=== PATIENT | female | born 2000 | race African-American/Black ===

== ENCOUNTER 2022-12-26 15:19 | Emergency (ER) | payer SELFPAY ==
[2022-12-26 15:21] VITALS: BP 142/96; PULSE 83; RESP 16; TEMP 36.3; O2SAT 100; BMI 33.2
--- NOTE | 2022-12-26 15:29 | US_ITS ---
INDICATION: pelvic pain EXAMINATION: Ultrasound US Transvaginal Non-OB TECHNIQUE: Transvaginal (for optimal evaluation of the adnexa) pelvic ultrasound was performed. Grayscale, spectral waveform, and color flow Doppler evaluation of the adnexa. COMPARISON: None. FINDINGS: UTERUS: Anteverted. The uterus measures 7.3 x 4.0 x 2.8 cm. There is no uterine mass. The endometrial stripe measures 2 mm in AP diameter which is within normal limits. There is an IUD in place. RIGHT OVARY: 3.7 x 1.2 x 1.4 cm. Non-enlarged, normal echogenicity. There is normal arterial inflow and venous outflow present in the right ovary. LEFT OVARY: 3.1 x 2.3 x 2.0 cm. Non-enlarged, normal echogenicity. There is normal arterial inflow and venous outflow present in the left ovary. FREE FLUID: Mild. Distended urinary bladder with possible debris. US/Transvaginal Non- IMPRESSION: IUD in place. Mild pelvic fluid. There is debris suspected in the urinary bladder. Infectious etiology cannot be excluded. Electronically Signed: Juan Salcedo DO at 17:11 EDT Reading Location ID and State: [facility] / [place] Tel [phone], Service support ,
--- NOTE | 2022-12-26 15:31 | ED.VIS.FEGU ---
HPI HPI - Female History of Present Illness Chief Complaint: Vag Bleeding Detail of Chief Complaint: Pelvic pain Informant: patient Pain Pain: Positive for Pelvic Pain Onset: Days Context: Gradual Onset Timing: Intermittent Quality: Positive for Cramping Current Severity: Mild Maximum Severity: Mild Bleeding Issue: Positive for Vaginal bleeding Onset: Days Context: Gradual Onset Timing: Intermittent Current Severity: Similar to period Maximum Severity: Similar to period Associated Symptoms Associated Symptoms: Negative for Dysuria, Frequency or Urgency P: 1 Ab: 1 Narrative Narrative: 22-year-old female from [place] moved to [place] currently has no local primary care physicians. Has a history of asthma. States she has had lower abdominal pelvic cramping for about a week. Started having vaginal bleeding has gotten heavier last 2 days similar to her menstrual period. Denies any dysuria or fever. Her last menstrual period was 11/30/2022 and only lasted 2 days. She does have an IUD in place. Denies any discharge. Patient's Ab1 with that being elective. Prior similar symptoms: Yes Recent Illness/Hospitalization: No PFSH PFSH Medical History (Updated 12/26/22 @ 17:[address] Ash Sim MD) Asthma Allergy/AdvReac Type Severity Reaction Status Date / Time No Known Allergies Allergy Verified 12/26/22 15:21 Family History (Updated 12/26/22 @ 15:37 by Marisa Ugarte) Father Diabetes Hypertension Mother Hypertension Surgical History no surgical history Social History Smoking Status: Never smoker ROS ROS ED ROS Narrative Pelvic pain. Vaginal bleeding. Review of Systems ROS Unobtainable: Denies due to encephalopathy Constitutional Constitutional ED: Denies chills or fever(s) Eyes Eyes: Denies blurry vision ENT ENT ED: Denies ear pain Cardiovascular Cardiovascular: Denies chest pain Respiratory/Chest Respiratory/Chest: Denies cough Gastrointestinal Gastrointestinal: Reports abdominal pain and other Details: Lower abdominal/pelvic pain. Genitourinary Genitourinary ED: Denies dysuria Musculoskeletal Musculoskeletal: Denies arthralgias Integumentary Denies abscess Neurologic Neurologic: Denies headache(s) Psychiatric Psychiatric: Denies anxiety Endocrine Endocrinology: Denies heat intolerance Hematologic/Lymphatic Hematologic/Lymphatic: Denies easy bleeding Allergic/Immunologic Allergic/Immunologic ED: Denies mouth swelling or tongue swelling EXAM Physical Exam Narrative Exam Narrative: Well-appearing 22-year-old female. Vital signs stable afebrile. H EENT exam unremarkable. Lungs clear. Heart regular rhythm rate about 80 no murmur. Abdomen soft nondistended normal bowel sounds no peritoneal signs. Minimal suprapubic tenderness. No right upper or right lower quadrant tenderness. No Abdullahi sign or McBurney's point tenderness. No distention. Back nontender. Moving all 4 extremities. Nontender no edema. Neurologically awake and alert with no focal motor deficits. Const Vital Signs: 12/26/22 15:21 Temperature 97.3 F L Temperature Source Temporal Pulse Rate 83 Respiratory Rate 16 Blood Pressure 142/96 H Blood Pressure Mean 111 Pulse Ox 100 Oxygen Delivery Method Room Air Positive well nourished and well developed; Negative for cachectic, contractures or unkempt General Appearance ED: well developed; Negative for unkempt, cachectic, contractures or pallor Nutritional Appearance: Negative for cachectic HEENT Reports moist mucous membranes Negative for trauma or tenderness Eyes PERRL and EOMs intact bilaterally General Eye ED: Negative for pale conjunctiva or scleral icterus Neck no lymphadenopathy, supple and no JVD General: Negative for other Thyroid: Negative for tender Lymph Lymphatic: Negative for other Chest Wall inspection of chest normal and palpation of chest normal Chest: Negative for other Resp normal respiratory effort and clear to auscultation bilaterally Effort and Inspection: Negative for pain with movement Auscultation: Negative for rales, rhonchi or wheezes Cardio regular rate, regular rhythm, S1 normal heart sound, no murmurs and no JVD Rate: Negative for bradycardia Rhythm: Negative for abnormal rhythm GI normal to inspection, nondistended, normoactive bowel sounds, soft to palpation, non-distended and no masses; Negative for non-tender GI Narrative: Mild suprapubic discomfort only. No peritoneal signs. Auscultation: normoactive bowel sounds Palpation: tender; Negative for guarding, rigid, hepatomegaly, splenomegaly, mass or other Back/Spine no CVA tenderness General Back: Negative for CVA tenderness Cervical Spine: Negative for cervical spine tenderness Thoracic Spine / Upper Back: Negative for thoracic spinal tenderness Lumbar Spine / Lower Back: Negative for lumbar spinal tenderness Sacrum: Negative for other Extremity normal to inspection and full ROM General Extremety ED: Negative for edema or tenderness General Extremity: Negative for edema Neuro oriented x3 and CN's II-XII intact bilaterally Sensorium / Orientation: alert, oriented to person, oriented to place and oriented to time; Negative for confused, lethargic or stuporous Motor Exam: strength 5/5 throughout Psych mental status grossly normal Appearance: Negative for unkempt Attitude: No agitated Speech: No other Mood & Affect: Negative for depressed, anxious or tearful Skin no rashes or lesions noted and no wounds General Skin Exam: Negative for jaundice or pallor Rashes: No rashes noted Trauma: Negative for other MDM MDM MDM Narrative Medical decision making narrative: 22-year-old female with vaginal bleeding and pelvic pain. CBC, UA and test to be obtained. This may just be a heavier menstrual period with cramping. 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 Rule out and/or ectopic. Rule UTI. Pelvic ultrasound will be obtained possible cyst versus other etiologies. Repeat exam patient is doing well at 5:45 PM. Abdomen is benign. We discussed her test results. She will be discharged home follow-up with local APPRENTICESHIP TRAINING REPRESENTATIVE. The OB on-call is Dr[facility] Bow[facility]. I did offer a pelvic exam to the patient and she preferred to wait till she saw a female mill representative. Patient will use Motrin Tylenol for pain. Return if increasing pain, fever or feeling worse. She understands we do not have a specific cause for her discomfort at this time. A urine culture will be sent but the initial urinalysis does not show any significant signs of infection. History & Record Review Discussion w/independent historian: Patient Lab Data Attestation: I reviewed the patient's lab results. Lab results narrative: CBC unremarkable. White count of 6. H&H 12.7 and 40. Platelets 319. Urinalysis negative. No nitrates. Serum test negative. Ultrasound showed no acute findings. Labs: Laboratory Results - last 24 hr 12/26/22 12/26/22 12/26/22 15:40 15:40 15:44 WBC 6.7 RBC 4.70 Hgb 12.7 Hct 40.9 MCV 87.0 MCH 27.0 MCHC 31.1 L RDW Std Deviation 44.0 H RDW Coeff of Alethea 13.6 Plt Count 319 MPV 9.0 Immature Gran % (Auto) 0.300 Neut % (Auto) 57.1 Lymph % (Auto) 28.1 [place] % (Auto) 6.7 Eos % (Auto) 7.5 H Baso % (Auto) 0.3 Absolute Neuts (auto) 3.8 Absolute Lymphs (auto) 1.88 Nucleated RBC % 0 Serum , Qual NEGATIVE Urine Color Yellow Urine Clarity Clear Urine pH 8.0 Ur Specific [place] 1.015 Urine Protein Negative Urine Glucose (UA) Normal Urine Ketones Negative Urine Occult Blood 150 H Urine Nitrite Negative Urine Bilirubin Negative Urine Urobilinogen Normal Ur Leukocyte Esterase Negative Urine RBC 0-5 SEEN Urine WBC 0 SEEN Ur Squamous Epith Cells 0-5 SEEN Urine Bacteria 1+ Urine Mucus 0 SEEN Radiography Diagnostic Testing: Clinical Impression(s) from Imaging Studies Transvaginal US 12/26/22 15:29 IMPRESSION: IUD in place. Mild pelvic fluid. There is debris suspected in the urinary bladder. Infectious etiology cannot be excluded. Electronically Signed: Juan Salcedo DO at 17:11 EDT Reading Location ID and State: [address] [place] [address] Tel [phone], Service support , Discharge Plan Triage Chief Complaint: Vag Bleeding Other Complaint: Abd Pain ED Provider: Ash Sim Dx/Rx/DC Orders Clinical Impression: Pelvic pain, Vaginal bleeding Instructions: ED Pelvic Pain, Unknown Cause Primary Care Provider: Care Physician,No Primary Referrals: Tru Bowman MD [Med Staff - Active Staff] - As soon as possible NOT,DEFINED [Non-Staff] - Activity Restrictions/Additional Instructions: Call the office of the APPRENTICESHIP TRAINING REPRESENTATIVE, Dr. Bowman, tomorrow to get an appointment to be reevaluated. Motrin and Tylenol for pain. Return if increasing pain, fever or much heavier bleeding. Your labs and ultrasound today did not show any specific cause for your discomfort. Disposition Disposition: Home, Self Care
[2022-12-26 15:51] LABS: Mucous, Urine 0 SEEN /hpf (<or=2+); White Blood Cells 0 SEEN /hpf (0-5)
[2022-12-26 15:51] LABS: Absolute Lymphocyte Count 1.88 X10^3/uL (0.83-4.51); Absolute Neutrophil Count 3.8 X10^3/uL (2.0-7.7); Basophil# 0.02 X10^3/uL; Basophil% 0.3 % (0-1); Eosinophils% 7.5 % (0-5); Hematocrit 40.9 % (37-47); Hemoglobin 12.7 g/dL (12.0-15.0); Lymphocyte # 1.88 X10^3/ul (0.83-4.51); Lymphocyte % 28.1 % (19-41); Mean Corp Hgb Conc 31.1 g/dL (32-36); Monocyte# 0.45 X10^3/uL; Monocyte% 6.7 % (0-10); NRBC Flagged by Analyzer 0 % (0-5); Neutrophil # 3.82 X10^3/uL (2.7-7.7); Neutrophil % 57.1 % (47-70); Platelet Count 319 K/mm3 (150-450); RBC Distribution Width CV 13.6 % (11.6-14.6); White Blood Count 6.7 K/mm3 (4.4-11.0)
[2022-12-26 15:52] LABS: Color, Urine Yellow (Yellow); Glucose, Dipstick Normal (Normal); Ketone-Dipstick Negative (Negative); Leukocyte Esterase-Dipstick Negative /ul (Negative); Nitrite-Dipstick Negative (Negative); Occult Blood-Urine 150 /ul (Negative); Protein-Dipstick Negative (Negative); Specific Gravity, Urine 1.015 (1.002-1.030); Urine Bilirubin Dipstick Negative (Negative); Urine Clarity Clear (Clear); Urine Urobilinogen Normal (Normal)
[2022-12-26 16:25] LABS: Bacteria 1+ /hpf (None Seen); Red Blood Cells-Urine 0-5 SEEN /hpf (0-5); Squamous Epithelial Cells - UA 0-5 SEEN /hpf (5-10)
[2022-12-26 16:37] LABS: Internal QC Validated? YES +Cl - CLEAR BKGD; Pregnancy, Serum, hCG Quali. NEGATIVE Negative
== END 2022-12-26 17:54 | disposition home or self-care (01) ==
PROVIDERS: Emergency Provider Emergency Medicine; Visit Provider Emergency Medicine
DX: N93.9 Abnormal uterine and vaginal bleeding, unspecified (principal); R10.2 Pelvic and perineal pain; Z79.3 Long term (current) use of hormonal contraceptives
CPT/HCPCS: 76830; 81001; 84703; 85025; 87077; 87086; 87088; 87186; 93976; 99283

== ENCOUNTER 2023-03-04 09:36 | Emergency (ER) | payer SELFPAY ==
[2023-03-04 09:38] VITALS: BP 137/98; PULSE 151; RESP 18; TEMP 37.4; O2SAT 98; BMI 30.9
--- NOTE | 2023-03-04 09:41 | EKG12_ITS ---
Test Reason : PALPITATIONS Blood Pressure : / mmHG Vent. Rate : 126 BPM Atrial Rate : 126 BPM P-R Int : 152 ms QRS Dur : 070 ms QT Int : 298 ms P-R-T Axes : 059 -10 053 degrees QTc Int : 431 ms Sinus tachycardia Septal infarct , age undetermined Inferior infarct , age undetermined Abnormal ECG No previous ECGs available Confirmed by NICOLE NOGUEIRA, PAUL ([id number]), marketing editor MINDY HUGGINS ([id number]) on 04/30/2023 1:42:44 PM Referred By: TELLY/NEEL Confirmed By:PAUL RIVERA MD
--- NOTE | 2023-03-04 09:42 | ED.VIS.CHEST ---
HPI History of Present Illness Chief Complaint: Palpitations [facility] Medical History (Updated 03/04/23 @ 12:[address] Ruben Hernandez, DO) Abdominal pain Asthma Contact with and (suspected) exposure to other viral communicable diseases Home Medications ondansetron 4 mg disintegrating tablet 4 mg PO Q8H PRN nausea and vomiting 5 days #15 tabs 03/04/23 [Rx Last Taken Unknown] sulfamethoxazole 800 mg-trimethoprim 160 mg tablet (Bactrim DS) 1 tab PO BID 7 days #14 tabs 03/04/23 [Rx Last Taken Unknown] Allergy/AdvReac Type Severity Reaction Status Date / Time No Known Allergies Allergy Verified 03/04/23 09:38 Family History Father Diabetes Hypertension Mother Hypertension Social History Smoking Status: Never smoker EXAM Physical Exam Const Vital Signs: 03/04/23 09:38 03/04/23 10:00 03/04/23 12:01 Temperature 99.3 F H Temperature Source Temporal Pulse Rate 151 H 100 Respiratory Rate 18 18 Respiratory Effort Normal Non-Labored Blood Pressure 137/98 H 177/72 H Blood Pressure Mean 111 107 Pulse Ox 98 98 Oxygen Delivery Method Room Air Room Air 03/04/23 12:49 Temperature Temperature Source Pulse Rate 75 Respiratory Rate 14 Respiratory Effort Blood Pressure 119/68 Blood Pressure Mean Pulse Ox 97 Oxygen Delivery Method MDM MDM MDM Narrative Medical decision making narrative: HISTORY OF PRESENT ILLNESS: 22-year-old female here with palpitations. She states she been feeling unwell for the last 2 days. Notes she went to urgent care received a COVID and flu test that she reports is negative. States because her heart was elevated told to come to the emergency department. She denies any diarrhea or excessive urination does note vomiting this morning. Denies any chest pain or shortness of breath. Denies any focal neurologic deficits such as weakness, slurred speech, visual loss. No head trauma recently. She is up-to-date on her COVID and flu vaccination. The patient denies recent surgery in the last 4 weeks or immobilization in the last 3 days, denies previous diagnosis of DVT or PE, hemoptysis, unilateral leg swelling or malignancy with treatment the last 6 months. No estrogen use noted. Patient denies sudden onset or thunderclap headache, denies maximal intensity within 1 minute, vomiting, neck pain or stiffness, changes in vision, fever, history malignancy, syncope, seizures. REVIEW OF SYSTEMS: Pertinent positives: Palpitations, headache, nausea Pertinent negatives: syncope focal weakness PHYSICAL EXAM: Nursing triage notes reviewed, Vital signs reviewed Constitutional: please see mdm HENT: MMM Eyes: Pupils equal round and reactive to light, Extraocular muscles intact Neck: No stridor, no JVD, full neck ROM Lungs: Clear to auscultation, No wheezing or rales. No increased work of breathing, no conversational dyspnea, no accessory muscle use, no nasal flaring. No respiratory distress noted Heart: Regular rate and rhythm, No murmurs, No rubs and No gallops, 2+ distal pulses (radial, femoral, posterior tibial) in all extremities Abdomen: Soft, there is no tenderness, rigidity, rebound or guarding, no obvious peritoneal signs, no palpable pulsatile abdominal masses, no auscultated abdominal bruit : No CVAT Extremities: No edema Neuro: Alert and oriented x3, neuro exam at baseline, cranial nerves II through XII are intact. No pain with extraocular muscle movement. There is negative test of skew. Normal speech. 5 of 5 strength in upper and lower extremities in flexion extension. Intact sensation to light touch in upper and lower extremity dermatomes. No truncal or extremity ataxia. No dysdiadochokinesia. Normal gait. 2+ reflexes. No meningeal signs. Negative Babinski. NIH of 0 Skin: No rash or lesions noted MEDICAL DECISION MAKING: Chief Complaint: Palpitations, headache External records reviewed: Last ED visit in December 2022 for pelvic pain Factors affecting care: none Social determinants of health: none History obtained from others: none Consults: none ALL IMAGES (IF OBTAINED) HAVE BEEN PERSONALLY REVIEWED AND INTERPRETED BY MYSELF. EKG with sinus tachycardia, left axis deviation normal intervals, no STEMI [facility] Narrative: Patient initially tachycardic borderline febrile nontoxic-appearing. Heart lung exam unremarkable. Abdomen soft and nontender neuro no focal neurologic deficits. I considered the following differential diagnosis: ICH, meningitis, pneumonia, UTI, COVID flu, other viral illness, Below suspicion for ICH given lack of focal neurologic deficit, low suspicion for meningitis or encephalitis given lack of meningeal signs, altered mental status or focal neurologic deficit. Patient stated COVID and flu test were negative which rules these diagnoses out. Obtained chest x-ray to rule out pneumonia and a UA to rule out UTI. Gave Zofran and Tylenol for symptomatic control and fluids for rehydration. Patient's tachycardia resolved after this intervention. Patient's EKG showed no evidence of arrhythmia, WPW or ARVD. EKG showed sinus tachycardia. I obtained labs rule out signs of anemia, electrolyte abnormality, dehydration, endorgan hypoperfusion, myocardial ischemia, thyroid dysfunction. Labs without evidence of thyroid dysfunction, myocardial ischemia. Labs with evidence of systemic inflammation as evidence by elevated WBC count. There is no significant acute kidney injury, there is no anion gap to suggest endorgan hypoperfusion, there is no evidence of myocardial ischemia. UA remarkable for evidence of UTI. Will give a dose ceftriaxone here and send urine for culture and give oral antibiotics. The patient and/or family, caregivers express understanding. The patient and/or family, caregivers agrees with the plan. Shared decision making: I will have a discussion with the patient and or visitors regarding risk/benefits of further testing or admission. They will be made aware of of the risk/benefits inherent in this decision they will be given the opportunity to voice understanding. Total critical care time today provided was at least 0 minutes. This excludes separately billable procedures. Critical care time (if documented) is secondary to the patient having high probability of clinically significant/life threatening deterioration in the patient's condition which required my urgent intervention. Lab Data Attestation: I reviewed the patient's lab results. Lab results narrative: CBC with leukocytosis suggestive of systemic inflammation, no anemia or thrombocytopenia BMP with mild hypokalemia, no anion gap to suggest endorgan hypoperfusion, no GELY Troponin is negative, no evidence of myocardial ischemia TSH within normal limits suggestive of no severe thyroid disease UA with evidence of UTI, will send for culture Urine test is negative Labs: Laboratory Results - last 24 hr 03/04/23 03/04/23 09:50 10:20 WBC 15.8 H RBC 4.47 Hgb 12.1 Hct 38.4 MCV 85.9 MCH 27.1 MCHC 31.5 L RDW Std Deviation 43.7 RDW Coeff of Alethea 13.8 Plt Count 315 MPV 9.4 Immature Gran % (Auto) 0.600 Neut % (Auto) 70.1 H Lymph % (Auto) 14.2 L [place] % (Auto) 14.5 H Eos % (Auto) 0.3 Baso % (Auto) 0.3 Absolute Neuts (auto) 11.1 H Absolute Lymphs (auto) 2.24 Nucleated RBC % 0 Differential Comment COMMENT Diff Path Review May foll Sodium 133 L Potassium 3.3 L Chloride 100 Carbon Dioxide 25.0 Anion Gap 8 BUN 6 L Creatinine 0.97 Estim Creat Clear Calc 93.46 Est GFR (MDRD) Af Amer 90 Est GFR (MDRD) Non-Af 75 BUN/Creatinine Ratio 6.2 L Glucose 128 H Calcium 8.9 Troponin I High Sens < 3 L TSH 0.64 Urine Color Yellow Urine Clarity Cloudy Urine pH 6.0 Ur Specific [place] 1.015 Urine Protein 100 H Urine Glucose (UA) Normal Urine Ketones 50 H Urine Occult Blood 150 H Urine Nitrite Positive H Urine Bilirubin 1 H Urine Urobilinogen 1 H Ur Leukocyte Esterase 500 H Urine RBC 0-5 SEEN Urine WBC >100 SEEN Ur Squamous Epith Cells 5-10 SEEN Urine Bacteria 2+ Urine Mucus 0 SEEN Urine Test Negative Radiography Chest X-Ray - ED: Read by ED Physician Diagnostic Testing: Clinical Impression(s) from Imaging Studies Chest X-Ray 03/04/23 11:04 IMPRESSION: Normal x-ray examination of the chest. Electronically Signed: Jd Danielle MD at 12:17 EDT Reading Location ID and State: [facility] / [place] , Service support , I have personally reviewed the patient's chest x-ray. Chest x-ray is unremarkable for pulmonary edema, pneumothorax, pneumonia or focal cardiopulmonary abnormality. Discharge Plan Triage Chief Complaint: Palpitations ED Provider: Ruben Hernandez Dx/Rx/DC Orders Clinical Impression: UTI (urinary tract infection), Fever, Tachycardia Instructions: ED Cystitis Female Adult Prescriptions: New sulfamethoxazole-trimethoprim [Bactrim DS] 800-160 mg tablet 1 tab PO BID 7 Days Qty: 14 0RF ondansetron 4 mg tablet,disintegrating 4 mg PO Q8H PRN (Reason: nausea and vomiting) 5 Days Qty: 15 0RF Primary Care Provider: Care Physician,No Primary Referrals: Care Physician,No Primary [Primary Care Provider] - Activity Restrictions/Additional Instructions: Thank you for trusting us with your care today! Please take Tylenol (2 pills, 650 mg), ibuprofen (2 pills, 400 mg) every 6 hours as needed for pain and fever control. Please take antibiotics until course complete. Please return to the emergency department if your symptoms change or worsen. Specifically develop nausea vomiting and tolerate things by mouth. If you develop worsening palpitations or if you lose consciousness. You develop shortness of breath. Please follow with your primary care physician for further outpatient evaluation and management. Disposition Disposition: Home, Self Care Discharge Date/Time: 03/04/23 13:13
[2023-03-04 10:24] LABS: Absolute Lymphocyte Count 2.24 X10^3/uL (0.83-4.51); Absolute Neutrophil Count 11.1 X10^3/uL (2.0-7.7); Basophil# 0.05 X10^3/uL; Basophil% 0.3 % (0-1); Eosinophil# 0.04 X10^3/uL; Eosinophils% 0.3 % (0-5); Hematocrit 38.4 % (37-47); Hemoglobin 12.1 g/dL (12.0-15.0); Lymphocyte # 2.24 X10^3/ul (0.83-4.51); Lymphocyte % 14.2 % (19-41); Mean Corp Hgb Conc 31.5 g/dL (32-36); Mean Corpuscular Hgb 27.1 pg (27.0-32.0); Mean Corpuscular Volume 85.9 fL (81-99); Mean Platelet Vol. 9.4 fl (6.2-12.0); Monocyte# 2.29 X10^3/uL; Monocyte% 14.5 % (0-10); NRBC Flagged by Analyzer 0 % (0-5); Neutrophil # 11.05 X10^3/uL (2.7-7.7); Neutrophil % 70.1 % (47-70); POSITIVE DIFFERENTIAL YES; Platelet Count 315 K/mm3 (150-450); RBC Distribution Width CV 13.8 % (11.6-14.6); RBC Distribution Width SD 43.7 fl (35.1-43.9); Red Blood Count 4.47 M/mm3 (4.2-5.4); White Blood Count 15.8 K/mm3 (4.4-11.0)
[2023-03-04 10:25] LABS: Differential Indicated SCAN CRITERIA MET
[2023-03-04] MEDS: 0.9% Normal Saline 1,000 ML 999 ML IV (10:27)
[2023-03-04] MEDS: Ondansetron 4 MG/2 ML Vial IV (10:27)
[2023-03-04] MEDS: Acetaminophen 500 MG Tablet 1000 MG PO (10:29)
[2023-03-04 10:32] LABS: Mucous, Urine 0 SEEN /hpf (<or=2+)
[2023-03-04 10:47] LABS: Color, Urine Yellow (Yellow); Glucose, Dipstick Normal (Normal); Ketone-Dipstick 50 mg/dl (Negative); Leukocyte Esterase-Dipstick 500 /ul (Negative); Nitrite-Dipstick Positive (Negative); Occult Blood-Urine 150 /ul (Negative); Protein-Dipstick 100 mg/dl (Negative); Specific Gravity, Urine 1.015 (1.002-1.030); Urine Bilirubin Dipstick 1 mg/dL (Negative); Urine Clarity Cloudy (Clear); Urine Urobilinogen 1 mg/dl (Normal)
[2023-03-04 10:47] LABS: Anion Gap 8 (5-15); BUN 6 mg/dL (7-18); BUN/Creat Ratio 6.2 RATIO (10-20); Calcium,Total 8.9 mg/dL (8.5-10.1); Chloride 100 mmol/L (98-107); Creatinine, Serum 0.97 mg/dL (0.55-1.02); EST Glomerular Filtration Rate 75 mL/min (>60); Est Glom Filt Rate - Afr Amer 90 mL/min (>60); Estimated Creatinine Clearance 93.46 ml/min; Glucose 128 mg/dL (74-106); Potassium 3.3 mmol/L (3.5-5.1); Sodium Level 133 mmol/L (136-145); Thyroid Stim Hormone (TSH) 0.64 uIU/mL (0.358-3.74); Troponin-I HS < 3 pg/mL (3.0-54.0)
[2023-03-04 10:56] LABS: Internal QC Validated? YES +Cl - CLEAR BKGD; Pregnancy, Urine Negative Negative
[2023-03-04 11:01] LABS: Bacteria 2+ /hpf (None Seen); Red Blood Cells-Urine 0-5 SEEN /hpf (0-5); Squamous Epithelial Cells - UA 5-10 SEEN /hpf (5-10); White Blood Cells >100 SEEN /hpf (0-5)
--- NOTE | 2023-03-04 11:04 | RAD_ITS ---
STUDY: X-RAY CHEST REASON FOR EXAM: Female, 22 years old. Palpitations TECHNIQUE: PA and lateral views of the chest. COMPARISON: None. FINDINGS: EKG electrodes are seen. The lungs are clear and expanded. There is no demonstrated pleural abnormality. Normal size heart. Normal mediastinum and carol. Normal visualized pulmonary arteries. Normal visualized aortic arch and descending thoracic aorta. Normal visualized thoracic spine. Normal visualized ribs, clavicles, and shoulders. There is no demonstrated abnormality of the visualized soft tissue structures of the upper abdomen. RAD/Chest PA and Lateral IMPRESSION: Normal x-ray examination of the chest. Electronically Signed: Jd Danielle MD at 12:17 EDT ,
[2023-03-04 12:01] VITALS: BP 177/72; PULSE 100; RESP 18; O2SAT 98
[2023-03-04] MEDS: Ceftriaxone 1 GM/50 ML BAG IV (12:06)
[2023-03-04 12:49] VITALS: BP 119/68; PULSE 75; RESP 14; O2SAT 97
--- NOTE | 2023-03-04 12:50 | CM.ED ---
Social Work SW met with the patient and introduced self and role as [facility] SW. Patient lying on hospital bed and agreeable to speak with SW. SW inquired about insurance coverage and connection to community resources. Patient reports she previous had Medicaid and needs to apply again, no other community resources currently. SW provided and reviewed Medicaid application as well as [facility] resource list to further discuss [facility]. Patient voiced understanding and reports no other needs. SW remains available if needs arise. Elsa Rodgers OPTICS MANUFACTURING TECHNICIAN, RACHID
[2023-03-05 12:32] LABS: Pathologist Review Reviewed
== END 2023-03-04 13:13 | disposition home or self-care (01) ==
PROVIDERS: Emergency Provider Emergency Medicine; Visit Provider Emergency Medicine
DX: N39.0 Urinary tract infection, site not specified (principal); R00.0 Tachycardia, unspecified; R50.9 Fever, unspecified
CPT/HCPCS: 71046; 80048; 81001; 81025; 84443; 84484; 85025; 87077; 87086; 87088; 87186; 93005; 96361; 96365; 96375; 99284; J7030; J7050; A4216; J2405

== ENCOUNTER 2023-06-10 17:29 | Emergency (ER) | payer SELFPAY ==
[2023-06-10 17:30] VITALS: BP 159/99; PULSE 110; RESP 18; TEMP 36.9; O2SAT 98; BMI 31.6
--- NOTE | 2023-06-10 17:56 | RAD_ITS ---
STUDY: X-RAY CHEST REASON FOR EXAM: Female, 23 years old. Chest pain TECHNIQUE: Single AP portable view of the chest. COMPARISON: March 04, 2023 FINDINGS: The lungs are clear and expanded. There is no demonstrated pleural abnormality. Normal size heart. Normal mediastinum and carol. Normal visualized pulmonary arteries. Normal visualized aortic arch and descending thoracic aorta. Normal visualized thoracic spine. Normal visualized ribs, clavicles, and shoulders. There is no demonstrated abnormality of the visualized soft tissue structures of the upper abdomen. RAD/Chest 1 View (Portable) IMPRESSION: Normal x-ray examination of the chest. Electronically Signed: Gaurang Farley MD at 18:20 [facility] ,
[2023-06-10 18:30] VITALS: BP 140/124; PULSE 93; RESP 16; O2SAT 98
[2023-06-10 18:31] LABS: Absolute Lymphocyte Count 2.21 X10^3/uL (0.83-4.51); Absolute Neutrophil Count 4.6 X10^3/uL (2.0-7.7); Basophil# 0.04 X10^3/uL; Basophil% 0.5 % (0-1); Eosinophil# 0.47 X10^3/uL; Eosinophils% 5.9 % (0-5); Hematocrit 41.1 % (37-47); Hemoglobin 12.9 g/dL (12.0-15.0); Lymphocyte # 2.21 X10^3/ul (0.83-4.51); Lymphocyte % 27.8 % (19-41); Mean Corp Hgb Conc 31.4 g/dL (32-36); Monocyte# 0.56 X10^3/uL; Monocyte% 7.1 % (0-10); NRBC Flagged by Analyzer 0 % (0-5); Neutrophil # 4.64 X10^3/uL (2.7-7.7); Neutrophil % 58.4 % (47-70); Platelet Count 370 K/mm3 (150-450); RBC Distribution Width CV 12.8 % (11.6-14.6); RBC Distribution Width SD 40.2 fl (35.1-43.9); Red Blood Count 4.78 M/mm3 (4.2-5.4); White Blood Count 7.9 K/mm3 (4.4-11.0)
[2023-06-10 18:49] LABS: Anion Gap 5 (5-15); BUN 11 mg/dL (7-18); BUN/Creat Ratio 12.5 RATIO (10-20); Calcium,Total 9.5 mg/dL (8.5-10.1); Chloride 103 mmol/L (98-107); Creatinine, Serum 0.88 mg/dL (0.55-1.02); EST Glomerular Filtration Rate 83 mL/min (>60); Est Glom Filt Rate - Afr Amer 101 mL/min (>60); Estimated Creatinine Clearance 102.13 ml/min; Glucose 101 mg/dL (74-106); Potassium 3.3 mmol/L (3.5-5.1); Sodium Level 137 mmol/L (136-145); Troponin-I HS (w/2H Reflex) 4 pg/mL (3.0-54.0)
--- NOTE | 2023-06-10 19:27 | EDS_ITS ---
HPI History of Present Illness Chief Complaint: Chest Pain Informant: patient Onset/Context/Timing Onset: Weeks Activity at onset: gradual Timing: Intermittent Quality: Positive for Sharp Location: Substernal Worsened By: Movement of Torso Relieved By: Nothing Associated Symptoms: Positive for Nausea, Vomiting and Palpitations; Negative for Diaphoresis, Dyspnea, Cough, Fever, Lightheadedness or Acid Reflux Narrative Narrative: Patient presents with chest pain that has been intermittent for the past week. Patient states it comes on gradually. Patient describes her pain as sharp. Patient states it is over the substernal area. Patient states it is worse with movement. Patient states nothing seems to help with it. Patient admits to some nausea and vomiting. Patient also admits to some palpitations where she feels like her heart is racing. Patient denies any fevers or chills. Patient denies any lightheadedness or dizziness. Patient denies any shortness of breath or cough. CVD Risk Factors: Negative for Hypertension, Diabetes, Hypercholesterolemia, Family History 1' </=55 or Smoking PE Risk Factors: Negative for Recent Travel/Surgery, Recent Immobilization, Prior DVT or PE, Cancer or OCP + Smoking + >/=35 PFSH PFSH Medical History Abdominal pain Asthma Contact with and (suspected) exposure to other viral communicable diseases Home Medications ondansetron 4 mg disintegrating tablet 4 mg PO Q8H PRN nausea and vomiting 5 days #15 tabs 03/04/23 [Rx Last Taken Unknown] Allergy/AdvReac Type Severity Reaction Status Date / Time No Known Allergies Allergy Verified 06/10/23 17:30 Family History Father Diabetes Hypertension Mother Hypertension Surgical History no surgical history no surgical history Social History Smoking Status: Never smoker alcohol intake: never ROS ROS ED Constitutional Constitutional ED: Denies chills or fever(s) Eyes Eyes: Denies blurry vision or change in vision ENT ENT ED: Denies rhinorrhea or sore throat Cardiovascular Cardiovascular: Reports chest pain, palpitations and racing heartbeat Respiratory/Chest Respiratory/Chest: Denies cough or dyspnea Gastrointestinal Gastrointestinal: Reports nausea and vomiting Genitourinary Genitourinary ED: Denies dysuria or hematuria Musculoskeletal Musculoskeletal: Reports back pain; Denies neck pain Integumentary Denies abscess or rash Neurologic Neurologic: Denies headache(s) or weakness Allergic/Immunologic Allergic/Immunologic ED: Denies mouth swelling or urticaria EXAM Physical Exam Const Vital Signs: 06/10/23 17:30 06/10/23 18:30 06/10/23 18:30 Temperature 98.4 F Temperature Source Temporal Pulse Rate 110 H 93 Respiratory Rate 18 16 Respiratory Effort Blood Pressure 159/99 H 140/124 H Blood Pressure Mean 119 129 Pulse Ox 98 98 98 Oxygen Delivery Method Room Air Room Air Room Air 06/10/23 18:30 06/10/23 19:28 06/10/23 20:17 Temperature Temperature Source Pulse Rate 92 90 Respiratory Rate 20 H 22 H Respiratory Effort Normal Blood Pressure 115/102 H Blood Pressure Mean 106 Pulse Ox Oxygen Delivery Method Room Air Positive well nourished, well developed and obese General Appearance ED: well developed and NAD Nutritional Appearance: obese HEENT Reports moist mucous membranes Neck supple and no JVD Resp normal respiratory effort and clear to auscultation bilaterally Cardio regular rate and regular rhythm GI soft to palpation, non-tender and non-distended Extremity normal to inspection General Extremety ED: Negative for edema or tenderness General Extremity: Negative for edema Neuro oriented x3, CN's II-XII intact bilaterally and no sensory deficits noted Sensorium / Orientation: awake and alert Motor Exam: strength 5/5 throughout Psych mental status grossly normal Heart Score History: Slightly/Non-Suspicious ECG: Normal Age: </= 45 years Risk Factors: No Risk Factors Troponin: </= Normal Limit Score: 0 MDM MDM MDM Narrative Medical decision making narrative: Differential diagnosis includes musculoskeletal pain, GERD, cardiac dysrhythmia, cardiac ischemia, electrolyte abnormality, pneumonia, and pneumothorax. Patient has a Wells score of 0 and has no PE risk factors. Therefore, I do not feel this is from a pulmonary embolism. EKG will be obtained to assess for cardiac dysrhythmia and cardiac ischemia. Chest x-ray will be obtained to assess for pneumonia and pneumothorax. CBC will be obtained to assess for leukocytosis and anemia. Basic metabolic profile will be obtained to assess for electrolyte abnormality and renal function. High-sensitivity troponin will be obtained to assess for cardiac ischemia. Lab Data Attestation: I reviewed the patient's lab results. Lab results narrative: CBC was reviewed and was within normal limits. Basic metabolic profile was reviewed and was within normal limits. High-sensitivity troponin was reviewed and was normal at 4. Labs: Laboratory Results - last 24 hr 06/10/23 18:20 WBC 7.9 RBC 4.78 Hgb 12.9 Hct 41.1 MCV 86.0 MCH 27.0 MCHC 31.4 L RDW Std Deviation 40.2 RDW Coeff of Alethea 12.8 Plt Count 370 MPV 9.0 Immature Gran % (Auto) 0.300 Neut % (Auto) 58.4 Lymph % (Auto) 27.8 [place] % (Auto) 7.1 Eos % (Auto) 5.9 H Baso % (Auto) 0.5 Absolute Neuts (auto) 4.6 Absolute Lymphs (auto) 2.21 Nucleated RBC % 0 Sodium 137 Potassium 3.3 L Chloride 103 Carbon Dioxide 29.0 Anion Gap 5 BUN 11 Creatinine 0.88 Estim Creat Clear Calc 102.13 Est GFR (MDRD) Af Amer 101 Est GFR (MDRD) Non-Af 83 BUN/Creatinine Ratio 12.5 Glucose 101 Calcium 9.5 Troponin I High Sens 4 Radiography Diagnostic Testing: Clinical Impression(s) from Imaging Studies Chest X-Ray 06/10/23 17:56 IMPRESSION: Normal x-ray examination of the chest. Electronically Signed: Gaurang Farley MD at 18:20 EST , Chest x-ray was obtained. On my independent interpretation, there is no acute cardiopulmonary process. There is no acute infiltrate noted. Bony thorax is normal. There is no cardiomegaly noted. Radiologist also interpreted the x- rays and agrees. EKG Initial EKG: Attestation: I personally reviewed and interpreted this EKG as follows: Interpretation: Sinus Rhythm (100) and No Acute Injury Pattern Comments: EKG was obtained. On my independent interpretation, shows normal sinus rhythm with a rate of 100. VA interval was normal. QRS interval was normal. QTc interval was normal. This was borderline left axis deviation at -16. There are no acute ST or T wave changes. There are no changes compared to previous EKG. Prior EKG tracings: available for review Prior: Unchanged (03/04/2023) Treatment and Re-Evaluation :: Patient was advised of her findings. Patient has a HEART score of 0. Patient was advised that this is low risk for acute cardiac event. Patient was instructed to follow-up with her primary care physician in 5 to 7 days for further evaluation. Patient understood and was agreeable with the plan. All questions were answered. Discharge Plan Triage Chief Complaint: Chest Pain ED Provider: Alireza Montalvo Dx/Rx/DC Orders Clinical Impression: Chest pain, History of asthma Instructions: ED Chest Pain, Uncertain Cause Prescriptions: No Action ondansetron 4 mg tablet,disintegrating 4 mg PO Q8H PRN (Reason: nausea and vomiting) 5 Days Qty: 15 0RF Primary Care Provider: Care Physician,No Primary Referrals: Jj Mathis MD [Med Staff - Social Media Specialist] - 5-7 Days Care Physician,No Primary [Primary Care Provider] - Disposition Disposition: Home, Self Care
[2023-06-10 19:28] VITALS: BP 115/102; PULSE 92; RESP 20
[2023-06-10 20:17] VITALS: PULSE 90; RESP 22
[2023-06-10 20:29] LABS: Reflex Troponin-HS? (from REC) Y
[2023-06-10 20:56] VITALS: BP 124/89; PULSE 90; RESP 22; O2SAT 97
[2023-06-10 20:57] LABS: Troponin-I HS 4 pg/mL (3.0-54.0)
== END 2023-06-10 20:57 | disposition home or self-care (01) ==
PROVIDERS: Emergency Provider Emergency Medicine; Visit Provider Emergency Medicine
DX: R07.9 Chest pain, unspecified (principal); Z87.09 Personal history of other diseases of the respiratory system
CPT/HCPCS: 71045; 80048; 84484; 85025; 93005; 99284; A4216

== ENCOUNTER 2023-07-03 09:54 | Emergency (ER) | payer SELFPAY ==
[2023-07-03 09:55] VITALS: BP 117/106; PULSE 144; RESP 16; TEMP 36.6; O2SAT 100; BMI 31.2
--- NOTE | 2023-07-03 10:19 | EX.ED.VIS.PS ---
HPI HPI - Psych History of Present Illness Chief Complaint: Suicidal Detail of Chief Complaint: Attempted overdose. Informant: patient Onset/Context/Timing Onset: Today and Hours Context: Sudden Onset Conflict: Family Timing: Continuous Current Severity: Mild Maximum Severity: Moderate Associated Symptoms Associated Symptoms - Psych: Positive for Depressed Specific plan (suicidal thought): Attempted overdose on ibuprofen Narrative Narrative: 23-year-old female originally from [facility] [facility] and moved to [facility] [place] [facility] about 13 years ago. She was on the phone today with her mom who is in her home country her parents are retired moved back there. Patient has a history of anxiety and depression but she is currently on no medications nor does she see a counselor. She became upset and tried to overdose on a bottle of ibuprofen. She is unsure how much she took. During the event her knocked the bottle out of her hands. She denies any vomiting since she took the medication which was about an hour prior to arrival. It was an to harm herself. She denies any prior mental health admissions. Prior similar symptoms: Yes Recent Illness/Hospitalization: No PFSH PFSH Medical History Asthma Home Medications NK 07/03/23 [History Last Taken Unknown] Allergy/AdvReac Type Severity Reaction Status Date / Time cat dander Allergy Mild Hives Verified 07/03/23 10:01 Social History Smoking Status: Never smoker ROS ROS ED ROS Narrative Denies recent illness. Review of Systems ROS Unobtainable: Denies due to encephalopathy Constitutional Constitutional ED: Denies chills or fever(s) Eyes Eyes: Denies blurry vision ENT ENT ED: Denies ear pain or rhinorrhea Cardiovascular Cardiovascular: Denies chest pain or palpitations Respiratory/Chest Respiratory/Chest: Denies cough or dyspnea Gastrointestinal Gastrointestinal: Reports nausea; Denies abdominal pain, constipation, diarrhea, melena or vomiting Genitourinary Genitourinary ED: Denies dysuria or hematuria Musculoskeletal Musculoskeletal: Denies arthralgias Integumentary Denies abscess Neurologic Neurologic: Denies headache(s) Psychiatric Psychiatric: Denies anxiety or depression Endocrine Endocrinology: Denies polydipsia or polyphagia Hematologic/Lymphatic Hematologic/Lymphatic: Denies easy bleeding or easy bruising Allergic/Immunologic Allergic/Immunologic ED: Denies mouth swelling, tongue swelling or urticaria EXAM Physical Exam Narrative Exam Narrative: Well-appearing 23-year-old female. Vital signs are stable. She is afebrile. She does not look septic or toxic. Currently she is awake alert. Answering questions and following commands. She makes good eye contact. She is cooperative. HEENT exam unremarkable. Atraumatic. Pupils round reactive light. Moist mucous membranes. Neck nontender no lymphadenopathy. No trauma. Lungs clear to auscultation bilaterally. Heart tachycardic rate about 130 no murmur. Chest wall and ribs nontender. Abdomen soft nontender. Back nontender. Moving all 4 extremities. Normal range of motion. Nontender. No edema. No track freeman. No trauma. Back nontender. Neurologically she is awake and alert. Answering questions following commands. No current signs of toxidrome. Const Vital Signs: 07/03/23 09:55 Temperature 97.8 F Temperature Source Temporal Pulse Rate 144 H Respiratory Rate 16 Blood Pressure 117/106 H Blood Pressure Mean 109 Pulse Ox 100 Oxygen Delivery Method Room Air Positive well nourished and well developed; Negative for obese, cachectic, contractures or unkempt General Appearance ED: well developed and NAD; Negative for unkempt, cachectic, contractures or pallor Nutritional Appearance: Negative for cachectic or obese HEENT Reports moist mucous membranes normocephalic and atraumatic; Negative for trauma or tenderness Eyes PERRL and EOMs intact bilaterally General Eye ED: Negative for pale conjunctiva, scleral icterus or other Neck no lymphadenopathy, supple and no JVD General: Negative for tenderness Resp normal respiratory effort and clear to auscultation bilaterally Effort and Inspection: Negative for retractions Auscultation: Negative for rales, rhonchi or wheezes Cardio S1 normal heart sound, S2 normal heart sound and no murmurs Palpation: Negative for other Rate: tachycardic; Negative for regular rate or bradycardia Rhythm: regular rhythm; Negative for abnormal rhythm GI non-tender, non-distended and no masses Inspection: Negative for abdominal distention Auscultation: normoactive bowel sounds Palpation: soft; Negative for tender or guarding Back/Spine no CVA tenderness General Back: Negative for CVA tenderness Cervical Spine: Negative for cervical spine tenderness Thoracic Spine / Upper Back: Negative for thoracic spinal tenderness Lumbar Spine / Lower Back: Negative for lumbar spinal tenderness Coccyx: Negative for other Extremity normal to inspection General Extremety ED: Negative for edema or tenderness General Extremity: Negative for edema Neuro oriented x3, CN's II-XII intact bilaterally and no sensory deficits noted Sensorium / Orientation: alert, oriented to person, oriented to place and oriented to time; Negative for orientation impaired, confused or lethargic Motor Exam: strength 5/5 throughout Psych mental status grossly normal, thought process normal, cooperative, affect normal, speech normal, activity/motor behavior normal and denies hallucinations; Negative for denies suicidal ideation Appearance: grossly normal; Negative for unkempt Attitude: calm, engaged, No paranoid, No withdrawn, No bizarre, No uncooperative, No evasive, No guarded, No belligerent, No agitated, No aggressive and No hostile Activity / Motor Behavior: appropriate eye contact Speech: normal speech Mood & Affect: depressed Thought Process: normal thought process Thought Content: normal thought content Attention / Concentration: attention grossly intact Memory / Cognition: memory grossly intact Insight: insight good Judgement: judgement good Skin General Skin Exam: Negative for jaundice or pallor Lesions: no lesions Rashes: no rashes Trauma: Negative for abrasion Wounds: Negative for amputation MDM MDM MDM Narrative Medical decision making narrative: 23-year-old female suicide attempt by overdose. Will 6 to be evaluated by our geriatric social work professor and go through ED mental health protocol labs. Repeat exam patient is doing well at 4:20 PM. Repeat alcohol level will be obtained. Still awaiting crisis evaluation. Patient is turned over to the afternoon physician for final disposition. History & Record Review Discussion w/independent historian: Patient Lab Data Attestation: I reviewed the patient's lab results. Lab results narrative: BC normal. White count of 4. H&H 13 and 40. Platelets 332. Electrolytes show potassium of 3.4. Gap of 5. Normal BUN and creatinine is 0.9. Glucose 112. Talk screen negative. COVID-negative. Salicylate level negative. Tylenol level negative. Alcohol level 200. Labs: Laboratory Results - last 24 hr 07/03/23 10:40 WBC 4.5 RBC 4.74 Hgb 13.0 Hct 40.8 MCV 86.1 MCH 27.4 MCHC 31.9 L RDW Std Deviation 41.7 RDW Coeff of Alethea 13.5 Plt Count 332 MPV 9.3 Immature Gran % (Auto) 0.400 Neut % (Auto) 48.6 Lymph % (Auto) 37.0 [place] % (Auto) 7.0 Eos % (Auto) 5.9 H Baso % (Auto) 1.1 H Absolute Neuts (auto) 2.2 Absolute Lymphs (auto) 1.68 Nucleated RBC % 0 Sodium 142 Potassium 3.4 L Chloride 111 H Carbon Dioxide 26.0 Anion Gap 5 BUN 7 Creatinine 0.90 Estim Creat Clear Calc 99.86 Est GFR (MDRD) Af Amer 98 Est GFR (MDRD) Non-Af 81 BUN/Creatinine Ratio 7.8 L Glucose 112 H Calcium 8.9 Serum , Qual NEGATIVE Salicylates < 1.7 L Urine Opiates Screen NEGATIVE Urine Methadone Screen NEGATIVE Acetaminophen < 2.0 L Ur Barbiturates Screen NEGATIVE Ur Phencyclidine Scrn NEGATIVE Ur Amphetamines Screen NEGATIVE MDMA (Ecstasy) Screen NEGATIVE U Benzodiazepines Scrn NEGATIVE Urine Cocaine Screen NEGATIVE U Cannabinoids Screen NEGATIVE Ur Drug Screen Comment Ethyl Alcohol 200.0 Discharge Plan Triage Chief Complaint: Suicidal ED Provider: Ash Sim Dx/Rx/DC Orders Clinical Impression: Suicide attempt by drug overdose, Suicidal ideation, Alcohol intoxication Prescriptions: No Action NK Primary Care Provider: Care Physician,No Primary Referrals: Care Physician,No Primary [Primary Care Provider] -
[2023-07-03 10:56] LABS: Absolute Lymphocyte Count 1.68 X10^3/uL (0.83-4.51); Absolute Neutrophil Count 2.2 X10^3/uL (2.0-7.7); Basophil# 0.05 X10^3/uL; Basophil% 1.1 % (0-1); Eosinophil# 0.27 X10^3/uL; Eosinophils% 5.9 % (0-5); Hematocrit 40.8 % (37-47); Lymphocyte # 1.68 X10^3/ul (0.83-4.51); Mean Corp Hgb Conc 31.9 g/dL (32-36); Mean Corpuscular Hgb 27.4 pg (27.0-32.0); Mean Corpuscular Volume 86.1 fL (81-99); Mean Platelet Vol. 9.3 fl (6.2-12.0); Monocyte# 0.32 X10^3/uL; NRBC Flagged by Analyzer 0 % (0-5); Neutrophil % 48.6 % (47-70); Platelet Count 332 K/mm3 (150-450); RBC Distribution Width CV 13.5 % (11.6-14.6); RBC Distribution Width SD 41.7 fl (35.1-43.9); Red Blood Count 4.74 M/mm3 (4.2-5.4); White Blood Count 4.5 K/mm3 (4.4-11.0)
[2023-07-03 11:05] LABS: Anion Gap 5 (5-15); BUN 7 mg/dL (7-18); BUN/Creat Ratio 7.8 RATIO (10-20); Calcium,Total 8.9 mg/dL (8.5-10.1); Chloride 111 mmol/L (98-107); EST Glomerular Filtration Rate 81 mL/min (>60); Est Glom Filt Rate - Afr Amer 98 mL/min (>60); Estimated Creatinine Clearance 99.86 ml/min; Glucose 112 mg/dL (74-106); Potassium 3.4 mmol/L (3.5-5.1); Sodium Level 142 mmol/L (136-145)
[2023-07-03 11:16] LABS: Internal QC Validated? YES +Cl - CLEAR BKGD; Pregnancy, Serum, hCG Quali. NEGATIVE Negative
[2023-07-03 11:37] LABS: Amphetamine Urine VISTA NEGATIVE (<1000 ng/mL); Barbiturate Urine VISTA NEGATIVE (< 200 ng/mL); Benzodiazepine Urine VISTA NEGATIVE (< 200 ng/mL); Cocaine Urine VISTA NEGATIVE (< 300 ng/mL); Ecstacy Urine VISTA NEGATIVE (< 500 ng/mL); Methadone Urine VISTA NEGATIVE (< 300 ng/mL); PCP Urine VISTA NEGATIVE (< 25 ng/mL); THC Urine VISTA NEGATIVE (< 50 ng/mL); Vista UDS pH Range 5
[2023-07-03 11:50] LABS: Acetaminophen (Tylenol) Level < 2.0 ug/mL (10.0-30.0); Salicylate < 1.7 mg/dL (2.8-20.0)
--- NOTE | 2023-07-03 13:06 | CM.ED ---
Social Work SW reviewed case. Pt has no insurance and will need psychiatric placement. SW is referring to crisis as pt will need [facility] funding in order to be placed. Pt alcohol level was also 200 and crisis will need level under 100 to assess. Pt is also likely to need a min. observation time due to ingestion. Charge notified. Pt chart faxed to crisis for review. SW will send updated info/labs as needed. Evelyn Chavis SOLAR INSTALLATION FOREMAN, ROD FILLER
[2023-07-03 16:00] VITALS: PULSE 107; RESP 18; O2SAT 99
[2023-07-03] MEDS: Ondansetron ODT 4 MG Tablet 8 MG PO (16:04)
--- NOTE | 2023-07-03 16:51 | ED.RN ---
CRISIS CALLED TO EVALUATE PATIENT.
[2023-07-03 20:49] VITALS: PULSE 90; RESP 18; O2SAT 99
--- NOTE | 2023-07-03 21:29 | EKG12_ITS ---
Test Reason : [facility] [place] Blood Pressure : / mmHG Vent. Rate : 095 BPM Atrial Rate : 095 BPM P-R Int : 182 ms QRS Dur : 072 ms QT Int : 374 ms P-R-T Axes : 069 009 057 degrees QTc Int : 469 ms Normal sinus rhythm Normal ECG No previous ECGs available Confirmed by NICOLE NOGUEIRA, PAUL ([id number]), video editor SANJUANITA LOVING ([id number]) on 07/08/2023 11:22:56 AM Referred By: Confirmed By:PAUL RIVERA MD
[2023-07-03 23:30] VITALS: PULSE 92; RESP 18; O2SAT 99
[2023-07-04 01:00] VITALS: RESP 16
[2023-07-04 02:00] VITALS: RESP 14
[2023-07-04 03:00] VITALS: RESP 16
[2023-07-04 03:18] VITALS: RESP 14
[2023-07-04 06:39] VITALS: BP 121/74; PULSE 81; RESP 16; O2SAT 100
--- NOTE | 2023-07-04 07:17 | ED.RN ---
ETA FOR PATIENT 10:30
--- NOTE | 2023-07-04 08:36 | ED.RN ---
ATTEMPTED TO CALL REPORT TO GENERATIONS, NO ANSWER
[2023-07-04 08:37] VITALS: BP 137/62; PULSE 76; RESP 15; O2SAT 98
== END 2023-07-04 08:40 ==
PROVIDERS: Emergency Provider Emergency Medicine; Visit Provider Emergency Medicine
DX: T39.312A Poisoning by propionic acid derivatives, intentional self-harm, initial encounter (principal); F10.129 Alcohol abuse with intoxication, unspecified; Y90.7 Blood alcohol level of 200-239 mg/100 ml
CPT/HCPCS: 80048; 80307; 80329; 82077; 84703; 85025; 87811; 93005; 99284; G0480

== ENCOUNTER 2023-09-10 22:25 | Emergency (ER) | payer OTHER, SELFPAY ==
[2023-09-10 22:29] VITALS: BP 133/77; PULSE 83; RESP 18; TEMP 35.9; O2SAT 100
--- NOTE | 2023-09-10 22:35 | RAD_ITS ---
INDICATION: injury EXAMINATION/TECHNIQUE: X-RAY - LEFT XR Wrist Min 3 Views COMPARISON: None. FINDINGS: SOFT TISSUES: Unremarkable. BONES/JOINTS: No fracture or dislocation. No significant degenerative changes. No erosive changes. RAD/Wrist min 3 Views IMPRESSION: No fracture or dislocation. Electronically Signed: Jesse Magdaleno DO at 23:16 EST ,
[2023-09-10 23:34] VITALS: BP 147/93
--- NOTE | 2023-09-10 23:52 | EX.ED.UPPERE ---
HPI History of Present Illness Chief Complaint: Upper Extremity Injury Informant: patient Narrative Narrative: Patient is a 23-year-old female with past medical history of asthma. 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 She states she tried to catch the patient and her left hand/wrist got bent in an awkward direction. She states she was able to finish her shift but has had persistent pain and swelling since the injury and with concern for underlying trauma was sent in for evaluation. Patient does states she is left-hand dominant [facility] Medical History Asthma Home Medications NK 07/03/23 [History Last Taken Unknown] Allergy/AdvReac Type Severity Reaction Status Date / Time cat dander Allergy Mild Hives Verified 09/10/23 22:29 Social History Smoking Status: Never smoker ROS ROS ED Constitutional Constitutional ED: Denies chills or fever(s) ENT ENT ED: Denies sore throat Cardiovascular Cardiovascular: Denies chest pain Respiratory/Chest Respiratory/Chest: Denies cough or dyspnea Gastrointestinal Gastrointestinal: Denies abdominal pain, diarrhea, nausea or vomiting Genitourinary Genitourinary ED: Denies dysuria Musculoskeletal Musculoskeletal: Reports other Details: Positive left wrist/hand pain Integumentary Denies rash Neurologic Neurologic: Denies headache(s), paresthesias or weakness Hematologic/Lymphatic Hematologic/Lymphatic: Denies easy bleeding or easy bruising EXAM Physical Exam Const Vital Signs: 09/10/23 22:29 09/10/23 23:34 Temperature 96.7 F L Temperature Source Temporal Pulse Rate 83 Respiratory Rate 18 Blood Pressure 133/77 H 147/93 H Blood Pressure Mean 95 111 Pulse Ox 100 Oxygen Delivery Method Room Air Positive well nourished and well developed General Appearance ED: well developed HEENT HEENT Narrative: Normocephalic atraumatic Eyes PERRL and EOMs intact bilaterally Neck supple Resp normal respiratory effort and clear to auscultation bilaterally Cardio regular rate and regular rhythm Extremity Extremity Narrative: Left upper extremity is neurovascularly intact; AIN/PIN are intact and normal. Active range of motion is decreased secondary to pain. There is mild pain on palpation diffusely across the dorsal aspect of the left wrist. There is increased pain with extension and flexion of the wrist as well. No obvious bony deformity or joint effusion. No ligamentous laxity. No pain in the anatomical snuffbox. Remainder of the exam is normal Neuro oriented x3, CN's II-XII intact bilaterally, moves all extremities and no sensory deficits noted Sensorium / Orientation: alert Psych mental status grossly normal Skin no rashes or lesions noted Skin Narrative: No abrasions or ecchymosis noted MDM MDM MDM Narrative Medical decision making narrative: Patient arrived to the ER with report of direct trauma to the left wrist. Differential diagnosis is for wrist sprain/strain versus contusion versus fracture. Secondary to this an x-ray was obtained. X-ray revealed no acute findings and by exam she does not have signs of ligamentous rupture or tendon injury indicating she has a wrist sprain. At this time as she is neurovascularly intact without signs of ligamentous or tendon tear there is no need for emergent orthopedic consultation and she is otherwise safe for discharge with symptomatic care History & Record Review Discussion w/independent historian: Patient Radiography Diagnostic Testing: Clinical Impression(s) from Imaging Studies Wrist X-Ray 09/10/23 22:35 IMPRESSION: No fracture or dislocation. Electronically Signed: Jesse Magdaleno DO at 23:16 EST Reading Location ID and State: [facility] / [place] Tel , Service support , X-ray of the left wrist as interpreted by the emergency medicine physician reveals no acute fracture or dislocation or joint effusion Discharge Plan Triage Chief Complaint: Upper Extremity Injury ED Provider: Benson Mehta Dx/Rx/DC Orders Clinical Impression: Left wrist sprain, History of asthma Instructions: ED Wrist Sprain Prescriptions: No Action NK Primary Care Provider: Care Physician,No Primary Referrals: Care Physician,No Primary [Primary Care Provider] - Activity Restrictions/Additional Instructions: Wear your wrist brace for stabilization to help reduce pain and speed healing. Take Tylenol and/or Motrin for pain control. Adhere to the work restrictions to allow for proper healing to occur and return to the ER should you have any further concerns Disposition Disposition: Home, Self Care Discharge Date/Time: 09/11/23 00:03
[2023-09-11 00:02] VITALS: BP 147/93; PULSE 83; RESP 16; TEMP 36.8; O2SAT 100
== END 2023-09-11 00:03 | disposition home or self-care (01) ==
PROVIDERS: Emergency Provider Emergency Medicine; Visit Provider Emergency Medicine
DX: S63.502A Unspecified sprain of left wrist, initial encounter (principal); J45.909 Unspecified asthma, uncomplicated; X58.XXXA Exposure to other specified factors, initial encounter; Y93.89 Activity, other specified; Y99.0 Civilian activity done for income or pay; Y92.89 Other specified places as the place of occurrence of the external cause
CPT/HCPCS: 73110; 99282

== ENCOUNTER 2024-01-21 08:23 | Emergency (ER) | payer SELFPAY ==
[2024-01-21 08:24] VITALS: BP 143/99; PULSE 110; RESP 18; TEMP 36.3; O2SAT 100; BMI 31.8
--- NOTE | 2024-01-21 08:36 | EDS_ITS ---
HPI History of Present Illness Chief Complaint: Wound Check [facility] Medical History Asthma Home Medications ?Medication ?Instructions ?Recorded ?Last Taken ?Type NK 07/03/23 Unknown History Allergy/AdvReac Type Severity Reaction Status Date / Time cat dander Allergy Mild Hives Verified 10/08/23 12:07 Family History (System 09/19/23 @ 09:38 by Shiloh Marcum) Father Diabetes Hypertension Mother Hypertension Social History (System 09/19/23 @ 09:38 by Shiloh Marcum) Smoking Status: Never smoker alcohol intake: never EXAM Physical Exam Const Vital Signs: 01/21/24 08:24 Temperature 97.3 F L Temperature Source Temporal Pulse Rate 110 H Respiratory Rate 18 Blood Pressure 143/99 H Blood Pressure Mean 113 Pulse Ox 100 Oxygen Delivery Method Room Air MDM MDM MDM Narrative Medical decision making narrative: HISTORY OF PRESENT ILLNESS: 23-year-old female presents with blister right foot. Denies any injury. REVIEW OF SYSTEMS: Pertinent positives: Wound to right foot Pertinent negatives: [] PHYSICAL EXAM: Nursing triage notes reviewed, Vital signs reviewed Constitutional: please see mdm Extremities: No edema, intact pulses, compartments are soft, Neuro: Intact sensation L1-S1 dermatomal distributions. Intact 5/5 strength in hip flexion (T12-L3). Knee extension (L2-L4). Ankle dorsiflexion (L4-L5). Ankle plantar flexion (S1). Great toe extension (L5). 2+ patellar and Achilles DTRs. Skin: No rash or lesions noted MEDICAL DECISION MAKING: Chief Complaint: Wound to right foot External records reviewed: Reviewed prior ED records. Reviewed prior outpatient records Factors affecting care: Asthma Social determinants of health: none History obtained from others: none Consults: none MDM Narrative: Patient was initially hemodynamically stable, she is afebrile she is nontoxic- appearing she is slightly tachycardic upon arrival. I considered the following differential diagnosis: Abscess, cellulitis, necrotizing fasciitis, contact dermatitis ALL IMAGES (IF OBTAINED) HAVE BEEN PERSONALLY REVIEWED AND INTERPRETED BY MYSELF. [] The patient and/or family, caregivers express understanding. The patient and/or family, caregivers agrees with the plan. Shared decision making: I will have a discussion with the patient and or visitors regarding risk/benefits of further testing or admission. They will be made aware of of the risk/benefits inherent in this decision they will be given the opportunity to voice understanding. Total critical care time today provided was at least 0 [] minutes. This excludes separately billable procedures. Critical care time (if documented) is secondary to the patient having high probability of clinically significant/life threatening deterioration in the patient's condition which required my urgent intervention. Impression: 1. [] Dispo: [] This note was generated with [employer] dictation software. It may contain incorrect words, spelling, and punctuation that were not noted in review of the chart prior to signing. Discharge Plan Triage Chief Complaint: Wound Check ED Provider: Ruben Hernandez Dx/Rx/DC Orders Prescriptions: No Action NK Primary Care Provider: Care Physician,No Primary Referrals: Care Physician,No Primary [Primary Care Provider] - Print Language: Fijian
--- NOTE | 2024-01-21 08:36 | EX.ED.DYSGE1 ---
HPI History of Present Illness Chief Complaint: Wound Check [facility] Medical History Asthma Home Medications ?Medication ?Instructions ?Recorded ?Last Taken ?Type sulfamethoxazole 800 1 tab PO BID #14 tabs 01/21/24 Unknown Rx mg-trimethoprim 160 mg tablet (Bactrim DS) Allergy/AdvReac Type Severity Reaction Status Date / Time cat dander Allergy Mild Hives Verified 01/21/24 08:45 Family History (System 09/19/23 @ 09:38 by Shiloh Marcum) Father Diabetes Hypertension Mother Hypertension Social History (System 09/19/23 @ 09:38 by Shiloh Marcum) Smoking Status: Never smoker alcohol intake: never EXAM Physical Exam Const Vital Signs: 01/21/24 08:24 Temperature 97.3 F L Temperature Source Temporal Pulse Rate 110 H Respiratory Rate 18 Blood Pressure 143/99 H Blood Pressure Mean 113 Pulse Ox 100 Oxygen Delivery Method Room Air MDM MDM MDM Narrative Medical decision making narrative: HISTORY OF PRESENT ILLNESS: 23-year-old female presents with blister right foot. Denies any injury. Patient notes recent travel to [facility] and returned last week. States on Friday she noticed some irritation and itching on her dorsal lower right foot. States she began scratching and since then has developed redness and a blister. She notes some pain as well. Denies fever or chills. Denies vomiting. Denies any trauma to the area. Notes she is wearing sandals during her travels but did not come in contact with any water source or any known contaminants. Denies history of diabetes or other immunocompromising states. REVIEW OF SYSTEMS: Pertinent positives: Wound to right foot Pertinent negatives: Vomiting, fever, chills, PHYSICAL EXAM: Nursing triage notes reviewed, Vital signs reviewed Constitutional: please see mdm Extremities: No edema, intact pulses, compartments are soft, Neuro: Intact sensation L1-S1 dermatomal distributions. Intact 5/5 strength in hip flexion (T12-L3). Knee extension (L2-L4). Ankle dorsiflexion (L4-L5). Ankle plantar flexion (S1). Great toe extension (L5). 2+ patellar and Achilles DTRs. Skin: There is approximately 3 x 3 cm area of erythema noted to the dorsal surface of the right foot, there is a large blister noted as well is full of fluid. MEDICAL DECISION MAKING: Chief Complaint: Wound to right foot External records reviewed: Reviewed prior ED records. Reviewed prior outpatient records Factors affecting care: Asthma Social determinants of health: none History obtained from others: none Consults: none [facility] Narrative: Patient was initially hemodynamically stable, she is afebrile she is nontoxic-appearing she is slightly tachycardic upon arrival. I considered the following differential diagnosis: Abscess, cellulitis, necrotizing fasciitis, contact dermatitis There is no crepitus, or pain on proportion to exam to suggest necrotizing fasciitis. There is a small ring of erythema around the blistering area that is likely consistent with cellulitis. There is no obvious purulent abscess. I used topical let then an 18-gauge needle to expectorate some fluid, sent wound culture. Gave prophylactic anti-MRSA antibiotics (Bactrim for 7 days). Give strict return precautions and follow-up instructions. The patient and/or family, caregivers express understanding. The patient and/or family, caregivers agrees with the plan. Shared decision making: I will have a discussion with the patient and or visitors regarding risk/benefits of further testing or admission. They will be made aware of of the risk/benefits inherent in this decision they will be given the opportunity to voice understanding. Total critical care time today provided was at least 0 [] minutes. This excludes separately billable procedures. Critical care time (if documented) is secondary to the patient having high probability of clinically significant/life threatening deterioration in the patient's condition which required my urgent intervention. Impression: 1. Cellulitis 2. Blister 3. Tachycardia Dispo: Discharge home This note was generated with [employer] dictation software. It may contain incorrect words, spelling, and punctuation that were not noted in review of the chart prior to signing. Discharge Plan Triage Chief Complaint: Wound Check ED Provider: Ruben Hernandez Dx/Rx/DC Orders Instructions: ED Wound Check (Infection) Prescriptions: New sulfamethoxazole-trimethoprim [Bactrim DS] 800-160 mg tablet 1 tab PO BID Qty: 14 0RF Primary Care Provider: Care Physician,No Primary Referrals: Lj Arce MD [Med Staff - Active Staff] - Activity Restrictions/Additional Instructions: Thank you for trusting us with your care today! Please take Tylenol (2 pills, 650 mg), ibuprofen (2 pills, 400 mg) every 6 hours as needed for pain and fever control. Please take antibiotics until course complete. Please return to the emergency department if your symptoms change or worsen. Specifically develop vomiting cannot tolerate antibiotics. The redness pain warmth and swelling progressed rapidly over a matter of hours. If you develop systemic symptoms such as fever, chills, weakness. Please follow with your primary care physician for further outpatient evaluation and management. Print Language: Danish Disposition Disposition: Home, Self Care
[2024-01-21] MEDS: Smz/Tmp Ds Tablet 1 TABLET PO (08:54)
[2024-01-21] MEDS: Ibuprofen 200 MG Tablet 400 MG PO (08:55)
[2024-01-21] MEDS: Lidocaine/Epi/Tetracaine 50 ML 1 APPLIC TOPICAL (09:00)
[2024-01-21 10:37] VITALS: BP 134/80; PULSE 66; RESP 16; TEMP 36.4; O2SAT 98
== END 2024-01-21 10:39 | disposition home or self-care (01) ==
PROVIDERS: Emergency Provider Emergency Medicine; Visit Provider Emergency Medicine
DX: S90.821A Blister (nonthermal), right foot, initial encounter (principal); R00.0 Tachycardia, unspecified; L03.115 Cellulitis of right lower limb
CPT/HCPCS: 87070; 87205; 99284

== ENCOUNTER 2024-03-09 16:27 | Emergency (ER) | payer SELFPAY ==
[2024-03-09 16:28] VITALS: BP 152/78; PULSE 103; RESP 18; TEMP 36.7; O2SAT 100; BMI 32.8
--- NOTE | 2024-03-09 18:14 | EX.ED.DYSGE1 ---
HPI History of Present Illness Chief Complaint: Nausea/Vomiting Narrative Narrative: 23-year-old female who denies significant past medical history presents with nausea with intermittent vomiting that she has had over the last few days. Additionally she states that sometimes she awakens with breast tenderness. She not currently nauseated. Her last menstrual period was 2 months ago. She has an IUD in place but usually would still get normal menses. She presents because of the intermittent nausea and vomiting, and diffuse abdominal pain that she has had over the last few days. Sometimes it is crampy in nature. She denies any dysuria or hematuria, no problems with bowel movements/no diarrhea. No fevers or chills. [facility] Medical History Abdominal pain Contact with and (suspected) exposure to other viral communicable diseases Asthma Asthma Home Medications ?Medication ?Instructions ?Recorded ?Last Taken ?Type sulfamethoxazole 800 1 tab PO BID #14 tabs 01/21/24 Unknown Rx mg-trimethoprim 160 mg tablet (Bactrim DS) omeprazole 20 mg tablet,delayed 20 mg PO DAILY #14 tabs 03/09/24 Unknown Rx release ondansetron 4 mg disintegrating 4 mg PO Q6H PRN nausea and 03/09/24 Unknown Rx tablet vomiting #12 tabs Allergy/AdvReac Type Severity Reaction Status Date / Time cat dander Allergy Mild Hives Verified 03/09/24 16:27 Family History Father Diabetes Hypertension Mother Hypertension Social History Smoking Status: Never smoker alcohol intake: never ROS ROS ED ROS Narrative Constitutional: No fever, no chills. HEENT: No sore throat. No neck pain. No loss of vision. No rhinorrhea. Cardiovascular: No chest pain. Awakens with positive breast tenderness at times. No palpitations. No pedal edema. Respiratory: No cough, no shortness of breath. Abdominal: Positive diffuse abdominal pain. Positive nausea with occasional vomiting. Usually after eating. No diarrhea or problems with bowel movements. Genitourinary: No dysuria. No hematuria. Musculoskeletal: No myalgias. No arthralgias. Neurologic: No headaches. No dizziness. No lightheadedness. Skin: No rash. No change in color. Psychiatric: No depression. No anxiety. EXAM Physical Exam Narrative Exam Narrative: Afebrile. Vital signs noted. HEENT: Normocephalic. Atraumatic. PERRL, EOMI. Neck soft and supple. No point tenderness or step off. Cardiovascular: Regular rate and rhythm. No murmurs, rubs, or gallops appreciated. Respiratory: No tachypnea. Lungs clear to auscultation bilaterally. Gastrointestinal: Abdomen soft, nontender, with normoactive bowel sounds. No rebound or guarding. No pain over McBurney's point, no pelvic pain. Negative Abdullahi sign. No tenderness in epigastrium. Neurological: Awake. Alert. Nonfocal, nonlateralizing. Skin: No rash. Normal color. No pallor. Musculoskeletal: No pedal edema. Full range of motion extremities. Const Vital Signs: 03/09/24 16:28 03/09/24 18:27 03/09/24 20:00 Temperature 98.1 F Temperature Source Temporal Pulse Rate 103 H 80 94 Respiratory Rate 18 15 18 Blood Pressure 152/78 H 138/80 H 161/82 H Blood Pressure Mean 102 99 108 Pulse Ox 100 98 98 Oxygen Delivery Method Room Air Room Air Room Air MDM MDM MDM Narrative Medical decision making narrative: Differential diagnosis includes but not limited to versus ectopic versus gastritis versus cholecystitis versus colitis. History and physical does not support the latter 2 diagnoses. She is currently not nauseated now. No feel that she requires emergent CT imaging based on her nontender abdomen. She is only having intermittent nausea and vomiting sometimes after eating. Laboratory work will be obtained in the form of CBC, CMP, and lipase to rule out a pancreatitis or choledocholithiasis/gallstone pancreatitis. Serum will also be obtained. I reviewed her laboratory work and she has normal white count 9.6, hemoglobin normal at 12.8, hematocrit 41.3, platelet count normal at 363. Chloride is slightly elevated at 108 which I think is nonspecific, normal potassium of 3.6, glucose 86 with a BUN low at 5 and creatinine 0.73. Lipase is normal at 54 so I doubt pancreatitis. Additionally, urinalysis is negative for infection. Serum test is negative. Upon repeat examination at approximately 2019, she is slightly nauseated. I do not feel she requires any imaging. She may have more of a gastritis. She was written prescriptions for Zofran and omeprazole and referred to gastroenterology. She was given a Zofran prior to discharge. I feel she be discharged safely home with follow-up. Return instructions to the emergency department were reviewed. Disposition is discharged home in stable condition. History & Record Review Discussion w/independent historian: Patient Lab Data Attestation: I reviewed the patient's lab results. Labs: Laboratory Results - last 24 hr 03/09/24 18:28 WBC 9.6 RBC 4.73 Hgb 12.8 Hct 41.3 MCV 87.3 MCH 27.1 MCHC 31.0 L RDW Std Deviation 48.7 H RDW Coeff of Alethea 15.1 H Plt Count 363 MPV 9.5 Immature Gran % (Auto) 0.400 Neut % (Auto) 64.0 Lymph % (Auto) 25.2 [place] % (Auto) 6.8 Eos % (Auto) 3.1 Baso % (Auto) 0.5 Absolute Neuts (auto) 6.1 Absolute Lymphs (auto) 2.42 Nucleated RBC % 0 Sodium 137 Potassium 3.6 Chloride 108 H Carbon Dioxide 21.0 Anion Gap 8 BUN 5 L Creatinine 0.73 Estim Creat Clear Calc 148.88 Est GFR (MDRD) Af Amer 125 Est GFR (MDRD) Non-Af 103 BUN/Creatinine Ratio 6.9 L Glucose 86 Calcium 9.7 Total Bilirubin 0.40 AST 27 ALT 36 Alkaline Phosphatase 91 Total Protein 8.3 H Albumin 3.7 Globulin 4.6 H Albumin/Globulin Ratio 0.8 L Lipase 54 Serum , Qual NEGATIVE Urine Color Straw Urine Clarity Clear Urine pH 7.0 Ur Specific [place] 1.005 Urine Protein Negative Urine Glucose (UA) Normal Urine Ketones Negative Urine Occult Blood Negative Urine Nitrite Negative Urine Bilirubin Negative Urine Urobilinogen Normal Ur Leukocyte Esterase Negative Urine RBC 0 SEEN Urine WBC 0 SEEN Ur Squamous Epith Cells 0 SEEN Urine Bacteria 0 SEEN Urine Mucus 0 SEEN Discharge Plan Triage Chief Complaint: Nausea/Vomiting ED Provider: Micky Gibbs Dx/Rx/DC Orders Clinical Impression: Nausea & vomiting, Abdominal pain Instructions: ED Vomiting (Adult) Prescriptions: New ondansetron 4 mg tablet,disintegrating 4 mg PO Q6H PRN (Reason: nausea and vomiting) Qty: 12 0RF omeprazole 20 mg tablet,delayed release (DR/EC) 20 mg PO DAILY Qty: 14 0RF No Action sulfamethoxazole-trimethoprim [Bactrim DS] 800-160 mg tablet 1 tab PO BID Qty: 14 0RF Primary Care Provider: Care Physician,No Primary Referrals: FriendRoman DO [Med Staff - Active Staff] - As soon as possible Care Physician,No Primary [Primary Care Provider] - Print Language: Belizean Disposition Disposition: Home, Self Care
[2024-03-09] MEDS: 0.9% Normal Saline (1000mL) 1,000 ML 999 ML IV (18:25)
[2024-03-09 18:27] VITALS: BP 138/80; PULSE 80; RESP 15; O2SAT 98
[2024-03-09 18:38] LABS: Bacteria 0 SEEN /hpf (None Seen); Mucous, Urine 0 SEEN /hpf (<or=2+); Red Blood Cells-Urine 0 SEEN /hpf (0-5); Squamous Epithelial Cells - UA 0 SEEN /hpf (5-10); White Blood Cells 0 SEEN /hpf (0-5)
[2024-03-09 18:40] LABS: Absolute Lymphocyte Count 2.42 X10^3/uL (0.83-4.51); Absolute Neutrophil Count 6.1 X10^3/uL (2.0-7.7); Basophil# 0.05 X10^3/uL; Basophil% 0.5 % (0-1); Eosinophils% 3.1 % (0-5); Hematocrit 41.3 % (37-47); Hemoglobin 12.8 g/dL (12.0-15.0); Lymphocyte # 2.42 X10^3/ul (0.83-4.51); Lymphocyte % 25.2 % (19-41); Mean Corpuscular Hgb 27.1 pg (27.0-32.0); Mean Corpuscular Volume 87.3 fL (81-99); Mean Platelet Vol. 9.5 fl (6.2-12.0); Monocyte# 0.65 X10^3/uL; Monocyte% 6.8 % (0-10); NRBC Flagged by Analyzer 0 % (0-5); Neutrophil # 6.14 X10^3/uL (2.7-7.7); Platelet Count 363 K/mm3 (150-450); RBC Distribution Width CV 15.1 % (11.6-14.6); RBC Distribution Width SD 48.7 fl (35.1-43.9); Red Blood Count 4.73 M/mm3 (4.2-5.4); White Blood Count 9.6 K/mm3 (4.4-11.0)
[2024-03-09 18:49] LABS: Color, Urine Straw (Yellow); Glucose, Dipstick Normal (Normal); Ketone-Dipstick Negative (Negative); Leukocyte Esterase-Dipstick Negative /ul (Negative); Nitrite-Dipstick Negative (Negative); Occult Blood-Urine Negative /ul (Negative); Protein-Dipstick Negative (Negative); Specific Gravity, Urine 1.005 (1.002-1.030); Urine Bilirubin Dipstick Negative (Negative); Urine Clarity Clear (Clear); Urine Urobilinogen Normal (Normal)
[2024-03-09 18:50] LABS: Internal QC Validated? YES +Cl - CLEAR BKGD; Pregnancy, Serum, hCG Quali. NEGATIVE Negative; Record Kit Lot#, Serum Preg. 772476
[2024-03-09 18:58] LABS: ALB/GLOB Ratio 0.8 RATIO (0.9-2.4); AST(SGOT) 27 U/L (15-37); Alanine Aminotransfer ALT/SGPT 36 U/L (13-56); Albumin, Serum 3.7 g/dL (3.2-5.0); Alkaline Phosphatase 91 U/L (45-117); Anion Gap 8 (5-15); BUN 5 mg/dL (7-18); BUN/Creat Ratio 6.9 RATIO (10-20); Calcium,Total 9.7 mg/dL (8.5-10.1); Chloride 108 mmol/L (98-107); Creatinine, Serum 0.73 mg/dL (0.55-1.02); EST Glomerular Filtration Rate 103 mL/min (>60); Est Glom Filt Rate - Afr Amer 125 mL/min (>60); Estimated Creatinine Clearance 148.88 ml/min; Globulin 4.6 g/dL (2.2-4.2); Glucose 86 mg/dL (74-106); Lipase 54 U/L (13-75); Potassium 3.6 mmol/L (3.5-5.1); Protein, Total 8.3 g/dL (6.4-8.2); Sodium Level 137 mmol/L (136-145)
[2024-03-09 20:00] VITALS: BP 161/82; PULSE 94; RESP 18; O2SAT 98
[2024-03-09 20:28] VITALS: BP 134/79; PULSE 81; RESP 16; TEMP 36.6; O2SAT 99
[2024-03-09] MEDS: Ondansetron ODT 4 MG Tablet PO (20:33)
== END 2024-03-09 20:34 | disposition home or self-care (01) ==
PROVIDERS: Emergency Provider Emergency Medicine; Visit Provider Emergency Medicine
DX: R11.2 Nausea with vomiting, unspecified (principal); R10.9 Unspecified abdominal pain
CPT/HCPCS: 80053; 81001; 83690; 84703; 85025; 96360; 96361; 99283; J7030

== ENCOUNTER 2024-08-07 08:41 | Inpatient (IN) | payer SELFPAY ==
[2024-08-07 08:41] VITALS: BP 131/94; PULSE 115; RESP 18; TEMP 37.1; O2SAT 99; BMI 25.8
--- NOTE | 2024-08-07 08:51 | EDS_ITS ---
HPI History of Present Illness Chief Complaint: Nausea/Vomiting Informant: patient Narrative Narrative: 24-year-old female presenting to the emergency room with a chief complaint of vomiting. Patient states that she has had vomiting for the past 2 days. She notes a intermittent lower abdominal pain particularly on the left sometimes on the right. She denies fever. No diarrhea. No recent illnesses. She notes any recent discomfort with eating. She denies history of pancreatitis or other biliary diseases. No prior abdominal surgeries. Patient denies any recent antibiotics. She does not have a local doctor. She does note a sore throat but states this is most likely because of her vomiting. Patient immigrated from [facility]. She denies any significant Tylenol use. [facility] Medical History (Updated 08/07/24 @ 15:[address] Deb Jeffers DO) Encounter for intrauterine device placement Abdominal pain Contact with and (suspected) exposure to other viral communicable diseases Asthma Home Medications ?Medication ?Instructions ?Recorded ?Last Taken ?Type omeprazole 20 mg tablet,delayed 20 mg PO DAILY #14 tabs 03/09/24 Unknown Rx release ondansetron 4 mg disintegrating 4 mg PO Q6H PRN nausea and 03/09/24 Unknown Rx tablet vomiting #12 tabs Allergy/AdvReac Type Severity Reaction Status Date / Time cat dander Allergy Mild Hives Verified 08/07/24 08:41 Family History Father Diabetes Hypertension Mother Hypertension Social History (Updated 08/07/24 @ 15:[address] Deb Jeffers DO) Smoking Status: Never smoker alcohol intake: never substance use type: does not use ROS ROS ED Constitutional Constitutional ED: Denies chills, fever(s) or weight loss Eyes Eyes: Denies change in vision or diplopia ENT ENT ED: Reports sore throat; Denies ear pain or rhinorrhea Cardiovascular Cardiovascular: Denies chest pain, orthopnea, palpitations or racing heartbeat Respiratory/Chest Respiratory/Chest: Denies cough, dyspnea or orthopnea Gastrointestinal Gastrointestinal: Reports abdominal pain, nausea and vomiting; Denies diarrhea Genitourinary Genitourinary ED: Denies dysuria, hematuria or urinary frequency Musculoskeletal Musculoskeletal: Denies arthralgias or myalgias Integumentary Denies abscess or rash Neurologic Neurologic: Denies headache(s) or weakness Psychiatric Psychiatric: Denies anxiety, depression, suicidal ideation or suicidal thoughts Endocrine Endocrinology: Denies polydipsia, polyphagia or polyuria Allergic/Immunologic Allergic/Immunologic ED: Denies mouth swelling, tongue swelling or urticaria EXAM Physical Exam Const Vital Signs: 08/07/24 08:41 08/07/24 13:09 Temperature 98.7 F Temperature Source Oral Pulse Rate 115 H 96 Respiratory Rate 18 Blood Pressure 131/94 H 148/84 H Blood Pressure Mean 106 105 Pulse Ox 99 Oxygen Delivery Method Room Air Positive well nourished and well developed General Appearance ED: well developed and NAD HEENT Reports normocephalic, head/scalp atraumatic and moist mucous membranes Eyes PERRL and EOMs intact bilaterally Neck no lymphadenopathy, supple and no JVD Resp normal respiratory effort and clear to auscultation bilaterally Cardio regular rate, regular rhythm and no murmurs Rate: tachycardic GI GI Narrative: Abdomen is diffusely tender without rebound. There does seem to be some involuntary guarding. She does note that on examination the right lower quadrant is more tender than other areas. Auscultation: normoactive bowel sounds Palpation: soft Back/Spine no CVA tenderness and normal ROM Extremity normal to inspection General Extremety ED: Negative for edema General Extremity: Negative for edema Neuro oriented x3 and CN's II-XII intact bilaterally Sensorium / Orientation: alert Motor Exam: strength 5/5 throughout Psych mental status grossly normal Mood & Affect: Negative for depressed or tearful Skin no rashes or lesions noted and no wounds MDM MDM MDM Narrative Medical decision making narrative: Differential diagnosis includes but not limited to dehydration viral gastroenteritis pancreatitis biliary colic electrolyte abnormalities Patient's white count [place] 0.5 hemoglobin of 16.2 platelet count of 422. BMP shows a CO2 level of 12 anion gap of 23 BUN is 6 creatinine 1.41. Glucose of 107. Total bilirubin is 2.7 direct bilirubin is 1.15 AST is 347 ALT of 288 test is negative lipase is 95. CT abdomen pelvis was obtained which is negative for significant acute findings per radiology reading The patient received 2 L of IV fluids as well as Zofran. Recheck of her BMP shows a CO2 now 17. Creatinine is improved at 0.91. However total bilirubin is 3.2 AST of 273 and ALT of 216. We did check a VBG. Patient still gets nauseated despite the Zofran with drinking and she has concerns about whether or not she can stay hydrated at home. I will be speaking with the hospitalist regarding admission for further hydration and evaluation of the elevated liver panel. History & Record Review Discussion w/independent historian: Patient Lab Data Attestation: I reviewed the patient's lab results. Labs: Laboratory Results - last 24 hr 08/07/24 08/07/24 08/07/24 09:00 09:30 12:25 WBC 11.5 H RBC 5.46 H Hgb 16.2 H Hct 49.5 H MCV 90.7 MCH 29.7 MCHC 32.7 RDW Std Deviation 47.9 H RDW Coeff of Alethea 14.5 Plt Count 422 MPV 9.0 Immature Gran % (Auto) 0.300 Neut % (Auto) 93.8 H Lymph % (Auto) 2.2 L [place] % (Auto) 3.5 Eos % (Auto) 0.0 Baso % (Auto) 0.2 Absolute Neuts (auto) 10.8 H Absolute Lymphs (auto) 0.25 L Nucleated RBC % 0.3 Sodium 138 141 Potassium 4.4 4.6 Chloride 103 112 H Carbon Dioxide 12.0 L 17.0 L Anion Gap 23 H 13 BUN 6 L 5 L Creatinine 1.41 H 0.91 Estim Creat Clear Calc 63.19 97.91 Est GFR (MDRD) Af Amer 58 L 96 Est GFR (MDRD) Non-Af 48 L 79 BUN/Creatinine Ratio 4.3 L 5.5 L Glucose 107 H 80 Calcium 10.5 H 8.7 Total Bilirubin 2.70 H 3.20 H Direct Bilirubin 1.15 H AST 347 H 273 H ALT 280 H 216 H Alkaline Phosphatase 106 78 Total Protein 10.5 H 8.0 Albumin 5.0 3.8 Globulin 5.5 H 4.2 Albumin/Globulin Ratio 0.9 Lipase 95 H Serum , Qual NEGATIVE ABG Data ABG results: ABG 08/07/24 10:30 Specimen Type DM Sample Site Not entered VBG pH 7.31 L VBG pO2 20 L VBG HCO3 17 L VBG Total CO2 18 L VBG O2 Sat (Calc) 28 L VBG Base Excess -9 L POC Mix VBG pCO2 Pt Tmp 33.8 L O2 Delivery Device Not entered Crit Call To/Read Back Yes Blood Gas Notified Whom DR BLACK Blood Gas Notified Time 10:32:32 Radiography Diagnostic Testing: Clinical Impression(s) from Imaging Studies Abdomen/Pelvis CT 08/07/24 08:51 IMPRESSION: No mass or obstruction. No hydronephrosis. Normal appendix. Electronically Signed: Gaurang Farley MD at 10:39 EST Reading Location ID and State: [id number] [place] [address] , Service support , Discharge Plan Dx/Rx/DC Orders Clinical Impression: Vomiting, Hepatitis, Metabolic acidosis, GELY (acute kidney injury), Acute dehydration Disposition Disposition: Acute Care Hospital [facility]
--- NOTE | 2024-08-07 08:51 | CT_ITS ---
STUDY: CT ABDOMEN AND PELVIS WITH CONTRAST REASON FOR EXAM: Female, 24 years old. RLQ ABDOMINAL PAIN VOMITING RADIATION DOSAGE (If Supplied By Facility): CTDIvol = ( 18.68 ) mGy, DLP = ( 843.18 ) mGycm TECHNIQUE: Transaxial images were obtained from the dome of the diaphragm to the symphysis pubis without oral contrast. IV 100mL Isovue-[id number] was administered. Sagittal and coronal images were reconstructed. Individualized dose optimization techniques were used for this CT. COMPARISON: None. FINDINGS: The visualized lung bases are unremarkable. The visualized portions of the heart are within normal limits. Normal liver. Normal gallbladder and extrahepatic biliary system. Normal spleen. Normal pancreas. Normal bilateral adrenal glands. Normal right kidney. Normal left kidney. Normal visualized stomach. Normal small intestine. Normal colon. The appendix is visualized and appears normal. Normal abdominal aorta. Normal inferior vena cava. Normal retroperitoneum. Normal urinary bladder. There is IUD in the uterus. There is a tampon in the vagina. There is no free fluid in the abdomen or pelvis. Normal abdominal wall. Normal osseous structures. CT/Abdomen/Pelvis W IV Cont ONLY IMPRESSION: No mass or obstruction. No hydronephrosis. Normal appendix. Electronically Signed: Gaurang Farley MD at 10:39 EST ,
[2024-08-07] MEDS: Ondansetron 4 MG/2 ML Vial IV ×3 (09:06→21:20)
[2024-08-07] MEDS: 0.9% Normal Saline (1000mL) 1,000 ML 1000 ML IV (09:06)
[2024-08-07 09:10] LABS: Absolute Lymphocyte Count 0.25 X10^3/uL (0.83-4.51); Absolute Neutrophil Count 10.8 X10^3/uL (2.0-7.7); Basophil# 0.02 X10^3/uL; Basophil% 0.2 % (0-1); Hematocrit 49.5 % (37-47); Hemoglobin 16.2 g/dL (12.0-15.0); Lymphocyte # 0.25 X10^3/ul (0.83-4.51); Lymphocyte % 2.2 % (19-41); Mean Corp Hgb Conc 32.7 g/dL (32-36); Mean Corpuscular Hgb 29.7 pg (27.0-32.0); Mean Corpuscular Volume 90.7 fL (81-99); Monocyte% 3.5 % (0-10); NRBC Flagged by Analyzer 0.3 % (0-5); Neutrophil # 10.82 X10^3/uL (2.7-7.7); Neutrophil % 93.8 % (47-70); POSITIVE DIFFERENTIAL YES; Platelet Count 422 K/mm3 (150-450); RBC Distribution Width CV 14.5 % (11.6-14.6); RBC Distribution Width SD 47.9 fl (35.1-43.9); Red Blood Count 5.46 M/mm3 (4.2-5.4); White Blood Count 11.5 K/mm3 (4.4-11.0)
[2024-08-07 09:55] LABS: Internal QC Validated? YES +Cl - CLEAR BKGD; Pregnancy, Serum, hCG Quali. NEGATIVE Negative
[2024-08-07 10:00] LABS: AST(SGOT) 347 U/L (15-37); Alanine Aminotransfer ALT/SGPT 280 U/L (13-56); Alkaline Phosphatase 106 U/L (45-117); Anion Gap 23 (5-15); BUN 6 mg/dL (7-18); BUN/Creat Ratio 4.3 RATIO (10-20); Bilirubin, Direct 1.15 mg/dL (0.00-0.30); Calcium,Total 10.5 mg/dL (8.5-10.1); Chloride 103 mmol/L (98-107); Creatinine, Serum 1.41 mg/dL (0.55-1.02); EST Glomerular Filtration Rate 48 mL/min (>60); Est Glom Filt Rate - Afr Amer 58 mL/min (>60); Estimated Creatinine Clearance 63.19 ml/min; Globulin 5.5 g/dL (2.2-4.2); Glucose 107 mg/dL (74-106); Lipase 95 U/L (13-75); Potassium 4.4 mmol/L (3.5-5.1); Protein, Total 10.5 g/dL (6.4-8.2); Sodium Level 138 mmol/L (136-145)
[2024-08-07] MEDS: 0.9% Normal Saline (1000mL) 1,000 ML 999 ML IV ×2 (10:26→10:51)
[2024-08-07 10:35] LABS: Blood Gas Specimen Type VEN; O2 Delivery Device Not entered; SITE Not entered; VBG BASE EXCESS -9 mmol/L (-1.0-3.5); VBG Bicarbonate 17 mmol/L (22-26); VBG PO2 20 mmHg (25-40); VBG SO2 28 % (50-70); VBG TCO2 18 mmol/L (23-33); VBG pCO2 33.8 mmHg (41-51); VBG pH 7.31 (7.32-7.42)
[2024-08-07 13:05] LABS: ALB/GLOB Ratio 0.9 RATIO (0.9-2.4); AST(SGOT) 273 U/L (15-37); Alanine Aminotransfer ALT/SGPT 216 U/L (13-56); Albumin, Serum 3.8 g/dL (3.2-5.0); Alkaline Phosphatase 78 U/L (45-117); Anion Gap 13 (5-15); BUN 5 mg/dL (7-18); BUN/Creat Ratio 5.5 RATIO (10-20); Calcium,Total 8.7 mg/dL (8.5-10.1); Chloride 112 mmol/L (98-107); Creatinine, Serum 0.91 mg/dL (0.55-1.02); EST Glomerular Filtration Rate 79 mL/min (>60); Est Glom Filt Rate - Afr Amer 96 mL/min (>60); Estimated Creatinine Clearance 97.91 ml/min; Globulin 4.2 g/dL (2.2-4.2); Glucose 80 mg/dL (74-106); Potassium 4.6 mmol/L (3.5-5.1); Sodium Level 141 mmol/L (136-145)
[2024-08-07 13:09] VITALS: BP 148/84; PULSE 96
--- NOTE | 2024-08-07 14:52 | US_ITS ---
STUDY: ABDOMINAL ULTRASOUND - RIGHT UPPER QUADRANT REASON FOR VISIT: Female, 24 years old transaminitis TECHNIQUE: Ultrasound evaluation of the right upper quadrant was performed with real-time and static carrion-scale imaging. TECHNICAL QUALITY: Adequate. COMPARISON: CT scan 08/07/2024. FINDINGS: Liver: The liver measures 17.2 cm. There is increased echogenicity consistent with fatty infiltration. The bile ducts are within normal limits. There is hepatic color flow. The direction of portal flow is hepatopetal. There is no demonstrated mass lesion. Gallbladder: Normal distended gallbladder. The gallbladder wall measures 2 mm. There is a negative sonographic Abdullahi''s sign. There is no pericholecystic fluid. There are no gallstones. Common Bile Duct (C.B.D.): The common bile duct measures 2 mm. Pancreas: Normal size of the head, body and tail of the pancreas. There is normal echogenicity of the pancreas. There is no demonstrated pancreatic mass or cyst. Right Kidney: Normal size of the right kidney. The right kidney measures 12.3 cm. Normal renal cortex. The right cortex measures 2.2 cm. There is no demonstrated renal mass or cyst. There is no right hydronephrosis. US/Liver IMPRESSION: No definite acute or significant abnormality seen. Electronically Signed: Dev Monzon MD at 16:26 EST ,
--- NOTE | 2024-08-07 14:55 | PCM.HP.STD ---
[facility] - [facility] General Date of Service: 08/07/24 Chief Complaint: Intractable nausea and vomiting HPI Narrative CURLY DEJESUS, is a 24 F who presented to the emergency department at [facility] on 08/07/2024 secondary to intractable nausea and vomiting. Patient states she started having nausea and vomiting on . She has had no associated diarrhea and is having bowel movements intermittently and passing flatus without any difficulty. She stated she also is on her period of day 7. She is bleeding longer than typical as she has an IUD and only typically bleeds very lightly for couple days. She is having to wear a tampon. She did have a negative test here. She states she is unable to keep anything down and feels very dehydrated. She does complain of lower abdominal pain. She has not eaten out this week as she remembers. She has not had any sick contacts that she is aware of. She has no other complaints such as fever chills, myalgias, shortness of breath or nasal congestion. She is originally from [facility] but she has been in [facility] since she was 10 years old. Vital signs on presentation showed temperature 98.7, heart rate 115, respiratory 18, blood pressure 131/94 and pulse ox is 99% on room air. CBC on presentation appears to be fairly hemoconcentrated with a white count of 11.5, hemoglobin of 16.2 with a baseline of 12.8, platelet count was 422,000. She has a marked left shift with a 93.8% neutrophilia. Her initial BMP showed a bicarb of 12 and elevated anion gap at 23, BUN of 6 with a serum creatinine of 1.41. Her AST was 347 with an ALT of 280 and a lipase of 95. As noted, her test was negative. A VBG was obtained with a pH of 7.31. This was done to the acidosis noted on her initial BMP. Repeat BMP was performed after she was given IV fluids and her chloride trended up to 112 with 3 L of normal saline given. Her bicarb came up from 12-17 and her serum creatinine corrected to 0.91. LFTs were still elevated at 273 for an AST into 16 for ALT. Her bilirubin is elevated at 3.2 with an indirect bilirubin of 1.51. She had normal transaminases and bilirubin previously in October. A CT of her abdomen pelvis was performed and was completely unremarkable other than the IUD being noted in the uterus and a tampon in the vagina. The emergency department she was given antiemetics and aggressive IV fluids but with her significant lab abnormalities that was felt that we at least admit her as observation as she is still not able to keep down any liquids. FORMERLY [facility], [facility] Medical History (Updated 08/07/24 @ 15:[address] Deb Jeffers, DO) Encounter for intrauterine device placement Abdominal pain Contact with and (suspected) exposure to other viral communicable diseases Asthma Home Medications ?Medication ?Instructions ?Recorded ?Last Taken ?Type omeprazole 20 mg tablet,delayed 20 mg PO DAILY #14 tabs 03/09/24 Unknown Rx release ondansetron 4 mg disintegrating 4 mg PO Q6H PRN nausea and 03/09/24 Unknown Rx tablet vomiting #12 tabs Allergy/AdvReac Type Severity Reaction Status Date / Time cat dander Allergy Mild Hives Verified 08/07/24 08:41 Family History Father Diabetes Hypertension Mother Hypertension Surgical History no surgical history no surgical history Social History (Updated 08/07/24 @ 15:[address] Deb Jeffers DO) Smoking Status: Never smoker alcohol intake: never substance use type: does not use ROS Constitutional Constitutional: Reports anorexia and weakness; Denies change in weight, chills, fatigue, fever(s), malaise, night sweats or other Eyes Eyes: Denies blurry vision, change in eye color, change in vision, discharge from eye(s), double vision, erythema, eye pain, loss of vision or other ENT HEENT: Denies abnormal hearing, dysphagia, ear pain, epistaxis, headache(s), hearing loss, nasal congestion, nasal discharge, post nasal drip, sinus pressure, sore throat or other Cardiovascular Cardiovascular: Denies chest pain, claudication, dyspnea on exertion, edema, lightheadedness, orthopnea, palpitations, paroxysmal nocturnal dyspnea, rapid heart rate, syncope or other Respiratory/Chest Respiratory/Chest: Denies cough, dyspnea, excessive phlegm production, hemoptysis, productive cough, shortness of breath at rest, shortness of breath with exertion, wheezing or other Gastrointestinal Gastrointestinal: Reports abdominal pain, nausea and vomiting; Denies coffee ground emesis, constipation, diarrhea, dyspepsia, hematemesis, hematochezia, loose stools, melena or other Genitourinary Genitourinary: Denies burning urination, difficulty urinating, dysuria, hematuria, nocturia, urinary frequency, urinary hesitancy, urinary incontinence, urinary urgency or other Musculoskeletal Musculoskeletal: Denies arthralgias, back pain, joint pain, joint stiffness, joint swelling, myalgias, neck pain or other Neurologic Neurologic: Denies abnormal gait, abnormal speech, confusion, disequilibrium, dizziness, focal weakness, headache(s), numbness, paresthesias, seizure-like activity, seizures, syncope, tingling, tremor(s) or other Psychiatric Psychiatric: Denies anxiety, depression, homicidal ideation, suicidal ideation or other Endocrine Endocrinology: Denies change in body appearance, cold intolerance, excessive sweating, heat intolerance, polydipsia, polyuria or other Hematologic/Lymphatic Hematologic/Lymphatic: Denies anemia, easy bleeding, easy bruising, lymphadenopathy or other Allergic/Immunologic Allergic/Immunologic: Denies rhinitis, hives, eczemia, asthma or other Vital Signs Vital Signs Vital Signs: 08/07/24 08:41 08/07/24 13:09 Temperature 98.7 F Temperature Source Oral Pulse Rate 115 H 96 Respiratory Rate 18 Blood Pressure 131/94 H 148/84 H Blood Pressure Mean 106 105 Pulse Ox 99 Oxygen Delivery Method Room Air Weight Weight: 79.379 kg Body Mass Index (BMI) 25.8 Physical Exam Const alert, oriented x3, no apparent distress, average body habitus and well nourished Constitutional Narrative: Very pleasant, female, lying in bed, appears comfortable and nontoxic but does appear as if she is not feeling well General Appearance: cooperative HEENT normocephalic, head/scalp atraumatic, hearing grossly normal bilaterally and moist oral mucous membranes HEENT Narrative: Mallampati 3, no thrush Eyes conjunctivae normal Eyes Narrative: No scleral icterus noted Neck supple Neck Narrative: Trachea midline, no thyroid enlargement Resp normal respiratory effort, no retractions, no use of accessory muscles and clear to auscultation bilaterally Auscultation: Negative for rales, rhonchi or wheezes Cardio regular rhythm, S1 normal heart sound, S2 normal heart sound, no murmurs, no rub, no gallops and no clicks Cardio Narrative: Mild tachycardia GI normal to inspection, nondistended, normoactive bowel sounds and soft to palpation GI Narrative: Mild tenderness in the lower abdomen bilaterally right greater than left no hepatosplenomegaly or splenomegaly noted Extremity no clubbing, cyanosis or edema Extremity Narrative: Pedal and radial pulses are 2+ Neuro oriented x3, moves all extremities and no focal motor deficits Speech: speech normal Psych affect normal Psych Narrative: Extremely pleasant, eye contact is good and patient interacts appropriately Results Lab / Micro Data 08/07/24 09:00 08/07/24 12:25 Labs: Laboratory Results - last 24 hr 08/07/24 09:00: WBC 11.5 H, RBC 5.46 H, Hgb 16.2 H, Hct 49.5 H, MCV 90.7, MCH 29.7, MCHC 32.7, RDW Std Deviation 47.9 H, RDW Coeff of Alethea 14.5, Plt Count 422, MPV 9.0, Immature Gran % (Auto) 0.300, Neut % (Auto) 93.8 H, Lymph % (Auto) 2.2 L, [place] % (Auto) 3.5, Eos % (Auto) 0.0, Baso % (Auto) 0.2, Absolute Neuts (auto) 10.8 H, Absolute Lymphs (auto) 0.25 L, Nucleated RBC % 0.3, Sodium 138, Potassium 4.4, Chloride 103, Carbon Dioxide 12.0 L, Anion Gap 23 H, BUN 6 L, Creatinine 1.41 H, Estim Creat Clear Calc 63.19, Est GFR (MDRD) Af Amer 58 L, Est GFR (MDRD) Non-Af 48 L, BUN/Creatinine Ratio 4.3 L, Glucose 107 H, Calcium 10.5 H, Total Bilirubin 2.70 H, Direct Bilirubin 1.15 H, AST 347 H, ALT 280 H, Alkaline Phosphatase 106, Total Protein 10.5 H, Albumin 5.0, Globulin 5.5 H, Lipase 95 H 08/07/24 09:30: Serum , Qual NEGATIVE 08/07/24 12:25: Sodium 141, Potassium 4.6, Chloride 112 H, Carbon Dioxide 17.0 L, Anion Gap 13, BUN 5 L, Creatinine 0.91, Estim Creat Clear Calc 97.91, Est GFR (MDRD) Af Amer 96, Est GFR (MDRD) Non-Af 79, BUN/Creatinine Ratio 5.5 L, Glucose 80, Calcium 8.7, Total Bilirubin 3.20 H, AST 273 H, ALT 216 H, Alkaline Phosphatase 78, Total Protein 8.0, Albumin 3.8, Globulin 4.2, Albumin/Globulin Ratio 0.9 ABG Data ABG results: ABG 08/07/24 10:30 Specimen Type DM Sample Site Not entered VBG pH 7.31 L VBG pO2 20 L VBG HCO3 17 L VBG Total CO2 18 L VBG O2 Sat (Calc) 28 L VBG Base Excess -9 L POC Mix VBG pCO2 Pt Tmp 33.8 L O2 Delivery Device Not entered Crit Call To/Read Back Yes Blood Gas Notified Whom DR BLACK Blood Gas Notified Time 10:32:32 Imaging Radiology Impression Abdomen/Pelvis CT 08/07/24 08:51 IMPRESSION: No mass or obstruction. No hydronephrosis. Normal appendix. Electronically Signed: Gaurang Farley MD at 10:39 EST , Assessment & Plan Assessment/Plan (1) Abdominal pain: (2) Vomiting: (3) Metabolic acidosis: (4) GELY (acute kidney injury): (5) Acute dehydration: (6) Leukocytosis: (7) Erythrocytosis: (8) Transaminitis: (9) Hyperbilirubinemia: PLAN: Plan Intractable nausea/vomiting -Etiology is unclear -stomach does appear mildly fluid-filled on the CAT scan -Will give 1 dose of Reglan -Unable to assess enteric panel as patient is not having any diarrhea -As needed antiemetics -Aggressive IV fluids for hydration -Clear liquid diet and advance as tolerated Hyperbilirubinemia/transaminitis -Etiology is unclear -Slightly better after IV fluids but still markedly elevated -No obstruction noted on CT -Check ultrasound of the liver next-patient denies any sick contacts or eating out -Check acute hepatitis panel -Check Tylenol level -Check coags -If does not improve may need further workup by gastroenterology will trend and reevaluate tomorrow for needs Leukocytosis -Seems to be related to be hemoconcentration from dehydration -Will check UA as patient is having some mild lower abdominal discomfort -If suggestive of infection will send culture and start antibiotics Erythrocytosis -Baseline hemoglobin appears to run between 12 and 13 -Suspect elevation is related to dehydration -Repeat lab in a.m. Anion gap metabolic acidosis -Likely related to bicarb loss with GI and intractable nausea and vomiting -Labs are improved dramatically with IV fluids -Will continue IV fluids with LR for 2 more liters GELY -Already improving with IV fluids -Repeat lab in a.m. -okay for NSAIDs given rapid improvement for pain relief as I would like to avoid Tylenol with transaminase elevation DVT prophylaxis -Subcu Lovenox CODE STATUS -Full code Charges/Coding Visit Charges Inpatient E&M: 71832 Init Hosp L2
[2024-08-07] MEDS: Metoclopramide 10 MG/2 ML Vial 5 MG IV (15:22)
[2024-08-07 15:27] VITALS: BP 152/85; PULSE 106; RESP 16; TEMP 36.8; O2SAT 100
[2024-08-07 15:48] LABS: International Normalized Ratio 1.2; Partial Thromboplast Time 24.2 Seconds (24.1-36.2); Prothrombin Time (Protime)PT. 15.2 SECONDS (11.7-14.9)
[2024-08-07 16:24] VITALS: BP 116/76; PULSE 128; RESP 16; TEMP 36.8; O2SAT 100; BMI 25.9
[2024-08-07 16:34] LABS: Acetaminophen (Tylenol) Level < 2.0 ug/mL (10.0-30.0)
[2024-08-07] MEDS: Lactated Ringers 1,000 ML 150 ML IV (17:40)
[2024-08-07] MEDS: 0.9% Saline Lock 10 ML Syringe IV (17:40)
[2024-08-07 18:00] LABS: Mucous, Urine 0 SEEN /hpf (<or=2+)
[2024-08-07 18:15] LABS: Color, Urine Amber (Yellow); Glucose, Dipstick Normal (Normal); Leukocyte Esterase-Dipstick 25 /ul (Negative); Nitrite-Dipstick Negative (Negative); Occult Blood-Urine 150 /ul (Negative); Protein-Dipstick 30 mg/dl (Negative); Specific Gravity, Urine 1.015 (1.002-1.030); Urine Clarity Sl. Cloudy (Clear); Urine Urobilinogen 4 mg/dl (Normal)
[2024-08-07 18:28] LABS: Ketone-Dipstick 150 mg/dl (Negative); Urine Bilirubin Dipstick 1 mg/dL (Negative)
[2024-08-07 18:38] LABS: Squamous Epithelial Cells - UA 10-25 SEEN /hpf (5-10)
[2024-08-07 18:40] LABS: Bacteria 1+ /hpf (None Seen); Fine Granular Cast- Urine 0-5 SEEN /lpf (0-5)
[2024-08-07 18:41] LABS: Red Blood Cells-Urine 5-10 SEEN /hpf (0-5); White Blood Cells 10-25 SEEN /hpf (0-5)
[2024-08-07 21:14] VITALS: BP 128/85; PULSE 111; RESP 15; TEMP 37.2; O2SAT 99
[2024-08-08] MEDS: Lactated Ringers 1,000 ML 150 ML IV (00:57)
[2024-08-08 04:34] LABS: Absolute Lymphocyte Count 1.27 X10^3/uL (0.83-4.51); Absolute Neutrophil Count 6.2 X10^3/uL (2.0-7.7); Basophil# 0.03 X10^3/uL; Basophil% 0.4 % (0-1); Eosinophil# 0.01 X10^3/uL; Eosinophils% 0.1 % (0-5); Hematocrit 34.9 % (37-47); Hemoglobin 11.4 g/dL (12.0-15.0); Lymphocyte # 1.27 X10^3/ul (0.83-4.51); Mean Corp Hgb Conc 32.7 g/dL (32-36); Mean Corpuscular Volume 91.8 fL (81-99); Mean Platelet Vol. 9.7 fl (6.2-12.0); Monocyte# 0.35 X10^3/uL; Monocyte% 4.4 % (0-10); NRBC Flagged by Analyzer 0.3 % (0-5); Neutrophil # 6.24 X10^3/uL (2.7-7.7); Neutrophil % 78.8 % (47-70); Platelet Count 235 K/mm3 (150-450); RBC Distribution Width CV 14.5 % (11.6-14.6); RBC Distribution Width SD 48.2 fl (35.1-43.9); White Blood Count 7.9 K/mm3 (4.4-11.0)
[2024-08-08 05:00] VITALS: BP 124/78; PULSE 93; RESP 15; TEMP 36.9; O2SAT 100
[2024-08-08 05:05] LABS: AST(SGOT) 209 U/L (15-37); Alanine Aminotransfer ALT/SGPT 180 U/L (13-56); Albumin, Serum 3.3 g/dL (3.2-5.0); Alkaline Phosphatase 60 U/L (45-117); Anion Gap 10 (5-15); BUN 7 mg/dL (7-18); BUN/Creat Ratio 10.5 RATIO (10-20); Calcium,Total 8.4 mg/dL (8.5-10.1); Chloride 106 mmol/L (98-107); Creatinine, Serum 0.67 mg/dL (0.55-1.02); EST Glomerular Filtration Rate 114 mL/min (>60); Est Glom Filt Rate - Afr Amer 138 mL/min (>60); Estimated Creatinine Clearance 143.98 ml/min; Globulin 3.4 g/dL (2.2-4.2); Glucose 82 mg/dL (74-106); Magnesium 1.7 mg/dL (1.6-2.6); Phosphorus 1.3 mg/dL (2.5-4.9); Potassium 3.5 mmol/L (3.5-5.1); Protein, Total 6.7 g/dL (6.4-8.2); Sodium Level 136 mmol/L (136-145)
[2024-08-08 06:00] VITALS: BMI 26.9
[2024-08-08] MEDS: Potassium Phosphate 30 MM in 0.9% Normal Saline (250mL Bag) 250 ML 42 MM IV (08:10)
--- NOTE | 2024-08-08 10:43 | PN.HOSP_ITS ---
Subjective Subjective Doing well, feels much better today. No issues overnight. Objective Data Objective Data Vital Signs: Vital Signs Temp Pulse Resp BP Pulse Ox O2 Del Method 98.5 F 93 15 124/78 H 100 Room Air 08/08/24 05:00 08/08/24 05:00 08/08/24 05:00 08/08/24 05:00 08/08/24 05:00 08/08/24 05:00 Oxygen Delivery Method Room Air Weight: 181 lb 7.047 oz Body Mass Index (BMI) 26.9 Intake & Output: Intake and Output for Last 24 Hours 08/07/24 08/08/24 08/09/24 03:59 03:59 03:59 Intake Total 4000 / 4000 500 / 500 Balance 4000 / 4000 500 / 500 Lab / Micro Data 08/08/24 04:12 08/08/24 04:12 Labs: Laboratory Results - last 24 hr 08/07/24 12:25: Sodium 141, Potassium 4.6, Chloride 112 H, Carbon Dioxide 17.0 L , Anion Gap 13, BUN 5 L, Creatinine 0.91, Estim Creat Clear Calc 97.91, Est GFR (MDRD) Af Amer 96, Est GFR (MDRD) Non-Af 79, BUN/Creatinine Ratio 5.5 L, Glucose 80, Calcium 8.7, Total Bilirubin 3.20 H, AST 273 H, ALT 216 H, Alkaline Phosphatase 78, Total Protein 8.0, Albumin 3.8, Globulin 4.2, Albumin/Globulin Ratio 0.9 08/07/24 14:55: Acetaminophen < 2.0 L 08/07/24 15:25: PT 15.2 H, INR 1.2, APTT 24.2 08/07/24 17:40: Urine Color [place], Urine Clarity Sl. Cloudy, Urine pH 6.0, Ur Specific [place] 1.015, Urine Protein 30 H, Urine Glucose (UA) Normal, Urine Ketones 150 A*, Urine Occult Blood 150 H, Urine Nitrite Negative, Urine Bilirubin 1 H, Urine Urobilinogen 4 H, Ur Leukocyte Esterase 25 H, Urine RBC 5- 10 SEEN, Urine WBC 10-25 SEEN, Ur Squamous Epith Cells 10-25 SEEN, Urine Bacteria 1+, Fine Granular Casts 0-5 SEEN, Urine Mucus 0 SEEN 08/08/24 04:12: WBC 7.9, RBC 3.80 L, Hgb 11.4 L, Hct 34.9 L, MCV 91.8, MCH 30.0, MCHC 32.7, RDW Std Deviation 48.2 H, RDW Coeff of Alethea 14.5, Plt Count 235, MPV 9.7, Immature Gran % (Auto) 0.300, Neut % (Auto) 78.8 H, Lymph % (Auto) 16.0 L, [place] % (Auto) 4.4, Eos % (Auto) 0.1, Baso % (Auto) 0.4, Absolute Neuts (auto) 6.2, Absolute Lymphs (auto) 1.27, Nucleated RBC % 0.3, Sodium 136, Potassium 3.5, Chloride 106, Carbon Dioxide 19.0 L, Anion Gap 10, BUN 7, Creatinine 0.67, Estim Creat Clear Calc 143.98, Est GFR (MDRD) Af Amer 138, Est GFR (MDRD) Non-Af 114, BUN/Creatinine Ratio 10.5, Glucose 82, Calcium 8.4 L, Phosphorus 1.3 L, Magnesium 1.7, Total Bilirubin 2.90 H, AST 209 H, ALT 180 H, Alkaline Phosphatase 60, Total Protein 6.7, Albumin 3.3, Globulin 3.4, Albumin/Globulin Ratio 1.0, TSH 1.280 Radiography Diagnostic Testing: Radiology Impression Liver Ultrasound 08/07/24 14:52 IMPRESSION: No definite acute or significant abnormality seen. Electronically Signed: Dev Monzon MD at 16:26 EST , Physical Exam Narrative General: Alert, Oriented x3, Cooperative, No apparent distress HEENT: Atraumatic, PERRLA, EOMI, Normocephalic Oral: Moist Mucosa Neck: Supple, No JVD Lungs: Clear to auscultation, Normal air movement, No rhonchi, No wheeze, No rales Cardiovascular: Regular rate, Regular Rhythm, Normal S1, Normal S2, No murmurs Abdomen: Soft, Non Tender, Non-Distended, No Hepato-splenomegaly Extremities: No edema, Capillary Refill Less than 3 Seconds Skin: No rashes, No breakdown Musculoskeletal: No Tenderness to Palpation of Joints or Extremities Neurological: No focal neurological deficits, Motor Exam 5/5 strength throughout, Sensory exam intact to light touch and pain Psych/Mental Status: Normal Affect, Appropriate Assessment & Plan Assessment/Plan (1) Abdominal pain: (2) Vomiting: (3) Metabolic acidosis: (4) GELY (acute kidney injury): (5) Acute dehydration: PLAN: Plan 1. Intractable nausea and vomiting with elevated LFTs with an anion gap metabolic acidosis ? Unclear as to the etiology at the moment ? She denies any diarrhea ? All of her numbers are improving though she still has nausea and said that she threw up some tea this morning ? Will replace her phosphorus ? Liver ultrasound was unremarkable and PT/INR as well as PTT also were normal ? Tylenol level is normal but hepatitis panel is pending ? She denies any travel, her last trip was to [facility] a year ago ? The acidosis and the anion gap have improved with IV fluids as has the GELY which has resolved DVT: Favio Charges/Coding Visit Charges Inpatient E&M: 22942 Subs Hosp L2
[2024-08-08 11:00] VITALS: BP 132/101; PULSE 88; RESP 16; TEMP 36.6; O2SAT 98
[2024-08-08] MEDS: Enoxaparin 40 MG/0.4 ML Syringe SC (11:10)
[2024-08-08 14:16] VITALS: BP 137/96; PULSE 95; RESP 16; TEMP 37.1; O2SAT 99
[2024-08-08] MEDS: Ondansetron 4 MG/2 ML Vial IV (14:25)
[2024-08-08] MEDS: 0.9% Normal Saline (1000mL) 1,000 ML 75 ML IV (16:19)
[2024-08-08 20:30] VITALS: BP 135/100; PULSE 90; RESP 18; TEMP 37.6; O2SAT 100
[2024-08-09 02:30] VITALS: BP 147/95; PULSE 87; RESP 18; TEMP 36.9; O2SAT 98
[2024-08-09] MEDS: 0.9% Normal Saline (1000mL) 1,000 ML 75 ML IV (05:45)
[2024-08-09 06:00] VITALS: BMI 27.3
[2024-08-09 06:47] LABS: Absolute Lymphocyte Count 1.32 X10^3/uL (0.83-4.51); Absolute Neutrophil Count 3.8 X10^3/uL (2.0-7.7); Basophil# 0.02 X10^3/uL; Basophil% 0.4 % (0-1); Eosinophil# 0.03 X10^3/uL; Eosinophils% 0.5 % (0-5); Hemoglobin 11.3 g/dL (12.0-15.0); Lymphocyte # 1.32 X10^3/ul (0.83-4.51); Lymphocyte % 24.1 % (19-41); Mean Corp Hgb Conc 32.3 g/dL (32-36); Mean Corpuscular Hgb 29.6 pg (27.0-32.0); Mean Corpuscular Volume 91.6 fL (81-99); Mean Platelet Vol. 9.7 fl (6.2-12.0); Monocyte# 0.31 X10^3/uL; Monocyte% 5.7 % (0-10); NRBC Flagged by Analyzer 0 % (0-5); Neutrophil # 3.78 X10^3/uL (2.7-7.7); Neutrophil % 68.9 % (47-70); Platelet Count 185 K/mm3 (150-450); RBC Distribution Width CV 13.6 % (11.6-14.6); RBC Distribution Width SD 45.4 fl (35.1-43.9); Red Blood Count 3.82 M/mm3 (4.2-5.4); White Blood Count 5.5 K/mm3 (4.4-11.0)
[2024-08-09 07:08] LABS: Anion Gap 12 (5-15); BUN 6 mg/dL (7-18); BUN/Creat Ratio 10.3 RATIO (10-20); Calcium,Total 8.3 mg/dL (8.5-10.1); Chloride 102 mmol/L (98-107); Creatinine, Serum 0.58 mg/dL (0.55-1.02); EST Glomerular Filtration Rate 133 mL/min (>60); Est Glom Filt Rate - Afr Amer 161 mL/min (>60); Estimated Creatinine Clearance 169.76 ml/min; Glucose 89 mg/dL (74-106); Magnesium 1.6 mg/dL (1.6-2.6); Phosphorus 1.9 mg/dL (2.5-4.9); Sodium Level 135 mmol/L (136-145)
[2024-08-09] MEDS: Potassium Chloride Oral Tablet 20 MEQ 60 MEQ PO (08:29)
[2024-08-09 08:30] VITALS: BP 130/80; PULSE 87; RESP 16; TEMP 36.4; O2SAT 100
[2024-08-09 08:32] LABS: AST(SGOT) 255 U/L (15-37); Alanine Aminotransfer ALT/SGPT 224 U/L (13-56); Albumin, Serum 3.1 g/dL (3.2-5.0); Alkaline Phosphatase 58 U/L (45-117); Bilirubin, Direct 1.29 mg/dL (0.00-0.30); Globulin 3.4 g/dL (2.2-4.2); Protein, Total 6.5 g/dL (6.4-8.2)
[2024-08-09 08:42] VITALS: O2SAT 96
--- NOTE | 2024-08-09 11:08 | PN_ITS ---
Subjective Subjective Patient seen and examined. She complained of several episodes of vomiting overnight. She has not vomited this morning. She denies any lightheadedness or dizziness. Review of systems otherwise negative. She has remained hemodynamically stable. Objective Data Objective Data Vital Signs: Vital Signs Temp Pulse Resp BP Pulse Ox O2 Del Method 97.5 F L 87 16 130/80 H 96 Room Air 08/09/24 08:30 08/09/24 08:30 08/09/24 08:30 08/09/24 08:30 08/09/24 08:42 08/09/24 08:52 Oxygen Delivery Method Room Air Weight: 184 lb 4.903 oz Body Mass Index (BMI) 27.3 Intake & Output: Intake and Output for Last 24 Hours 08/07/24 08/08/24 08/09/24 23:59 23:59 23:59 Intake Total 3000 / 3000 2760 / 3110 1350 / 1350 Output Total 200 / 200 Balance 3000 / 3000 2760 / 2910 1150 / 1150 Lab / Micro Data 08/09/24 06:15 08/09/24 06:15 Labs: Laboratory Results - last 24 hr 08/09/24 06:15: WBC 5.5, RBC 3.82 L, Hgb 11.3 L, Hct 35.0 L, MCV 91.6, MCH 29.6, MCHC 32.3, RDW Std Deviation 45.4 H, RDW Coeff of Alethea 13.6, Plt Count 185, MPV 9.7, Immature Gran % (Auto) 0.400, Neut % (Auto) 68.9, Lymph % (Auto) 24.1, [place] % (Auto) 5.7, Eos % (Auto) 0.5, Baso % (Auto) 0.4, Absolute Neuts (auto) 3.8, Absolute Lymphs (auto) 1.32, Nucleated RBC % 0, Sodium 135 L, Potassium 3.0 L, Chloride 102, Carbon Dioxide 21.0, Anion Gap 12, BUN 6 L, Creatinine 0.58, Estim Creat Clear Calc 169.76, Est GFR (MDRD) Af Amer 161, Est GFR (MDRD) Non-Af 133, BUN/Creatinine Ratio 10.3, Glucose 89, Calcium 8.3 L, Phosphorus 1.9 L, Magnesium 1.6, Total Bilirubin 2.50 H, Direct Bilirubin 1.29 H, AST 255 H, ALT 224 H, Alkaline Phosphatase 58, Total Protein 6.5, Albumin 3.1 L, Globulin 3.4 Physical Exam Const alert, oriented x3, no apparent distress and well nourished General Appearance: cooperative HEENT normocephalic, head/scalp atraumatic, moist oral mucous membranes and oropharynx normal Eyes PERRL and EOMs intact bilaterally Neck no lymphadenopathy, supple and no JVD Lymph Lymphatic: no lymphadenopathy noted and no lymphedema noted Resp normal respiratory effort, normal air movement and clear to auscultation bilaterally Cardio regular rate, regular rhythm, S1 normal heart sound, S2 normal heart sound and no murmurs GI normal to inspection, nondistended, normoactive bowel sounds, soft to palpation, non-tender and non-distended Extremity normal capillary refill, no clubbing, cyanosis or edema and no calf tenderness General Extremity: no tenderness to palpation of joints or extremities Skin General Skin Exam: no breakdown Neuro CN's II-XII intact bilaterally, no focal motor deficits and no sensory deficits noted Motor Exam: strength 5/5 throughout and general weakness Psych thought process normal and cooperative Appearance: appropriate Assessment & Plan Assessment/Plan (1) Hyperbilirubinemia: (2) Acute dehydration: (3) GELY (acute kidney injury): PLAN: Plan #Intractable nausea and vomiting * Still has some vomiting overnight. * Etiology is unclear. * liver enzymes were also elevated, but have started trending downards * Liver ultrasound was normal. CT abdomen and pelvis was also normal * hepatits panel is still pending. * IV zofran prn. continue gentle hydration with iVF. * encourage oral intake * urine tox was negative and serum acetaminophen level was <2 * * #Abnormal urinalysis: * Urinalysis did show 1+ bacteria and 25 leukocyte esterase. * She still having intractable nausea and vomiting. * Will get urine cultures and start on antibiotics for presumptive UTI. * #Nonanion gap metabolic acidosis: resolving #Hypokalemia: Potassium is 3. Replace and trend. #Elevated liver enzymes: * Total bilirubin is 2.5 today which is trended down from 2.9 yesterday. * Direct bilirubin is elevated at 1.29. AST and ALT have trended up once again and 255 and 224 today. * ALP is normal as 58. This indicates an intrinsic liver pathology. * hepatitis panel is pending DVT prophylaxis: lovenox Charges/Coding Visit Charges Inpatient E&M: 78011 Subs Hosp L2
--- NOTE | 2024-08-09 12:49 | CASEMGMT ---
Social Work SW met w/pt, as pt is listed as self pay. Pt did see Sia earlier from [employer] and completed a Medicaid application. SW provided to pt some additional resources, including information on [employer], [place] [facility], [facility] assist, [facility] Resources, [facility] Card, and prescription assistance programs. SW remains available for any additional resources for pt. CARLITOS Griggs
[2024-08-09 14:30] VITALS: BP 122/74; PULSE 78; RESP 18; TEMP 36.6; O2SAT 100
[2024-08-09 21:57] VITALS: BP 133/98; PULSE 100; RESP 16; TEMP 36.9; O2SAT 98
[2024-08-10] MEDS: 0.9% Saline Lock 10 ML Syringe IV (04:02)
[2024-08-10] MEDS: Ondansetron 4 MG/2 ML Vial IV (04:03)
[2024-08-10 04:06] VITALS: BP 129/95; PULSE 98; RESP 16; TEMP 37.1; O2SAT 96
[2024-08-10 06:00] VITALS: BMI 26.8
[2024-08-10 07:09] LABS: Absolute Lymphocyte Count 1.25 X10^3/uL (0.83-4.51); Absolute Neutrophil Count 4.7 X10^3/uL (2.0-7.7); Basophil# 0.03 X10^3/uL; Basophil% 0.5 % (0-1); Eosinophil# 0.07 X10^3/uL; Eosinophils% 1.1 % (0-5); Hemoglobin 14.2 g/dL (12.0-15.0); Lymphocyte # 1.25 X10^3/ul (0.83-4.51); Lymphocyte % 19.8 % (19-41); Mean Corpuscular Hgb 29.5 pg (27.0-32.0); Mean Corpuscular Volume 89.2 fL (81-99); Mean Platelet Vol. 10.4 fl (6.2-12.0); Monocyte# 0.22 X10^3/uL; Monocyte% 3.5 % (0-10); NRBC Flagged by Analyzer 0 % (0-5); Neutrophil # 4.73 X10^3/uL (2.7-7.7); Neutrophil % 74.8 % (47-70); Platelet Count 192 K/mm3 (150-450); RBC Distribution Width CV 13.1 % (11.6-14.6); RBC Distribution Width SD 42.6 fl (35.1-43.9); Red Blood Count 4.82 M/mm3 (4.2-5.4); White Blood Count 6.3 K/mm3 (4.4-11.0)
[2024-08-10 07:38] LABS: ALB/GLOB Ratio 0.8 RATIO (0.9-2.4); AST(SGOT) 414 U/L (15-37); Alanine Aminotransfer ALT/SGPT 413 U/L (13-56); Albumin, Serum 3.2 g/dL (3.2-5.0); Alkaline Phosphatase 69 U/L (45-117); Anion Gap 12 (5-15); BUN 5 mg/dL (7-18); BUN/Creat Ratio 10.8 RATIO (10-20); Calcium,Total 8.6 mg/dL (8.5-10.1); Chloride 98 mmol/L (98-107); Creatinine, Serum 0.46 mg/dL (0.55-1.02); EST Glomerular Filtration Rate 173 mL/min (>60); Est Glom Filt Rate - Afr Amer 209 mL/min (>60); Estimated Creatinine Clearance 212.41 ml/min; Globulin 3.9 g/dL (2.2-4.2); Glucose 110 mg/dL (74-106); Potassium 2.9 mmol/L (3.5-5.1); Protein, Total 7.1 g/dL (6.4-8.2); Sodium Level 134 mmol/L (136-145)
[2024-08-10 08:08] LABS: HEPATITIS B SURFACE AG Negative (Negative); Hep C Antibodies Non Reactive (Non Reactive); Hepatitis A IgM Antibody Negative (Negative); Hepatitis B Core AB IgM Negative (Negative)
[2024-08-10 08:11] VITALS: O2SAT 95
[2024-08-10 08:38] LABS: Cholesterol 145 mg/dL (200); High Density Lipoprotein 68 mg/dL; Magnesium 1.6 mg/dL (1.6-2.6); Triglycerides 95 mg/dL; Very Low Density Lipoprotein 19 mg/dL (5-40)
[2024-08-10 08:53] VITALS: BP 155/88; PULSE 105; RESP 18; TEMP 36.8; O2SAT 100
[2024-08-10] MEDS: Ceftriaxone 1 GM/50 ML BAG IV (09:05)
[2024-08-10] MEDS: Potassium Chloride 10mEq/100mL 10 MEQ/100 ML IV.SOLN. 100 MEQ IV BOLUS ×4 (09:50→13:23)
--- NOTE | 2024-08-10 10:13 | PN_ITS ---
Subjective Subjective Patient seen and examined. She is still complaining of nausea and vomiting. She denied any abdominal pain. Review of systems is otherwise negative. On further questioning today, she tells me that she takes ashwanghandha supplementation. She last took it around last Friday she thinks. She says she takes this 1 site. Objective Data Objective Data Vital Signs: Vital Signs Temp Pulse Resp BP Pulse Ox O2 Del Method 98.2 F 105 H 18 155/88 H 100 Room Air 08/10/24 08:53 08/10/24 08:53 08/10/24 08:53 08/10/24 08:53 08/10/24 08:53 08/10/24 08:56 Oxygen Delivery Method Room Air Weight: 181 lb 3.52 oz Body Mass Index (BMI) 26.8 Intake & Output: Intake and Output for Last 24 Hours 08/08/24 08/09/24 08/10/24 23:59 23:59 23:59 Intake Total 2760 / 3110 2800 / 2800 350 / 350 Output Total 650 / 650 Balance 2760 / 2910 2150 / 2150 350 / 350 Lab / Micro Data 08/10/24 06:47 08/10/24 06:47 Labs: Laboratory Results - last 24 hr 08/07/24 14:55: Hepatitis A IgM Ab Negative, Hep Bs Antigen Negative, Hep B Core IgM Ab Negative, Hepatitis C Ab (EIA) Non Reactive, Hep C Ab Comment Comment 08/10/24 06:47: WBC 6.3, RBC 4.82, Hgb 14.2, Hct 43.0, MCV 89.2, MCH 29.5, MCHC 33.0, RDW Std Deviation 42.6, RDW Coeff of Alethea 13.1, Plt Count 192, MPV 10.4, Immature Gran % (Auto) 0.300, Neut % (Auto) 74.8 H, Lymph % (Auto) 19.8, [place] % (Auto) 3.5, Eos % (Auto) 1.1, Baso % (Auto) 0.5, Absolute Neuts (auto) 4.7, Absolute Lymphs (auto) 1.25, Nucleated RBC % 0, Sodium 134 L, Potassium 2.9 L, Chloride 98, Carbon Dioxide 24.0, Anion Gap 12, BUN 5 L, Creatinine 0.46 L, Estim Creat Clear Calc 212.41, Est GFR (MDRD) Af Amer 209, Est GFR (MDRD) Non-Af 173, BUN/Creatinine Ratio 10.8, Glucose 110 H, Calcium 8.6, Magnesium 1.6, Total Bilirubin 2.30 H, AST 414 H, ALT 413 H, Alkaline Phosphatase 69, Total Protein 7.1, Albumin 3.2, Globulin 3.9, Albumin/Globulin Ratio 0.8 L, Triglycerides 95, Cholesterol 145, LDL Cholesterol 58, VLDL Cholesterol 19, HDL Cholesterol 68 Micro: Microbiology 08/09/24 15:45 Urine, Clean Catch Urine Culture - Preliminary Culture exhibits no growth. Physical Exam Const alert, oriented x3, no apparent distress and average body habitus General Appearance: cooperative HEENT normocephalic, head/scalp atraumatic, hearing grossly normal bilaterally, moist oral mucous membranes and oropharynx normal Eyes PERRL, EOMs intact bilaterally and conjunctivae normal Eyes Narrative: No scleral icterus noted Neck no lymphadenopathy, supple and no JVD Lymph Lymphatic: no lymphadenopathy noted and no lymphedema noted Resp normal respiratory effort, normal air movement, no retractions, no use of accessory muscles and clear to auscultation bilaterally Cardio regular rhythm, S1 normal heart sound, S2 normal heart sound, no murmurs, no rub, no gallops and no clicks Cardio Narrative: Mild tachycardia GI normal to inspection, nondistended, normoactive bowel sounds, soft to palpation, non-tender and non-distended Extremity normal capillary refill, no clubbing, cyanosis or edema and no calf tenderness Extremity Narrative: Pedal and radial pulses are 2+ General Extremity: no tenderness to palpation of joints or extremities Skin General Skin Exam: no breakdown Neuro oriented x3, CN's II-XII intact bilaterally, moves all extremities, no focal motor deficits and no sensory deficits noted Speech: speech normal Motor Exam: strength 5/5 throughout and general weakness Psych thought process normal, cooperative and affect normal Appearance: appropriate Assessment & Plan Assessment/Plan (1) Hyperbilirubinemia: (2) Acute dehydration: (3) GELY (acute kidney injury): PLAN: Plan #Intractable nausea and vomiting * Still complains of vomiting * Liver enzymes continue to trend upwards. Patient now tells me that she takes ashwaghandha supplements for anxiety. * Ashwaghandha from literature review can cause incessant nausea and vomiting as well as liver toxicity and may be the etiology her vomiting and elevated liver enzymes * continue IV zofran; add on compazine. * Liver ultrasound was normal. CT abdomen and pelvis was also normal * hepatitis panel is negative. * IV zofran prn. continue gentle hydration with iVF. * encourage oral intake * urine tox was negative and serum acetaminophen level was <2 * * #Abnormal urinalysis: * Urinalysis did show 1+ bacteria and 25 leukocyte esterase. * on IV ceftriaxone. Urine cultures show no growth, so will dc ceftriaxone. * #Nonanion gap metabolic acidosis: resolved. Bicarb today is 24. #Hypokalemia: Potassium today is still low at 2.9. Check magnesium also. #Elevated liver enzymes: * Total bilirubin is 2.3 today, and has trended down slightly. * AST and ALT have trended up further to 414 and 413. ALP is normal * patient tells me today she takes ashwaghandha, so this is likely the cause of her elevated liver enzymes as it has known side efect of causing liver injury. * Lipid profile is WNL * hepatitis panel is negative. * gastroenterology also consulted. * DVT prophylaxis: lovenox Charges/Coding Visit Charges Inpatient E&M: 21760 Subs Hosp L2
--- NOTE | 2024-08-10 10:30 | CASEMGMT ---
AIDAN MOROCHO Assessment: Face to Face with pt for initial transition planning/care coordination assessment. RN RASHAWN introduced self and role at [facility], pt voices understanding and consents to assessment. Pt is A&O x4 and answers all questions appropriately at this time. Pt lying in bed in no distress. Care providers, pharmacy, and demographics verified/updated. Strata: 2 Admitting Dx: Transaminitis Intractable Nausea PCP: No PCP, provided pt with list of local providers. Specialists: Denies Preferred Pharmacy: [facility] Insurance: SP, Applied for [facility]. Prescription Benefit: yes LNOK: , Grisel Living Arrangements: Pt lives alone, is gone a lot for work. ADLs: Pt I at baseline Transportation: Pt drives self and denies concerns with transportation. DME: Denies HHC/SNF: Denies Hx of Pt states no concerns with going home at time of dc. Pt states no further concerns/needs. CM to follow. Advised pt to ask CM if any further question/concerns/needs arise, voices understanding. Pt Goal: Home Plan: Home, follow for safe DC plan. Ann-Marie BERMUDEZ CM
[2024-08-10 14:45] VITALS: BP 121/92; PULSE 102; RESP 18; TEMP 36.9; O2SAT 100
--- NOTE | 2024-08-10 14:59 | CHAPLAIN ---
Type of Pastoral Visit _x__ Initial Visit ___ Follow-up Visit ___ On-call Visit ___ General Patient Visit ___ Spiritual Assessment ___ Family Conference ___ Bereavement ___ Rapid Response ___ Code Blue ___ Other (describe below) Pastoral Care Referral From _x__ Patient ___ Family ___ Nurse ___ Physician ___ Work Distributor ___ Sonography Technologist ___ Other (describe below) Sacrament/Intervention _x__ Active listening ___ Anointing ___ Pentecostalism ___ Bereavement ___ Communion ___ Felicia exploration ___ ___ Life review _x__ Prayer ___ Reconciliation ___ Sacrament of Sick ___ Supportive presence ___ Wedding ___ Other (describe below) Pastoral Comments patient is resting in bed but is awake and alert; pt states that she really doesn't need anything but that a prayer would be greatly appreciated; pt says that she has one friend that is helpful to her as needed; otherwise pt has no family in the area; prayer is given
--- NOTE | 2024-08-10 18:22 | CON.PCM.GI_ITS ---
HPI Consult Data Date of Consult: 08/10/24 HPI Narrative Reason for Consultation: Abnormal LFTs HPI Narrative: CURLY DEJESUS, is a 24 F who presented to the emergency department at [facility] on 08/07/2024 secondary to intractable nausea and vomiting. Patient states she started having nausea and vomiting on . She has had no associated diarrhea and is having bowel movements intermittently and passing flatus without any difficulty. She stated she also is on her period of day 7. She is bleeding longer than typical as she has an IUD and only typically bleeds very lightly for couple days. She is having to wear a tampon. She did have a negative test here. She states she is unable to keep anything down and feels very dehydrated. She does complain of lower abdominal pain. She has not eaten out this week as she remembers. She has not had any sick contacts that she is aware of. She has no other complaints such as fever chills, myalgias, shortness of breath or nasal congestion. She is originally from [facility] but she has been in [facility] since she was 10 years old. CBC on presentation appears to be fairly hemoconcentrated with a white count of 11.5, hemoglobin of 16.2 with a baseline of 12.8, platelet count was 422,000. She has a marked left shift with a 93.8% neutrophilia. BMP showed a bicarb of 12 and elevated anion gap at 23, BUN of 6 with a serum creatinine of 1.41. Her AST was 347 with an ALT of 280 and a lipase of 95. As noted, her test was negative. A VBG was obtained with a pH of 7.31. CT scan abdomen pelvis: FINDINGS: The visualized lung bases are unremarkable. The visualized portions of the heart are within normal limits. Normal liver. Normal gallbladder and extrahepatic biliary system. Normal spleen. Normal pancreas. Normal bilateral adrenal glands. Normal right kidney. Normal left kidney. Normal visualized stomach. Normal small intestine. Normal colon. The appendix is visualized and appears normal. Normal abdominal aorta. Normal inferior vena cava. Normal retroperitoneum. Normal urinary bladder. There is IUD in the uterus. There is a tampon in the vagina. There is no free fluid in the abdomen or pelvis. Normal abdominal wall. Normal osseous structures. Right upper quadrant ultrasound: Liver: The liver measures 17.2 cm. There is increased echogenicity consistent with fatty infiltration. The bile ducts are within normal limits. There is hepatic color flow. The direction of portal flow is hepatopetal. There is no demonstrated mass lesion. Gallbladder: Normal distended gallbladder. The gallbladder wall measures 2 mm. There is a negative sonographic Abdullahi''s sign. There is no pericholecystic fluid. There are no gallstones. Common Bile Duct (C.B.D.): The common bile duct measures 2 mm. Pancreas: Normal size of the head, body and tail of the pancreas. There is normal echogenicity of the pancreas. There is no demonstrated pancreatic mass or cyst. Right Kidney: Normal size of the right kidney. The right kidney measures 12.3 cm. Normal renal cortex. The right cortex measures 2.2 cm. There is no demonstrated renal mass or cyst. There is no right hydronephrosis. PFSH Medical History Encounter for intrauterine device placement Abdominal pain Contact with and (suspected) exposure to other viral communicable diseases Asthma Allergy/AdvReac Type Severity Reaction Status Date / Time cat dander Allergy Mild Hives Verified 08/07/24 08:41 Family History Father Diabetes Hypertension Mother Hypertension Surgical History no surgical history Social History Smoking Status: Never smoker alcohol intake: never substance use type: does not use ROS Constitutional Constitutional: Denies fatigue, fever(s), poor appetite, weight gain or weight loss Gastrointestinal Gastrointestinal: Denies belching, bloating, change in bowel habits, change in stool character, chewing difficulty, coffee ground emesis, constipation, cramping, diarrhea, dyspepsia, dysphagia, early satiety, excessive flatus, fecal incontinence, heartburn, hematemesis, hematochezia, hemorrhoids, loose stools, melena, nausea, odynophagia, rectal bleeding, tenesmus, vomiting or weight changes Physical Exam Const alert, oriented x3, no apparent distress and healthy appearing General Appearance: cooperative GI normal to inspection, nondistended, normoactive bowel sounds, soft to palpation, non-tender and non-distended Percussion: normal to percussion Rectal Exam: deferred Lab / Micro Data 08/10/24 06:47 08/10/24 06:47 Labs: Laboratory Results - last 24 hr 08/07/24 14:55: Hepatitis A IgM Ab Negative, Hep Bs Antigen Negative, Hep B Core IgM Ab Negative, Hepatitis C Ab (EIA) Non Reactive, Hep C Ab Comment Comment 08/10/24 06:47: WBC 6.3, RBC 4.82, Hgb 14.2, Hct 43.0, MCV 89.2, MCH 29.5, MCHC 33.0, RDW Std Deviation 42.6, RDW Coeff of Alethea 13.1, Plt Count 192, MPV 10.4, Immature Gran % (Auto) 0.300, Neut % (Auto) 74.8 H, Lymph % (Auto) 19.8, [place] % (Auto) 3.5, Eos % (Auto) 1.1, Baso % (Auto) 0.5, Absolute Neuts (auto) 4.7, Absolute Lymphs (auto) 1.25, Nucleated RBC % 0, Sodium 134 L, Potassium 2.9 L, Chloride 98, Carbon Dioxide 24.0, Anion Gap 12, BUN 5 L, Creatinine 0.46 L, Estim Creat Clear Calc 212.41, Est GFR (MDRD) Af Amer 209, Est GFR (MDRD) Non-Af 173, BUN/Creatinine Ratio 10.8, Glucose 110 H, Calcium 8.6, Magnesium 1.6, Total Bilirubin 2.30 H, AST 414 H, ALT 413 H, Alkaline Phosphatase 69, Total Protein 7.1, Albumin 3.2, Globulin 3.9, Albumin/Globulin Ratio 0.8 L, Triglycerides 95, Cholesterol 145, LDL Cholesterol 58, VLDL Cholesterol 19, HDL Cholesterol 68 Micro: Microbiology 08/09/24 15:45 Urine, Clean Catch Urine Culture - Preliminary Culture exhibits no growth. Assessment & Plan Assessment/Plan (1) Abdominal pain: (2) Vomiting: (3) Metabolic acidosis: (4) GELY (acute kidney injury): (5) Acute dehydration: (6) Leukocytosis: (7) Erythrocytosis: (8) Transaminitis: (9) Hyperbilirubinemia: PLAN: Plan 24-year-old comes in with Intractable nausea/vomiting -Etiology is unclear. I agree that the stomach was mildly distended and was mildly fluid-filled on CT scan abdomen pelvis but does not seem abnormal in a patient with intractable nausea vomiting. Likely viral gastroenteritis as she is still getting better from a clinical standpoint. Cholestatic hepatitis with jaundice -She had no recent vaccinations, travel, sick contacts. The differential diagnosis does include Nonviral hepatitis acute hepatitis, acute autoimmune hepatitis, EBV or CMV related hepatitis, autoimmune cholangiopathy. She should undergo MRCP to look for signs of stricturing disease. She should also undergo a liver biopsy. I would hold off on antibiotics at this time as it can induce a worsening cholestatic hepatitis due to drug-induced cholestatic hepatitis. -I will send autoimmune blood work. Charges/Coding Visit Charges Inpatient E&M: 34308 Init Hosp L3
[2024-08-10 20:32] VITALS: BP 106/70; PULSE 101; RESP 16; TEMP 37.2; O2SAT 99
[2024-08-10 21:00] LABS: Erythrocyte Sedimentation Rate 13 mm/hr (0-30)
[2024-08-10 21:29] LABS: CRP 6.99 mg/L (0.0-3.0); Ferritin 990 ng/mL (8-252); Iron 36 ug/dL (50-170); Iron Binding Capacity,Total 242 ug/dL (250-450); LDH 401 U/L (84-246); PERCENT IRON SATURATION 14.9 % (15.0-55.0)
[2024-08-10 21:55] LABS: HIV - WCH Non-Reactive (Nonreactive)
[2024-08-11] VITALS (14 sets, daily range): BP systolic 101–121; BP diastolic 61–85; PULSE 81–96; RESP 13–19; TEMP 36.7–37; O2SAT 96–100; BMI 26.6
--- NOTE | 2024-08-11 | LIVB_PTH ---
PATIENT: CURLY DEJESUS LOC: [facility]3 U#:[id number] AGE/SX: 24/F ROOM: MS319 RE08/09/[address]: Dr. Irasema Mcdonough MD : 2000 BED: 1 DIS: 08/12/2024 SPEC #: [id number] RECD: 08/11/24 08:09 STATUS: EDER LONA #: [id number] GUNNER: 08/11/24 00:[address]: Irasema Mcdonough DEPT: SURGICAL PATHOLOGY RECD BY: Tequila Lockhart ENTERED: 08/11/24 10:27 SP TYPE: LIVER BX OTHR DR: Dr. Deb Jeffers, DO Dr. Anam Delgado MD No Primary Care Phys Tissues: Liver, NOS Procedures: PAS with Diastase (control) Trichrome (control) Special Stain Group I PAS Stain (control) Surgery Specimen Level V Retic (control) Iron Stain (control) HEADER OPERATION: CT guided liver biopsy PRE-OP DIAGNOSIS: Hepatitis TISSUE SUBMITTED: 18 gauge x 4 cores MICROSCOPIC DIAGNOSIS Liver, CT guided core biopsy: Liver parenchymal tissue with extensive macro- and microvesicular steatosis. See microscopic description and comment. 08/12/2024 COMMENT Correlation with clinical, laboratory, radiologic findings and appropriate follow up are necessary. MICROSCOPIC DESCRIPTION Slides are reviewed. This specimen shows liver parenchymal tissue with preserved lobular architecture. Hepatocytes show extensive macro- and microvesicular steatosis and reactive changes. Minimal lobular inflammation is noted. Portal area shows mild chronic inflammation predominantly consisting of lymphocytes. Interface inflammation is not seen. Iron stain shows absent iron. Reticulin stain highlights the normal lobular arichtecutre. Trichrome stain does not show significant increase of portal or periportal fibrosis. PAS stain with and without diastase do not show abnormal accumulation of protein. All of the stains have been performed with appropriate matched controls. GROSS DESCRIPTION Received is one container labeled with the patient's name and not further designated. The specimen consists of multiple elongated fragments of stark soft tissue that in aggregate measure 1.5 x 0.4 x 0.1 cm. The specimen is totally submitted in one cassette. SJ.mr 08/11/2024 TC:5 CPT:24385,79343y1
[2024-08-11] MEDS: 0.9% Saline Lock 10 ML Syringe IV ×3 (02:33→20:46)
[2024-08-11 06:50] LABS: Absolute Lymphocyte Count 1.25 X10^3/uL (0.83-4.51); Absolute Neutrophil Count 3.5 X10^3/uL (2.0-7.7); Basophil# 0.04 X10^3/uL; Basophil% 0.8 % (0-1); Eosinophil# 0.09 X10^3/uL; Eosinophils% 1.7 % (0-5); Hematocrit 39.8 % (37-47); Hemoglobin 13.7 g/dL (12.0-15.0); Lymphocyte # 1.25 X10^3/ul (0.83-4.51); Lymphocyte % 23.9 % (19-41); Mean Corp Hgb Conc 34.4 g/dL (32-36); Mean Corpuscular Hgb 30.5 pg (27.0-32.0); Mean Corpuscular Volume 88.6 fL (81-99); Mean Platelet Vol. 10.2 fl (6.2-12.0); Monocyte# 0.36 X10^3/uL; Monocyte% 6.9 % (0-10); NRBC Flagged by Analyzer 0.4 % (0-5); Neutrophil # 3.47 X10^3/uL (2.7-7.7); Neutrophil % 66.3 % (47-70); Platelet Count 170 K/mm3 (150-450); RBC Distribution Width CV 13.1 % (11.6-14.6); Red Blood Count 4.49 M/mm3 (4.2-5.4); White Blood Count 5.2 K/mm3 (4.4-11.0)
[2024-08-11 07:12] LABS: International Normalized Ratio 1.1; Prothrombin Time (Protime)PT. 14.1 SECONDS (11.7-14.9)
[2024-08-11 07:27] LABS: ALB/GLOB Ratio 0.9 RATIO (0.9-2.4); AST(SGOT) 285 U/L (15-37); Alanine Aminotransfer ALT/SGPT 395 U/L (13-56); Albumin, Serum 3.2 g/dL (3.2-5.0); Alkaline Phosphatase 63 U/L (45-117); Anion Gap 10 (5-15); BUN 8 mg/dL (7-18); BUN/Creat Ratio 17.1 RATIO (10-20); Chloride 98 mmol/L (98-107); Creatinine, Serum 0.47 mg/dL (0.55-1.02); EST Glomerular Filtration Rate 170 mL/min (>60); Est Glom Filt Rate - Afr Amer 206 mL/min (>60); Estimated Creatinine Clearance 207.43 ml/min; Globulin 3.6 g/dL (2.2-4.2); Glucose 100 mg/dL (74-106); Protein, Total 6.8 g/dL (6.4-8.2); Sodium Level 134 mmol/L (136-145)
--- NOTE | 2024-08-11 07:57 | PN.GI_ITS ---
Subjective Subjective Patient underwent a liver biopsy. She denies any pain from liver biopsy today. Objective Data Objective Data Vital Signs: Vital Signs Temp Pulse Resp BP Pulse Ox O2 Del Method O2 Flow Rate 98.5 F 82 14 101/61 97 Room Air 2 08/11/24 14:24 08/11/24 14:24 08/11/24 14:24 08/11/24 14:24 08/11/24 14:24 08/11/24 14:08/11/24 09:00 Oxygen Flow Rate (L/min) 2 Oxygen Delivery Method Room Air Weight: 180 lb 5.41 oz Body Mass Index (BMI) 26.6 Intake & Output: Intake and Output for Last 24 Hours 08/09/24 08/10/24 08/11/24 23:59 23:59 23:59 Intake Total 2800 / 2800 1100 / 1100 400 / 400 Output Total 650 / 650 200 / 200 Balance 2150 / 2150 1100 / 1100 200 / 200 Lab / Micro Data 08/11/24 06:00 08/11/24 06:00 Labs: Laboratory Results - last 24 hr 08/10/24 19:54: ESR 13, Iron 36 L, TIBC 242 L, Iron Saturation 14.9 L, Ferritin 990 H, Lactate Dehydrogenase 401 H, C-React Prot Ext Range 6.99 H, ANNIE-1 Antibody TNP, SS-A/Ro IgG Antibody TNP, SS-B/La IgG Antibody TNP, Sm (Marcum) Antibody TNP, CRITICAL CARE PHYSICIAN Antibody TNP, Scl-70 Scleroderma Ab TNP, Antichromatin Antibodies TNP, Centromere B Antibody TNP, HIV 1&2 Antibody Non-Reactive 08/11/24 06:00: WBC 5.2, RBC 4.49, Hgb 13.7, Hct 39.8, MCV 88.6, MCH 30.5, MCHC 34.4, RDW Std Deviation 42.0, RDW Coeff of Aleteha 13.1, Plt Count 170, MPV 10.2, Immature Gran % (Auto) 0.400, Neut % (Auto) 66.3, Lymph % (Auto) 23.9, [place] % (Auto) 6.9, Eos % (Auto) 1.7, Baso % (Auto) 0.8, Absolute Neuts (auto) 3.5, Absolute Lymphs (auto) 1.25, Nucleated RBC % 0.4, PT 14.1, INR 1.1, APTT 24.0 L, Sodium 134 L, Potassium 3.0 L, Chloride 98, Carbon Dioxide 26.0, Anion Gap 10, BUN 8, Creatinine 0.47 L, Estim Creat Clear Calc 207.43, Est GFR (MDRD) Af Amer 206, Est GFR (MDRD) Non-Af 170, BUN/Creatinine Ratio 17.1, Glucose 100, Calcium 9.0, Magnesium 1.8, Total Bilirubin 1.30 H, AST 285 H, ALT 395 H, Alkaline Phosphatase 63, Total Protein 6.8, Albumin 3.2, Globulin 3.6, Albumin/Globulin Ratio 0.9 Micro: Microbiology 08/09/24 15:45 Urine, Clean Catch Urine Culture - Final Mixed Gram Positive Organisms Radiography Diagnostic Testing: Radiology Impression Biopsy CT 08/11/24 10:00 IMPRESSION: 1. CT directed core needle biopsy of the liver, using CT image guidance with image documentation as described. 2. Conscious Sedation protocol utilized with independent monitoring. Electronically Signed: Jd Danielle MD at 9:27 EST , Physical Exam Const alert, oriented x3, no apparent distress and healthy appearing General Appearance: cooperative GI normal to inspection, nondistended, normoactive bowel sounds, soft to palpation, non-tender and non-distended Percussion: normal to percussion Rectal Exam: deferred Assessment & Plan Assessment/Plan (1) Abdominal pain: (2) Vomiting: (3) Metabolic acidosis: (4) GELY (acute kidney injury): (5) Acute dehydration: (6) Leukocytosis: (7) Erythrocytosis: (8) Transaminitis: (9) Hyperbilirubinemia: PLAN: Plan 24-year-old comes in with Intractable nausea/vomiting -Etiology is unclear. I agree that the stomach was mildly distended and was mildly fluid-filled on CT scan abdomen pelvis but does not seem abnormal in a patient with intractable nausea vomiting. Likely viral gastroenteritis as she is still getting better from a clinical standpoint. Cholestatic hepatitis with jaundice -She had no recent vaccinations, travel, sick contacts. The differential diagnosis does include Nonviral hepatitis acute hepatitis, acute autoimmune hepatitis, EBV or CMV related hepatitis, autoimmune cholangiopathy. She should undergo MRCP to look for signs of stricturing disease. She should also undergo a liver biopsy. I would hold off on antibiotics at this time as it can induce a worsening cholestatic hepatitis due to drug-induced cholestatic hepatitis. -I will send autoimmune blood work. 08/11/2024-her LFTs are improving. Her abdominal pain is improving. She still has some nausea. She denies chest pain shortness of breath. Biochemical workup pending. Liver biopsy. If she is doing okay she can be DC'd to home with symptomatic treatment and follow-up in the clinic. Charges/Coding Visit Charges Inpatient E&M: 15893 Subs Hosp L3
[2024-08-11 08:33] LABS: Magnesium 1.8 mg/dL (1.6-2.6)
[2024-08-11] MEDS: Midazolam 2 MG/2 ML Syringe IV (08:39)
[2024-08-11] MEDS: fentaNYL 100 MCG/2 ML Ampul IV (08:47)
[2024-08-11] MEDS: Lidocaine 2% (20 ml mdv) 20 ML Vial INFILT (08:57)
[2024-08-11] MEDS: Potassium Chloride 10mEq/100mL 10 MEQ/100 ML IV.SOLN. 100 MEQ IV BOLUS ×4 (09:31→12:44)
--- NOTE | 2024-08-11 10:00 | CT_ITS ---
PROCEDURE: CT DIRECTED CORE LIVER BIOPSY INDICATION: Female, 24 years old. Cholestatic hepatitis and jaundice PHYSICIAN: Dr. Shashi Thakkar CONSENT: Written informed consent was obtained having explained the risks, benefits and alternatives in detail with the patient who accepted the risks and agreed to proceed. Laboratory review and clinical assessment was performed. CONSCIOUS SEDATION PROTOCOL: The Drugs used were: 2 mg Versed, IV., and 50 mcg Fentanyl, IV. The sedation time was: 22 minutes. Conscious sedation was started at 8:39 AM and terminated at 9:01 AM. The conscious sedation protocol was independently monitored. RADIATION DOSAGE (If Supplied By Facility): CTDIvol = ( 21 ) mGy, DLP = ( 527.95 ) mGycm Individualized dose optimization techniques were used for this CT. TECHNIQUE: Using CT image guidance with image documentation, a suitable location in the left lobe of the liver was identified. Using an anterior approach, puncture of the liver was uneventful with an 18-gauge core needle system. 4, 18-gauge core samples were obtained, and submitted in formalin to the pathologist for further assessment. Followup CT scan revealed no distinct sequelae. CT/Biopsy/Inj or Needle Placement IMPRESSION: 1. CT directed core needle biopsy of the liver, using CT image guidance with image documentation as described. 2. Conscious Sedation protocol utilized with independent monitoring. Electronically Signed: Jd Danielle MD at 9:27 EST ,
--- NOTE | 2024-08-11 11:06 | PN_ITS ---
Subjective Subjective Patient seen and examined. She had no active complaints. SHe feels much better today. She says she has vomited only once overnight. Review of systems is otherwise negative. Objective Data Objective Data Vital Signs: Vital Signs Temp Pulse Resp BP Pulse Ox O2 Del Method O2 Flow Rate 98.3 F 82 17 110/76 100 Room Air 2 08/11/24 07:30 08/11/24 09:00 08/11/24 09:00 08/11/24 09:00 08/11/24 08:19 08/11/24 09:15 08/11/24 09:00 Oxygen Flow Rate (L/min) 2 Oxygen Delivery Method Room Air Weight: 180 lb 5.41 oz Body Mass Index (BMI) 26.6 Intake & Output: Intake and Output for Last 24 Hours 08/09/24 08/10/24 08/11/24 23:59 23:59 23:59 Intake Total 2800 / 2800 1100 / 1100 100 / 100 Output Total 650 / 650 Balance 2150 / 2150 1100 / 1100 100 / 100 Lab / Micro Data 08/11/24 06:00 08/11/24 06:00 Labs: Laboratory Results - last 24 hr 08/10/24 19:54: ESR 13, Iron 36 L, TIBC 242 L, Iron Saturation 14.9 L, Ferritin 990 H, Lactate Dehydrogenase 401 H, C-React Prot Ext Range 6.99 H, ANNIE-1 Antibody TNP, SS-A/Ro IgG Antibody TNP, SS-B/La IgG Antibody TNP, Sm (Marcum) Antibody TNP, ANESTHESIOLOGIST/PHYSICIAN Antibody TNP, Scl-70 Scleroderma Ab TNP, Antichromatin Antibodies TNP, Centromere B Antibody TNP, HIV 1&2 Antibody Non-Reactive 08/11/24 06:00: WBC 5.2, RBC 4.49, Hgb 13.7, Hct 39.8, MCV 88.6, MCH 30.5, MCHC 34.4, RDW Std Deviation 42.0, RDW Coeff of Alethea 13.1, Plt Count 170, MPV 10.2, Immature Gran % (Auto) 0.400, Neut % (Auto) 66.3, Lymph % (Auto) 23.9, Atkinson % (Auto) 6.9, Eos % (Auto) 1.7, Baso % (Auto) 0.8, Absolute Neuts (auto) 3.5, Absolute Lymphs (auto) 1.25, Nucleated RBC % 0.4, PT 14.1, INR 1.1, APTT 24.0 L, Sodium 134 L, Potassium 3.0 L, Chloride 98, Carbon Dioxide 26.0, Anion Gap 10, BUN 8, Creatinine 0.47 L, Estim Creat Clear Calc 207.43, Est GFR (MDRD) Af Amer 206, Est GFR (MDRD) Non-Af 170, BUN/Creatinine Ratio 17.1, Glucose 100, Calcium 9.0, Magnesium 1.8, Total Bilirubin 1.30 H, AST 285 H, ALT 395 H, Alkaline Phosphatase 63, Total Protein 6.8, Albumin 3.2, Globulin 3.6, Albumin/Globulin Ratio 0.9 Micro: Microbiology 08/09/24 15:45 Urine, Clean Catch Urine Culture - Final Mixed Gram Positive Organisms Radiography Diagnostic Testing: Radiology Impression Biopsy CT 08/11/24 10:00 IMPRESSION: 1. CT directed core needle biopsy of the liver, using CT image guidance with image documentation as described. 2. Conscious Sedation protocol utilized with independent monitoring. Electronically Signed: Jd Danielle MD at 9:27 EST , Physical Exam Const alert, oriented x3, no apparent distress, average body habitus and well nourished Constitutional Narrative: Very pleasant, female, lying in bed, appears comfortable and nontoxic but does appear as if she is not feeling well General Appearance: cooperative HEENT normocephalic, head/scalp atraumatic, hearing grossly normal bilaterally, moist oral mucous membranes and oropharynx normal Eyes PERRL, EOMs intact bilaterally and conjunctivae normal Eyes Narrative: No scleral icterus noted Neck no lymphadenopathy, supple and no JVD Lymph Lymphatic: no lymphadenopathy noted and no lymphedema noted Resp normal respiratory effort, normal air movement, no retractions, no use of accessory muscles and clear to auscultation bilaterally Auscultation: Negative for rales, rhonchi or wheezes Cardio regular rate, regular rhythm, S1 normal heart sound, S2 normal heart sound, no murmurs, no rub, no gallops and no clicks GI normal to inspection, nondistended, normoactive bowel sounds, soft to palpation, non-tender and non-distended Extremity normal capillary refill, no clubbing, cyanosis or edema and no calf tenderness Extremity Narrative: Pedal and radial pulses are 2+ General Extremity: no tenderness to palpation of joints or extremities Skin General Skin Exam: no breakdown Neuro oriented x3, CN's II-XII intact bilaterally, moves all extremities, no focal motor deficits and no sensory deficits noted Speech: speech normal Motor Exam: strength 5/5 throughout and general weakness Psych thought process normal, cooperative and affect normal Appearance: appropriate Assessment & Plan Assessment/Plan (1) Hyperbilirubinemia: (2) Acute dehydration: (3) GELY (acute kidney injury): PLAN: Plan #Intractable nausea and vomiting * nausea and vomiting resolving. * Liver enzymes are trending downwards now. * Patient takes ashwaghandha supplements for anxiety. * Ashwaghandha from literature review can cause incessant nausea and vomiting as well as liver toxicity and may be the etiology her vomiting and elevated liver enzymes * continue IV zofran and compazine prn. * Liver ultrasound was normal. CT abdomen and pelvis was also normal * hepatitis panel is negative. * Continue gentle hydration with iVF. * encourage oral intake * urine tox was negative and serum acetaminophen level was <2 * * #Abnormal urinalysis: * Urinalysis did show 1+ bacteria and 25 leukocyte esterase. * on IV ceftriaxone. Urine cultures show no growth, so ceftriaxone dc'd. * #Nonanion gap metabolic acidosis: resolved. Bicarb today is 24. #Hypokalemia: Potassium today is still low at 3. Will replace with IV potassium. Check magnesium also. #Elevated liver enzymes: * total bilirubin is down to 1.3 today. AST and ALT also trending downwards * GI on board. She had liver biopsy today. * hepatitis panel negative. * PEr GI, to have MRCP also. * autoimmune workup sent per GI. * DVT prophylaxis: lovenox Charges/Coding Visit Charges Inpatient E&M: 94687 Subs Hosp L2
--- NOTE | 2024-08-11 16:20 | NURSING ---
All documentation by instructor of nursing Blanca Vale reviewed by nursing center tutor Shabnam ZELAYA, RN.
[2024-08-12 02:19] VITALS: BMI 26.6
[2024-08-12 04:57] VITALS: BP 107/63; PULSE 71; RESP 16; TEMP 36.7; O2SAT 96
[2024-08-12 06:02] LABS: Absolute Lymphocyte Count 1.18 X10^3/uL (0.83-4.51); Absolute Neutrophil Count 2.6 X10^3/uL (2.0-7.7); Basophil# 0.02 X10^3/uL; Basophil% 0.5 % (0-1); Eosinophil# 0.07 X10^3/uL; Eosinophils% 1.6 % (0-5); Hematocrit 35.8 % (37-47); Lymphocyte # 1.18 X10^3/ul (0.83-4.51); Mean Corp Hgb Conc 33.5 g/dL (32-36); Mean Corpuscular Volume 89.5 fL (81-99); Mean Platelet Vol. 10.6 fl (6.2-12.0); Monocyte# 0.48 X10^3/uL; NRBC Flagged by Analyzer 0 % (0-5); Neutrophil # 2.58 X10^3/uL (2.7-7.7); Platelet Count 165 K/mm3 (150-450); RBC Distribution Width CV 13.2 % (11.6-14.6); White Blood Count 4.4 K/mm3 (4.4-11.0)
[2024-08-12 06:51] LABS: ALB/GLOB Ratio 0.9 RATIO (0.9-2.4); AST(SGOT) 239 U/L (15-37); Alanine Aminotransfer ALT/SGPT 366 U/L (13-56); Albumin, Serum 3.1 g/dL (3.2-5.0); Alkaline Phosphatase 57 U/L (45-117); Anion Gap 8 (5-15); BUN 7 mg/dL (7-18); BUN/Creat Ratio 15.9 RATIO (10-20); Calcium,Total 8.9 mg/dL (8.5-10.1); Chloride 99 mmol/L (98-107); Creatinine, Serum 0.44 mg/dL (0.55-1.02); EST Glomerular Filtration Rate 183 mL/min (>60); Est Glom Filt Rate - Afr Amer 221 mL/min (>60); Estimated Creatinine Clearance 221.57 ml/min; Globulin 3.5 g/dL (2.2-4.2); Glucose 108 mg/dL (74-106); Protein, Total 6.6 g/dL (6.4-8.2); Sodium Level 132 mmol/L (136-145)
[2024-08-12 08:24] VITALS: BP 117/65; PULSE 81; RESP 18; TEMP 36.9; O2SAT 98
[2024-08-12] MEDS: Potassium Chloride Oral Tablet 20 MEQ 40 MEQ PO (08:28)
[2024-08-12] MEDS: 0.9% Saline Lock 10 ML Syringe IV (08:30)
[2024-08-12] MEDS: Potassium Chloride 10mEq/100mL 10 MEQ/100 ML IV.SOLN. 100 MEQ IV BOLUS ×4 (08:30→12:30)
[2024-08-12] MEDS: Enoxaparin 40 MG/0.4 ML Syringe SC (08:31)
--- NOTE | 2024-08-12 09:32 | EX.PCM.PN.GI ---
Subjective Subjective Patient is doing a lot better. Her abdominal pain is down to a 1 out of 10. She states that she wants to go home and she is tolerating a diet. Objective Data Objective Data Vital Signs: Vital Signs Temp Pulse Resp BP Pulse Ox O2 Del Method O2 Flow Rate 97.7 F L 87 18 109/72 97 Room Air 2 08/12/24 16:12 08/12/24 16:12 08/12/24 16:12 08/12/24 16:12 08/12/24 16:12 08/12/24 16:12 08/11/24 09:00 Oxygen Flow Rate (L/min) 2 Oxygen Delivery Method Room Air Weight: 180 lb 5.41 oz Body Mass Index (BMI) 26.6 Intake & Output: Intake and Output for Last 24 Hours 08/10/24 08/11/24 08/12/24 23:59 23:59 23:59 Intake Total 1100 / 1100 700 / 700 800 / 800 Output Total 200 / 200 200 / 200 Balance 1100 / 1100 500 / 500 600 / 600 Lab / Micro Data 08/12/24 05:45 08/12/24 14:35 Labs: Laboratory Results - last 24 hr 08/10/24 19:54: ANNIE-1 Antibody <0.2, SS-A/Ro IgG Antibody < 0.2, SS-B/La IgG Antibody < 0.2, Sm (Marcum) Antibody <0.2, CIGAR WRAPPER TENDER AUTOMATIC Antibody <0.2, Scl-70 Scleroderma Ab <0.2, Double Strand DNA Ab <1, Antichromatin Antibodies <0.2, Centromere B Antibody <0.2, Anti-Mitochondrial Ab <20.0, Influenza Type A Ag Cancelled, Influenza Type B Ag Cancelled 08/12/24 05:45: WBC 4.4, RBC 4.00 L, Hgb 12.0, Hct 35.8 L, MCV 89.5, MCH 30.0, MCHC 33.5, RDW Std Deviation 43.0, RDW Coeff of Alethea 13.2, Plt Count 165, MPV 10.6, Immature Gran % (Auto) 0.900, Neut % (Auto) 59.0, Lymph % (Auto) 27.0, Prowers % (Auto) 11.0 H, Eos % (Auto) 1.6, Baso % (Auto) 0.5, Absolute Neuts (auto) 2.6, Absolute Lymphs (auto) 1.18, Nucleated RBC % 0, Sodium 132 L, Potassium 3.0 L, Chloride 99, Carbon Dioxide 26.0, Anion Gap 8, BUN 7, Creatinine 0.44 L, Estim Creat Clear Calc 221.57, Est GFR (MDRD) Af Amer 221, Est GFR (MDRD) Non-Af 183, BUN/Creatinine Ratio 15.9, Glucose 108 H, Calcium 8.9, Total Bilirubin 1.10 H, AST 239 H, ALT 366 H, Alkaline Phosphatase 57, Total Protein 6.6, Albumin 3.1 L, Globulin 3.5, Albumin/Globulin Ratio 0.9 08/12/24 14:35: Sodium 136, Potassium 3.7, Chloride 104, Carbon Dioxide 28.0, Anion Gap 5, BUN 6 L, Creatinine 0.54 L, Estim Creat Clear Calc 180.54, Est GFR (MDRD) Af Amer 177, Est GFR (MDRD) Non-Af 146, BUN/Creatinine Ratio 11.2, Glucose 116 H, Calcium 8.8 Micro: Microbiology 08/09/24 15:45 Urine, Clean Catch Urine Culture - Final Mixed Gram Positive Organisms Physical Exam Const alert, oriented x3, no apparent distress, average body habitus and well nourished General Appearance: cooperative and comfortable Orientation / Consciousness: awake Exam Limitations: no limitations HEENT normocephalic, head/scalp atraumatic, hearing grossly normal bilaterally, moist oral mucous membranes and oropharynx normal Mouth: oral and palatal mucosa normal Eyes PERRL, EOMs intact bilaterally and conjunctivae normal Neck no lymphadenopathy, supple and no JVD Lymph Lymphatic: no lymphadenopathy noted and no lymphedema noted Resp normal respiratory effort, normal air movement, no retractions, no use of accessory muscles and clear to auscultation bilaterally Auscultation: Negative for rales, rhonchi or wheezes Cardio regular rate, regular rhythm, S1 normal heart sound, S2 normal heart sound, no murmurs, no rub, no gallops and no clicks GI normal to inspection, nondistended, normoactive bowel sounds, soft to palpation, non-tender and non-distended Extremity normal to inspection, full ROM, normal capillary refill, no clubbing, cyanosis or edema and no calf tenderness General Extremity: no tenderness to palpation of joints or extremities Skin no rashes or lesions noted General Skin Exam: no breakdown Neuro oriented x3, CN's II-XII intact bilaterally, moves all extremities, no focal motor deficits and no sensory deficits noted Sensorium / Orientation: awake and alert Speech: speech normal Motor Exam: strength 5/5 throughout and general weakness Psych thought process normal, cooperative and affect normal Appearance: appropriate Assessment & Plan Assessment/Plan (1) Abdominal pain: (2) Vomiting: (3) Metabolic acidosis: (4) GELY (acute kidney injury): (5) Acute dehydration: (6) Leukocytosis: (7) Erythrocytosis: (8) Transaminitis: (9) Hyperbilirubinemia: PLAN: Plan 24-year-old comes in with Intractable nausea/vomiting -Etiology is unclear. I agree that the stomach was mildly distended and was mildly fluid-filled on CT scan abdomen pelvis but does not seem abnormal in a patient with intractable nausea vomiting. Likely viral gastroenteritis as she is still getting better from a clinical standpoint. Cholestatic hepatitis with jaundice -She had no recent vaccinations, travel, sick contacts. The differential diagnosis does include Nonviral hepatitis acute hepatitis, acute autoimmune hepatitis, EBV or CMV related hepatitis, autoimmune cholangiopathy. She should undergo MRCP to look for signs of stricturing disease. She should also undergo a liver biopsy. I would hold off on antibiotics at this time as it can induce a worsening cholestatic hepatitis due to drug-induced cholestatic hepatitis. -I will send autoimmune blood work. 08/11/2024-her LFTs are improving. Her abdominal pain is improving. She still has some nausea. She denies chest pain shortness of breath. Biochemical workup pending. Liver biopsy. If she is doing okay she can be DC'd to home with symptomatic treatment and follow-up in the clinic. Charges/Coding Visit Charges Inpatient E&M: 55184 Subs Hosp L3
[2024-08-12 15:07] LABS: Anti-Centromere B Ab <0.2 AI (0.0-0.9); Anti-Chromatin <0.2 AI (0.0-0.9); Anti-Jo <0.2 AI (0.0-0.9); Anti-Mitochondrial AB <20.0 Units (0.0-20.0); Anti-Scleroderma-70 AB <0.2 AI (0.0-0.9); Anti-dsDNA Ab <1 IU/mL (0-9); RNP Ab <0.2 AI (0.0-0.9); SJOGREN'S Anti-SS-A test < 0.2 AI (0.0-0.9); SJOGREN'S Anti-SS-B test < 0.2 AI (0.0-0.9); Smith Ab <0.2 AI (0.0-0.9)
[2024-08-12 15:10] LABS: Anion Gap 5 (5-15); BUN 6 mg/dL (7-18); BUN/Creat Ratio 11.2 RATIO (10-20); Calcium,Total 8.8 mg/dL (8.5-10.1); Chloride 104 mmol/L (98-107); Creatinine, Serum 0.54 mg/dL (0.55-1.02); EST Glomerular Filtration Rate 146 mL/min (>60); Est Glom Filt Rate - Afr Amer 177 mL/min (>60); Estimated Creatinine Clearance 180.54 ml/min; Glucose 116 mg/dL (74-106); Potassium 3.7 mmol/L (3.5-5.1); Sodium Level 136 mmol/L (136-145)
--- NOTE | 2024-08-12 15:37 | DS.PCM_ITS ---
Providers Date of Admission: 08/09/24 Date of Discharge: 08/12/24 Primary Care Physician: Meggan Primary Care Phys Consultations 08/10/24 08:15 Consult: Gastroenterology Routine Consulting Provider: Rajani Gastroenter[facility] Reason for Consult: elevated liver enzymes EMERGENT Consult: No MD Notified: Yes Date Notified: 08/10/24 Time Notified: 08:15 Method of Notification: Text Reason For Visit: TRANSAMINITIS INTRACTABLE NAUSEA Diagnosis Discharge Diagnosis (1) Abdominal pain: Status: Acute Code(s): R10.9 - Unspecified abdominal pain (2) Vomiting: Status: Acute Code(s): R11.10 - Vomiting, unspecified (3) Metabolic acidosis: Status: Acute Code(s): E87.20 - Acidosis, unspecified (4) GELY (acute kidney injury): Status: Acute Code(s): N17.9 - Acute kidney failure, unspecified (5) Acute dehydration: Status: Acute Code(s): E86.0 - Dehydration (6) Leukocytosis: Status: Acute Code(s): D72.829 - Elevated white blood cell count, unspecified (7) Erythrocytosis: Status: Acute Code(s): D75.1 - Secondary polycythemia (8) Transaminitis: Status: Acute Code(s): R74.01 - Elevation of levels of liver transaminase levels (9) Hyperbilirubinemia: Status: Acute Code(s): E80.6 - Other disorders of bilirubin metabolism Plan #Intractable nausea and vomiting * nausea and vomiting resolving. * Liver enzymes are trending downwards now. * Patient takes ashwaghandha supplements for anxiety. * Ashwaghandha from literature review can cause incessant nausea and vomiting as well as liver toxicity and may be the etiology her vomiting and elevated liver enzymes * continue IV zofran and compazine prn. * Liver ultrasound was normal. CT abdomen and pelvis was also normal * hepatitis panel is negative. * Continue gentle hydration with iVF. * encourage oral intake * urine tox was negative and serum acetaminophen level was <2 * * #Abnormal urinalysis: * Urinalysis did show 1+ bacteria and 25 leukocyte esterase. * on IV ceftriaxone. Urine cultures show no growth, so ceftriaxone dc'd. * #Nonanion gap metabolic acidosis: resolved. Bicarb today is 24. #Hypokalemia: Potassium today is still low at 3. Will replace with IV potassium. Check magnesium also. #Elevated liver enzymes: * total bilirubin is down to 1.3 today. AST and ALT also trending downwards * GI on board. She had liver biopsy today. * hepatitis panel negative. * PEr GI, to have MRCP also. * autoimmune workup sent per GI. * DVT prophylaxis: lovenox Medications at Discharge Home Medications potassium chloride 20 mEq tablet,extended release 20 meq PO DAILY #14 tabs 08/12/24 Hospital Course Operations None Procedures - (liver biopsy) Summary of Care Provided Minutes Spent on Discharge: 47 Hospital Course: Patient is a 24-year-old female who was admitted through the ED on 08/07/2024 with complaint of intractable nausea and vomiting which started several days prior to admission. She denied any diarrhea. test done was negative. She denied any urinary symptoms. Says she had been unable to keep anything down and feels dehydrated. She did admit to lower abdominal pain. She denied any recent travels. Review of systems otherwise negative. Labs were significant for elevated ALT and AST. She was also mildly acidotic. The BMP done. CT of the abdomen and pelvis was essentially unremarkable and showed the presence of an IUD. She was admitted to be managed for intractable nausea and vomiting. Creatinine was also a bit elevated and this improved with hydration. Her liver enzymes subsequently trended upwards. Liver ultrasound done showed a fatty liver though CT of the abdomen and pelvis was normal. Hepatitis panel was negative. Gastroenterology was consulted and recommended a liver biopsy and this was done. Results of the liver biopsy pathology were pending at time of discharge. An autoimmune panel was also ordered to rule out any autoimmune etiology. Patient also admitted to taking ashwagandha as side effect of which was known to be liver toxicity as well as intractable nausea and vomiting. She was counseled to stop taking this herbal supplement. Her liver enzymes trended down and at discharge, total bilirubin was down to 1.1; AST/ALT were also down to 239/366. ALP was normal at 57. Her autoimmune panel was negative. Of note serum alcohol level was negative as well as serum acetaminophen level. Hospital course was also complicated by persistent hypokalemia which was aggressively replaced. Her intractable nausea and vomiting improved and she felt much better. She was able to tolerate a diet. She remained stable and was discharged home on 08/12/2024. She is follow-up with gastroenterology for the immunology labs that were pending. She is followed up with her PCP within 1 to 2 weeks. Of note potassium was 3.7 on day of discharge. Patient seen and examined prior to discharge. She felt much better and had no complication. Review of systems otherwise negative. Labs and vitals reviewed. Home medication reviewed and reconciled. Physical Exam Const alert, oriented x3, no apparent distress, average body habitus and well nourished General Appearance: cooperative and comfortable Orientation / Consciousness: awake Exam Limitations: no limitations HEENT normocephalic, head/scalp atraumatic, hearing grossly normal bilaterally, moist oral mucous membranes and oropharynx normal Mouth: oral and palatal mucosa normal Eyes PERRL, EOMs intact bilaterally and conjunctivae normal Neck no lymphadenopathy, supple and no JVD Lymph Lymphatic: no lymphadenopathy noted and no lymphedema noted Resp normal respiratory effort, normal air movement, no retractions, no use of accessory muscles and clear to auscultation bilaterally Auscultation: Negative for rales, rhonchi or wheezes Cardio regular rate, regular rhythm, S1 normal heart sound, S2 normal heart sound, no murmurs, no rub, no gallops and no clicks GI normal to inspection, nondistended, normoactive bowel sounds, soft to palpation, non-tender and non-distended Extremity normal to inspection, full ROM, normal capillary refill, no clubbing, cyanosis or edema and no calf tenderness General Extremity: no tenderness to palpation of joints or extremities Skin no rashes or lesions noted General Skin Exam: no breakdown Neuro oriented x3, CN's II-XII intact bilaterally, moves all extremities, no focal motor deficits and no sensory deficits noted Sensorium / Orientation: awake and alert Speech: speech normal Motor Exam: strength 5/5 throughout and general weakness Psych thought process normal, cooperative and affect normal Appearance: appropriate Weight / BMI Weight Weight: 180 lb 5.41 oz Body Mass Index (BMI) 26.6 ABG / Lab / Microbiology Data 08/12/24 05:45 08/12/24 14:35 Laboratory: Laboratory Results - last 24 hr 08/10/24 19:54: ANNIE-1 Antibody <0.2, SS-A/Ro IgG Antibody < 0.2, SS-B/La IgG Antibody < 0.2, Sm (Marcum) Antibody <0.2, COMPUTING MACHINE OPERATOR Antibody <0.2, Scl-70 Scleroderma Ab <0.2, Double Strand DNA Ab <1, Antichromatin Antibodies <0.2, Centromere B Antibody <0.2, Anti-Mitochondrial Ab <20.0, Influenza Type A Ag Cancelled, Influenza Type B Ag Cancelled 08/12/24 05:45: WBC 4.4, RBC 4.00 L, Hgb 12.0, Hct 35.8 L, MCV 89.5, MCH 30.0, MCHC 33.5, RDW Std Deviation 43.0, RDW Coeff of Alethea 13.2, Plt Count 165, MPV 10.6, Immature Gran % (Auto) 0.900, Neut % (Auto) 59.0, Lymph % (Auto) 27.0, M ebony % (Auto) 11.0 H, Eos % (Auto) 1.6, Baso % (Auto) 0.5, Absolute Neuts (auto) 2.6, Absolute Lymphs (auto) 1.18, Nucleated RBC % 0, Sodium 132 L, Potassium 3.0 L, Chloride 99, Carbon Dioxide 26.0, Anion Gap 8, BUN 7, Creatinine 0.44 L, Estim Creat Clear Calc 221.57, Est GFR (MDRD) Af Amer 221, Est GFR (MDRD) Non-Af 183, BUN/Creatinine Ratio 15.9, Glucose 108 H, Calcium 8.9, Total Bilirubin 1.10 H, AST 239 H, ALT 366 H, Alkaline Phosphatase 57, Total Protein 6.6, Albumin 3.1 L, Globulin 3.5, Albumin/Globulin Ratio 0.9 08/12/24 14:35: Sodium 136, Potassium 3.7, Chloride 104, Carbon Dioxide 28.0, Anion Gap 5, BUN 6 L, Creatinine 0.54 L, Estim Creat Clear Calc 180.54, Est GFR (MDRD) Af Amer 177, Est GFR (MDRD) Non-Af 146, BUN/Creatinine Ratio 11.2, G lucose 116 H, Calcium 8.8 Microbiology: Microbiology 08/09/24 15:45 Urine, Clean Catch Urine Culture - Final Mixed Gram Positive Organisms D/C Instructions Discharge Diet: No restrictions Discharge Activity: Return to Normal Activity Weight Bearing Status: Weight bearing as tolerated Call your doctor if you observe: Fever of 101 or Higher, Shortness of breath, Dizziness and Swelling in the ankles DC O2, CPAP, BIPAP Needs Home O2 Discharge instructions: No DC home with Oxygen: No Meaningful Use Info Meaningful Use Meaningful Use Diagnoses (Choose all that apply): None applicable Ischemic Stroke Statin Dosing Therapy Reference: STATIN DOSE THERAPY REFERENCE: * Patients > 75 years receive moderate or high dose statin therapy. * Patients 75 years or YOUNGER should receive HIGH intensity statin dose unless contraindicated. You will be required to document reason for non-treatment if statin daily dose does not meet guidelines. HIGH DOSE STATIN THERAPY DAILY Atorvastatin > than or = to 40 mg Rosuvastatin > than or = to 20 mg Amlodipine + Atorvastatin > than or = to 2.5/40 mg Ezetimibe + Simvastatin 10/80 mg Simvastatin 80mg Discharge Plan Admission Admit Date/Time: 08/09/24 12:59 Primary Reason for Your Visit: intractable nausea and vomiting, elevated liver enzymes Attending Provider: Irasema Mcdonough Primary Care Provider: Care Physician,No Primary Consulting Providers: Deb Jeffers; Anam Delgado Instructions Patient Instructions: MALINDA RN Biopsy Liver Dc, MALINDA RN Procedural Sedation Additional Instructions / Restrictions: please stop taking Ashwaghandha supplements. Discharge Orders/Prescriptions Prescriptions: New potassium chloride 20 mEq tablet extended release 20 meq PO DAILY Qty: 14 0RF Referrals / Follow Up: Care Physician,No Primary [Primary Care Provider] - Vamsi Ernst MD [Med Staff - Active Staff] - Within 1 Month (see to establish PCP care) Roman Griffin DO [Med Staff - Active Staff] - Within 2 Weeks Disposition Disposition (needs filled in before D/C Order can be placed): Home, Self Care
--- NOTE | 2024-08-12 15:52 | DCINST_ITS ---
Discharge Instructions Diet Discharge Diet: No restrictions DC O2, CPAP, BIPAP needs Home O2 Discharge instructions: No Dressing / Incision Discharge Activity: Return to Normal Activity Weight Bearing Status: Weight bearing as tolerated Dressing / Incision Call your doctor if you observe: Fever of 101 or Higher, Shortness of breath, Dizziness and Swelling in the ankles Follow Up Care Test Results: Test results from this visit will be discussed in further detail at your follow- up appointment, if applicable. Discharge Plan Admission Admit Date/Time: 08/09/24 12:59 Primary Reason for Your Visit: intractable nausea and vomiting, elevated liver enzymes Attending Provider: Irasema Mcdonough Primary Care Provider: Care Physician,No Primary Consulting Providers: Deb Jeffers; Anam Delgado Instructions Patient Instructions: MALINDA BERMUDEZ Biopsy Liver Umer, MALINDA BERMUDEZ Procedural Sedation Additional Instructions / Restrictions: please stop taking Ashwaghandha supplements. Discharge Orders/Prescriptions Prescriptions: New potassium chloride 20 mEq tablet extended release 20 meq PO DAILY Qty: 14 0RF Referrals / Follow Up: Vamsi Ernst MD [Med Staff - Active Staff] - Within 1 Month (see to establish PCP care) Roman Griffin DO [Med Staff - Active Staff] - Within 2 Weeks Care Physician,No Primary [Primary Care Provider] - Disposition Disposition (needs filled in before D/C Order can be placed): Home, Self Care
[2024-08-12 16:12] VITALS: BP 109/72; PULSE 87; RESP 18; TEMP 36.5; O2SAT 97
[2024-08-14 00:06] LABS: Albumin 3.5 g/dL (2.9-4.4); Alpha-1-Globulins 0.2 g/dL (0.0-0.4); Alpha-2-Globulins 0.7 g/dL (0.4-1.0); Anti-Smooth Muscle ABS 10 Units (0-19); CMV Acute Antibody IgM < 30.0 AU/mL (0.0-29.9); Ceruloplasmin 25.5 mg/dL (19.0-39.0); Copper, Serum or Plasma 92 ug/dL (80-158); Cytoplasmic Ab (C-ANCA) <1:20 titer (Neg:<1:20); EBV Acute VCA IgM < 36.0 U/mL (0.0-35.9); EBV Nuclear Antigen IgG > 600.0 U/mL (0.0-17.9); EBV-VCA IgG 88.1 U/mL (0.0-17.9); Gamma Globulin 1.4 g/dL (0.4-1.8); IgG, Quant 1370 mg/dL (586-1602); Immunoglobulin A 353 mg/dL (87-352); Immunoglobulin G, Subclass 1 671 mg/dL (248-810); Immunoglobulin G, Subclass 2 470 mg/dL (130-555); Immunoglobulin G, Subclass 3 85 mg/dL (15-102); Immunoglobulin G, Subclass 4 27 mg/dL (2-96); Immunoglobulin M 186 mg/dL (26-217); PROEL- TOTAL PROTEIN 6.8 g/dL (6.0-8.5); Perinuclear Ab (P-ANCA) <1:20 titer (Neg:<1:20)
== END 2024-08-12 17:07 | disposition home or self-care (01) | DRG 392 ==
LOC: ED 14:49 → MS3 16:09
PROVIDERS: Family Medicine; Internal Medicine Gastroenterology; Radiology Diagnostic Radiology; Admitting Provider Internal Medicine; Emergency Provider Emergency Medicine; Visit Provider Student in an Organized Health Care Education/Training Program
DX: R11.2 Nausea with vomiting, unspecified (principal); E87.20 Acidosis, unspecified; N17.9 Acute kidney failure, unspecified; K75.89 Other specified inflammatory liver diseases; E86.0 Dehydration; D72.829 Elevated white blood cell count, unspecified; E87.6 Hypokalemia; E80.6 Other disorders of bilirubin metabolism; D75.1 Secondary polycythemia; R10.9 Unspecified abdominal pain; R74.01 Elevation of levels of liver transaminase levels; A08.4 Viral intestinal infection, unspecified; R74.8 Abnormal levels of other serum enzymes; R82.998 Other abnormal findings in urine
CPT/HCPCS: 36415; 74177; 76705; 77012; 80048; 80053; 80061; 80074; 80076; 80143; 81001; 82390; 82525; 82728; 82784; 82787; 82803; 83021; 83516; 83540; 83550; 83615; 83690; 83735; 84100; 84165; 84443; 84703; 85025; 85610; 85652; 85660; 85730; 86037; 86140; 86225; 86235; 86334; 86645; 86664; 86665; 86695; 86696; 86703; 86710; 87086; 87088; 88307; 88312; 99156; 99284; Q9967; A4216; J2405

== ENCOUNTER 2024-10-30 16:01 | Emergency (ER) | payer SELFPAY ==
[2024-10-30 16:03] VITALS: BP 158/105; PULSE 143; RESP 15; TEMP 37.1; O2SAT 100
--- NOTE | 2024-10-30 16:15 | ED.VIS.GI ---
HPI HPI - GI History of Present Illness Chief Complaint: Nausea/Vomiting Informant: patient Abdominal Pain/Flank Pain Onset: Today and Yesterday Context: Gradual Onset Timing: Continuous Quality: Cramping Location: Diffuse Current Severity: Mild Maximum Severity: Mild Nausea/Vomiting/Emesis GI Symptom: Positive for Nausea and Vomiting Onset: Today and Yesterday Severity: Moderate Diarrhea/Melena/Hematochezia GI Symptom: Positive for Diarrhea and Hematochezia (Small amount of what she thinks was blood per rectum. No clots.) Stool Quality: Positive for Loose Severity: Mild Associated Symptoms Associated Symptoms: Negative for Dysuria, Frequency, Hematuria or Urgency Narrative Narrative: 24-year-old female no seen past medical history. Previously had elevated liver enzymes that was thought to be due to the medication she was on. She has never had any abdominal surgeries other than a liver biopsy. States that last night she started having nausea vomiting and loose stools. Continued today. Think she start about 10 times a day. Denies any hematemesis. Believes there may have been some small bright red blood with her loose stools. No fever. No dysuria. Prior similar symptoms: Yes Recent Illness/Hospitalization: No PFSH PFS Medical History Erythrocytosis Leukocytosis Transaminitis Hyperbilirubinemia Encounter for intrauterine device placement Abdominal pain Contact with and (suspected) exposure to other viral communicable diseases Asthma Home Medications ?Medication ?Instructions ?Recorded ?Last Taken ?Type potassium chloride 20 mEq 20 meq PO DAILY #14 tabs 08/12/24 Unknown Rx tablet,extended release ondansetron 4 mg disintegrating 4 mg PO Q6H PRN nausea and 10/30/24 Unknown Rx tablet vomiting #10 tabs Allergy/AdvReac Type Severity Reaction Status Date / Time cat dander Allergy Mild Hives Verified 10/30/24 16:03 Family History Father Diabetes Hypertension Mother Hypertension Social History Smoking Status: Never smoker alcohol intake: never substance use type: does not use ROS ROS ED ROS Narrative Nausea, vomiting, and diarrhea. Abdominal cramping. Constitutional Constitutional ED: Denies chills ENT ENT ED: Denies ear pain Cardiovascular Cardiovascular: Denies chest pain Respiratory/Chest Respiratory/Chest: Denies cough or dyspnea Gastrointestinal Gastrointestinal: Reports abdominal pain, diarrhea, nausea and vomiting; Denies constipation or melena Genitourinary Genitourinary ED: Denies dysuria or hematuria Musculoskeletal Musculoskeletal: Denies arthralgias Integumentary Denies abscess Neurologic Neurologic: Denies headache(s) Psychiatric Psychiatric: Denies anxiety Endocrine Endocrinology: Denies polydipsia, polyphagia or polyuria Hematologic/Lymphatic Hematologic/Lymphatic: Denies easy bleeding, easy bruising or lymphadenopathy Allergic/Immunologic Allergic/Immunologic ED: Denies mouth swelling, tongue swelling or urticaria EXAM Physical Exam Narrative Exam Narrative: 24-year-old female sitting upright in bed. Vital signs are stable afebrile. She is tachycardic. She does not look septic or toxic. Clinically does not look dehydrated. No distress. H EENT exam pupils round react light. Dry mucous members. Neck nontender no JVD. No lymphadenopathy. No meningismus. Lungs clear to auscultation bilaterally. Heart tachycardic rate about 120 no murmur. Chest wall and ribs nontender. Abdomen soft nondistended normal bowel sounds without peritoneal signs. No localizing right upper or right lower quadrant tenderness. No hernia or mass. No obstruction. Moving all 4 extremities. Nontender no edema. Back nontender. Neurologically she is awake and alert no focal motor deficits. Const Vital Signs: 10/30/24 16:03 Temperature 98.7 F Temperature Source Oral Pulse Rate 143 H Respiratory Rate 15 Blood Pressure 158/105 H Blood Pressure Mean 122 Pulse Ox 100 Oxygen Delivery Method Room Air Positive well nourished and well developed; Negative for cachectic, contractures or unkempt General Appearance ED: well developed and NAD; Negative for unkempt, cachectic, contractures or pallor Nutritional Appearance: Negative for cachectic HEENT Reports dry mucous membranes normocephalic and atraumatic; Negative for trauma or tenderness Mouth ED: Yes dry mucous membranes Mouth: dry mucous membranes Eyes PERRL and EOMs intact bilaterally General Eye ED: Negative for pale conjunctiva or scleral icterus Neck no lymphadenopathy, supple and no JVD General: Negative for tenderness Resp normal respiratory effort and clear to auscultation bilaterally Effort and Inspection: Negative for respiratory distress Auscultation: Negative for rales, rhonchi or wheezes Cardio regular rhythm, S1 normal heart sound, S2 normal heart sound and no murmurs; Negative for regular rate Rate: tachycardic GI non-distended and no masses; Negative for non-tender Auscultation: normoactive bowel sounds Palpation: soft and tender; Negative for guarding, rigid, hepatomegaly, splenomegaly, hernia, mass, pulsatile mass or rebound tenderness present Back/Spine no CVA tenderness General Back: Negative for CVA tenderness Cervical Spine: Negative for cervical spine tenderness Thoracic Spine / Upper Back: Negative for thoracic spinal tenderness Lumbar Spine / Lower Back: Negative for lumbar spinal tenderness Coccyx: Negative for other Extremity full ROM General Extremety ED: Negative for edema or tenderness General Extremity: Negative for edema Neuro CN's II-XII intact bilaterally and moves all extremities Sensorium / Orientation: alert, oriented to person, oriented to place and oriented to time; Negative for orientation impaired, confused or lethargic Motor Exam: strength 5/5 throughout Psych mental status grossly normal and thought process normal Appearance: Negative for unkempt Attitude: No agitated Mood & Affect: Negative for depressed, anxious or tearful Skin no wounds General Skin Exam: Negative for jaundice or pallor Lesions: no lesions Rashes: no rashes Trauma: Negative for abrasion Nails: Negative for discolored MDM MDM MDM Narrative Medical decision making narrative: 24-year-old female with nausea vomiting. Abdomen is pretty benign. I do not think she needs imaging. IV fluids. IV Zofran. P.o. fluid challenge. Screening labs. Reportedly had a small amount of blood per rectum. CBC will be obtained. Repeat exam at 5:10 PM. Still nauseated. Abdomen benign. Should be given additional IV Zofran. Repeat exam patient is doing well at 5:55 PM. Abdomen benign. We went over her test results. She is comfortable being discharged home. She will be written for prescription of Zofran for nausea. She is currently drinking ice water for p.o. fluid challenge. History & Record Review Discussion w/independent historian: Patient Additional record(s) reviewed:: Prior inpatient record, Prior outpatient record, Prior ED visit and Prior labs Lab Data Attestation: I reviewed the patient's lab results. Lab results narrative: CBC unremarkable. White count of 7.6. H&H 15 and 46. Platelets 340. CMP shows a sodium 143. Anion gap 28. Normal BUN of 10 creatinine 0.7. Glucose 102. Liver enzymes are elevated. Improved from prior. Lipase normal at 50. test negative. Labs: Laboratory Results - last 24 hr 10/30/24 16:05 WBC 7.6 RBC 5.28 Hgb 15.1 H Hct 46.3 MCV 87.7 MCH 28.6 MCHC 32.6 RDW Std Deviation 41.7 RDW Coeff of Alethea 13.0 Plt Count 340 MPV 9.1 Immature Gran % (Auto) 0.400 Neut % (Auto) 88.0 H Lymph % (Auto) 7.3 L [place] % (Auto) 3.7 Eos % (Auto) 0.1 Baso % (Auto) 0.5 Absolute Neuts (auto) 6.7 Absolute Lymphs (auto) 0.56 L Nucleated RBC % 0 Sodium 143 Potassium 3.5 Chloride 97 L Carbon Dioxide 17.7 L Anion Gap 28 H BUN 10 Creatinine 0.77 Est GFR (MDRD) Non-Af 109 BUN/Creatinine Ratio 12.6 Glucose 102 H Calcium 9.8 Total Bilirubin 1.39 H AST 132 H ALT 95 H Alkaline Phosphatase 77 Total Protein 9.7 H Albumin 5.2 H Globulin 4.4 H Albumin/Globulin Ratio 1.2 Lipase 50 Serum , Qual NEGATIVE Discharge Plan Triage Chief Complaint: Nausea/Vomiting ED Provider: Ash Sim Dx/Rx/DC Orders Clinical Impression: Nausea vomiting and diarrhea, Viral gastroenteritis Instructions: Viral Gastroenteritis Prescriptions: New ondansetron 4 mg tablet,disintegrating 4 mg PO Q6H PRN (Reason: nausea and vomiting) Qty: 10 0RF No Action potassium chloride 20 mEq tablet extended release 20 meq PO DAILY Qty: 14 0RF Primary Care Provider: Care Physician,No Primary Referrals: Clemente Gonzales MD [Non-Staff] - 1-2 Days if not improving Care Physician,No Primary [Primary Care Provider] - Activity Restrictions/Additional Instructions: Zofran as needed for nausea. You may swallow or let it dissolve on your tongue. Plenty of fluids and rest. Water, 7-Up and Gatorade. Increase your diet slowly as tolerated. Follow-up with local primary care physician or ensure you are improving or return if worse. Print Language: Danish Disposition Disposition: Home, Self Care
[2024-10-30] MEDS: 0.9% Normal Saline (1000mL) 1,000 ML 999 ML IV (16:20)
[2024-10-30] MEDS: Ondansetron 4 MG/2 ML Vial IV ×2 (16:20→17:14)
[2024-10-30 16:38] LABS: Absolute Lymphocyte Count 0.56 X10^3/uL (0.83-4.51); Absolute Neutrophil Count 6.7 X10^3/uL (2.0-7.7); Basophil# 0.04 X10^3/uL; Basophil% 0.5 % (0-1); Eosinophil# 0.01 X10^3/uL; Eosinophils% 0.1 % (0-5); Hematocrit 46.3 % (37-47); Hemoglobin 15.1 g/dL (12.0-15.0); Lymphocyte # 0.56 X10^3/ul (0.83-4.51); Lymphocyte % 7.3 % (19-41); Mean Corp Hgb Conc 32.6 g/dL (32-36); Mean Corpuscular Hgb 28.6 pg (27.0-32.0); Mean Corpuscular Volume 87.7 fL (81-99); Mean Platelet Vol. 9.1 fl (6.2-12.0); Monocyte# 0.28 X10^3/uL; Monocyte% 3.7 % (0-10); NRBC Flagged by Analyzer 0 % (0-5); Neutrophil # 6.71 X10^3/uL (2.7-7.7); POSITIVE DIFFERENTIAL YES; Platelet Count 340 K/mm3 (150-450); RBC Distribution Width SD 41.7 fl (35.1-43.9); Red Blood Count 5.28 M/mm3 (4.2-5.4); White Blood Count 7.6 K/mm3 (4.4-11.0)
[2024-10-30 16:49] LABS: Internal QC Validated? YES +Cl - CLEAR BKGD; Pregnancy, Serum, hCG Quali. NEGATIVE Negative
[2024-10-30 17:35] LABS: Lipase 50 U/L (13-75)
[2024-10-30 17:41] LABS: ALB/GLOB Ratio 1.2 RATIO (0.9-2.4); AST(SGOT) 132 U/L (<=31); Alanine Aminotransfer ALT/SGPT 95 U/L (<=34); Albumin, Serum 5.2 g/dL (3.5-5.0); Alkaline Phosphatase 77 U/L (35-104); Anion Gap 28 (5-15); BUN 10 mg/dL (4-19); BUN/Creat Ratio 12.6 RATIO (10-20); Calcium,Total 9.8 mg/dL (7.6-11.0); Carbon Dioxide 17.7 mmol/L (21.0-32.0); Chloride 97 mmol/L (98-108); Creatinine, Serum 0.77 mg/dL (0.70-1.20); EST Glomerular Filtration Rate 109 (>60); Globulin 4.4 g/dL (2.2-4.2); Glucose 102 mg/dL (70-99); Potassium 3.5 mmol/L (3.3-5.1); Protein, Total 9.7 g/dL (5.9-8.4); Sodium Level 143 mmol/L (133-145); Total Bilirubin 1.39 mg/dL (0.00-1.30)
[2024-10-30 18:02] VITALS: BP 118/66; O2SAT 99
[2024-10-30 18:07] VITALS: BP 118/66; PULSE 127; RESP 18; TEMP 37.1; O2SAT 99
== END 2024-10-30 18:11 | disposition home or self-care (01) ==
PROVIDERS: Emergency Provider Emergency Medicine; Visit Provider Emergency Medicine
DX: A08.4 Viral intestinal infection, unspecified (principal); R11.2 Nausea with vomiting, unspecified; R19.7 Diarrhea, unspecified
CPT/HCPCS: 96361; 96374; 99285

== ENCOUNTER 2025-02-16 17:19 | Emergency (ER) | payer OTHER, SELFPAY ==
[2025-02-16 17:20] VITALS: BP 164/79; PULSE 153; RESP 18; TEMP 36; O2SAT 99; BMI 25.9
--- NOTE | 2025-02-16 17:41 | RAD_ITS ---
PROCEDURE: FINGER(S) MIN 2 VIEWS 02/16/2025 REASON FOR EXAM: INJURY TECHNIQUE: FINGER(S) MIN 2 VIEWS COMPARISON: none RAD/Finger(s) Min 2 Views IMPRESSION: No acute fracture or dislocations. No significant degenerative changes. Mild soft tissue edema. No radiographic foreign body. Reading Location: [facility]
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
[2025-02-16 18:54] VITALS: BP 148/72; PULSE 99; RESP 16; TEMP 36.4; O2SAT 98
== END 2025-02-16 19:02 | disposition home or self-care (01) ==
PROVIDERS: Emergency Provider Emergency Medicine; Visit Provider Emergency Medicine
DX: S63.616A Unspecified sprain of right little finger, initial encounter (principal); X58.XXXA Exposure to other specified factors, initial encounter; Y93.89 Activity, other specified; Y99.0 Civilian activity done for income or pay; Y92.89 Other specified places as the place of occurrence of the external cause
CPT/HCPCS: 73140; 99283

== ENCOUNTER → 2025-02-22 | Outpatient (CLI) | payer OTHER, SELFPAY ==
--- NOTE | 2025-02-22 13:21 | RAD_ITS ---
PROCEDURE: HAND MIN 3 VIEWS 02/22/2025 REASON FOR EXAM: PAIN TECHNIQUE: HAND MIN 3 VIEWS COMPARISON: Right 5th finger study of 02/16/2025.. RAD/Hand Min 3 Views IMPRESSION: No radiopaque foreign body is noted. Satisfactory alignment is seen. No fracture or dislocation is evident. Reading Location: [place] [id number]
--- OUTSIDE RECORDS SUMMARY | 2025-02-22 19:16 | XMS RPT_ITS | CCD ---
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 Location: Diffuse Current Severity: Mild Maximum Severity: Mild Nausea/Vomiting/Emesis GI Symptom: Positive for Nausea and Vomiting Onset: Today and Yesterday Severity: Moderate Diarrhea/Melena/Hematochez ia GI Symptom: Positive for Diarrhea and Hematochezia (Small amount of what she thinks was blood per rectum. No clots.) Stool Quality: Positive for Loose Severity: Mild Associated Symptoms Associated Symptoms: Negative for Dysuria, Frequency, Hematuria or Urgency Narrative Narrative: 24-year-old female no seen past medical history. Previously had elevated liver enzymes that was thought to be due to the medication she was on. She has never had any abdominal surgeries other than a liver biopsy. States that last night she started having nausea vomiting and loose stools. Continued today. Think she start about 10 times a day. Denies any hematemesis. Believes there may have been some small bright red blood with her loose stools. No fever. No dysuria. Prior similar symptoms: Yes Recent Illness/Hospitalization: No [facility] Medical History Erythrocytosis Leukocytosis Transaminitis Hyperbilirubinemia Encounter for intrauterine device placement Abdominal pain Contact with and (suspected) exposure to other viral communicable diseases Asthma Home Medications ???Medication ???Instructions ???Recorded ???Last Taken ???Type potassium chloride 20 mEq 20 meq PO DAILY #14 tabs 08/12/24 Unknown Rx tablet,extended release ondansetron 4 mg disintegrating 4 mg PO Q6H PRN nausea and 5 Unknown Rx tablet vomiting #10 tabs Allergy/AdvReac Type Severity Reaction Status Date / Time cat dander Allergy Mild Hives Verified 10/30/24 16:03 Family History Father Diabetes Hypertension Mother Hypertension Social History Smoking Status: Never smoker alcohol intake: never substance use type: does not use ROS ROS ED ROS Narrative Nausea, vomiting, and diarrhea. Abdominal cramping. Constitutional Constitutional ED: Denies chills ENT ENT ED: Denies ear pain Cardiovascular Cardiovascular: Denies chest pain Respiratory/Chest Respiratory/Chest: Denies cough or dyspnea Gastrointestinal Gastrointestinal: Reports abdominal pain, diarrhea, nausea and vomiting; Denies constipation or melena Genitourinary Genitourinary ED: Denies dysuria or hematuria Musculoskeletal Musculoskeletal: Denies arthralgias Integumentary Denies abscess Neurologic Neurologic: Denies headache(s) Psychiatric Psychiatric: Denies anxiety Endocrine Endocrinology: Denies polydipsia, polyphagia or polyuria Hematologic/Lymphatic Hematologic/Lymphatic: Denies easy bleeding, easy bruising or lymphadenopathy Allergic/Immunologic Allergic/Immunologic ED: Denies mouth swelling, tongue swelling or urticaria EXAM Physical Exam Narrative Exam Narrative: 24-year-old female sitting upright in bed. Vital signs are stable afebrile. She is tachycardic. She does not look septic or toxic. Clinically does not look dehydrated. No distress. H EENT exam pupils round react light. Dry mucous members. Neck nontender no JVD. No lymphadenopathy. No meningismus. Lungs clear to auscultation bilaterally. Heart tachycardic rate about 120 no murmur. Chest wall and ribs nontender. Abdomen soft nondistended normal bowel sounds without peritoneal signs. No localizing right upper or right lower quadrant tenderness. No hernia or mass. No obstruction. Moving all 4 extremities. Nontender no edema. Back nontender. Neurologically she is awake and alert no focal motor deficits. Const Vital Signs: 10/30/24 16:03 Temperature 98.7 F Temperature Source Oral Pulse Rate 143 H Respiratory Rate 15 Blood Pressure 158/105 H Blood Pressure Mean 122 Pulse Ox 100 Oxygen Delivery Method Room Air Positive well nourished and well developed; Negative for cachectic, contractures or unkempt General Appearance ED: well developed and NAD; Negative for unkempt, cachectic, contractures or pallor Nutritional Appearance: Negative for cachectic HEENT Reports dry mucous membranes normocephalic and atraumatic; Ne (more content not included)... Normal [facility] Eosinophil percentageOrdered By: Ash Sim on 10-30-2024 Eosinophils/100 WBC (Bld) 0.1 % 0-5 [facility] Erythrocyte distribution wid th (RBC) [Ratio]Ordered By: Ash Sim on 10-30-2024 Erythrocyte distribution width (RBC) [Entitic vol] 41.7 fL 35.1-43.9 [facility] Erythrocyte distribution wid th ratioOrdered By: Ash Sim on 10-30-2024 Erythrocyte distribution width (RBC) [Ratio] 13.0 % 11.6-14.6 [facility] Erythrocyte distribution wid th standard deviationOrdered By: Ash Sim on 10-30-2024 Erythrocyte distribution width (RBC) [Ratio] 41.7 fl 35.1-43.9 [facility] GFR/1.73 sq M.predicted baldo g non-blacks MDRD (S/P/Bld) [Vol rate/Area]Ordered By: Ash Sim on 10-30-2024 Estimated GFR (MDRD) Non-Af Amer 109 >60 [facility] Comment on above: mL/min/1.73m2 CKD-EP I Creatinine Equation (2020) Glomerular filtration rate ( GFR) estimation/1.73 sq m using serum, plasma, or whole bOrdered By: Ash Sim on 10-30-2024 GFR/1.73 sq M.predicted among non-blacks MDRD (S/P/Bld) [Vol rate/Area] 109 mL/min/{1.73_m2} >60 [facility] Comment on above: mL/min/1.73m2 CKD-EP I Creatinine Equation (2020) Hematocrit Auto (Bld) [Volum e fraction]Ordered By: Ash Sim on 10-30-2024 Hematocrit (Bld) [Volume fraction] 46.3 % 37-47 [facility] Hemoglobin measurementOrdere d By: Ash Sim on 10-30-2024 Hemoglobin (Bld) [Mass/Vol] 15.1 g/dL High 12.0-15.0 [facility] Immature granulocytes/100 WB C Auto (Bld)Ordered By: Ash Sim on 10-30-2024 Immature granulocytes/100 WBC (Bld) 0.400 % 0.0-0.9 [facility] Comment on above: IG% - Immature Granu locytes (promyelocytes, myelocytes and metamyelocytes) > 1% indicates that a LEFT SHIFT is Present. Laboratory - Chemistry and C hemistry - challengeOrdered By: Ash Sim on 10-30-2024 AST [Catalytic activity/Vol] 132 U/L High <32 [facility] Lipaseon 10-30-2024 Lipase [Catalytic activity/Vol] 50 U/L Normal 13-75 [facility] Comment on above: Result Comment: Flavia marks note: LIPASE revised reference range effective 22. New Lipase methodology. Expected to produce lower values than the previous assay method. NEW Reference Range: 13 - 75 U/L Performed By: #### L 100.0100, L700.6800, L501.2450, L500.4050 ####[facility] [address] [place], [address] Lipase measurementOrdered By : Ash Sim on 10-30-2024 Lipase [Catalytic activity/Vol] 50 U/L 13-75 [facility] Comment on above: Please note:LIPASE r evised reference range effective 22. New Lipase methodology. Expected to produce lower values than the previous assay method. NEW Reference Range: 13 - 75 U/L Lymphocytes Auto (Unsp spec) [#/Vol]Ordered By: Ash Sim on 10-30-2024 Lymphocytes (Bld) [#/Vol] 0.56 10*3/uL Low 0.83-4.51 [facility] Lymphocytes/100 WBC Auto (Un sp spec)Ordered By: Ash Sim on 10-30-2024 Lymphocytes/100 WBC (Bld) 7.3 % Low 19-41 [facility] MCV (mean corpuscular volume ) determinationOrdered By: Ash Sim on 10-30-2024 MCV (RBC) [Entitic vol] 87.7 fL 81-99 [facility] Mean corpuscular hemoglobin (MCH) determinationOrdered By: Ash Sim on 10-30-2024 MCH (RBC) [Entitic mass] 28.6 pg 27.0-32.0 [facility] Mean corpuscular hemoglobin concentration (MCHC) determinationOrdered By: Ash Sim on 10-30-2024 MCHC (RBC) [Mass/Vol] 32.6 g/dL 32-[address] [facility] Mean platelet volume determi nationOrdered By: Ash Sim on 10-30-2024 Platelet mean volume (Bld) [Entitic vol] 9.1 fL 6.2-12.0 [facility] Monocyte percentageOrdered B y: Ash Sim on 10-30-2024 Monocytes/100 WBC (Bld) 3.7 % 0-10 [facility] Neutrophil percentageOrdered By: Ash Sim on 10-30-2024 Neutrophils/100 WBC (Bld) 88.0 % High 47-70 [facility] Nucleated red blood cell per centageOrdered By: Ash Sim on 10-30-2024 Nucleated RBC/100 WBC (Bld) [Ratio] 0 % 0-5 [facility] Platelet countOrdered By: Hardik Sim on 10-30-2024 Platelets (Bld) [#/Vol] 340 10*3/uL 150-450 [facility] Potassium (Unsp spec) [Mass/ Vol]Ordered By: Ash Sim on 10-30-2024 Potassium [Moles/Vol] 3.5 mmol/L 3.3-5.[address] [facility] Potassium measurement (mass/ volume)Ordered By: Ash Sim on 10-30-2024 Potassium (Unsp spec) [Mass/Vol] 3.5 mmol/L 3.3-5.1 [facility] ,Serum,hCG Quali.on 10-30-2024 HCG, SERUM QUAL Negative Normal [facility] Comment on above: Performed By: #### L 100.0100, L700.6800, L501.2450, L500.4050 ####[facility] [address] [place], [address] RBC Auto (Bld) [#/Vol]Ordere d By: Ash Sim on 10-30-2024 RBC (Bld) [#/Vol] 5.28 10*6/uL 4.2-5.4 [facility] Serum beta-hCG test, qualita tiveOrdered By: Ash Sim on 10-30-2024 Beta HCG ( test) Ql Negative [facility] Serum creatinine measurement (mass/volume)Ordered By: Ash Sim on 10-30-2024 Creatinine [Mass/Vol] 0.77 mg/dL 0.70-1.[address] [facility] Serum globulin measurementOr dered By: Ash Sim on 10-30-2024 Globulin (S) [Mass/Vol] 4.4 g/dL High 2.2-4.2 [facility] Serum glucose measurement (m ass/volume)Ordered By: Ash Sim on 10-30-2024 Glucose [Mass/Vol] 102 mg/dL High 70-99 [facility] Serum or plasma alanine neff otransferase (ALT) measurementOrdered By: Ash Sim on 10-30-2024 ALT [Catalytic activity/Vol] 95 U/L High <35 [facility] Serum or plasma albumin cory urement (mass/volume)Ordered By: Ash Sim on 10-30-2024 Albumin [Mass/Vol] 5.2 g/dL High 3.5-5.0 [facility] Serum or plasma albumin/glob ulin mass ratioOrdered By: Ash Sim on 10-30-2024 Albumin/Globulin [Mass ratio] 1.2 {ratio} 0.9-2.4 [facility] Serum or plasma alkaline faraz sphatase measurementOrdered By: Ash Sim on 10-30-2024 ALP [Catalytic activity/Vol] 77 U/L 35-104 [facility] Serum or plasma calcium cory urement (mass/volume)Ordered By: Ash Sim on 10-30-2024 Calcium [Mass/Vol] 9.8 mg/dL 7.6-11.0 [facility] Serum or plasma urea nitroge n measurement (mass/volume)Ordered By: Ash Sim on 10-30-2024 Urea nitrogen [Mass/Vol] 10 mg/dL 4-19 [facility] Sodium levelOrdered By: Ash Sim on 10-30-2024 Sodium [Moles/Vol] 143 mmol/L 133-145 [facility] Total proteinOrdered By: Gopi Sim on 10-30-2024 Protein [Mass/Vol] 9.7 g/dL High 5.9-8.4 [facility] White blood cell (WBC) count Ordered By: Ash Sim on 10-30-2024 WBC (Bld) [#/Vol] 7.6 10*3/uL 4.4-11.0 [facility] Hemoglobinopathy Profileon 0 08-30-2024 Hgb Solubility Normal [facility] Comment on above: Result Comment: TEST RESULTS LIMITS Hgb Fractionation [place] Hgb Fractionation by CE: Hgb F 0.0 % 0.0-2.0 Hgb A 97.6 % 96.4-98.8 Hgb A2 2.4 % 1.8-3.2 Hgb S 0.0 % 0.0 Interpretation: Normal hemoglobin present; no hemoglobin variant or beta thalassemia identified. Note: Alpha thalassemia may not be detected by the Hgb Fractionation [place] panel. If alpha thalassemia is suspected, [facility] offers Alpha-Thalassemia DNA Analysis (#[id number]). TESTING PERFORMED AT [facility]. ORIGINAL REPORT ON FILE IN LAB CONTAINS ADDITIONAL TEST SITE INFORMATION. Performed By: #### L 500.2500, L500.3400, L501.2450, L100.0100 #### [facility] [address] [place], [address] CBC W/Diff, Automatedon 07-22 Absolute Neut Normal 2.0-7.7 [facility] Comment on above: Result Comment: Canc elled via OM: Order cancelled - Patient discharged Performed By: #### L 500.2500, L500.3400, L501.2450, L100.0100 #### [facility] [address] [place], [address] HCT Normal 37-47 [facility] Comment on above: Result Comment: Canc elled via OM: Order cancelled - Patient discharged Performed By: #### L 500.2500, L500.3400, L501.2450, L100.0100 #### [facility] [address] [place], [address] HGB Normal 12.0-15.0 [facility] Comment on above: Result Comment: Canc elled via OM: Order cancelled - Patient discharged Performed By: #### L 500.2500, L500.3400, L501.2450, L100.0100 #### [facility] [address] [place], [address] MCH Normal 27.0-32.0 [facility] Comment on above: Result Comment: Canc elled via OM: Order cancelled - Patient discharged Performed By: #### L 500.2500, L500.3400, L501.2450, L100.0100 #### [facility] [address] [place], [address] MCHC Normal 32-36 [facility] Comment on above: Result Comment: Canc elled via OM: Order cancelled - Patient discharged Performed By: #### L 500.2500, L500.3400, L501.2450, L100.0100 #### [facility] [address] [place], [address] MCV Normal 81-99 [facility] Comment on above: Result Comment: Canc elled via OM: Order cancelled - Patient discharged Performed By: #### L 500.2500, L500.3400, L501.2450, L100.0100 #### [facility] [address] [place], [address] NEUT% Normal 47-70 [facility] Comment on above: Result Comment: Canc elled via OM: Order cancelled - Patient discharged Performed By: #### L 500.2500, L500.3400, L501.2450, L100.0100 #### [facility] [address] [place], [address] PLT Normal 150-450 [facility] Comment on above: Result Comment: Canc elled via OM: Order cancelled - Patient discharged Performed By: #### L 500.2500, L500.3400, L501.2450, L100.0100 #### [facility] [address] [place], [address] RBC Normal 4.2-5.4 [facility] Comment on above: Result Comment: Canc elled via OM: Order cancelled - Patient discharged Performed By: #### L 500.2500, L500.3400, L501.2450, L100.0100 #### [facility] [address] [place], [address] RDW CV Normal 11.6-14.6 [facility] Comment on above: Result Comment: Canc elled via OM: Order cancelled - Patient discharged Performed By: #### L 500.2500, L500.3400, L501.2450, L100.0100 #### [facility] [address] [place], [address] RDW SD Normal 35.1-43.9 [facility] Comment on above: Result Comment: Canc elled via OM: Order cancelled - Patient discharged Performed By: #### L 500.2500, L500.3400, L501.2450, L100.0100 #### [facility] [address] [place], [address] WBC Normal 4.4-11.0 [facility] Comment on above: Result Comment: Canc elled via OM: Order cancelled - Patient discharged Performed By: #### L 500.2500, L500.3400, L501.2450, L100.0100 #### [facility] [address] [place], [address] CBC W/Diff, Automatedon 01-2 Absolute Neut Normal 2.0-7.7 [facility] Comment on above: Result Comment: Canc elled via OM: Order cancelled - Patient discharged Performed By: #### L 100.0100 ####[facility] [address] [place], [address] HCT Normal 37-47 [facility] Comment on above: Result Comment: Canc elled via OM: Order cancelled - Patient discharged Performed By: #### L 100.0100 ####[facility] [address] [place], [address] HGB Normal 12.0-15.0 [facility] Comment on above: Result Comment: Canc elled via OM: Order cancelled - Patient discharged Performed By: #### L 100.0100 ####[facility] [address] [place], [address] MCH Normal 27.0-32.0 [facility] Comment on above: Result Comment: Canc elled via OM: Order cancelled - Patient discharged Performed By: #### L 100.0100 ####[facility] [address] [place], [address] MCHC Normal 32-36 [facility] Comment on above: Result Comment: Canc elled via OM: Order cancelled - Patient discharged Performed By: #### L 100.0100 ####[facility] [address] [place], [address] MCV Normal 81-99 [facility] Comment on above: Result Comment: Canc elled via OM: Order cancelled - Patient discharged Performed By: #### L 100.0100 ####[facility] [address] [place], [address] NEUT% Normal 47-70 [facility] Comment on above: Result Comment: Canc elled via OM: Order cancelled - Patient discharged Performed By: #### L 100.0100 ####[facility] [address] [place], [address] PLT Normal 150-450 [facility] Comment on above: Result Comment: Canc elled via OM: Order cancelled - Patient discharged Performed By: #### L 100.0100 ####[facility] [address] [place], [address] RBC Normal 4.2-5.4 [facility] Comment on above: Result Comment: Canc elled via OM: Order cancelled - Patient discharged Performed By: #### L 100.0100 ####[facility] [address] [place], [address] RDW CV Normal 11.6-14.6 [facility] Comment on above: Result Comment: Canc elled via OM: Order cancelled - Patient discharged Performed By: #### L 100.0100 ####[facility] [address] [place], [address] RDW SD Normal 35.1-43.9 [facility] Comment on above: Result Comment: Canc elled via OM: Order cancelled - Patient discharged Performed By: #### L 100.0100 ####[facility] [address] [place], [address] WBC Normal 4.4-11.0 [facility] Comment on above: Result Comment: Canc elled via OM: Order cancelled - Patient discharged Performed By: #### L 100.0100 ####[facility] [address] [place], [address] CBC W/Diff, Automatedon -2 Absolute Neut Normal 2.0-7.7 [facility] Comment on above: Result Comment: Canc elled via OM: Order cancelled - Patient discharged Performed By: #### L 500.2500, L500.3400, L501.2450, L100.0100 #### [facility] [address] [place], [address] HCT Normal 37-47 [facility] Comment on above: Result Comment: Canc elled via OM: Order cancelled - Patient discharged Performed By: #### L 500.2500, L500.3400, L501.2450, L100.0100 #### [facility] [address] [place], [address] HGB Normal 12.0-15.0 [facility] Comment on above: Result Comment: Canc elled via OM: Order cancelled - Patient discharged Performed By: #### L 500.2500, L500.3400, L501.2450, L100.0100 #### [facility] [address] [place], [address] MCH Normal 27.0-32.0 [facility] Comment on above: Result Comment: Canc elled via OM: Order cancelled - Patient discharged Performed By: #### L 500.2500, L500.3400, L501.2450, L100.0100 #### [facility] [address] [place], [address] MCHC Normal 32-36 [facility] Comment on above: Result Comment: Canc elled via OM: Order cancelled - Patient discharged Performed By: #### L 500.2500, L500.3400, L501.2450, L100.0100 #### [facility] [address] [place], [address] MCV Normal 81-99 [facility] Comment on above: Result Comment: Canc elled via OM: Order cancelled - Patient discharged Performed By: #### L 500.2500, L500.3400, L501.2450, L100.0100 #### [facility] [address] [place], [address] NEUT% Normal 47-70 [facility] Comment on above: Result Comment: Canc elled via OM: Order cancelled - Patient discharged Performed By: #### L 500.2500, L500.3400, L501.2450, L100.0100 #### [facility] [address] [place], [address] PLT Normal 150-450 [facility] Comment on above: Result Comment: Canc elled via OM: Order cancelled - Patient discharged Performed By: #### L 500.2500, L500.3400, L501.2450, L100.0100 #### [facility] [address] [place], [address] RBC Normal 4.2-5.4 [facility] Comment on above: Result Comment: Canc elled via OM: Order cancelled - Patient discharged Performed By: #### L 500.2500, L500.3400, L501.2450, L100.0100 #### [facility] [address] [place], [address] RDW CV Normal 11.6-14.6 [facility] Comment on above: Result Comment: Canc elled via OM: Order cancelled - Patient discharged Performed By: #### L 500.2500, L500.3400, L501.2450, L100.0100 #### [facility] [address] [place], [address] RDW SD Normal 35.1-43.9 [facility] Comment on above: Result Comment: Canc elled via OM: Order cancelled - Patient discharged Performed By: #### L 500.2500, L500.3400, L501.2450, L100.0100 #### [facility] [address] [place], [address] WBC Normal 4.4-11.0 [facility] Comment on above: Result Comment: Canc elled via OM: Order cancelled - Patient discharged Performed By: #### L 500.2500, L500.3400, L501.2450, L100.0100 #### [facility] [address] [place] [place], [address] ANCAon 08-14-2024 Atypical pANCA <1:20 Normal Neg:<1:20 [facility] Comment on above: Order Comment: Test( s) 002831-Pmwbuw, Serum or Plasmawas developed and its performance characteristicsdetermined by [employer] It has not been cleared or approvedby the Food and Drug Administration.N Result Comment: The atypical pANCA pattern has been observed in a significant percentage of patients with ulcerative colitis, primary sclerosing cholangitis and autoimmune hepatitis. Performed By: #### L 500.2500, L500.3400, L501.2450, L100.0100 #### [facility] [address] [place], [address] Cytoplasmic Ab <1:20 Normal Neg:<1:20 [facility] Comment on above: Order Comment: Test( s) 303770-Zfosjh, Serum or Plasmawas developed and its performance characteristicsdetermined by [employer] It has not been cleared or approvedby the Food and Drug Administration.N Performed By: #### L 500.2500, L500.3400, L501.2450, L100.0100 #### [facility] [address] [place], [place], [id number] (171) Perinuclear Ab. <1:20 Normal Neg:<1:20 [facility] Comment on above: Order Comment: Test( s) 811890-Gubzty, Serum or Plasmawas developed and its performance characteristicsdetermined by [employer] It has not been cleared or approvedby the Food and Drug Administration.N Result Comment: The presence of positive fluorescence exhibiting P-ANCA or C-ANCA patterns alone is not specific for the diagnosis of Shabnam's Granulomatosis (WG) or microscopic polyangiitis. Decisions about treatment should not be based solely on ANCA IFA results. The [employer] ANCA [employer] Consensus recommends follow up testing of positive sera with both NH- 3 and MPO-ANCA enzyme immunoassays. As many as 5% serum samples are positive only by EIA. Ref. AM J Clin Pathol 1999;111:507-513. Performed By: #### L 500.2500, L500.3400, L501.2450, L100.0100 #### [facility] [address] [place], [place], [id number] Anti-Smooth Muscle ABSon ANTISMOOTH MUSC 10 Units Normal 0-19 [facility] Comment on above: Order Comment: Test( s) 069603-Mksqjs, Serum or Plasmawas developed and its performance characteristicsdetermined by [employer] It has not been cleared or approvedby the Food and Drug Administration.N Result Comment: Nega tive 0 - 19 Weak positive 20 - 30 Moderate to strong positive >30 Actin Antibodies are found in 52-85% of patients with autoimmune hepatitis or chronic active hepatitis and in 22% of patients with primary biliary cirrhosis. Performed By: #### L 500.2500, L500.3400, L501.2450, L100.0100 #### [facility] [address] [place], [address] CBC W/Diff, Automatedon 01-2 Absolute Neut Normal 2.0-7.7 [facility] Comment on above: Result Comment: Canc elled via OM: Order cancelled - Patient discharged Performed By: #### L 500.4050, L100.0100 ####[facility] [address] [place], [address] HCT Normal 37-47 [facility] Comment on above: Result Comment: Canc elled via OM: Order cancelled - Patient discharged Performed By: #### L 500.4050, L100.0100 ####[facility] [address] [place], [address] HGB Normal 12.0-15.0 [facility] Comment on above: Result Comment: Canc elled via OM: Order cancelled - Patient discharged Performed By: #### L 500.4050, L100.0100 ####[facility] [address] [place], [address] MCH Normal 27.0-32.0 [facility] Comment on above: Result Comment: Canc elled via OM: Order cancelled - Patient discharged Performed By: #### L 500.4050, L100.0100 ####[facility] [address] [place], [address] MCHC Normal 32-36 [facility] Comment on above: Result Comment: Canc elled via OM: Order cancelled - Patient discharged Performed By: #### L 500.4050, L100.0100 ####[facility] [address] [place], [address] MCV Normal 81-99 [facility] Comment on above: Result Comment: Canc elled via OM: Order cancelled - Patient discharged Performed By: #### L 500.4050, L100.0100 ####[facility] [address] [place], [address] NEUT% Normal 47-70 [facility] Comment on above: Result Comment: Canc elled via OM: Order cancelled - Patient discharged Performed By: #### L 500.4050, L100.0100 ####[facility] [address] [place], [address] PLT Normal 150-450 [facility] Comment on above: Result Comment: Canc elled via OM: Order cancelled - Patient discharged Performed By: #### L 500.4050, L100.0100 ####[facility] [address] [place], [address] RBC Normal 4.2-5.4 [facility] Comment on above: Result Comment: Canc elled via OM: Order cancelled - Patient discharged Performed By: #### L 500.4050, L100.0100 ####[facility] [address] [place], [address] RDW CV Normal 11.6-14.6 [facility] Comment on above: Result Comment: Canc elled via OM: Order cancelled - Patient discharged Performed By: #### L 500.4050, L100.0100 ####[facility] [address] [place], [address] RDW SD Normal 35.1-43.9 [facility] Comment on above: Result Comment: Canc elled via OM: Order cancelled - Patient discharged Performed By: #### L 500.4050, L100.0100 ####[facility] [address] [place], [address] WBC Normal 4.4-11.0 [facility] Comment on above: Result Comment: Canc elled via OM: Order cancelled - Patient discharged Performed By: #### L 500.4050, L100.0100 ####[facility] [address] [place], [address] CMV Acute Antibody IgMon CMV Ab, IgM < 30.0 Normal 0.0-29.9 [facility] Comment on above: Order Comment: Test( s) 266951-Xstkxe, Serum or Plasmawas developed and its performance characteristicsdetermined by [employer]. It has not been cleared or approvedby the Food and Drug Administration.N Result Comment: Nega tive <30.0 Equivocal 30.0 - 34.9 Positive >34.9 A positive result is generally indicative of acute infection, reactivation or persistent IgM production. Performed By: #### L 500.2500, L500.3400, L501.2450, L100.0100 #### [facility] [address] [place], [address] Ceruloplasminon 08-14-2024 CERULOPLASMIN 25.5 mg/dL Normal 19.0-39.0 [facility] Comment on above: Order Comment: Test( s) 804217-Bhoryx, Serum or Plasmawas developed and its performance characteristicsdetermined by [employer]. It has not been cleared or approvedby the Food and Drug Administration.N Performed By: #### L 500.2500, L500.3400, L501.2450, L100.0100 #### [facility] [address] [place], [address] Comprehensive Metabolic Prof vaon 08-14-2024 ALB Normal 3.2-5.0 [facility] Comment on above: Result Comment: Canc elled via OM: Order cancelled - Patient discharged Performed By: #### L 500.4050, L100.0100 ####[facility] [address] [place], [address] ALK P Normal 45-117 [facility] Comment on above: Result Comment: Canc elled via OM: Order cancelled - Patient discharged Performed By: #### L 500.4050, L100.0100 ####[facility] [address] [place], [address] ALT Normal 13-56 [facility] Comment on above: Result Comment: Canc elled via OM: Order cancelled - Patient discharged Performed By: #### L 500.4050, L100.0100 ####[facility] [address] [place], [address] AST Normal 15-37 [facility] Comment on above: Result Comment: Canc elled via OM: Order cancelled - Patient discharged Performed By: #### L 500.4050, L100.0100 ####[facility] [address] [place], [address] BUN Normal 7-18 [facility] Comment on above: Result Comment: Canc elled via OM: Order cancelled - Patient discharged Performed By: #### L 500.4050, L100.0100 ####[facility] [address] [place], [address] BUN/CRE Normal 10-20 [facility] Comment on above: Result Comment: Canc elled via OM: Order cancelled - Patient discharged Performed By: #### L 500.4050, L100.0100 ####[facility] [address] [place], [address] CA,Total Normal 8.5-10.1 [facility] Comment on above: Result Comment: Canc elled via OM: Order cancelled - Patient discharged Performed By: #### L 500.4050, L100.0100 ####[facility] [address] [place], [address] CL Normal 98-107 [facility] Comment on above: Result Comment: Canc elled via OM: Order cancelled - Patient discharged Performed By: #### L 500.4050, L100.0100 ####[facility] [address] [place], [address] CO2 Normal 21.0-32.0 [facility] Comment on above: Result Comment: Canc elled via OM: Order cancelled - Patient discharged Performed By: #### L 500.4050, L100.0100 ####[facility] [address] [place], [address] CREAT,SERUM Normal 0.55-1.02 [facility] Comment on above: Result Comment: Canc elled via OM: Order cancelled - Patient discharged Performed By: #### L 500.4050, L100.0100 ####[facility] [address] [place], [address] EST GFR Normal >60 [facility] Comment on above: Result Comment: Canc elled via OM: Order cancelled - Patient discharged Performed By: #### L 500.4050, L100.0100 ####[facility] [address] [place], [address] EST GFR - AA Normal >60 [facility] Comment on above: Result Comment: Canc elled via OM: Order cancelled - Patient discharged Performed By: #### L 500.4050, L100.0100 ####[facility] [address] [place], [address] GAP Normal 5-15 [facility] Comment on above: Result Comment: Canc elled via OM: Order cancelled - Patient discharged Performed By: #### L 500.4050, L100.0100 ####[facility] [address] [place], [address] GLU Normal 74-106 [facility] Comment on above: Result Comment: Canc elled via OM: Order cancelled - Patient discharged Performed By: #### L 500.4050, L100.0100 ####[facility] [address] [place], [address] Potassium Normal 3.5-5.1 [facility] Comment on above: Result Comment: Canc elled via OM: Order cancelled - Patient discharged Performed By: #### L 500.4050, L100.0100 ####[facility] [address] [place], [address] T BILI Normal 0.20-1.00 [facility] Comment on above: Result Comment: Canc elled via OM: Order cancelled - Patient discharged Performed By: #### L 500.4050, L100.0100 ####[facility] [address] [place], [address] T PROT Normal 6.4-8.2 [facility] Comment on above: Result Comment: Canc elled via OM: Order cancelled - Patient discharged Performed By: #### L 500.4050, L100.0100 ####[facility] [address] [place], [address] Comprehensive Metabolic Profil Normal 136-145 [facility] Comment on above: Result Comment: Canc elled via OM: Order cancelled - Patient discharged Performed By: #### L 500.4050, L100.0100 ####[facility] [address] [place], [address] Copper, Serum or Plasmaon COPPER, SERUM 92 ug/dL Normal 80-158 [facility] Comment on above: Order Comment: Test( s) 066965-Xinvsa, Serum or Plasmawas developed and its performance characteristicsdetermined by [employer] It has not been cleared or approvedby the Food and Drug Administration.N Result Comment: Dete ction Limit = 5 Performed By: #### L 500.2500, L500.3400, L501.2450, L100.0100 #### [facility] [address] [place], [address] EBV Acute Prof IgG / IgMon 0 08-14-2024 EB Ab VCA, IgG 88.1 U/mL High 0.0-17.9 [facility] Comment on above: Order Comment: Test( s) 789558-Izjkaq, Serum or Plasmawas developed and its performance characteristicsdetermined by [employer] It has not been cleared or approvedby the Food and Drug Administration.N Result Comment: Nega tive <18.0 Equivocal 18.0 - 21.9 Positive >21.9 Performed By: #### L 500.2500, L500.3400, L501.2450, L100.0100 #### [facility] [address] [place], [address] EBV Ab VCA, IgM < 36.0 Normal 0.0-35.9 [facility] Comment on above: Order Comment: Test( s) 320793-Feodih, Serum or Plasmawas developed and its performance characteristicsdetermined by [employer]. It has not been cleared or approvedby the Food and Drug Administration.N Result Comment: Nega tive <36.0 Equivocal 36.0 - 43.9 Positive >43.9 Performed By: #### L 500.2500, L500.3400, L501.2450, L100.0100 #### [facility] [address] [place], [place], [address] EBV NuAg Ab,IgG > 600.0 High 0.0-17.9 [facility] Comment on above: Order Comment: Test( s) 206162-Cqwiqu, Serum or Plasmawas developed and its performance characteristicsdetermined by [employer] It has not been cleared or approvedby the Food and Drug Administration.N Result Comment: Nega tive <18.0 Equivocal 18.0 - 21.9 Positive >21.9 Performed By: #### L 500.2500, L500.3400, L501.2450, L100.0100 #### [facility] [address] [place], [place], [address] INTERPRETATION Comment Normal . [facility] Comment on above: Order Comment: Test( s) 993536-Cgyezx, Serum or Plasmawas developed and its performance characteristicsdetermined by [employer] It has not been cleared or approvedby the Food and Drug Administration.N Result Comment: EBV Interpretation Chart [place]: Antibody Present + Antibody Absent - Interpretation VCA-IgM VCA-IgG EBNA-IgG No previous infection/ - - - Susceptible Primary infection (new + + - or recent) Past Infection +or- + + See comment below* + - - *Results indicate infection with EBV at some time however cannot predict the timing of the infection since antibodies to EBNA usually develop after primary infection or, alternatively, approximately 5-10% of patients with EBV never develop antibodies to EBNA. Performed By: #### L 500.2500, L500.3400, L501.2450, L100.0100 #### [facility] [address] [facility] [place], [place], [address] HSV 1 AND 2 IgGon 08-14-2024 HSV 1 IgG Normal [facility] Comment on above: Order Comment: Test( s) 710456-Pbhvaa, Serum or Plasmawas developed and its performance characteristicsdetermined by [employer] It has not been cleared or approvedby the Food and Drug Administration.N Result Comment: RESU LT: REACTIVE Please note reference interval change HSV-1 IgG testing performed using the [employer] HSV-1 IgG assay. Performed By: #### L 500.2500, L500.3400, L501.2450, L100.0100 #### [facility] [address], [address] HSV 2 IgG Normal [facility] Comment on above: Order Comment: Test( s) 800286-Uykdgn, Serum or Plasmawas developed and its performance characteristicsdetermined by [employer]. It has not been cleared or approvedby the Food and Drug Administration.N Result Comment: RESU LT: REACTIVE Please note reference interval change Current guidelines and recommendations do not recommend routine screening for HSV-2 in asymptomatic individuals, including those that are . The detection of HSV-2 IgG antibodies in a single sample indicates previous exposure to HSV-2 but does not give information as to the site of HSV infection or the timing of exposure. The predictive value of positive and negative results depends on the population's prevalence and the pretest likelihood of HSV-2. HSV-2 IgG testing performed using the [employer] HSV-2 IgG assay. Performed By: #### L 500.2500, L500.3400, L501.2450, L100.0100 #### [facility] [address] [place], [address] RUBI + Protein Elect, Serumon 08-14-2024 Albumin [Mass/Vol] 3.5 g/dL Normal 2.9-4.4 [facility] Comment on above: Order Comment: Test( s) 911507-Akgllx, Serum or Plasmawas developed and its performance characteristicsdetermined by [employer]. It has not been cleared or approvedby the Food and Drug Administration.N Performed By: #### L 500.2500, L500.3400, L501.2450, L100.0100 #### [facility] [address] [place], [address] Albumin/Globulin [Mass ratio] 1.1 {ratio} Normal 0.7-1.7 [facility] Comment on above: Order Comment: Test( s) 196136-Xlnhkh, Serum or Plasmawas developed and its performance characteristicsdetermined by [employer] It has not been cleared or approvedby the Food and Drug Administration.N Performed By: #### L 500.2500, L500.3400, L501.2450, L100.0100 #### [facility] [address] [place], [address] AJAXO-7-CHHX 0.2 g/dL Normal 0.0-0.4 [facility] Comment on above: Order Comment: Test( s) 151124-Bdewhl, Serum or Plasmawas developed and its performance characteristicsdetermined by [employer] It has not been cleared or approvedby the Food and Drug Administration.N Performed By: #### L 500.2500, L500.3400, L501.2450, L100.0100 #### [facility] [address] [place], [address] GJIOP-5-LXGC 0.7 g/dL Normal 0.4-1.0 [facility] Comment on above: Order Comment: Test( s) 263358-Dgpjyd, Serum or Plasmawas developed and its performance characteristicsdetermined by [facility]. It has not been cleared or approvedby the Food and Drug Administration.N Performed By: #### L 500.2500, L500.3400, L501.2450, L100.0100 #### [facility] [address] [place], [address] BETA GLOBULIN 1.0 g/dL Normal 0.7-1.3 [facility] Comment on above: Order Comment: Test( s) 494234-Lqzluh, Serum or Plasmawas developed and its performance characteristicsdetermined by [facility]. It has not been cleared or approvedby the Food and Drug Administration.N Performed By: #### L 500.2500, L500.3400, L501.2450, L100.0100 #### [facility] [address] [place], [address] GAMMA GLOBULIN 1.4 g/dL Normal 0.4-1.8 [facility] Comment on above: Order Comment: Test( s) 241870-Zljcwb, Serum or Plasmawas developed and its performance characteristicsdetermined by [employer]. It has not been cleared or approvedby the Food and Drug Administration.N Performed By: #### L 500.2500, L500.3400, L501.2450, L100.0100 #### [facility] [address] [place], [address] Globulin (S) [Mass/Vol] 3.3 g/dL Normal 2.2-3.9 [facility] Comment on above: Order Comment: Test( s) 535542-Rttlji, Serum or Plasmawas developed and its performance characteristicsdetermined by [employer]. It has not been cleared or approvedby the Food and Drug Administration.N Performed By: #### L 500.2500, L500.3400, L501.2450, L100.0100 #### [facility] [address] [place], [address] RUBI RESULT,S Comment Normal . [facility] Comment on above: Order Comment: Test( s) 713980-Gqhvgr, Serum or Plasmawas developed and its performance characteristicsdetermined by [employer] It has not been cleared or approvedby the Food and Drug Administration.N Result Comment: No m onoclonality detected. Performed By: #### L 500.2500, L500.3400, L501.2450, L100.0100 #### [facility] [address] [place], [place], [address] IMMUNOGLOB A QN 353 mg/dL High 87-352 [facility] Comment on above: Order Comment: Test( s) 424889-Jukmsn, Serum or Plasmawas developed and its performance characteristicsdetermined by [employer]. It has not been cleared or approvedby the Food and Drug Administration.N Performed By: #### L 500.2500, L500.3400, L501.2450, L100.0100 #### [facility] [address] [place], [place], [address] IMMUNOGLOB M QN 186 mg/dL Normal 26-217 [facility] Comment on above: Order Comment: Test( s) 686090-Yakvci, Serum or Plasmawas developed and its performance characteristicsdetermined by [employer] It has not been cleared or approvedby the Food and Drug Administration.N Performed By: #### L 500.2500, L500.3400, L501.2450, L100.0100 #### [facility] [address] [place], [place], [address] M-Fabio Not Observed Normal Not Observed [facility] Comment on above: Order Comment: Test( s) 643486-Awwycs, Serum or Plasmawas developed and its performance characteristicsdetermined by [employer] It has not been cleared or approvedby the Food and Drug Administration.N Performed By: #### L 500.2500, L500.3400, L501.2450, L100.0100 #### [facility] [address] [place], [address] NOTE: Comment Normal . [facility] Comment on above: Order Comment: Test( s) 948387-Jgvusj, Serum or Plasmawas developed and its performance characteristicsdetermined by [employer] It has not been cleared or approvedby the Food and Drug Administration.N Result Comment: Prot ein electrophoresis scan will follow via computer, mail, or veneer cutter delivery. Performed By: #### L 500.2500, L500.3400, L501.2450, L100.0100 #### [facility] [address] [place], [address] Protein [Mass/Vol] 6.8 g/dL Normal 6.0-8.5 [facility] Comment on above: Order Comment: Test( s) 743738-Qchpvb, Serum or Plasmawas developed and its performance characteristicsdetermined by [employer]. It has not been cleared or approvedby the Food and Drug Administration.N Performed By: #### L 500.2500, L500.3400, L501.2450, L100.0100 #### [facility] [address] [place], [address] IgG Subclasseson 08-14-2024 IgG, SUBCLASS 1 671 mg/dL Normal 248-810 [facility] Comment on above: Order Comment: Test( s) 106824-Rvqxeb, Serum or Plasmawas developed and its performance characteristicsdetermined by [employer]. It has not been cleared or approvedby the Food and Drug Administration.N Performed By: #### L 500.2500, L500.3400, L501.2450, L100.0100 #### [facility] [address] [place], [address] IgG, SUBCLASS 2 470 mg/dL Normal 130-555 [facility] Comment on above: Order Comment: Test( s) 282213-Tbvabw, Serum or Plasmawas developed and its performance characteristicsdetermined by [employer] It has not been cleared or approvedby the Food and Drug Administration.N Performed By: #### L 500.2500, L500.3400, L501.2450, L100.0100 #### [facility] [address] [place], [address] IgG, SUBCLASS 3 85 mg/dL Normal 15-102 [facility] Comment on above: Order Comment: Test( s) 589492-Zlciwq, Serum or Plasmawas developed and its performance characteristicsdetermined by [employer] It has not been cleared or approvedby the Food and Drug Administration.N Performed By: #### L 500.2500, L500.3400, L501.2450, L100.0100 #### [facility] [address] [place], [address] IgG, SUBCLASS 4 27 mg/dL Normal 2-96 [facility] Comment on above: Order Comment: Test( s) 758803-Tlxdqb, Serum or Plasmawas developed and its performance characteristicsdetermined by [employer] It has not been cleared or approvedby the Food and Drug Administration.N Performed By: #### L 500.2500, L500.3400, L501.2450, L100.0100 #### [facility] [address] [place], [address] IGG,QUANT 1370 mg/dL Normal 586-1602 [facility] Comment on above: Order Comment: Test( s) [id number], Serum or Plasmawas developed and its performance characteristicsdetermined by [employer] It has not been cleared or approvedby the Food and Drug Administration.N Performed By: #### L 500.2500, L500.3400, L501.2450, L100.0100 #### [facility] [address] [place], [address] CBC W/Diff, Automatedon 01-2 Absolute Neut Normal 2.0-7.7 [facility] Comment on above: Result Comment: Canc elled via OM: Order cancelled - Patient discharged Performed By: #### L 500.4050, L100.0100 ####[facility] [address] [place], [address] HCT Normal 37-47 [facility] Comment on above: Result Comment: Canc elled via OM: Order cancelled - Patient discharged Performed By: #### L 500.4050, L100.0100 ####[facility] [address] [place], [address] HGB Normal 12.0-15.0 [facility] Comment on above: Result Comment: Canc elled via OM: Order cancelled - Patient discharged Performed By: #### L 500.4050, L100.0100 ####[facility] [address] [place], [address] MCH Normal 27.0-32.0 [facility] Comment on above: Result Comment: Canc elled via OM: Order cancelled - Patient discharged Performed By: #### L 500.4050, L100.0100 ####[facility] [address] [place], [address] MCHC Normal 32-36 [facility] Comment on above: Result Comment: Canc elled via OM: Order cancelled - Patient discharged Performed By: #### L 500.4050, L100.0100 ####[facility] [address] [place], [address] MCV Normal 81-99 [facility] Comment on above: Result Comment: Canc elled via OM: Order cancelled - Patient discharged Performed By: #### L 500.4050, L100.0100 ####[facility] [address] [place], [address] NEUT% Normal 47-70 [facility] Comment on above: Result Comment: Canc elled via OM: Order cancelled - Patient discharged Performed By: #### L 500.4050, L100.0100 ####[facility] [address] [place], [address] PLT Normal 150-450 [facility] Comment on above: Result Comment: Canc elled via OM: Order cancelled - Patient discharged Performed By: #### L 500.4050, L100.0100 ####[facility] [address] [place], [address] RBC Normal 4.2-5.4 [facility] Comment on above: Result Comment: Canc elled via OM: Order cancelled - Patient discharged Performed By: #### L 500.4050, L100.0100 ####[facility] [address] [place], [address] RDW CV Normal 11.6-14.6 [facility] Comment on above: Result Comment: Canc elled via OM: Order cancelled - Patient discharged Performed By: #### L 500.4050, L100.0100 ####[facility] [address] [place], [address] RDW SD Normal 35.1-43.9 [facility] Comment on above: Result Comment: Canc elled via OM: Order cancelled - Patient discharged Performed By: #### L 500.4050, L100.0100 ####[facility] [address] [place], [address] WBC Normal 4.4-11.0 [facility] Comment on above: Result Comment: Canc elled via OM: Order cancelled - Patient discharged Performed By: #### L 500.4050, L100.0100 ####[facility] [address] [place], [address] Comprehensive Metabolic Prof ilon 08-13-2024 ALB Normal 3.2-5.0 [facility] Comment on above: Result Comment: Canc elled via OM: Order cancelled - Patient discharged Performed By: #### L 500.4050, L100.0100 ####[facility] [address] [place], [address] ALK P Normal 45-117 [facility] Comment on above: Result Comment: Canc elled via OM: Order cancelled - Patient discharged Performed By: #### L 500.4050, L100.0100 ####[facility] [address] [place], [address] ALT Normal 13-56 [facility] Comment on above: Result Comment: Canc elled via OM: Order cancelled - Patient discharged Performed By: #### L 500.4050, L100.0100 ####[facility] [address] [place], [address] AST Normal 15-37 [facility] Comment on above: Result Comment: Canc elled via OM: Order cancelled - Patient discharged Performed By: #### L 500.4050, L100.0100 ####[facility] [address] [place], [address] BUN Normal 7-18 [facility] Comment on above: Result Comment: Canc elled via OM: Order cancelled - Patient discharged Performed By: #### L 500.4050, L100.0100 ####[facility] [address] [place], [address] BUN/CRE Normal 10-20 [facility] Comment on above: Result Comment: Canc elled via OM: Order cancelled - Patient discharged Performed By: #### L 500.4050, L100.0100 ####[facility] [address] [place], [address] CA,Total Normal 8.5-10.1 [facility] Comment on above: Result Comment: Canc elled via OM: Order cancelled - Patient discharged Performed By: #### L 500.4050, L100.0100 ####[facility] [address] [place], [address] CL Normal 98-107 [facility] Comment on above: Result Comment: Canc elled via OM: Order cancelled - Patient discharged Performed By: #### L 500.4050, L100.0100 ####[facility] [address] [place], [address] CO2 Normal 21.0-32.0 [facility] Comment on above: Result Comment: Canc elled via OM: Order cancelled - Patient discharged Performed By: #### L 500.4050, L100.0100 ####[facility] [address] [place], [address] CREAT,SERUM Normal 0.55-1.02 [facility] Comment on above: Result Comment: Canc elled via OM: Order cancelled - Patient discharged Performed By: #### L 500.4050, L100.0100 ####[facility] [address] [place], [address] EST GFR Normal >60 [facility] Comment on above: Result Comment: Canc elled via OM: Order cancelled - Patient discharged Performed By: #### L 500.4050, L100.0100 ####[facility] [address] [place], [address] EST GFR - AA Normal >60 [facility] Comment on above: Result Comment: Canc elled via OM: Order cancelled - Patient discharged Performed By: #### L 500.4050, L100.0100 ####[facility] [address] [place], [address] GAP Normal 5-15 [facility] Comment on above: Result Comment: Canc elled via OM: Order cancelled - Patient discharged Performed By: #### L 500.4050, L100.0100 ####[facility] [address] [place], [address] GLU Normal 74-106 [facility] Comment on above: Result Comment: Canc elled via OM: Order cancelled - Patient discharged Performed By: #### L 500.4050, L100.0100 ####[facility] [address] [place], [address] Potassium Normal 3.5-5.1 [facility] Comment on above: Result Comment: Canc elled via OM: Order cancelled - Patient discharged Performed By: #### L 500.4050, L100.0100 ####[facility] [address] [place], [address] T BILI Normal 0.20-1.00 [facility] Comment on above: Result Comment: Canc elled via OM: Order cancelled - Patient discharged Performed By: #### L 500.4050, L100.0100 ####[facility] [address] [place], [address] T PROT Normal 6.4-8.2 [facility] Comment on above: Result Comment: Canc elled via OM: Order cancelled - Patient discharged Performed By: #### L 500.4050, L100.0100 ####[facility] [address] [place], [address] Comprehensive Metabolic Profil Normal 136-145 [facility] Comment on above: Result Comment: Canc elled via OM: Order cancelled - Patient discharged Performed By: #### L 500.4050, L100.0100 ####[facility] [address] [place], [address] SAIGE Comprehensive Panelon SAIGE TABLE Comment Normal . [facility] Comment on above: Result Comment: Auto antibody Disease Association Condition Frequency --------- Antinuclear Antibody, SLE, mixed connective Direct (SAIGE-D) tissue diseases --------- dsDNA SLE 40 - 60% --------- Chromatin Drug induced SLE 90% SLE 48 - 97% --------- SSA (Ro) SLE 25 - 35% Sjogren's Syndrome 40 - 70% Lupus 100% --------- SSB (La) SLE 10% Sjogren's Syndrome 30% --------- Sm (anti-Marcum) SLE 15 - 30% --------- [employer] [facility] Mixed Connective Tissue Disease 95% (U1 nRNP, SLE 30 - 50% anti-ribonucleoprotein) Polymyositis and/or Dermatomyositis 20% --------- Scl-70 (antiDNA Scleroderma (diffuse) 20 - 35% topoisomerase) Crest 13% --------- [place]-1 Polymyositis and/or Dermatomyositis 20 - 40% --------- Centromere B Scleroderma - Crest variant 80% Performed By: #### L 500.2500, L500.3400, L501.2450, L100.0100 #### [facility] [address] [place], [place], [address] ANTI-DNA (DS)AB <1 Normal 0-9 [facility] Comment on above: Result Comment: Nega tive <5 Equivocal 5 - 9 Positive >9 Performed By: #### L 500.2500, L500.3400, L501.2450, L100.0100 #### [facility] [address] [place], [address] Absolute neutrophil countOrd ered By: Irasema Mcdonough on 08-12-2024 Neutrophils (Bld) [#/Vol] 2.6 10*3/uL 2.0-7.7 [facility] Albumin to globulin ratioOrd ered By: Irasema Mcdonough on 08-12-2024 Albumin/Globulin [Mass ratio] 0.9 {ratio} 0.9-2.4 [facility] Anti-Mitochondrial ABon 07-22 ANTIMITOCHON AB <20.0 Normal 0.0-20.0 [facility] Comment on above: Result Comment: Nega tive 0.0 - 20.0 Equivocal 20.1 - 24.9 Positive >24.9 Mitochondrial (M2) Antibodies are found in 90-96% of patients with primary biliary cirrhosis. Performed at: [address] [id number] [employer] K[employer] Operator: Bob Weeks PhD, Phone: [phone] Performed By: #### L 500.2500, L500.3400, L501.2450, L100.0100 #### [facility] [address] [place], [address] Basic Metabolic Profile (BMP )on 08-12-2024 BUN/CRE 11.2 RATIO Normal 10-20 [facility] Comment on above: Order Comment: to be done after IV potassium is done infusing Performed By: #### L 500.2500 ####[facility] [address] [place], [address] CA,Total 8.8 mg/dL Normal 8.5-10.1 [facility] Comment on above: Order Comment: to be done after IV potassium is done infusing Performed By: #### L 500.2500 ####[facility] [address] [place], [address] Chloride [Moles/Vol] 104 mmol/L Normal 98-[address] [facility] Comment on above: Order Comment: to be done after IV potassium is done infusing Performed By: #### L 500.2500 ####[facility] [address] [place], [address] CO2 [Moles/Vol] 28.0 mmol/L Normal 21.0-32.0 [facility] Comment on above: Order Comment: to be done after IV potassium is done infusing Performed By: #### L 500.2500 ####[facility] [address] [place], [address] Creatinine [Mass/Vol] 0.54 mg/dL Low 0.55-1.[address] [facility] Comment on above: Order Comment: to be done after IV potassium is done infusing Result Comment: The validity of the calculated GFR GFRAA in patients over 70 years has not been determined. Clinical correlation is essential. Performed By: #### L 500.2500 ####[facility] [address] [place], [address] ECRCL 180.54 ml/min Normal [facility] Comment on above: Order Comment: to be done after IV potassium is done infusing Performed By: #### L 500.2500 ####[facility] [address] [place], [address] EST GFR - AA 177 mL/min Normal >60 [facility] Comment on above: Order Comment: to be done after IV potassium is done infusing Result Comment: Afri can Turkmen GFR Calc Performed By: #### L 500.2500 ####[facility] [address] [place], [address] GAP 5 Normal 5-15 [facility] Comment on above: Order Comment: to be done after IV potassium is done infusing Performed By: #### L 500.2500 ####[facility] [address] [place], [address] GFR/1.73 sq M.predicted among non-blacks MDRD (S/P/Bld) [Vol rate/Area] 146 mL/min/{1.73_m2} Normal >60 [facility] Comment on above: Order Comment: to be done after IV potassium is done infusing Result Comment: Non- GFR Calc Performed By: #### L 500.2500 ####[facility] [address] [place], [address] Glucose [Mass/Vol] 116 mg/dL High 74-106 [facility] Comment on above: Order Comment: to be done after IV potassium is done infusing Result Comment: Fast ing Glucose result from 100 to 125 mg/dL suggests IMPAIRED HOMEOSTASIS per A.D.A. criteria. Performed By: #### L 500.2500 ####[facility] [address] [place], [address] Potassium [Moles/Vol] 3.7 mmol/L Normal 3.5-5.[address] [facility] Comment on above: Order Comment: to be done after IV potassium is done infusing Performed By: #### L 500.2500 ####[facility] [address] [place], [address] Sodium [Moles/Vol] 136 mmol/L Normal 136-145 [facility] Comment on above: Order Comment: to be done after IV potassium is done infusing Performed By: #### L 500.2500 ####[facility] [address] [place], [address] Urea nitrogen [Mass/Vol] 6 mg/dL Low - [facility] Comment on above: Order Comment: to be done after IV potassium is done infusing Performed By: #### L 500.2500 ####[facility] [address] [place], [address] Basophil percentageOrdered B y: Irasema Mcdonough on 08-12-2024 Basophils/100 WBC (Bld) 0.5 % 0-1 [facility] Bilirubin, totalOrdered By: Irasema Mcdonough on 08-12-2024 Bilirubin [Mass/Vol] 1.10 mg/dL High 0.20-1.[address] [facility] Comment on above: For patients on eltr ombopag therapy, use of Dimension [place] TBIL is not recommended. Blood urea nitrogen (BUN)/cr eatinine ratioOrdered By: Irasema Mcdonough on 08-12-2024 Urea nitrogen/Creatinine [Mass ratio] 11.2 mg/mg 10-20 [facility] CBC W/Diff, Automatedon 07-22 Absolute Lymph 1.18 X10 3/uL Normal 0.83-4.51 [facility] Comment on above: Performed By: #### L 9000.0810 #### [facility] [address] [place], [address] Absolute Neut 2.6 X10 3/uL Normal 2.0-7.7 [facility] Comment on above: Performed By: #### L 9000.0810 #### [facility] [address] [place], [address] Basophils/100 WBC (Bld) 0.5 % Normal 0-1 [facility] Comment on above: Performed By: #### L 9000.0810 #### [facility] [address] [place], [address] Eosinophils/100 WBC (Bld) 1.6 % Normal 0-5 [facility] Comment on above: Performed By: #### L 0.0810 #### [facility] [address] [place], [address] Erythrocyte distribution width (RBC) [Ratio] 13.2 % Normal 11.6-14.6 [facility] Comment on above: Performed By: #### L 0.0810 #### [facility] [address] [place], [address] Hematocrit (Bld) [Volume fraction] 35.8 % Low 37-47 [facility] Comment on above: Performed By: #### L 0.0810 #### [facility] [address] [place], [address] Hemoglobin (Bld) [Mass/Vol] 12.0 g/dL Normal 12.0-15.0 [facility] Comment on above: Performed By: #### L 9000.0810 #### [facility] [address] [place], [address] IG% 0.900 Normal 0.0-0.9 [facility] Comment on above: Result Comment: IG% - Immature Granulocytes (promyelocytes, myelocytes and metamyelocytes) > 1% indicates that a LEFT SHIFT is Present. Performed By: #### L 9000.0810 #### [facility] [address] [place], [address] Lymphocytes/100 WBC (Bld) 27.0 % Normal 19-41 [facility] Comment on above: Performed By: #### L 9000.0810 #### [facility] [address] [place], [address] MCH (RBC) [Entitic mass] 30.0 pg Normal 27.0-32.0 [facility] Comment on above: Performed By: #### L 9000.0810 #### [facility] [address] [place], [address] MCHC (RBC) [Mass/Vol] 33.5 g/dL Normal 32-[address] [facility] Comment on above: Performed By: #### L 9000.0810 #### [facility] [address] [place], [address] MCV (RBC) [Entitic vol] 89.5 fL Normal 81-99 [facility] Comment on above: Performed By: #### L 9000.0810 #### [facility] [address] [place], [address] Monocytes/100 WBC (Bld) 11.0 % High 0-10 [facility] Comment on above: Performed By: #### L 9000.0810 #### [facility] [address] [place], [address] Neutrophils/100 WBC (Bld) 59.0 % Normal 47-70 [facility] Comment on above: Performed By: #### L 9000.0810 #### [facility] [address] [place], [address] Nucleated RBC (Bld) [#/Vol] 0 10*3/uL Normal 0-5 [facility] Comment on above: Performed By: #### L 9000.0810 #### [facility] [address] [place], [address] Platelet mean volume (Bld) [Entitic vol] 10.6 fL Normal 6.2-12.0 [facility] Comment on above: Performed By: #### L 9000.0810 #### [facility] [address] [place], [address] Platelets (Bld) [#/Vol] 165 10*3/uL Normal 150-450 [facility] Comment on above: Performed By: #### L 9000.0810 #### [facility] [address] [place], [address] RBC (Bld) [#/Vol] 4.00 10*6/uL Low 4.2-5.4 [facility] Comment on above: Performed By: #### L 9000.0810 #### [facility] [address] [place], [address] RDW SD 43.0 fl Normal 35.1-43.9 [facility] Comment on above: Performed By: #### L 9000.0810 #### [facility] [address] [place], [address] WBC (Bld) [#/Vol] 4.4 10*3/uL Normal 4.4-11.0 [facility] Comment on above: Performed By: #### L 9000.0810 #### [facility] [address] [place], [address] Carbon dioxide measurementOr dered By: Irasema Mcdonough on 08-12-2024 CO2 [Moles/Vol] 28.0 mmol/L 21.0-32.0 [facility] Chloride measurementOrdered By: Irasmea Mcdonough on 08-12-2024 Chloride [Moles/Vol] 104 mmol/L 98-[address] [facility] Comprehensive Metabolic Prof ilon 08-12-2024 Albumin [Mass/Vol] 3.1 g/dL Low 3.2-5.0 [facility] Comment on above: Performed By: #### L 9000.0810 #### [facility] [address] [place], [address] Albumin/Globulin [Mass ratio] 0.9 {ratio} Normal 0.9-2.4 [facility] Comment on above: Performed By: #### L 9000.0810 #### [facility] [address] [place], [address] ALK P 57 U/L Normal 45-117 [facility] Comment on above: Performed By: #### L 9000.0810 #### [facility] [address] [place], [address] ALT [Catalytic activity/Vol] 366 U/L High 13-56 [facility] Comment on above: Performed By: #### L 9000.0810 #### [facility] [address] [place], [address] AST [Catalytic activity/Vol] 239 U/L High 15-37 [facility] Comment on above: Performed By: #### L 9000.0810 #### [facility] [address] [place], [address] Bilirubin [Mass/Vol] 1.10 mg/dL High 0.20-1.[address] [facility] Comment on above: Result Comment: For patients on eltrombopag therapy, use of Dimension [place] TBIL is not recommended. Performed By: #### L 9000.0810 #### [facility] [address] [place], [address] BUN/CRE 15.9 RATIO Normal 10-20 [facility] Comment on above: Performed By: #### L 9000.0810 #### [facility] [address] [place], [address] CA,Total 8.9 mg/dL Normal 8.5-10.1 [facility] Comment on above: Performed By: #### L 9000.0810 #### [facility] [address] [place], [address] Chloride [Moles/Vol] 99 mmol/L Normal 98-[address] [facility] Comment on above: Performed By: #### L 9000.0810 #### [facility] [address] [place], [address] CO2 [Moles/Vol] 26.0 mmol/L Normal 21.0-32.0 [facility] Comment on above: Performed By: #### L 9000.0810 #### [facility] [address] [place], [address] Creatinine [Mass/Vol] 0.44 mg/dL Low 0.55-1.[address] [facility] Comment on above: Result Comment: The validity of the calculated GFR GFRAA in patients over 70 years has not been determined. Clinical correlation is essential. Performed By: #### L 9000.0810 #### [facility] [address] [place], [address] ECRCL 221.57 ml/min Normal [facility] Comment on above: Performed By: #### L 9000.0810 #### [facility] [address] [place], [address] EST GFR - AA 221 mL/min Normal >60 [facility] Comment on above: Result Comment: Afri can Turkmen GFR Calc Performed By: #### L 9000.0810 #### [facility] [address] [place], [address] GAP 8 Normal 5-15 [facility] Comment on above: Performed By: #### L 9000.0810 #### [facility] [address] [place], [address] GFR/1.73 sq M.predicted among non-blacks MDRD (S/P/Bld) [Vol rate/Area] 183 mL/min/{1.73_m2} Normal >60 [facility] Comment on above: Result Comment: Non- GFR Calc Performed By: #### L 9000.0810 #### [facility] [address] [place], [address] Globulin (S) [Mass/Vol] 3.5 g/dL Normal 2.2-4.2 [facility] Comment on above: Performed By: #### L 9000.0810 #### [facility] [address] [place], [address] Glucose [Mass/Vol] 108 mg/dL High 74-106 [facility] Comment on above: Result Comment: Fast ing Glucose result from 100 to 125 mg/dL suggests IMPAIRED HOMEOSTASIS per A.D.A. criteria. Performed By: #### L 9000.0810 #### [facility] [address] [place], [address] Potassium [Moles/Vol] 3.0 mmol/L Low 3.5-5.[address] [facility] Comment on above: Performed By: #### L 9000.0810 #### [facility] [address] [place], [address] Sodium [Moles/Vol] 132 mmol/L Low 136-145 [facility] Comment on above: Performed By: #### L 9000.0810 #### [facility] [address] [place], [address] T PROT 6.6 g/dL Normal 6.4-8.2 [facility] Comment on above: Performed By: #### L 9000.0810 #### [facility] [address] [place], [address] Urea nitrogen [Mass/Vol] 7 mg/dL Normal 7-18 [facility] Comment on above: Performed By: #### L 9000.0810 #### [facility] [address] [place], [address] Discharge Instructionon 07-22 Discharge Instruction [facility] Medical Records Department [address] [place] [address] Instructions for Home/Discharge Instructions 08/12/24 1552 MR#: [id number] Acct: [id number] Name: CURLY DEJESUS Rep #: [id number] : 2000 24 From: Irasema Mcdonough MD PCP: Care Physician,No Primary Status:ADM IN Discharge Instructions Diet Discharge Diet: No restrictions DC O2, CPAP, BIPAP needs Home O2 Discharge instructions: No Dressing / Incision Discharge Activity: Return to Normal Activity Weight Bearing Status: Weight bearing as tolerated Dressing / Incision Call your doctor if you observe: Fever of 101 or Higher, Shortness of breath, Dizziness and Swelling in the ankles Follow Up Care Test Results: Test results from this visit will be discussed in further detail at your follow-up appointment, if applicable. Discharge Plan Admission Admit Date/Time: 08/09/24 12:59 Primary Reason for Your Visit: intractable nausea and vomiting, elevated liver enzymes Attending Provider: Irasema Mcdonough Primary Care Provider: Care Physician,No Primary Consulting Providers: Deb Jeffers; Anam Delgado Instructions Patient Instructions: RAD RN Biopsy Liver Dc, MALINDA RN Procedural Sedation Additional Instructions / Restrictions: please stop taking Ashwaghandha supplements. Discharge Orders/Prescriptions Prescriptions: New potassium chloride 20 mEq tablet extended release 20 meq PO DAILY Qty: 14 0RF Referrals / Follow Up: Vamsi Ernst MD [Med Staff - Active Staff] - Within 1 Month (see to establish PCP care) Roman Griffin DO [Med Staff - Active Staff] - Within 2 Weeks Care Physician,No Primary [Primary Care Provider] - Disposition Disposition (needs filled in before D/C Order can be placed): Home, Self Care 08/12/24 1552 Irasema Mcdonough MD CC: Dr. Deb Jeffers DO; Dr. Anam Delgado MD; No Primary Care Physician Signed Normal [facility] Eosinophil percentageOrdered By: Irasema Mcdonough on 08-12-2024 Eosinophils/100 WBC (Bld) 1.6 % 0-5 [facility] Erythrocyte distribution wid th (RBC) [Ratio]Ordered By: Irasema Mcdonough on 08-12-2024 Erythrocyte distribution width (RBC) [Entitic vol] 43.0 fL 35.1-43.9 [facility] Erythrocyte distribution wid th ratioOrdered By: Irasema Mcdonough on 08-12-2024 Erythrocyte distribution width (RBC) [Ratio] 13.2 % 11.6-14.6 [facility] Estimated glomerular filtrat ion rate (GFR) AmericanOrdered By: Irasema Mcdonough on 08-12-2024 Estimated GFR (MDRD) Amer 177 mL/min >60 [facility] Comment on above: GFR Calc Estimation of creatinine laura aranceOrdered By: Irasema Mcdonough on 08-12-2024 Estimated Creatinine Clearance Calc 180.54 ml/min [facility] Glomerular filtration rate ( GFR) estimationOrdered By: Irasema Mcdonough on 08-12-2024 Estimated GFR (MDRD) Non-Af Amer 146 mL/min >60 [facility] Comment on above: Non- GFR Calc Glucose measurementOrdered B y: Irasema Mcdonough on 08-12-2024 Glucose [Mass/Vol] 116 mg/dL High 74-106 [facility] Comment on above: Fasting Glucose resu lt from 100 to 125 mg/dL suggests IMPAIRED HOMEOSTASIS per A.D.A. criteria. Hematocrit Auto (Bld) [Volum e fraction]Ordered By: Irasema Mcdonough on 08-12-2024 Hematocrit (Bld) [Volume fraction] 35.8 % Low 37-47 [facility] Hemoglobin measurementOrdere d By: Irasema Mcdonough 08-12-2024 Hemoglobin (Bld) [Mass/Vol] 12.0 g/dL 12.0-15.0 [facility] Immature granulocytes/100 WB C Auto (Bld)Ordered By: Irasema Mcdonough on 08-12-2024 Immature granulocytes/100 WBC (Bld) 0.900 % 0.0-0.9 [facility] Comment on above: IG% - Immature Granu locytes (promyelocytes, myelocytes and metamyelocytes) > 1% indicates that a LEFT SHIFT is Present. Laboratory - Chemistry and C hemistry - challengeOrdered By: Irasema Mcdonough on 08-12-2024 AST [Catalytic activity/Vol] 239 U/L High 15-37 [facility] Lymphocytes Auto (Unsp spec) [#/Vol]Ordered By: Irasema Mcdonough on 08-12-2024 Lymphocytes (Bld) [#/Vol] 1.18 10*3/uL 0.83-4.51 [facility] Lymphocytes/100 WBC Auto (Un sp spec)Ordered By: Irasema Mcdonough on 08-12-2024 Lymphocytes/100 WBC (Bld) 27.0 % 19-41 [facility] MCV (mean corpuscular volume ) determinationOrdered By: Irasema Mcdonough on 08-12-2024 MCV (RBC) [Entitic vol] 89.5 fL 81-99 [facility] MR/PN.GIon 08-12-2024 MR/PN.GI [facility] Medical Records Department [address] [place] [place] [address] Progress Note - 08/12/24931 MR#: [id number] Acct: [id number] Name: CURLY DEJESUS Rep #: [id number] : 2000 24 From: Roman Friend DO PCP: Care Physician,No Primary Status:ADM IN Location: [facility] [place] [id number] Subjective Subjective Patient is doing a lot better. Her abdominal pain is down to a 1 out of 10. She states that she wants to go home and she is tolerating a diet. Objective Data Objective Data Vital Signs: Vital Signs Temp Pulse Resp BP Pulse Ox O2 Del Method O2 Flow Rate 97.7 F L 87 18 109/72 97 Room Air 2 08/12/24 16:12 08/12/24 16:12 08/12/24 16:12 08/12/24 16:12 08/12/24 16:12 08/12/24 16:12 08/11/24 09:00 Oxygen Flow Rate (L/min) 2 Oxygen Delivery Method Room Air Weight: 180 lb 5.41 oz Body Mass Index (BMI) 26.6 Intake Output: Intake and Output for Last 24 Hours 08/10/24 08/11/24 08/12/24 23:59 23:59 23:59 Intake Total 1100 / 1100 700 / 700 800 / 800 Output Total 200 / 200 200 / 200 Balance 1100 / 1100 500 / 500 600 / 600 Lab / Micro Data 08/12/24 05:45 08/12/24 14:35 Labs: Laboratory Results - last 24 hr 08/10/24 19:54: SAVANNAH-1 Antibody <0.2, SS-A/Ro IgG Antibody < 0.2, SS-B/La IgG Antibody < 0.2, Sm (Marcum) Antibody <0.2, [employer] Antibody <0.2, Scl-70 Scleroderma Ab <0.2, Double Strand DNA Ab <1, Antichromatin Antibodies <0.2, Centromere B Antibody <0.2, Anti-Mitochondrial Ab <20.0, Influenza Type A Ag Cancelled, Influenza Type B Ag Cancelled 08/12/24 05:45: WBC 4.4, RBC 4.00 L, Hgb 12.0, Hct 35.8 L, MCV 89.5, MCH 30.0, MCHC 33.5, RDW Std Deviation 43.0, RDW Coeff of Alethea 13.2, Plt Count 165, MPV 10.6, Immature Gran % (Auto) 0.900, Neut % (Auto) 59.0, Lymph % (Auto) 27.0, Sweet [place] % (Auto) 11.0 H, Eos % (Auto) 1.6, Baso % (Auto) 0.5, Absolute Neuts (auto) 2.6, Absolute Lymphs (auto) 1.18, Nucleated RBC % 0, Sodium 132 L, Potassium 3.0 L, Chloride 99, Carbon Dioxide 26.0, Anion Gap 8, BUN 7, Creatinine 0.44 L, Estim Creat Clear Calc 221.57, Est GFR (MDRD) Af Amer 221, Est GFR (MDRD) Non-Af 183, BUN/Creatinine Ratio 15.9, G lucose 108 H, Calcium 8.9, Total Bilirubin 1.10 H, AST 239 H, ALT 366 H, Alkaline Phosphatase 57, Total Protein 6.6, Albumin 3.1 L, Globulin 3.5, Albumin/Globulin Ratio 0.9 08/12/24 14:35: Sodium 136, Potassium 3.7, Chloride 104, Carbon Dioxide 28.0, Anion Gap 5, BUN 6 L, Creatinine 0.54 L, Estim Creat Clear Calc 180.54, Est GFR (MDRD) Af Amer 177, Est GFR (MDRD) Non-Af 146, BUN/Creatinine Ratio 11.2, Glucose 116 H, Calcium 8.8 Micro: Microbiology 08/09/24 15:45 Urine, Clean Catch Urine Culture - Final Mixed Gram Positive Organisms Physical Exam Const alert, oriented x3, no apparent distress, average body habitus and well nourished General Appearance: cooperative and comfortable Orientation / Consciousness: awake Exam Limitations: no limitations HEENT normocephalic, head/scalp atraumatic, hearing grossly normal bilaterally, moist oral mucous membranes and oropharynx normal Mouth: oral and palatal mucosa normal Eyes PERRL, EOMs intact bilaterally and conjunctivae normal Neck no lymphadenopathy, supple and no JVD Lymph Lymphatic: no lymphadenopathy noted and no lymphedema noted Resp normal respiratory effort, normal air movement, no retractions, no use of accessory muscles and clear to auscultation bilaterally Auscultation: Negative for rales, rhonchi or wheezes Cardio regular rate, regular rhythm, S1 normal heart sound, S2 normal heart sound, no murmurs, no rub, no gallops and no clicks GI normal to inspection, nondistended, normoactive bowel sounds, soft to palpation, non-tender and non- distended Extremity normal to inspection, full ROM, normal capillary refill, no clubbing, cyanosis or edema and no calf tenderness General Extremity: no tenderness to palpation of joints or extremities Skin no rashes or lesions noted General Skin Exam: no breakdown Neuro oriented x3, CN's II-XII intact bilaterally, moves all extremities, no focal motor deficits and no sensory deficits noted Sensorium / Orientation: awake and alert Speech: speech normal Motor Exam: strength 5/5 throughout and general weakness Psych thought process normal, cooperative and affect normal Appearance: appropriate Assessment Plan Assessment/Plan (1) Abdominal pain: (2) Vomiting: (3) Metabolic acidosis: (4) GELY (acute kidney injury): (5) Acute dehydration: (6) Leukocytosis: (7) Erythrocytosis: (8) Transaminitis: (9) Hyperbilirubinemia: PLAN: Plan 24-year-old comes in with Intractable nausea/vomiting -Etiology is unclear. I agree that the stomach was mildly distended and was mildly fluid-filled on CT scan abdomen pelvis but does not seem abnormal in a patient with intractable nausea vomiting. Likely viral (more content not included)... Normal [facility] Mean corpuscular hemoglobin (MCH) determinationOrdered By: Irasema Mcdonough on 08-12-2024 MCH (RBC) [Entitic mass] 30.0 pg 27.0-32.0 [facility] Mean corpuscular hemoglobin concentration (MCHC) determinationOrdered By: Irasema Mcdonough on 08-12-2024 MCHC (RBC) [Mass/Vol] 33.5 g/dL 32-[address] [facility] Mean platelet volume determi nationOrdered By: Irasema Mcdonough on 08-12-2024 Platelet mean volume (Bld) [Entitic vol] 10.6 fL 6.2-12.0 [facility] Monocyte percentageOrdered B y: Irasema Mcdonough on 08-12-2024 Monocytes/100 WBC (Bld) 11.0 % High 0-10 [facility] Neutrophil percentageOrdered By: Irasema Mcdonough on 08-12-2024 Neutrophils/100 WBC (Bld) 59.0 % 47-70 [facility] Nucleated red blood cell per centageOrdered By: Irasema Mcdonough on 08-12-2024 Nucleated RBC/100 WBC (Bld) [Ratio] 0 % 0-5 [facility] Platelet countOrdered By: Latoya Mcdonough on 08-12-2024 Platelets (Bld) [#/Vol] 165 10*3/uL 150-450 [facility] Potassium measurementOrdered By: Irasema Mcdonough on 08-12-2024 Potassium [Moles/Vol] 3.7 mmol/L 3.5-5.[address] [facility] RBC Auto (Bld) [#/Vol]Ordere d By: Irasema Mcdonough on 08-12-2024 RBC (Bld) [#/Vol] 4.00 10*6/uL Low 4.2-5.4 [facility] Serum anion gap measurementO rdered By: Irasema Mcdonough on 08-12-2024 Anion gap [Moles/Vol] 5 mmol/L 5-[address] [facility] Serum globulin measurementOr dered By: Irasema Mcdonough 08-12-2024 Globulin (S) [Mass/Vol] 3.5 g/dL 2.2-4.2 [facility] Serum or plasma alanine neff otransferase (ALT) measurementOrdered By: Irasema Mcdonough 08-12-2024 ALT [Catalytic activity/Vol] 366 U/L High 13-56 [facility] Serum or plasma albumin cory urement (mass/volume)Ordered By: Irasema Mcdonough on 08-12-2024 Albumin [Mass/Vol] 3.1 g/dL Low 3.2-5.0 [facility] Serum or plasma alkaline faraz sphatase measurementOrdered By: Irasema Mcdonough on 08-12-2024 ALP [Catalytic activity/Vol] 57 U/L 45-117 [facility] Serum or plasma calcium cory urement (mass/volume)Ordered By: Irasema Mcdonough on 08-12-2024 Calcium [Mass/Vol] 8.8 mg/dL 8.5-10.1 [facility] Serum or plasma creatinine m easurement (mass/volume)Ordered By: Irasema Mcdonough on 08-12-2024 Creatinine [Mass/Vol] 0.54 mg/dL Low 0.55-1.[address] [facility] Comment on above: The validity of the calculated GFR & GFRAA in patients over 70 years has not been determined. Clinical correlation is essential. Serum or plasma urea nitroge n measurement (mass/volume)Ordered By: Irasema Mcdonough on 08-12-2024 Urea nitrogen [Mass/Vol] 6 mg/dL Low 7-18 [facility] Sodium levelOrdered By: Irasema Mcdonough on 08-12-2024 Sodium [Moles/Vol] 136 mmol/L 136-145 [facility] Total proteinOrdered By: Lisa Mcdonough on 08-12-2024 Protein [Mass/Vol] 6.6 g/dL 6.4-8.2 [facility] White blood cell (WBC) count Ordered By: Irasema Mcdonough on 08-12-2024 WBC (Bld) [#/Vol] 4.4 10*3/uL 4.4-11.0 [facility] Activated partial thrombopla stin time (aPTT) in platelet poor plasma by coagulation aOrdered By: Jd Danielle on 08-11-2024 aPTT Coag (Bld) [Time] 24.0 s Low 24.1-36.2 [facility] Comment on above: Performed By: #### L 9000.0810 #### [facility] [address] [place], [place] [address] [place], [address] Biopsy/Inj or Needle Placeme nton 08-11-2024 Biopsy/Inj or Needle Placement [facility] Imaging Services [address] [place], [place] [address] Biopsy/Inj or Needle Placement MR#: [id number] Acct: [id number] Name: CURLY DEJESUS Rep #: [id number] : 2000 F 24 From: Jd vásquez MD PCP: Care Physician,No Primary Status: ADM IN Study: Biopsy/Inj or Needle Placement Date of Exam: 0 08/11/24 Exam# [id number] Ordering Dr: Roman Griffin DO [id number] PROCEDURE: CT DIRECTED CORE LIVER BIOPSY INDICATION: Female, 24 years old. Cholestatic hepatitis and jaundice PHYSICIAN: Dr. Shashi Thakkar CONSENT: Written informed consent was obtained having explained the risks, benefits and alternatives in detail with the patient who accepted the risks and agreed to proceed. Laboratory review and clinical assessment was performed. CONSCIOUS SEDATION PROTOCOL: The Drugs used were: 2 mg Versed, IV., and 50 mcg Fentanyl, IV. The sedation time was: 22 minutes. Conscious sedation was started at 8:39 AM and terminated at 9:01 AM. The conscious sedation protocol was independently monitored. RADIATION DOSAGE (If Supplied By Facility): CTDIvol = ( 21 ) mGy, DLP = ( 527.95 ) mGycm Individualized dose optimization techniques were used for this CT. TECHNIQUE: Using CT image guidance with image documentation, a suitable location in the left lobe of the liver was identified. Using an anterior approach, puncture of the liver was uneventful with an 18-gauge core needle system. 4, 18-gauge core samples were obtained, and submitted in formalin to the pathologist for further assessment. Followup CT scan revealed no distinct sequelae. CT/Biopsy/Inj or Needle Placement IMPRESSION: 1. CT directed core needle biopsy of the liver, using CT image guidance with image documentation as described. 2. Conscious Sedation protocol utilized with independent monitoring. Electronically Signed: Jd Danielle MD at 9:27 EST , CC: No Primary Care Physician; Roman Friend, Pleater Hand: Signed Normal [facility] CBC W/Diff, Automatedon 07-22 Absolute Lymph 1.25 X10 3/uL Normal 0.83-4.51 [facility] Comment on above: Performed By: #### L 100.0100, L500.4050 ####[facility] [address] [place], [address] Absolute Neut 3.5 X10 3/uL Normal 2.0-7.7 [facility] Comment on above: Performed By: #### L 100.0100, L500.4050 ####[facility] [address] [place], [address] Basophils/100 WBC (Bld) 0.8 % Normal 0-1 [facility] Comment on above: Performed By: #### L 100.0100, L500.4050 ####[facility] [address] [place], [address] Eosinophils/100 WBC (Bld) 1.7 % Normal 0-5 [facility] Comment on above: Performed By: #### L 100.0100, L500.4050 ####[facility] [address] [place], [address] Erythrocyte distribution width (RBC) [Ratio] 13.1 % Normal 11.6-14.6 [facility] Comment on above: Performed By: #### L 100.0100, L500.4050 ####[facility] [address] [place], [address] Hematocrit (Bld) [Volume fraction] 39.8 % Normal 37-47 [facility] Comment on above: Performed By: #### L 100.0100, L500.4050 ####[facility] [address] [place], [address] Hemoglobin (Bld) [Mass/Vol] 13.7 g/dL Normal 12.0-15.0 [facility] Comment on above: Performed By: #### L 100.0100, L500.4050 ####[facility] [address] [place], [address] IG% 0.400 Normal 0.0-0.9 [facility] Comment on above: Result Comment: IG% - Immature Granulocytes (promyelocytes, myelocytes and metamyelocytes) > 1% indicates that a LEFT SHIFT is Present. Performed By: #### L 100.0100, L500.4050 ####[facility] [address] [place], [address] Lymphocytes/100 WBC (Bld) 23.9 % Normal 19-41 [facility] Comment on above: Performed By: #### L 100.0100, L500.4050 ####[facility] [address] [place], [address] MCH (RBC) [Entitic mass] 30.5 pg Normal 27.0-32.0 [facility] Comment on above: Performed By: #### L 100.0100, L500.4050 ####[facility] [address] [place], [address] MCHC (RBC) [Mass/Vol] 34.4 g/dL Normal 32-[address] [facility] Comment on above: Performed By: #### L 100.0100, L500.4050 ####[facility] [address] [place], [address] MCV (RBC) [Entitic vol] 88.6 fL Normal 81-99 [facility] Comment on above: Performed By: #### L 100.0100, L500.4050 ####[facility] [address] [place], [address] Monocytes/100 WBC (Bld) 6.9 % Normal 0-10 [facility] Comment on above: Performed By: #### L 100.0100, L500.4050 ####[facility] [address] [place], [address] Neutrophils/100 WBC (Bld) 66.3 % Normal 47-70 [facility] Comment on above: Performed By: #### L 100.0100, L500.4050 ####[facility] [address] [place], [address] Nucleated RBC (Bld) [#/Vol] 0.4 10*3/uL Normal 0-5 [facility] Comment on above: Performed By: #### L 100.0100, L500.4050 ####[facility] [address] [place], [address] Platelet mean volume (Bld) [Entitic vol] 10.2 fL Normal 6.2-12.0 [facility] Comment on above: Performed By: #### L 100.0100, L500.4050 ####[facility] [address] [place], [address] Platelets (Bld) [#/Vol] 170 10*3/uL Normal 150-450 [facility] Comment on above: Performed By: #### L 100.0100, L500.4050 ####[facility] [address] [place], [address] RBC (Bld) [#/Vol] 4.49 10*6/uL Normal 4.2-5.4 [facility] Comment on above: Performed By: #### L 100.0100, L500.4050 ####[facility] [address] [place], [address] RDW SD 42.0 fl Normal 35.1-43.9 [facility] Comment on above: Performed By: #### L 100.0100, L500.4050 ####[facility] [address] [place], [address] WBC (Bld) [#/Vol] 5.2 10*3/uL Normal 4.4-11.0 [facility] Comment on above: Performed By: #### L 100.0100, L500.4050 ####[facility] [address] [place], [address] Comprehensive Metabolic Prof ilon 08-11-2024 Albumin [Mass/Vol] 3.2 g/dL Normal 3.2-5.0 [facility] Comment on above: Performed By: #### L 100.0100, L500.4050 ####[facility] [address] [place], [address] Albumin/Globulin [Mass ratio] 0.9 {ratio} Normal 0.9-2.4 [facility] Comment on above: Performed By: #### L 100.0100, L500.4050 ####[facility] [address] [place], [address] ALK P 63 U/L Normal 45-117 [facility] Comment on above: Performed By: #### L 100.0100, L500.4050 ####[facility] [address] [place], [address] ALT [Catalytic activity/Vol] 395 U/L High 13-56 [facility] Comment on above: Performed By: #### L 100.0100, L500.4050 ####[facility] [address] [place], [address] AST [Catalytic activity/Vol] 285 U/L High 15-37 [facility] Comment on above: Performed By: #### L 100.0100, L500.4050 ####[facility] [address] [place], [address] Bilirubin [Mass/Vol] 1.30 mg/dL High 0.20-1.[address] [facility] Comment on above: Result Comment: For patients on eltrombopag therapy, use of Dimension [place] TBIL is not recommended. Performed By: #### L 100.0100, L500.4050 ####[facility] [address] [place], [address] BUN/CRE 17.1 RATIO Normal 10-20 [facility] Comment on above: Performed By: #### L 100.0100, L500.4050 ####[facility] [address] [place], [address] CA,Total 9.0 mg/dL Normal 8.5-10.1 [facility] Comment on above: Performed By: #### L 100.0100, L500.4050 ####[facility] [address] [place], [address] Chloride [Moles/Vol] 98 mmol/L Normal 98-[address] [facility] Comment on above: Performed By: #### L 100.0100, L500.4050 ####[facility] [address] [place], [address] CO2 [Moles/Vol] 26.0 mmol/L Normal 21.0-32.0 [facility] Comment on above: Performed By: #### L 100.0100, L500.4050 ####[facility] [address] [place], [address] Creatinine [Mass/Vol] 0.47 mg/dL Low 0.55-1.[address] [facility] Comment on above: Result Comment: The validity of the calculated GFR GFRAA in patients over 70 years has not been determined. Clinical correlation is essential. Performed By: #### L 100.0100, L500.4050 ####[facility] [address] [place], [address] ECRCL 207.43 ml/min Normal [facility] Comment on above: Performed By: #### L 100.0100, L500.4050 ####[facility] [address] [place], [address] EST GFR - AA 206 mL/min Normal >60 [facility] Comment on above: Result Comment: Afri can [place] GFR Calc Performed By: #### L 100.0100, L500.4050 ####[facility] [address] [place], [address] GAP 10 Normal 5-15 [facility] Comment on above: Performed By: #### L 100.0100, L500.4050 ####[facility] [address] [place], [address] GFR/1.73 sq M.predicted among non-blacks MDRD (S/P/Bld) [Vol rate/Area] 170 mL/min/{1.73_m2} Normal >60 [facility] Comment on above: Result Comment: Non- GFR Calc Performed By: #### L 100.0100, L500.4050 ####[facility] [address] [place], [address] Globulin (S) [Mass/Vol] 3.6 g/dL Normal 2.2-4.2 [facility] Comment on above: Performed By: #### L 100.0100, L500.4050 ####[facility] [address] [place], [address] Glucose [Mass/Vol] 100 mg/dL Normal 74-106 [facility] Comment on above: Result Comment: Fast ing Glucose result from 100 to 125 mg/dL suggests IMPAIRED HOMEOSTASIS per A.D.A. criteria. Performed By: #### L 100.0100, L500.4050 ####[facility] [address] [place], [address] Potassium [Moles/Vol] 3.0 mmol/L Low 3.5-5.[address] [facility] Comment on above: Performed By: #### L 100.0100, L500.4050 ####[facility] [address] [place], [address] Sodium [Moles/Vol] 134 mmol/L Low 136-145 [facility] Comment on above: Performed By: #### L 100.0100, L500.4050 ####[facility] [address] [place], [address] T PROT 6.8 g/dL Normal 6.4-8.2 [facility] Comment on above: Performed By: #### L 100.0100, L500.4050 ####[facility] [address] [place], [address] Urea nitrogen [Mass/Vol] 8 mg/dL Normal 7-18 [facility] Comment on above: Performed By: #### L 100.0100, L500.4050 ####[facility] [address], [address] International normalized rat io (INR) calculationOrdered By: Jd Danielle on 08-11-2024 INR Coag (Bld) [Relative time] 1.1 {INR} [facility] MR/PNLiz 08-11-2024 MR/PN.FAROOQ [facility] Medical Records Department [address] [place] [address] Progress Note - GI 08/11/24 0757 MR#: [id number] Acct: [id number] Name: DAYANA DEJESUSJAMESZACKJONHHeriberto LEROY Rep #: [id number] : 2000 24 From: Roman Friend DO PCP: Care Physician,No Primary Status:ADM IN Location: MS3 [id number] Subjective Subjective Patient underwent a liver biopsy. She denies any pain from liver biopsy today. Objective Data Objective Data Vital Signs: Vital Signs Temp Pulse Resp BP Pulse Ox O2 Del Method O2 Flow Rate 98.5 F 82 14 101/61 97 Room Air 2 08/11/24 14:24 08/11/24 14:24 08/11/24 14:24 08/11/24 14:24 08/11/24 14:24 08/11/24 14:24 08/11/24 09:00 Oxygen Flow Rate (L/min) 2 Oxygen Delivery Method Room Air Weight: 180 lb 5.41 oz Body Mass Index (BMI) 26.6 Intake Output: Intake and Output for Last 24 Hours 08/09/24 08/10/24 08/11/24 23:59 23:59 23:59 Intake Total 2800 / 2800 1100 / 1100 400 / 400 Output Total 650 / 650 200 / 200 Balance 2150 / 2150 1100 / 1100 200 / 200 Lab / Micro Data 08/11/24 06:00 08/11/24 06:00 Labs: Laboratory Results - last 24 hr 08/10/24 19:54: ESR 13, Iron 36 L, TIBC 242 L, Iron Saturation 14.9 L, Ferritin 990 H, Lactate Dehydrogenase 401 H, C-React Prot Ext Range 6.99 H, SAVANNAH-1 Antibody TNP, SS-A/Ro IgG Antibody TNP, SS- B/La IgG Antibody TNP, Sm (Marcum) Antibody TNP, [employer] Antibody TNP, Scl-70 Scleroderma Ab TNP, Antichromatin Antibodies TNP, Centromere B Antibody TNP, HIV 1 2 Antibody Non-Reactive 08/11/24 06:00: WBC 5.2, RBC 4.49, Hgb 13.7, Hct 39.8, MCV 88.6, MCH 30.5, MCHC 34.4, RDW Std Deviation 42.0, RDW Coeff of Alethea 13.1, Plt Count 170, MPV 10.2, Immature Gran % (Auto) 0.400, Neut % (Auto) 66.3, Lymph % (Auto) 23.9, [place] % (Auto) 6.9, Eos % (Auto) 1.7, Baso % (Auto) 0.8, Absolute Neuts (auto) 3.5, Absolute Lymphs (auto) 1.25, Nucleated RBC % 0.4, PT 14.1, INR 1.1, APTT 24.0 L, S odium 134 L, Potassium 3.0 L, Chloride 98, Carbon Dioxide 26.0, Anion Gap 10, BUN 8, Creatinine 0.47 L, Estim Creat Clear Calc 207.43, Est GFR (MDRD) Af Amer 206, Est GFR (MDRD) Non-Af 170, BUN/Creatinine Ratio 17.1, Glucose 100, Calcium 9.0, Magnesium 1.8, Total Bilirubin 1.30 H, AST 285 H, ALT 395 H, Alkaline Phosphatase 63, Total Protein 6.8, Albumin 3.2, Globulin 3.6, Albumin/Globulin Ratio 0.9 Micro: Microbiology 08/09/24 15:45 Urine, Clean Catch Urine Culture - Final Mixed Gram Positive Organisms Radiography Diagnostic Testing: Radiology Impression Biopsy CT 08/11/24 10:00 IMPRESSION: 1. CT directed core needle biopsy of the liver, using CT image guidance with image documentation as described. 2. Conscious Sedation protocol utilized with independent monitoring. Electronically Signed: Jd Danielle MD at 9:27 EST , Physical Exam Const alert, oriented x3, no apparent distress and healthy appearing General Appearance: cooperative GI normal to inspection, nondistended, normoactive bowel sounds, soft to palpation, non-tender and non- distended Percussion: normal to percussion Rectal Exam: deferred Assessment Plan Assessment/Plan (1) Abdominal pain: (2) Vomiting: (3) Metabolic acidosis: (4) GELY (acute kidney injury): (5) Acute dehydration: (6) Leukocytosis: (7) Erythrocytosis: (8) Transaminitis: (9) Hyperbilirubinemia: PLAN: Plan 24-year-old comes in with Intractable nausea/vomiting -Etiology is unclear. I agree that the stomach was mildly distended and was mildly fluid-filled on CT scan abdomen pelvis but does not seem abnormal in a patient with intractable nausea vomiting. Likely viral gastroenteritis as she is still getting better from a clinical standpoint. Cholestatic hepatitis with jaundice -She had no recent vaccinations, travel, sick contacts. The differential diagnosis does include Nonviral hepatitis acute hepatitis, acute autoimmune hepatitis, EBV or CMV related hepatitis, autoimmune cholangiopathy. She should undergo MRCP to look for signs of stricturing disease. She should also undergo a liver biopsy. I would hold off on antibiotics at this time as it can induce a worsening cholestatic hepatitis due to drug-induced cholestatic hepatitis. -I will send autoimmune blood work. 08/11/2024-her LFTs are improving. Her abdominal pain is improving. She still has some nausea. She denies chest pain shortness of breath. Biochemical workup pending. Liver biopsy. If she is doing okay she can be DC'd to home with symptomatic treatment and follow-up in the clinic. Charges/Coding Visit Charges Inpatient E M: 99007 Subs Hosp L3 08/11/24 5532 Cosigner Signature (if applicable): CC: Signed Normal [facility] Magnesium measurementOrdered By: Irasema Mcdonough on 08-11-2024 Magnesium [Mass/Vol] 1.8 mg/dL Normal 1.6-2.[address] [facility] Comment on above: Performed By: #### L 9000.0810 #### [facility] [address] [place], [address] Prothrombin Time w/INRon INR Coag (PPP) [Relative time] 1.1 {INR} Normal [facility] Comment on above: Performed By: #### L 9000.0810 #### [facility] [address] [place], [address] Prothrombin timeOrdered By: Jd Danielle on 08-11-2024 PT Coag (PPP) [Time] 14.1 s Normal 11.7-14.[address] [facility] Comment on above: Performed By: #### L 9000.0810 #### [facility] [address] [place], [address] Trichrome (control)on 2024 Trichrome (control) ------ Patient Age/Sex Location Account Attending Physician CURLY DEJESUS / MS3 [id number] Dr. Irasema Mcdonough MD Specimen: [id number] Received: 08/11/24 Status: EDER Sánchez Num: [id number] Spec Type: LIVER BX Subm Dr: Dr. Irasema Mcdonough MD HEADER OPERATION: CT guided liver biopsy PRE-OP DIAGNOSIS: Hepatitis TISSUE SUBMITTED: 18 gauge x 4 cores MICROSCOPIC DIAGNOSIS Liver, CT guided core biopsy: Liver parenchymal tissue with extensive macro- and microvesicular steatosis. See microscopic description and comment. LARS.mr 08/12/2024 COMMENT Correlation with clinical, laboratory, radiologic findings and appropriate follow up are necessary. MICROSCOPIC DESCRIPTION Slides are reviewed. This specimen shows liver parenchymal tissue with preserved lobular architecture. Hepatocytes show extensive macro- and microvesicular steatosis and reactive changes. Minimal lobular inflammation is noted. Portal area shows mild chronic inflammation predominantly consisting of lymphocytes. Interface inflammation is not seen. Iron stain shows absent iron. Reticulin stain highlights the normal lobular arichtecutre. Trichrome stain does not show significant increase of portal or periportal fibrosis. PAS stain with and without diastase do not show abnormal accumulation of protein. All of the stains have been performed with appropriate matched controls. GROSS DESCRIPTION Received is one container labeled with the patient's name and not further designated. The specimen consists of multiple elongated fragments of stark soft tissue that in aggregate measure 1.5 x 0.4 x 0.1 cm. The specimen is totally submitted in one cassette. mr 08/11/2024 TC:5 [facility]:[id number] Patient Age/Sex Location Account Attending Physician CURLY DEJESUS 24/ MS3 [id number] Dr. Irasema Mcdonough MD Signed (signature on file) Dr. Freddie Monroe MD 08/12/24 1303 Normal [facility] Comment on above: Performed By: #### P TRI ####[facility] [address] [place], [address] Urine Cultureon 08-11-2024 [facility] SAMPLE COLLECTED 07/21 AT 1740 Mixed Gram Positive Organisms [place] Count 11,000-25,000 MIXC Mixed contaminants. Submit a new specimen if indicated. Normal [facility] Comment on above: Performed By: #### M 100.2200 ####[facility] [address] [place], [place], [address] Actin IgG QnOrdered By: Yani Baez on 08-10-2024 Anti-Smooth Muscle Antibody 10 Units 0-19 [facility] Comment on above: Negative 0 - 19 Weak positive 20 - 30 Moderate to strong positive >30 Actin Antibodies are found in 52-85% of patients with autoimmune hepatitis or chronic active hepatitis and in 22% of patients with primary biliary cirrhosis. Addendum DocumentOrdered By: Roman Griffin on 08-10-2024 Serum Immunofixation Comments Comment . [facility] Comment on above: Protein electrophore sis scan will follow via computer,mail, or veneer cutter delivery. Albumin Elph [Mass/Vol]Order ed By: Roman Griffin on 08-10-2024 Albumin [Mass/Vol] 3.5 g/dL 2.9-4.4 [facility] Alpha 1 globulin Elph [Mass/ Vol]Ordered By: Roman Griffin on 08-10-2024 Eycgk-7-Ribsgjwbo (RUBI) 0.2 g/dL 0.0-0.4 [facility] Jfvjb-7-Ozmjdlxvw (RUBI) 0.7 g/dL 0.4-1.0 [facility] Atypical perinuclear antineu trophil cytoplasmic antibodies measurementOrdered By: Roman Griffin on 08-10-2024 Atypical p-ANCA <1:20 titer Neg:<1:20 [facility] Comment on above: The atypical pANCA p attern has been observed in asignificant percentage of patients with ulcerative colitis,primary sclerosing cholangitis and autoimmune hepatitis. Beta globulin Elph [Mass/Vol ]Ordered By: Roman Griffin on 08-10-2024 Beta-Globulins (RUBI) 1.0 g/dL 0.7-1.[address] [facility] C-reactive protein measureme nt by high sensitivity methodOrdered By: Roman Griffin on 08-10-2024 C-Reactive Protein Extended Range 6.99 mg/L High 0.0-3.0 [facility] Comment on above: C-Reactive Protein ( CRP) provides useful information for thediagnosis, therapy and monitoring of inflammatory processesand associated diseases. For the evaluation of Relative Riskfor Cardiovascular Disease, a High Sensitivity CRP (HSCRP)should be ordered. CBC W/Diff, Automatedon 07-22 Absolute Lymph 1.25 X10 3/uL Normal 0.83-4.51 [facility] Comment on above: Performed By: #### L 500.2500, L500.3400, L501.2450, L100.0100 #### [facility] [address] [place], [address] Absolute Neut 4.7 X10 3/uL Normal 2.0-7.7 [facility] Comment on above: Performed By: #### L 500.2500, L500.3400, L501.2450, L100.0100 #### [facility] [address] [place], [address] Basophils/100 WBC (Bld) 0.5 % Normal 0-1 [facility] Comment on above: Performed By: #### L 500.2500, L500.3400, L501.2450, L100.0100 #### [facility] [address] [place], [address] Eosinophils/100 WBC (Bld) 1.1 % Normal 0-5 [facility] Comment on above: Performed By: #### L 500.2500, L500.3400, L501.2450, L100.0100 #### [facility] [address] [place], [address] Erythrocyte distribution width (RBC) [Ratio] 13.1 % Normal 11.6-14.6 [facility] Comment on above: Performed By: #### L 500.2500, L500.3400, L501.2450, L100.0100 #### [facility] [address] [place], [address] Hematocrit (Bld) [Volume fraction] 43.0 % Normal 37-47 [facility] Comment on above: Performed By: #### L 500.2500, L500.3400, L501.2450, L100.0100 #### [facility] [address] [place], [address] Hemoglobin (Bld) [Mass/Vol] 14.2 g/dL Normal 12.0-15.0 [facility] Comment on above: Performed By: #### L 500.2500, L500.3400, L501.2450, L100.0100 #### [facility] [address] [place], [address] IG% 0.300 Normal 0.0-0.9 [facility] Comment on above: Result Comment: IG% - Immature Granulocytes (promyelocytes, myelocytes and metamyelocytes) > 1% indicates that a LEFT SHIFT is Present. Performed By: #### L 500.2500, L500.3400, L501.2450, L100.0100 #### [facility] [address] [place], [address] Lymphocytes/100 WBC (Bld) 19.8 % Normal 19-41 [facility] Comment on above: Performed By: #### L 500.2500, L500.3400, L501.2450, L100.0100 #### [facility] [address] [place], [address] MCH (RBC) [Entitic mass] 29.5 pg Normal 27.0-32.0 [facility] Comment on above: Performed By: #### L 500.2500, L500.3400, L501.2450, L100.0100 #### [facility] [address] [place], [address] MCHC (RBC) [Mass/Vol] 33.0 g/dL Normal 32-[address] [facility] Comment on above: Performed By: #### L 500.2500, L500.3400, L501.2450, L100.0100 #### [facility] [address] [place], [address] MCV (RBC) [Entitic vol] 89.2 fL Normal 81-99 [facility] Comment on above: Performed By: #### L 500.2500, L500.3400, L501.2450, L100.0100 #### [facility] [address] [place], [address] Monocytes/100 WBC (Bld) 3.5 % Normal 0-10 [facility] Comment on above: Performed By: #### L 500.2500, L500.3400, L501.2450, L100.0100 #### [facility] [address] [place], [address] Neutrophils/100 WBC (Bld) 74.8 % High 47-70 [facility] Comment on above: Performed By: #### L 500.2500, L500.3400, L501.2450, L100.0100 #### [facility] [address] [place], [address] Nucleated RBC (Bld) [#/Vol] 0 10*3/uL Normal 0-5 [facility] Comment on above: Performed By: #### L 500.2500, L500.3400, L501.2450, L100.0100 #### [facility] [address] [place], [address] Platelet mean volume (Bld) [Entitic vol] 10.4 fL Normal 6.2-12.0 [facility] Comment on above: Performed By: #### L 500.2500, L500.3400, L501.2450, L100.0100 #### [facility] [address] [place], [address] Platelets (Bld) [#/Vol] 192 10*3/uL Normal 150-450 [facility] Comment on above: Performed By: #### L 500.2500, L500.3400, L501.2450, L100.0100 #### [facility] [address] [place], [address] RBC (Bld) [#/Vol] 4.82 10*6/uL Normal 4.2-5.4 [facility] Comment on above: Performed By: #### L 500.2500, L500.3400, L501.2450, L100.0100 #### [facility] [address] [place], [address] RDW SD 42.6 fl Normal 35.1-43.9 [facility] Comment on above: Performed By: #### L 500.2500, L500.3400, L501.2450, L100.0100 #### [facility] [address] [place], [address] WBC (Bld) [#/Vol] 6.3 10*3/uL Normal 4.4-11.0 [facility] Comment on above: Performed By: #### L 500.2500, L500.3400, L501.2450, L100.0100 #### [facility] [address] [place], [address] CMV IgM QnOrdered By: Reuben Griffin on 08-10-2024 Cytomegalovirus IgM Antibody < 30.0 AU/mL 0.0-29.9 [facility] Comment on above: Negative <30.0 Equiv ocal 30.0 - 34.9 Positive >34.9A positive result is generally indicative of acuteinfection, reactivation or persistent IgM production. CRPon 08-10-2024 C-REACTIVE PROT 6.99 mg/L High 0.0-3.0 [facility] Comment on above: Result Comment: C-Re active Protein (CRP) provides useful information for the diagnosis, therapy and monitoring of inflammatory processes and associated diseases. For the evaluation of Relative Risk for Cardiovascular Disease, a High Sensitivity CRP (HSCRP) should be ordered. Performed By: #### L 500.2500, L500.3400, L501.2450, L100.0100 #### [facility] [address] [place], [address] Centromere B antibody assayO rdered By: Roman Griffin on 08-10-2024 Centromere B Antibody <0.2 AI 0.0-0.[address] [facility] Comment on above: Previous reported re sult: TNP AIEdited by: WINSOME on 08/12/24:1507 AMENDED REPORT 08/12/24 1507 ANTI-CENT B previously reported as: Test not performed CeruloplasminOrdered By: Mike Griffin on 08-10-2024 Ceruloplasmin 25.5 mg/dL 19.0-39.0 [facility] Chromatin antibody assayOrde red By: Roman Griffin on 08-10-2024 Antichromatin Antibodies <0.2 AI 0.0-0.9 [facility] Comment on above: Previous reported re sult: TNP AIEdited by: WINSOME on 08/12/24:1507 AMENDED REPORT 08/12/24 1507 ANTICHROMATIN previously reported as: Test not performed Comprehensive Metabolic Prof ilon 08-10-2024 Albumin [Mass/Vol] 3.2 g/dL Normal 3.2-5.0 [facility] Comment on above: Performed By: #### L 9000.0810 #### [facility] [address] [place], [address] Albumin/Globulin [Mass ratio] 0.8 {ratio} Low 0.9-2.4 [facility] Comment on above: Performed By: #### L 9000.0810 #### [facility] [address] [place], [address] ALK P 69 U/L Normal 45-117 [facility] Comment on above: Performed By: #### L 9000.0810 #### [facility] [address] [place], [address] ALT [Catalytic activity/Vol] 413 U/L High 13-56 [facility] Comment on above: Performed By: #### L 9000.0810 #### [facility] [address] [place], [address] AST [Catalytic activity/Vol] 414 U/L High 15-37 [facility] Comment on above: Performed By: #### L 9000.0810 #### [facility] [address] [place], [address] Bilirubin [Mass/Vol] 2.30 mg/dL High 0.20-1.[address] [facility] Comment on above: Result Comment: For patients on eltrombopag therapy, use of Dimension [place] TBIL is not recommended. Performed By: #### L 9000.0810 #### [facility] [address] [place], [address] BUN/CRE 10.8 RATIO Normal 10-20 [facility] Comment on above: Performed By: #### L 9000.0810 #### [facility] [address] [place], [address] CA,Total 8.6 mg/dL Normal 8.5-10.1 [facility] Comment on above: Performed By: #### L 900.0810 #### [facility] [address] [place], [address] Chloride [Moles/Vol] 98 mmol/L Normal 98-[address] [facility] Comment on above: Performed By: #### L 900.0810 #### [facility] [address] [place], [address] CO2 [Moles/Vol] 24.0 mmol/L Normal 21.0-32.0 [facility] Comment on above: Performed By: #### L 9000.0810 #### [facility] [address] [place], [address] Creatinine [Mass/Vol] 0.46 mg/dL Low 0.55-1.[address] [facility] Comment on above: Result Comment: The validity of the calculated GFR GFRAA in patients over 70 years has not been determined. Clinical correlation is essential. Performed By: #### L 9000.0810 #### [facility] [address] [place], [address] ECRCL 212.41 ml/min Normal [facility] Comment on above: Performed By: #### L 9000.0810 #### [facility] [address] [place], [address] EST GFR - AA 209 mL/min Normal >60 [facility] Comment on above: Result Comment: Afri can Turkmen GFR Calc Performed By: #### L 900.0810 #### [facility] [address] [place], [address] GAP 12 Normal 5-15 [facility] Comment on above: Performed By: #### L 9000.0810 #### [facility] [address] [place], [address] GFR/1.73 sq M.predicted among non-blacks MDRD (S/P/Bld) [Vol rate/Area] 173 mL/min/{1.73_m2} Normal >60 [facility] Comment on above: Result Comment: Non- GFR Calc Performed By: #### L 9000.0810 #### [facility] [address] [place], [address] Globulin (S) [Mass/Vol] 3.9 g/dL Normal 2.2-4.2 [facility] Comment on above: Performed By: #### L 9000.0810 #### [facility] [address] [place], [address] Glucose [Mass/Vol] 110 mg/dL High 74-106 [facility] Comment on above: Result Comment: Fast ing Glucose result from 100 to 125 mg/dL suggests IMPAIRED HOMEOSTASIS per A.D.A. criteria. Performed By: #### L 9000.0810 #### [facility] [address] [place], [address] Potassium [Moles/Vol] 2.9 mmol/L Low 3.5-5.[address] [facility] Comment on above: Performed By: #### L 9000.0810 #### [facility] [address] [place], [address] Sodium [Moles/Vol] 134 mmol/L Low 136-145 [facility] Comment on above: Performed By: #### L 9000.0810 #### [facility] [address] [place], [address] T PROT 7.1 g/dL Normal 6.4-8.2 [facility] Comment on above: Performed By: #### L 9000.0810 #### [facility] [address] [place], [place], [id number] Urea nitrogen [Mass/Vol] 5 mg/dL Low 7-18 [facility] Comment on above: Performed By: #### L 9000.0810 #### [facility] [address] [place], [place], [address] Copper, serumOrdered By: Mike Griffin on 08-10-2024 Serum Copper 92 ug/dL 80-158 [facility] Comment on above: Detection Limit = 5 DNA double strand Ab Qn (S)O rdered By: Roman Griffin on 08-10-2024 Anti-Double Strand DNA Antibody <1 IU/mL 0-9 [facility] Comment on above: Negative <5 Equivoca l 5 - 9 Positive >9 EBV capsid IgM Qn (S)Ordered By: Roman Griffin on 08-10-2024 [place] Virus Capsid Ag IgM Ab < 36.0 U/mL 0.0-35.9 [facility] Comment on above: Negative <36.0 Equiv ocal 36.0 - 43.9 Positive >43.9 EBV nuclear IgG Qn (S)Ordere d By: Roman Griffin on 08-10-2024 [place] Nuclear Ass[employer] Ag IgG > 600.0 U/mL High 0.0-17.9 [facility] Comment on above: Negative <18.0 Equiv ocal 18.0 - 21.9 Positive >21.9 [place]-A[place]re virus (EBV) vir al capsid antigen (VCA) IgG antibody assayOrdered By: Roman Griffin on 08-10-2024 [place] Virus Capsid Ag IgG Ab 88.1 U/mL High 0.0-17.9 [facility] Comment on above: Negative <18.0 Equiv ocal 18.0 - 21.9 Positive >21.9 Erythrocyte Sed Rateon 08-10 SED RATE 13 mm/hr Normal 0-30 [facility] Comment on above: Performed By: #### L 500.2500, L500.3400, L501.2450, L100.0100 #### [facility] [address] [place], [address] Erythrocyte sedimentation ra teOrdered By: Roman Griffin on 08-10-2024 ESR (Bld) [Velocity] 13 mm/h 0-[address] [facility] Ferritinon 08-10-2024 Ferritin [Mass/Vol] 990 ng/mL High 8-252 [facility] Comment on above: Performed By: #### L 500.2500, L500.3400, L501.2450, L100.0100 #### [facility] [address] [place], [address] Ferritin measurementOrdered By: Roman Griffin on 08-10-2024 Ferritin [Mass/Vol] 990 ng/mL High 8-252 [facility] Gamma globulin Elph [Mass/Vo l]Ordered By: Roman Griffin on 08-10-2024 Gamma Globulins (RUBI) 1.4 g/dL 0.4-1.[address] [facility] HIV - WCHon 08-10-2024 HIV Non-Reactive Normal Nonreactive [facility] Comment on above: Performed By: #### L 500.2500, L500.3400, L501.2450, L100.0100 #### [facility] [address] [place] [place], [address] HIV 1+2 Ab+HIV1 p24 Ag IA Ql Ordered By: Roman Griffin on 08-10-2024 HIV (1&2) Antibody Non-Reactive Nonreactive [facility] HSV 2 Ab IA Qn (S)Ordered By : Roman Griffin on 08-10-2024 Herpes Simplex Virus II IgG Ab See comment [facility] Comment on above: RESULT: REACTIVEPl ease note reference interval changeCurrent guidelines and recommendations do not recommendroutine screening for HSV-2 in asymptomatic individuals,including those that are . The detection of HSV-2IgG antibodies in a single sample indicates previousexposure to HSV-2 but does not give information as to thesite of HSV infection or the timing of exposure. Thepredictive value of positive and negative results dependson the population's prevalence and the pretest likelihoodof HSV-2. HSV-2 IgG testing performed using the RocheONE Changesys HSV-2 IgG assay. Hepatitis Panel Acuteon 07-22 COMMENT Comment Normal . [facility] Comment on above: Result Comment: Not infected with HCV unless early or acute infection is suspected (which may be delayed in an immunocompromised individual), or other evidence exists to indicate HCV infection. Performed at: [address] [id number] [employer] K[employer] Operator: Bob Weeks PhD, Phone: [phone] Performed By: #### L 500.2500, L500.3400, L501.2450, L100.0100 #### [facility] [address] [place], [address] HEP B CORE,IgM Negative Normal Negative [facility] Comment on above: Performed By: #### L 500.2500, L500.3400, L501.2450, L100.0100 #### [facility] [address] [place], [place], [id number] HEP B SURF AG Negative Normal Negative [facility] Comment on above: Performed By: #### L 500.2500, L500.3400, L501.2450, L100.0100 #### [facility] [address] [place], [address] HEP C VIRUS AB Non-Reactive Normal Non Reactive [facility] Comment on above: Performed By: #### L 500.2500, L500.3400, L501.2450, L100.0100 #### [facility] [address] [place], [place], [id number] HEPATITIS A-IgM Negative Normal Negative [facility] Comment on above: Result Comment: A ne gative anti-HAV IgM result suggests no recent or current HAV infection. Performed By: #### L 500.2500, L500.3400, L501.2450, L100.0100 #### [facility] [address] [place], [address] Herpes simplex virus (HSV) t ype 1 IgG antibody assayOrdered By: Roman Griffin on 08-10-2024 Herpes Simplex Virus I IgG Antibody See comment [facility] Comment on above: RESULT: REACTIVEPl ease note reference interval changeHSV-1 IgG testing performed using the Charlene Elecsys HSV-1IgG assay. High density lipoprotein (HD L) measurementOrdered By: Irasema Mcdonough on 08-10-2024 Cholesterol in HDL [Mass/Vol] 68 mg/dL >40 [facility] Comment on above: The drugs N-Acetylcy steine and Metamizole may falsely depress this assay. Reference Range HDL <40 mg/dL Low HDL Cholesterol HDL >or= 60 mg/dL High HDL Cholesterol IgA [Mass/Vol]Ordered By: Ra shoshana Griffin on 08-10-2024 Immunoglobulin A 353 mg/dL High 87-352 [facility] IgG [Mass/Vol]Ordered By: Ra shoshana Griffin on 08-10-2024 Immunoglobulin G Not Reportable [facility] Immunoglobulin G Total 1370 mg/dL [id number] [facility] IgG subclass 1 (S) [Mass/Vol ]Ordered By: Roman Griffin on 08-10-2024 Immunoglobulin G1 671 mg/dL 248-810 [facility] IgG subclass 2 (S) [Mass/Vol ]Ordered By: Roman Griffin on 08-10-2024 Immunoglobulin G2 470 mg/dL 130-555 [facility] IgG subclass 3 (S) [Mass/Vol ]Ordered By: Roman Griffin on 08-10-2024 Immunoglobulin G3 85 mg/dL 15-102 [facility] Immunoglobulin G4 measuremen tOrdered By: Roman Griffin on 08-10-2024 Immunoglobulin G4 27 mg/dL 2-96 [facility] Immunoglobulin M measurement Ordered By: Roman Griffin on 08-10-2024 Immunoglobulin M 186 mg/dL 26-217 [facility] Interpretation IEP [Interp]O rdered By: Roman Griffin on 08-10-2024 Immunofixation Screen Comment . [facility] Comment on above: No monoclonality det ected. Interpretation of Bora-Ba rr virus antibody panelOrdered By: Roman Griffin on 08-10-2024 Bora-Alegre Virus Ab Interpret Comment . [facility] Comment on above: EBV Interpretation C Scott: Antibody Present + Antibody Absent -Interpretation VCA-IgM VCA-IgG EBNA-IgGNo previous infection/ - - -SusceptiblePrimary infection (new + + -or recent)Past Infection +or- + +See comment below* + - -*Results indicate infection with EBV at some time however cannot predict the timing of the infection since antibodies to EBNA usually develop after primary infection or, alternatively, approximately 5-10% of patients with EBV never develop antibodies to EBNA. Iron (Unsp spec) [Mass/Mass] Ordered By: Roman Griffin on 08-10-2024 Iron [Mass/Vol] 36 ug/dL Low 50-170 [facility] Iron saturation [Mass fracti on]Ordered By: Roman Griffin on 08-10-2024 Iron Saturation 14.9 % Low 15.0-55.0 [facility] Iron+Iron Binding Capacityon 08-10-2024 Iron [Mass/Vol] 36 ug/dL Low 50-170 [facility] Comment on above: Performed By: #### L 500.2500, L500.3400, L501.2450, L100.0100 #### [facility] [address] [place], [address] IRON SATURATION 14.9 Low 15.0-55.0 [facility] Comment on above: Performed By: #### L 500.2500, L500.3400, L501.2450, L100.0100 #### [facility] [address] [place], [address] TIBC 242 ug/dL Low 250-450 [facility] Comment on above: Performed By: #### L 500.2500, L500.3400, L501.2450, L100.0100 #### [facility] [address] [place], [address] Savannah-1 antibody assayOrdered B y: Romanporsha Griffin on 08-10-2024 SAVANNAH-1 Antibody <0.2 AI 0.0-0.9 [facility] Comment on above: Previous reported re sult: TNP AIEdited by: WINSOME on 08/12/24:1507 AMENDED REPORT 08/12/24 1507 ANTI-SAVANNAH previously reported as: Test not performed LDHon 08-10-2024 LDH 401 U/L High 84-246 [facility] Comment on above: Performed By: #### L 500.2500, L500.3400, L501.2450, L100.0100 #### [facility] [address] [place], [address] Lactate dehydrogenase (LDH) measurementOrdered By: Roman Griffin on 08-10-2024 LDH [Catalytic activity/Vol] 401 U/L High 84-246 [facility] Lipid Profileon 08-10-2024 Cholesterol [Mass/Vol] 145 mg/dL Normal 200 [facility] Comment on above: Result Comment: <200 mg/dL Desirable 200-240 mg/dL Borderline >240 mg/dL High Risk Performed By: #### L 500.2500, L500.3400, L501.2450, L100.0100 #### [facility] [address] [place], [address] Cholesterol in HDL [Mass/Vol] 68 mg/dL Normal [facility] Comment on above: Result Comment: The drugs N-Acetylcysteine and Metamizole may falsely depress this assay. Reference Range HDL <40 mg/dL Low HDL Cholesterol HDL >or= 60 mg/dL High HDL Cholesterol Performed By: #### L 500.2500, L500.3400, L501.2450, L100.0100 #### [facility] [address] [place], [address] Cholesterol in LDL [Mass/Vol] 58 mg/dL Normal 0-130 [facility] Comment on above: Performed By: #### L 500.2500, L500.3400, L501.2450, L100.0100 #### [facility] [address] [place], [address] Cholesterol in VLDL [Mass/Vol] 19 mg/dL Normal 5-40 [facility] Comment on above: Performed By: #### L 500.2500, L500.3400, L501.2450, L100.0100 #### [facility] [address] [place], [address] Triglyceride [Mass/Vol] 95 mg/dL Normal [facility] Comment on above: Result Comment: The drugs N-Acetylcysteine and Metamizole may falsely depress this assay. Serum Triglycerides Reference Interval Normal <150 mg/dL Borderline high 150 - 199 mg/dL High 200 - 499 mg/dL Very High > or = 500 mg/dL Performed By: #### L 500.2500, L500.3400, L501.2450, L100.0100 #### [facility] [address] [place], [address] Low density lipoprotein (LDL ) cholesterol measurementOrdered By: Irasema Mcdonough on 08-10-2024 Cholesterol in LDL [Mass/Vol] 58 mg/dL 0-130 [facility] MR/CON.PCM.GIon 08-10-2024 MR/CON.PCM.GI [facility] Medical Records Department [address] [place] [address] Consultation - GI 08/10/24 1822 MR#: [id number] Acct: [id number] Name: CURLY DEJESUS Rep #: [id number] : 2000 24 From: Roman Friend PCP: Care Physician,No Primary Status:ADM IN Location: [facility] [place] [id number] HPI Consult Data Date of Consult: 08/10/24 HPI Narrative Reason for Consultation: Abnormal LFTs HPI Narrative: CURLY DEJESUS, is a 24 F who presented to the emergency department at [facility] on 08/07/2024 secondary to intractable nausea and vomiting. Patient states she started having nausea and vomiting on . She has had no associated diarrhea and is having bowel movements intermittently and passing flatus without any difficulty. She stated she also is on her period of day 7. She is bleeding longer than typical as she has an IUD and only typically bleeds very lightly for couple days. She is having to wear a tampon. She did have a negative test here. She states she is unable to keep anything down and feels very dehydrated. She does complain of lower abdominal pain. She has not eaten out this week as she remembers. She has not had any sick contacts that she is aware of. She has no other complaints such as fever chills, myalgias, shortness of breath or nasal congestion. She is originally from [place] but she has been in [facility] since she was 10 years old. CBC on presentation appears to be fairly hemoconcentrated with a white count of 11.5, hemoglobin of 16.2 with a baseline of 12.8, platelet count was 422,000. She has a marked left shift with a 93.8% neutrophilia. BMP showed a bicarb of 12 and elevated anion gap at 23, BUN of 6 with a serum creatinine of 1.41. Her AST was 347 with an ALT of 280 and a lipase of 95. As noted, her test was negative. A VBG was obtained with a pH of 7.31. CT scan abdomen pelvis: FINDINGS: The visualized lung bases are unremarkable. The visualized portions of the heart are within normal limits. Normal liver. Normal gallbladder and extrahepatic biliary system. Normal spleen. Normal pancreas. Normal bilateral adrenal glands. Normal right kidney. Normal left kidney. Normal visualized stomach. Normal small intestine. Normal colon. The appendix is visualized and appears normal. Normal abdominal aorta. Normal inferior vena cava. Normal retroperitoneum. Normal urinary bladder. There is IUD in the uterus. There is a tampon in the vagina. There is no free fluid in the abdomen or pelvis. Normal abdominal wall. Normal osseous structures. Right upper quadrant ultrasound: Liver: The liver measures 17.2 cm. There is increased echogenicity consistent with fatty infiltration. The bile ducts are within normal limits. There is hepatic color flow. The direction of portal flow is hepatopetal. There is no demonstrated mass lesion. Gallbladder: Normal distended gallbladder. The gallbladder wall measures 2 mm. There is a negative sonographic Abdullahi''s sign. There is no pericholecystic fluid. There are no gallstones. Common Bile Duct (C.B.D.): The common bile duct measures 2 mm. Pancreas: Normal size of the head, body and tail of the pancreas. There is normal echogenicity of the pancreas. There is no demonstrated pancreatic mass or cyst. Right Kidney: Normal size of the right kidney. The right kidney measures 12.3 cm. Normal renal cortex. The right cortex measures 2.2 cm. There is no demonstrated renal mass or cyst. There is no right hydronephrosis. [facility] Encounter for intrauterine device placement Abdominal pain Contact with and (suspected) exposure to other viral communicable diseases Asthma Allergy/AdvReac Type Severity Reaction Status Date / Time cat dander Allergy Mild Hives Verified 08/07/24 08:41 Family History Father Diabetes Hypertension Mother Hypertension Surgical History no surgical history Social History Smoking Status: Never smoker alcohol intake: never substance use type: does not use ROS Constitutional Constitutional: Denies fatigue, fever(s), poor appetite, weight gain or weight loss Gastrointestinal Gastrointestinal: Denies belching, bloating, change in bowel habits, change in stool character, chewing difficulty, coffee ground emesis, constipation, cramping, diarrhea, dyspepsia, dysphagia, early satiety, excessive flatus, fecal incontinence, heartburn, hematemesis, hematochezia, hemorrhoids, loose stools, melena, nausea, odynophagia, rectal bleeding, tenesmus, vomiting or weight murtaza (more content not included)... Normal [facility] Magnesiumon 08-10-2024 Magnesium [Mass/Vol] 1.6 mg/dL Normal 1.6-2.[address] [facility] Comment on above: Performed By: #### L 500.2500, L500.3400, L501.2450, L100.0100 #### [facility] [address] [place], [address] Mitochondria Ab Ql (S)Ordere d By: Roman Griffin on 08-10-2024 Anti-Mitochondrial Antibody <20.0 Units 0.0-20.0 [facility] Comment on above: Negative 0.0 - 20.0 Equivocal 20.1 - 24.9 Positive >24.9Mitochondrial (M2) Antibodies are found in 90-96% ofpatients with primary biliary cirrhosis.Performed at: [employer] [id number] Director: Bob Weeks PhD, Phone: [phone] Neutrophil cytoplasmic Ab.cl assic Qn (S)Ordered By: Roman Griffin on 08-10-2024 Cytoplasmic ANCA (c-ANCA) Antibody <1:20 titer Neg:<1:20 [facility] Neutrophil cytoplasmic Ab.pe rinuclear IF (S) [Titer]Ordered By: Roman Griffin on 08-10-2024 Perinuclear ANCA (p-ANCA) Antibody <1:20 titer Neg:<1:20 [facility] Comment on above: The presence of posi tive fluorescence exhibiting P-ANCA orC-ANCA patterns alone is not specific for the diagnosis ofWegener's Granulomatosis (WG) or microscopic polyangiitis.Decisions about treatment should not be based solely onANCA IFA results. The International ANCA Group Consensusrecommends follow up testing of positive sera with both NH-3 and MPO-ANCA enzyme immunoassays. As many as 5% serumsamples are positive only by EIA. Ref. AM J Clin [id number];111:507-513. Protein Fractions Immunofixa tion Trevor [Interp]Ordered By: Roman Griffin on 08-10-2024 M-Fabio (RUBI) Not Observed g/dL Not Observed [facility] SUPERVISOR LABORATORY abOrdered By: Roman Chawla iend on 08-10-2024 SUPERVISOR LABORATORY Antibody <0.2 AI 0.0-0.9 [facility] Comment on above: Previous reported re sult: TNP AIEdited by: WINSOME on 08/12/24:1507 AMENDED REPORT 08/12/24 1507 SUPERVISOR LABORATORY Ab previously reported as: Test not performed SCL-70 extractable nuclear A b Qn (S)Ordered By: Roman Griffin on 08-10-2024 Scl-70 (Scleroderma) Antibody <0.2 AI 0.0-0.9 [facility] Comment on above: Previous reported re sult: TNP AIEdited by: WINSOME on 08/12/24:1507 AMENDED REPORT 08/12/24 1507 ANTISCLER previously reported as: Test not performed SS-A IgG antibody assayOrder ed By: Roman Griffin on 08-10-2024 SS-A/Ro IgG Antibody < 0.2 AI 0.0-0.[address] [facility] Comment on above: Previous reported re sult: TNP AIEdited by: WINSOME on 08/12/24:1507 AMENDED REPORT 08/12/24 1507 Anti-SS-A previously reported as: Test not performed SS-B IgG antibody assayOrder ed By: Roman Griffin on 08-10-2024 SS-B/La IgG Antibody < 0.2 AI 0.0-0.[address] [facility] Comment on above: Previous reported re sult: TNP AIEdited by: WINSOME on 08/12/24:1507 AMENDED REPORT 08/12/24 1507 Anti-SS-B previously reported as: Test not performed Serum albumin/globulin ratio Ordered By: Roman Griffin on 08-10-2024 Albumin/Globulin (RUBI) 1.1 0.7-1.7 [facility] Serum or plasma cholesterol measurement (mass/volume)Ordered By: Irasema Mcdonough on 08-10-2024 Cholesterol [Mass/Vol] 145 mg/dL <200 [facility] Comment on above: <200 mg/dL Desirable 200-240 mg/dL Borderline >240 mg/dL High Risk Serum or plasma protein cory urement (mass/volume)Ordered By: Roman Griffin on 08-10-2024 Protein [Mass/Vol] 6.8 g/dL 6.0-8.5 [facility] Marcum antibody assayOrdered By: Roman Griffin on 08-10-2024 SM Antibody <0.2 AI 0.0-0.9 [facility] Comment on above: Previous reported re sult: TNP AIEdited by: WINSOME on 08/12/24:1507 AMENDED REPORT 08/12/24 1507 MARCUM Ab previously reported as: Test not performed TIBCOrdered By: Roman Anderson nd on 08-10-2024 Total Iron Binding Capacity 242 ug/dL Low 250-450 [facility] Triglycerides measurementOrd ered By: Irasema Mcdonough on 08-10-2024 Triglyceride [Mass/Vol] 95 mg/dL <199 [facility] Comment on above: The drugs N-Acetylcy steine and Metamizole may falsely depress this assay.Serum Triglycerides Reference Interval Normal <150 mg/dL Borderline high 150 - 199 mg/dL High 200 - 499 mg/dL Very High > or = 500 mg/dL Very low density lipoprotein (VLDL) cholesterol measurementOrdered By: Irasema Mcdonough on 08-10-2024 VLDL Cholesterol 19 mg/dL 5-40 [facility] Basic Metabolic Profile (BMP )on 08-09-2024 BUN/CRE 10.3 RATIO Normal 10-20 [facility] Comment on above: Performed By: #### L 500.2500, L500.3400, L501.2450, L100.0100 #### [facility] [address] [place], [address] CA,Total 8.3 mg/dL Low 8.5-10.1 [facility] Comment on above: Performed By: #### L 500.2500, L500.3400, L501.2450, L100.0100 #### [facility] [address] [place], [address] Chloride [Moles/Vol] 102 mmol/L Normal 98-[address] [facility] Comment on above: Performed By: #### L 500.2500, L500.3400, L501.2450, L100.0100 #### [facility] [address] [place], [address] CO2 [Moles/Vol] 21.0 mmol/L Normal 21.0-32.0 [facility] Comment on above: Performed By: #### L 500.2500, L500.3400, L501.2450, L100.0100 #### [facility] [address] [place], [address] Creatinine [Mass/Vol] 0.58 mg/dL Normal 0.55-1.[address] [facility] Comment on above: Result Comment: The validity of the calculated GFR GFRAA in patients over 70 years has not been determined. Clinical correlation is essential. Performed By: #### L 500.2500, L500.3400, L501.2450, L100.0100 #### [facility] [address] [place], [address] ECRCL 169.76 ml/min Normal [facility] Comment on above: Performed By: #### L 500.2500, L500.3400, L501.2450, L100.0100 #### [facility] [address] [place], [address] EST GFR - AA 161 mL/min Normal >60 [facility] Comment on above: Result Comment: Afri can Turkmen GFR Calc Performed By: #### L 500.2500, L500.3400, L501.2450, L100.0100 #### [facility] [address] [place], [address] GAP 12 Normal 5-15 [facility] Comment on above: Performed By: #### L 500.2500, L500.3400, L501.2450, L100.0100 #### [facility] [address] [place], [address] GFR/1.73 sq M.predicted among non-blacks MDRD (S/P/Bld) [Vol rate/Area] 133 mL/min/{1.73_m2} Normal >60 [facility] Comment on above: Result Comment: Non- GFR Calc Performed By: #### L 500.2500, L500.3400, L501.2450, L100.0100 #### [facility] [address] [place], [address] Glucose [Mass/Vol] 89 mg/dL Normal 74-106 [facility] Comment on above: Performed By: #### L 500.2500, L500.3400, L501.2450, L100.0100 #### [facility] [address] [place], [address] Potassium [Moles/Vol] 3.0 mmol/L Low 3.5-5.[address] [facility] Comment on above: Performed By: #### L 500.2500, L500.3400, L501.2450, L100.0100 #### [facility] [address] [place], [address] Sodium [Moles/Vol] 135 mmol/L Low 136-145 [facility] Comment on above: Performed By: #### L 500.2500, L500.3400, L501.2450, L100.0100 #### [facility] [address] [place], [address] Urea nitrogen [Mass/Vol] 6 mg/dL Low 7-18 [facility] Comment on above: Performed By: #### L 500.2500, L500.3400, L501.2450, L100.0100 #### [facility] [address] [place], [address] Bilirubin directOrdered By: Irasema Mcdonough on 08-09-2024 Bilirubin.direct [Mass/Vol] 1.29 mg/dL High 0.00-0.30 [facility] CBC W/Diff, Automatedon 07-22 Absolute Lymph 1.32 X10 3/uL Normal 0.83-4.51 [facility] Comment on above: Performed By: #### L 500.2500, L500.3400, L501.2450, L100.0100 #### [facility] [address] [place], [address] Absolute Neut 3.8 X10 3/uL Normal 2.0-7.7 [facility] Comment on above: Performed By: #### L 500.2500, L500.3400, L501.2450, L100.0100 #### [facility] [address] [place], [address] Basophils/100 WBC (Bld) 0.4 % Normal 0-1 [facility] Comment on above: Performed By: #### L 500.2500, L500.3400, L501.2450, L100.0100 #### [facility] [address] [place], [address] Eosinophils/100 WBC (Bld) 0.5 % Normal 0-5 [facility] Comment on above: Performed By: #### L 500.2500, L500.3400, L501.2450, L100.0100 #### [facility] [address] [place], [address] Erythrocyte distribution width (RBC) [Ratio] 13.6 % Normal 11.6-14.6 [facility] Comment on above: Performed By: #### L 500.2500, L500.3400, L501.2450, L100.0100 #### [facility] [address] [place], [address] Hematocrit (Bld) [Volume fraction] 35.0 % Low 37-47 [facility] Comment on above: Performed By: #### L 500.2500, L500.3400, L501.2450, L100.0100 #### [facility] [address] [place], [address] Hemoglobin (Bld) [Mass/Vol] 11.3 g/dL Low 12.0-15.0 [facility] Comment on above: Performed By: #### L 500.2500, L500.3400, L501.2450, L100.0100 #### [facility] [address] [place], [address] IG% 0.400 Normal 0.0-0.9 [facility] Comment on above: Result Comment: IG% - Immature Granulocytes (promyelocytes, myelocytes and metamyelocytes) > 1% indicates that a LEFT SHIFT is Present. Performed By: #### L 500.2500, L500.3400, L501.2450, L100.0100 #### [facility] [address] [place], [address] Lymphocytes/100 WBC (Bld) 24.1 % Normal 19-41 [facility] Comment on above: Performed By: #### L 500.2500, L500.3400, L501.2450, L100.0100 #### [facility] [address] [place], [address] MCH (RBC) [Entitic mass] 29.6 pg Normal 27.0-32.0 [facility] Comment on above: Performed By: #### L 500.2500, L500.3400, L501.2450, L100.0100 #### [facility] [address] [place], [address] MCHC (RBC) [Mass/Vol] 32.3 g/dL Normal 32-[address] [facility] Comment on above: Performed By: #### L 500.2500, L500.3400, L501.2450, L100.0100 #### [facility] [address] [place], [address] MCV (RBC) [Entitic vol] 91.6 fL Normal 81-99 [facility] Comment on above: Performed By: #### L 500.2500, L500.3400, L501.2450, L100.0100 #### [facility] [address] [place], [address] Monocytes/100 WBC (Bld) 5.7 % Normal 0-10 [facility] Comment on above: Performed By: #### L 500.2500, L500.3400, L501.2450, L100.0100 #### [facility] [facility] [address] [place], [address] Neutrophils/100 WBC (Bld) 68.9 % Normal 47-70 [facility] Comment on above: Performed By: #### L 500.2500, L500.3400, L501.2450, L100.0100 #### [facility] [address] [place], [address] Nucleated RBC (Bld) [#/Vol] 0 10*3/uL Normal 0-5 [facility] Comment on above: Performed By: #### L 500.2500, L500.3400, L501.2450, L100.0100 #### [facility] [address] [place], [address] Platelet mean volume (Bld) [Entitic vol] 9.7 fL Normal 6.2-12.0 [facility] Comment on above: Performed By: #### L 500.2500, L500.3400, L501.2450, L100.0100 #### [facility] [address] [place], [address] Platelets (Bld) [#/Vol] 185 10*3/uL Normal 150-450 [facility] Comment on above: Performed By: #### L 500.2500, L500.3400, L501.2450, L100.0100 #### [facility] [address] [place], [address] RBC (Bld) [#/Vol] 3.82 10*6/uL Low 4.2-5.4 [facility] Comment on above: Performed By: #### L 500.2500, L500.3400, L501.2450, L100.0100 #### [facility] [address] [place], [address] RDW SD 45.4 fl High 35.1-43.9 [facility] Comment on above: Performed By: #### L 500.2500, L500.3400, L501.2450, L100.0100 #### [facility] [address] [place], [address] WBC (Bld) [#/Vol] 5.5 10*3/uL Normal 4.4-11.0 [facility] Comment on above: Performed By: #### L 500.2500, L500.3400, L501.2450, L100.0100 #### [facility] [address] [place], [address] Hemoglobin A measurementOrde red By: Irasema Mcdonough on 08-09-2024 Hemoglobin A Not Reportable [facility] Hemoglobin A2 Chromatography column (Bld) [Mass fraction]Ordered By: Irasema Mcdonough on 08-09-2024 Hemoglobin A2 Not Reportable [facility] Hemoglobin C (Bld) [Mass fra ction]Ordered By: Irasema Mcdonough on 08-09-2024 Hemoglobin C Not Reportable [facility] Hemoglobin F measurementOrde red By: Irasema Mcdonough on 08-09-2024 Hemoglobin F () Not Reportable [facility] Hemoglobin S (Bld) [Mass fra ction]Ordered By: Irasema Mcdonough on 08-09-2024 Hemoglobin S Ql (Bld) Not Reportable [facility] Hemoglobin S Solubility test Ql (Bld)Ordered By: Irasema Mcdonough on 08-09-2024 Hemoglobin Solubility See comment [facility] Comment on above: TEST RESULTS LIMITSH gb Fractionation [place] Hgb Fractionation by CE: Hgb F 0.0 % 0.0-2.0 Hgb A 97.6 % 96.4-98.8 Hgb A2 2.4 % 1.8-3.2 Hgb S 0.0 % 0.0Interpretation: Normal hemoglobin present; no hemoglobin variant or beta thalassemia identified.Note: Alpha thalassemia may not be detected by the Hgb Fractionation [place] panel. If alpha thalassemia is suspected, [facility] offers Alpha-Thalassemia DNA Analysis (#[id number]). TESTING PERFORMED AT [facility]. ORIGINAL REPORT ON FILE IN LAB CONTAINS ADDITIONAL TEST SITE INFORMATION. Hgb variant detection HPLCOr dered By: Irasema Mcdonough on 08-09-2024 Variant Hemoglobin Not Reportable [facility] Liver Profileon 08-09-2024 Albumin [Mass/Vol] 3.1 g/dL Low 3.2-5.0 [facility] Comment on above: Performed By: #### L 500.2500, L500.3400, L501.2450, L100.0100 #### [facility] [address] [place], [address] ALK P 58 U/L Normal 45-117 [facility] Comment on above: Performed By: #### L 500.2500, L500.3400, L501.2450, L100.0100 #### [facility] [address] [place], [address] ALT [Catalytic activity/Vol] 224 U/L High 13-56 [facility] Comment on above: Performed By: #### L 500.2500, L500.3400, L501.2450, L100.0100 #### [facility] [address] [place], [address] AST [Catalytic activity/Vol] 255 U/L High 15-37 [facility] Comment on above: Performed By: #### L 500.2500, L500.3400, L501.2450, L100.0100 #### [facility] [address] [place], [address] Bilirubin [Mass/Vol] 2.50 mg/dL High 0.20-1.[address] [facility] Comment on above: Result Comment: For patients on eltrombopag therapy, use of Dimension [place] TBIL is not recommended. Performed By: #### L 500.2500, L500.3400, L501.2450, L100.0100 #### [facility] [address] [place], [address] Bilirubin.direct [Mass/Vol] 1.29 mg/dL High 0.00-0.30 [facility] Comment on above: Performed By: #### L 500.2500, L500.3400, L501.2450, L100.0100 #### [facility] [address] [place], [address] Globulin (S) [Mass/Vol] 3.4 g/dL Normal 2.2-4.2 [facility] Comment on above: Performed By: #### L 500.2500, L500.3400, L501.2450, L100.0100 #### [facility] [address] [place], [address] T PROT 6.5 g/dL Normal 6.4-8.2 [facility] Comment on above: Performed By: #### L 500.2500, L500.3400, L501.2450, L100.0100 #### [facility] [address] [place], [address] Magnesiumon 08-09-2024 Magnesium [Mass/Vol] 1.6 mg/dL Normal 1.6-2.[address] [facility] Comment on above: Performed By: #### L 500.2500, L500.3400, L501.2450, L100.0100 #### [facility] [address] [place], [address] Phosphoruson 08-09-2024 Phosphate [Mass/Vol] 1.9 mg/dL Low 2.5-4.[address] [facility] Comment on above: Performed By: #### L 500.2500, L500.3400, L501.2450, L100.0100 #### [facility] [address] [place], [address] Phosphorus measurementOrdere d By: Anam Delgado on 08-09-2024 Phosphorus Level 1.9 mg/dL Low 2.5-4.9 [facility] Urine cultureOrdered By: Lisa Mcdonough on 08-09-2024 Bacteria identified Cx Nom (U) Positive Abnormal [facility] CBC W/Diff, Automatedon 07-21 Absolute Lymph 1.27 X10 3/uL Normal 0.83-4.51 [facility] Comment on above: Performed By: #### L 500.2500, L500.3400, L501.2450, L100.0100 #### [facility] [address] [place], [address] Absolute Neut 6.2 X10 3/uL Normal 2.0-7.7 [facility] Comment on above: Performed By: #### L 500.2500, L500.3400, L501.2450, L100.0100 #### [facility] [address] [place], [address] Basophils/100 WBC (Bld) 0.4 % Normal 0-1 [facility] Comment on above: Performed By: #### L 500.2500, L500.3400, L501.2450, L100.0100 #### [facility] [address] [place], [address] Eosinophils/100 WBC (Bld) 0.1 % Normal 0-5 [facility] Comment on above: Performed By: #### L 500.2500, L500.3400, L501.2450, L100.0100 #### [facility] [address] [place], [address] Erythrocyte distribution width (RBC) [Ratio] 14.5 % Normal 11.6-14.6 [facility] Comment on above: Performed By: #### L 500.2500, L500.3400, L501.2450, L100.0100 #### [facility] [address] [place], [address] Hematocrit (Bld) [Volume fraction] 34.9 % Low 37-47 [facility] Comment on above: Performed By: #### L 500.2500, L500.3400, L501.2450, L100.0100 #### [facility] [address] [place], [address] Hemoglobin (Bld) [Mass/Vol] 11.4 g/dL Low 12.0-15.0 [facility] Comment on above: Performed By: #### L 500.2500, L500.3400, L501.2450, L100.0100 #### [facility] [address] [place], [address] IG% 0.300 Normal 0.0-0.9 [facility] Comment on above: Result Comment: IG% - Immature Granulocytes (promyelocytes, myelocytes and metamyelocytes) > 1% indicates that a LEFT SHIFT is Present. Performed By: #### L 500.2500, L500.3400, L501.2450, L100.0100 #### [facility] [address] [place], [address] Lymphocytes/100 WBC (Bld) 16.0 % Low 19-41 [facility] Comment on above: Performed By: #### L 500.2500, L500.3400, L501.2450, L100.0100 #### [facility] [address] [place], [address] MCH (RBC) [Entitic mass] 30.0 pg Normal 27.0-32.0 [facility] Comment on above: Performed By: #### L 500.2500, L500.3400, L501.2450, L100.0100 #### [facility] [address] [place], [address] MCHC (RBC) [Mass/Vol] 32.7 g/dL Normal 32-[address] [facility] Comment on above: Performed By: #### L 500.2500, L500.3400, L501.2450, L100.0100 #### [facility] [address] [place], [address] MCV (RBC) [Entitic vol] 91.8 fL Normal 81-99 [facility] Comment on above: Performed By: #### L 500.2500, L500.3400, L501.2450, L100.0100 #### [facility] [address] [place], [address] Monocytes/100 WBC (Bld) 4.4 % Normal 0-10 [facility] Comment on above: Performed By: #### L 500.2500, L500.3400, L501.2450, L100.0100 #### [facility] [address] [place], [address] Neutrophils/100 WBC (Bld) 78.8 % High 47-70 [facility] Comment on above: Performed By: #### L 500.2500, L500.3400, L501.2450, L100.0100 #### [facility] [address] [place], [address] Nucleated RBC (Bld) [#/Vol] 0.3 10*3/uL Normal 0-5 [facility] Comment on above: Performed By: #### L 500.2500, L500.3400, L501.2450, L100.0100 #### [facility] [address] [place], [address] Platelet mean volume (Bld) [Entitic vol] 9.7 fL Normal 6.2-12.0 [facility] Comment on above: Performed By: #### L 500.2500, L500.3400, L501.2450, L100.0100 #### [facility] [address] [place], [address] Platelets (Bld) [#/Vol] 235 10*3/uL Normal 150-450 [facility] Comment on above: Performed By: #### L 500.2500, L500.3400, L501.2450, L100.0100 #### [facility] [address] [place], [address] RBC (Bld) [#/Vol] 3.80 10*6/uL Low 4.2-5.4 [facility] Comment on above: Performed By: #### L 500.2500, L500.3400, L501.2450, L100.0100 #### [facility] [address] [place], [address] RDW SD 48.2 fl High 35.1-43.9 [facility] Comment on above: Performed By: #### L 500.2500, L500.3400, L501.2450, L100.0100 #### [facility] [address] [place], [address] WBC (Bld) [#/Vol] 7.9 10*3/uL Normal 4.4-11.0 [facility] Comment on above: Performed By: #### L 500.2500, L500.3400, L501.2450, L100.0100 #### [facility] [address] [place], [address] Comprehensive Metabolic Prof ilon 08-08-2024 Albumin [Mass/Vol] 3.3 g/dL Normal 3.2-5.0 [facility] Comment on above: Performed By: #### L 500.2500, L500.3400, L501.2450, L100.0100 #### [facility] [address] [place], [address] Albumin/Globulin [Mass ratio] 1.0 {ratio} Normal 0.9-2.4 [facility] Comment on above: Performed By: #### L 500.2500, L500.3400, L501.2450, L100.0100 #### [facility] [address] [place], [address] ALK P 60 U/L Normal 45-117 [facility] Comment on above: Performed By: #### L 500.2500, L500.3400, L501.2450, L100.0100 #### [facility] [address] [place], [address] ALT [Catalytic activity/Vol] 180 U/L High 13-56 [facility] Comment on above: Performed By: #### L 500.2500, L500.3400, L501.2450, L100.0100 #### [facility] [address] [place], [address] AST [Catalytic activity/Vol] 209 U/L High 15-37 [facility] Comment on above: Performed By: #### L 500.2500, L500.3400, L501.2450, L100.0100 #### [facility] [address] [place], [address] Bilirubin [Mass/Vol] 2.90 mg/dL High 0.20-1.[address] [facility] Comment on above: Result Comment: For patients on eltrombopag therapy, use of Dimension [place] TBIL is not recommended. Performed By: #### L 500.2500, L500.3400, L501.2450, L100.0100 #### [facility] [address] [place], [address] BUN/CRE 10.5 RATIO Normal 10-20 [facility] Comment on above: Performed By: #### L 500.2500, L500.3400, L501.2450, L100.0100 #### [facility] [address] [place], [address] CA,Total 8.4 mg/dL Low 8.5-10.1 [facility] Comment on above: Performed By: #### L 500.2500, L500.3400, L501.2450, L100.0100 #### [facility] [address] [place], [address] Chloride [Moles/Vol] 106 mmol/L Normal 98-[address] [facility] Comment on above: Performed By: #### L 500.2500, L500.3400, L501.2450, L100.0100 #### [facility] [address] [place], [address] CO2 [Moles/Vol] 19.0 mmol/L Low 21.0-32.0 [facility] Comment on above: Performed By: #### L 500.2500, L500.3400, L501.2450, L100.0100 #### [facility] [address] [place], [address] Creatinine [Mass/Vol] 0.67 mg/dL Normal 0.55-1.[address] [facility] Comment on above: Result Comment: The validity of the calculated GFR GFRAA in patients over 70 years has not been determined. Clinical correlation is essential. Performed By: #### L 500.2500, L500.3400, L501.2450, L100.0100 #### [facility] [address] [place], [address] ECRCL 143.98 ml/min Normal [facility] Comment on above: Performed By: #### L 500.2500, L500.3400, L501.2450, L100.0100 #### [facility] [address] [place], [address] EST GFR - AA 138 mL/min Normal >60 [facility] Comment on above: Result Comment: Afri can [place] GFR Calc Performed By: #### L 500.2500, L500.3400, L501.2450, L100.0100 #### [facility] [address] [place], [address] GAP 10 Normal 5-15 [facility] Comment on above: Performed By: #### L 500.2500, L500.3400, L501.2450, L100.0100 #### [facility] [address] [place], [address] GFR/1.73 sq M.predicted among non-blacks MDRD (S/P/Bld) [Vol rate/Area] 114 mL/min/{1.73_m2} Normal >60 [facility] Comment on above: Result Comment: Non- GFR Calc Performed By: #### L 500.2500, L500.3400, L501.2450, L100.0100 #### [facility] [address] [place], [address] Globulin (S) [Mass/Vol] 3.4 g/dL Normal 2.2-4.2 [facility] Comment on above: Performed By: #### L 500.2500, L500.3400, L501.2450, L100.0100 #### [facility] [address] [place], [address] Glucose [Mass/Vol] 82 mg/dL Normal 74-106 [facility] Comment on above: Performed By: #### L 500.2500, L500.3400, L501.2450, L100.0100 #### [facility] [address] [place], [address] Potassium [Moles/Vol] 3.5 mmol/L Normal 3.5-5.[address] [facility] Comment on above: Performed By: #### L 500.2500, L500.3400, L501.2450, L100.0100 #### [facility] [address] [place], [address] Sodium [Moles/Vol] 136 mmol/L Normal 136-145 [facility] Comment on above: Performed By: #### L 500.2500, L500.3400, L501.2450, L100.0100 #### [facility] [address] [place], [address] T PROT 6.7 g/dL Normal 6.4-8.2 [facility] Comment on above: Performed By: #### L 500.2500, L500.3400, L501.2450, L100.0100 #### [facility] [address] [place], [address] Urea nitrogen [Mass/Vol] 7 mg/dL Normal 7-18 [facility] Comment on above: Performed By: #### L 500.2500, L500.3400, L501.2450, L100.0100 #### [facility] [address] [place], [address] Magnesiumon 08-08-2024 Magnesium [Mass/Vol] 1.7 mg/dL Normal 1.6-2.[address] [facility] Comment on above: Performed By: #### L 500.2500, L500.3400, L501.2450, L100.0100 #### [facility] [address] [place], [address] Phosphoruson 08-08-2024 Phosphate [Mass/Vol] 1.3 mg/dL Low 2.5-4.[address] [facility] Comment on above: Performed By: #### L 500.2500, L500.3400, L501.2450, L100.0100 #### [facility] [address] [place], [address] TSH QnOrdered By: Deb Drake on 08-08-2024 Thyroid Stimulating Hormone (TSH) 1.280 uIU/mL 0.358-3.740 [facility] Thyroid Stim Hormone (TSH)on 08-08-2024 TSH 1.280 uIU/mL Normal 0.358-3.740 [facility] Comment on above: Performed By: #### L 500.2500, L500.3400, L501.2450, L100.0100 #### [facility] [address] [place], [address] Abdomen/Pelvis W IV Cont ONL Yon 08-07-2024 Abdomen/Pelvis W IV Cont ONLY [facility] [address] [place] [address] Abdomen/Pelvis W IV Cont ONLY MR#: [id number] Acct: [id number] Name: CURLY DEJESUS Rep #: [id number] : 2000 F 24 From: Gaurang Farley MD PCP: Care Physician,No Primary Status: REG ER Study: Abdomen/Pelvis W IV Cont ONLY Date of Exam: Exam# [id number] Ordering Dr: Maldonado Black DO [id number] STUDY: CT ABDOMEN AND PELVIS WITH CONTRAST REASON FOR EXAM: Female, 24 years old. RLQ ABDOMINAL PAIN VOMITING RADIATION DOSAGE (If Supplied By Facility): CTDIvol = ( 18.68 ) mGy, DLP = ( 843.18 ) mGycm TECHNIQUE: Transaxial images were obtained from the dome of the diaphragm to the symphysis pubis without oral contrast. IV 100mL Isovue-[id number] was administered. Sagittal and coronal images were reconstructed. Individualized dose optimization techniques were used for this CT. COMPARISON: None. FINDINGS: The visualized lung bases are unremarkable. The visualized portions of the heart are within normal limits. Normal liver. Normal gallbladder and extrahepatic biliary system. Normal spleen. Normal pancreas. Normal bilateral adrenal glands. Normal right kidney. Normal left kidney. Normal visualized stomach. Normal small intestine. Normal colon. The appendix is visualized and appears normal. Normal abdominal aorta. Normal inferior vena cava. Normal retroperitoneum. Normal urinary bladder. There is IUD in the uterus. There is a tampon in the vagina. There is no free fluid in the abdomen or pelvis. Normal abdominal wall. Normal osseous structures. CT/Abdomen/Pelvis W IV Cont ONLY IMPRESSION: No mass or obstruction. No hydronephrosis. Normal appendix. Electronically Signed: Gaurang Farley MD at 10:39 EST , CC: Dr. Maldonado Black, DO; No Primary Care Physician Pleater Hand: Signed Normal [facility] Acetaminophen (Tylenol) Leve cathy 08-07-2024 Acetaminophen [Mass/Vol] ug/mL Low 10.0-30.0 [facility] Comment on above: Performed By: #### L 500.2500, L500.3400, L501.2450, L100.0100 #### [facility] [address] [place], [address] Acetaminophen [Mass/Vol]Orde red By: Deb Jeffers on 08-07-2024 Acetaminophen Level < 2.0 ug/mL Low 10.0-30.[address] [facility] Base excess Calc (BldV) [Mol es/Vol]Ordered By: Maldonado Black on 08-07-2024 Venous Blood Base Excess -9 mmol/L Low -1.0-3.5 [facility] Basic Metabolic Profile (BMP )on 08-07-2024 BUN/CRE 4.3 RATIO Low 10-20 [facility] Comment on above: Performed By: #### L 500.2500, L500.3400, L501.2450, L100.0100 #### [facility] [address] [place], [address] CA,Total 10.5 mg/dL High 8.5-10.1 [facility] Comment on above: Performed By: #### L 500.2500, L500.3400, L501.2450, L100.0100 #### [facility] [address] [place], [address] Chloride [Moles/Vol] 103 mmol/L Normal 98-[address] [facility] Comment on above: Performed By: #### L 500.2500, L500.3400, L501.2450, L100.0100 #### [facility] [address] [place], [address] CO2 [Moles/Vol] 12.0 mmol/L Low 21.0-32.0 [facility] Comment on above: Performed By: #### L 500.2500, L500.3400, L501.2450, L100.0100 #### [facility] [address] [place], [address] Creatinine [Mass/Vol] 1.41 mg/dL High 0.55-1.[address] [facility] Comment on above: Result Comment: The validity of the calculated GFR GFRAA in patients over 70 years has not been determined. Clinical correlation is essential. Performed By: #### L 500.2500, L500.3400, L501.2450, L100.0100 #### [facility] [address] [place], [address] ECRCL 63.19 ml/min Normal [facility] Comment on above: Performed By: #### L 500.2500, L500.3400, L501.2450, L100.0100 #### [facility] [address] [place], [address] EST GFR - AA 58 mL/min Low >60 [facility] Comment on above: Result Comment: Afri can [place] GFR Calc Performed By: #### L 500.2500, L500.3400, L501.2450, L100.0100 #### [facility] [address] [place], [address] GAP 23 High 5-15 [facility] Comment on above: Performed By: #### L 500.2500, L500.3400, L501.2450, L100.0100 #### [facility] [address] [place], [address] GFR/1.73 sq M.predicted among non-blacks MDRD (S/P/Bld) [Vol rate/Area] 48 mL/min/{1.73_m2} Low >60 [facility] Comment on above: Result Comment: Non- GFR Calc Performed By: #### L 500.2500, L500.3400, L501.2450, L100.0100 #### [facility] [address] [place], [address] Glucose [Mass/Vol] 107 mg/dL High 74-106 [facility] Comment on above: Result Comment: Fast ing Glucose result from 100 to 125 mg/dL suggests IMPAIRED HOMEOSTASIS per A.D.A. criteria. Performed By: #### L 500.2500, L500.3400, L501.2450, L100.0100 #### [facility] [address] [place], [address] Potassium [Moles/Vol] 4.4 mmol/L Normal 3.5-5.[address] [facility] Comment on above: Performed By: #### L 500.2500, L500.3400, L501.2450, L100.0100 #### [facility] [address] [place], [address] Sodium [Moles/Vol] 138 mmol/L Normal 136-145 [facility] Comment on above: Performed By: #### L 500.2500, L500.3400, L501.2450, L100.0100 #### [facility] [address] [place], [address] Urea nitrogen [Mass/Vol] 6 mg/dL Low 02-04 [facility] Comment on above: Performed By: #### L 500.2500, L500.3400, L501.2450, L100.0100 #### [facility] [address] [place], [address] Beta HCG ( test) Ql Ordered By: Maldonado Black on 08-07-2024 Serum Test, Qualitative Negative [facility] Bilirubin Test strip Ql (U)O rdered By: Deb Jeffers on 08-07-2024 Bilirubin Ql (U) 1 mg/dL High Negative [facility] Comment on above: COLOR OF URINE MAY A FFECT DIPSTICK RESULTS. CBC W/Diff, Automatedon 07-21 Absolute Lymph 0.25 X10 3/uL Low 0.83-4.51 [facility] Comment on above: Performed By: #### L 500.2500, L500.3400, L501.2450, L100.0100 #### [facility] [address] [place], [address] Absolute Neut 10.8 X10 3/uL High 2.0-7.7 [facility] Comment on above: Performed By: #### L 500.2500, L500.3400, L501.2450, L100.0100 #### [facility] [address] [place] [place], [address] Basophils/100 WBC (Bld) 0.2 % Normal 0-1 [facility] Comment on above: Performed By: #### L 500.2500, L500.3400, L501.2450, L100.0100 #### [facility] [address] [place], [address] Eosinophils/100 WBC (Bld) 0.0 % Normal 0-5 [facility] Comment on above: Performed By: #### L 500.2500, L500.3400, L501.2450, L100.0100 #### [facility] [address] [place], [address] Erythrocyte distribution width (RBC) [Ratio] 14.5 % Normal 11.6-14.6 [facility] Comment on above: Performed By: #### L 500.2500, L500.3400, L501.2450, L100.0100 #### [facility] [address] [place], [address] Hematocrit (Bld) [Volume fraction] 49.5 % High 37-47 [facility] Comment on above: Performed By: #### L 500.2500, L500.3400, L501.2450, L100.0100 #### [facility] [address] [place], [address] Hemoglobin (Bld) [Mass/Vol] 16.2 g/dL High 12.0-15.0 [facility] Comment on above: Performed By: #### L 500.2500, L500.3400, L501.2450, L100.0100 #### [facility] [address] [place], [address] IG% 0.300 Normal 0.0-0.9 [facility] Comment on above: Result Comment: IG% - Immature Granulocytes (promyelocytes, myelocytes and metamyelocytes) > 1% indicates that a LEFT SHIFT is Present. Performed By: #### L 500.2500, L500.3400, L501.2450, L100.0100 #### [facility] [address] [place], [address] Lymphocytes/100 WBC (Bld) 2.2 % Low 19-41 [facility] Comment on above: Performed By: #### L 500.2500, L500.3400, L501.2450, L100.0100 #### [facility] [address] [place], [address] MCH (RBC) [Entitic mass] 29.7 pg Normal 27.0-32.0 [facility] Comment on above: Performed By: #### L 500.2500, L500.3400, L501.2450, L100.0100 #### [facility] [address] [place], [address] MCHC (RBC) [Mass/Vol] 32.7 g/dL Normal 32-[address] [facility] Comment on above: Performed By: #### L 500.2500, L500.3400, L501.2450, L100.0100 #### [facility] [address] [place], [address] MCV (RBC) [Entitic vol] 90.7 fL Normal 81-99 [facility] Comment on above: Performed By: #### L 500.2500, L500.3400, L501.2450, L100.0100 #### [facility] [address] [place], [address] Monocytes/100 WBC (Bld) 3.5 % Normal 0-10 [facility] Comment on above: Performed By: #### L 500.2500, L500.3400, L501.2450, L100.0100 #### [facility] [address] [place], [address] Neutrophils/100 WBC (Bld) 93.8 % High 47-70 [facility] Comment on above: Performed By: #### L 500.2500, L500.3400, L501.2450, L100.0100 #### [facility] [address] [place], [address] Nucleated RBC (Bld) [#/Vol] 0.3 10*3/uL Normal 0-5 [facility] Comment on above: Performed By: #### L 500.2500, L500.3400, L501.2450, L100.0100 #### [facility] [address] [place], [address] Platelet mean volume (Bld) [Entitic vol] 9.0 fL Normal 6.2-12.0 [facility] Comment on above: Performed By: #### L 500.2500, L500.3400, L501.2450, L100.0100 #### [facility] [address] [place], [address] Platelets (Bld) [#/Vol] 422 10*3/uL Normal 150-450 [facility] Comment on above: Performed By: #### L 500.2500, L500.3400, L501.2450, L100.0100 #### [facility] [address] [place], [address] RBC (Bld) [#/Vol] 5.46 10*6/uL High 4.2-5.4 [facility] Comment on above: Performed By: #### L 500.2500, L500.3400, L501.2450, L100.0100 #### [facility] [address] [place], [address] RDW SD 47.9 fl High 35.1-43.9 [facility] Comment on above: Performed By: #### L 500.2500, L500.3400, L501.2450, L100.0100 #### [facility] [address] [place], [address] WBC (Bld) [#/Vol] 11.5 10*3/uL High 4.4-11.0 [facility] Comment on above: Performed By: #### L 500.2500, L500.3400, L501.2450, L100.0100 #### [facility] [address] [place], [address] CO2 (BldV) [Moles/Vol]Ordere d By: Maldonado Black on 08-07-2024 CO2 [Moles/Vol] 18 mmol/L Low 23-33 [facility] CO2 (BldV) [Partial pressure ]Ordered By: Maldonado Black on 08-07-2024 Bed Mix Venous Bld PCO2 at Pat Temp 33.8 mmHg Low 41-51 [facility] Comprehensive Metabolic Prof ilon 08-07-2024 Albumin [Mass/Vol] 3.8 g/dL Normal 3.2-5.0 [facility] Comment on above: Performed By: #### L 500.2500, L500.3400, L501.2450, L100.0100 #### [facility] [address] [place], [address] Albumin/Globulin [Mass ratio] 0.9 {ratio} Normal 0.9-2.4 [facility] Comment on above: Performed By: #### L 500.2500, L500.3400, L501.2450, L100.0100 #### [facility] [address] [place], [address] ALK P 78 U/L Normal 45-117 [facility] Comment on above: Performed By: #### L 500.2500, L500.3400, L501.2450, L100.0100 #### [facility] [address] [place], [address] ALT [Catalytic activity/Vol] 216 U/L High 13-56 [facility] Comment on above: Performed By: #### L 500.2500, L500.3400, L501.2450, L100.0100 #### [facility] [address] [place], [address] AST [Catalytic activity/Vol] 273 U/L High 15-37 [facility] Comment on above: Performed By: #### L 500.2500, L500.3400, L501.2450, L100.0100 #### [facility] [address] [place], [address] Bilirubin [Mass/Vol] 3.20 mg/dL High 0.20-1.[address] [facility] Comment on above: Result Comment: For patients on eltrombopag therapy, use of Dimension [place] TBIL is not recommended. Performed By: #### L 500.2500, L500.3400, L501.2450, L100.0100 #### [facility] [address] [place], [address] BUN/CRE 5.5 RATIO Low 10-20 [facility] Comment on above: Performed By: #### L 500.2500, L500.3400, L501.2450, L100.0100 #### [facility] [address] [place], [address] CA,Total 8.7 mg/dL Normal 8.5-10.1 [facility] Comment on above: Performed By: #### L 500.2500, L500.3400, L501.2450, L100.0100 #### [facility] [address] [place], [address] Chloride [Moles/Vol] 112 mmol/L High 98-[address] [facility] Comment on above: Performed By: #### L 500.2500, L500.3400, L501.2450, L100.0100 #### [facility] [address] [place], [address] CO2 [Moles/Vol] 17.0 mmol/L Low 21.0-32.0 [facility] Comment on above: Performed By: #### L 500.2500, L500.3400, L501.2450, L100.0100 #### [facility] [address] [place], [address] Creatinine [Mass/Vol] 0.91 mg/dL Normal 0.55-1.[address] [facility] Comment on above: Result Comment: The validity of the calculated GFR GFRAA in patients over 70 years has not been determined. Clinical correlation is essential. Performed By: #### L 500.2500, L500.3400, L501.2450, L100.0100 #### [facility] [address] [place], [address] ECRCL 97.91 ml/min Normal [facility] Comment on above: Performed By: #### L 500.2500, L500.3400, L501.2450, L100.0100 #### [facility] [address] [place], [address] EST GFR - AA 96 mL/min Normal >60 [facility] Comment on above: Result Comment: Afri can Turk[place] GFR Calc Performed By: #### L 500.2500, L500.3400, L501.2450, L100.0100 #### [facility] [address] [place], [address] GAP 13 Normal 5-15 [facility] Comment on above: Performed By: #### L 500.2500, L500.3400, L501.2450, L100.0100 #### [facility] [address] [place], [address] GFR/1.73 sq M.predicted among non-blacks MDRD (S/P/Bld) [Vol rate/Area] 79 mL/min/{1.73_m2} Normal >60 [facility] Comment on above: Result Comment: Non- GFR Calc Performed By: #### L 500.2500, L500.3400, L501.2450, L100.0100 #### [facility] [address] [place], [address] Globulin (S) [Mass/Vol] 4.2 g/dL Normal 2.2-4.2 [facility] Comment on above: Performed By: #### L 500.2500, L500.3400, L501.2450, L100.0100 #### [facility] [address] [place], [address] Glucose [Mass/Vol] 80 mg/dL Normal 74-106 [facility] Comment on above: Performed By: #### L 500.2500, L500.3400, L501.2450, L100.0100 #### [facility] [address] [place], [address] Potassium [Moles/Vol] 4.6 mmol/L Normal 3.5-5.[address] [facility] Comment on above: Performed By: #### L 500.2500, L500.3400, L501.2450, L100.0100 #### [facility] [address] [place], [address] Sodium [Moles/Vol] 141 mmol/L Normal 136-145 [facility] Comment on above: Performed By: #### L 500.2500, L500.3400, L501.2450, L100.0100 #### [facility] [address] [place], [address] T PROT 8.0 g/dL Normal 6.4-8.2 [facility] Comment on above: Performed By: #### L 500.2500, L500.3400, L501.2450, L100.0100 #### [facility] [address] [place], [address] Urea nitrogen [Mass/Vol] 5 mg/dL Low 7-18 [facility] Comment on above: Performed By: #### L 500.2500, L500.3400, L501.2450, L100.0100 #### [facility] [address] [place], [address] Emergency Department Summary on 08-07-2024 Emergency Department Summary [facility] Medical Records Department [address] [place] [address] Emergency Department Summary 08/07/24 MR#: [id number] Acct: [id number] Name: CURLY DEJESUS Rep #: [id number] : 2000 24 From: Maldonado Black DO PCP: Care Physician,No Primary Status:ADM ANGELES Location: [address] History of Present Illness Chief Complaint: Nausea/Vomiting Informant: patient Narrative Narrative: 24-year-old female presenting to the emergency room with a chief complaint of vomiting. Patient states that she has had vomiting for the past 2 days. She notes a intermittent lower abdominal pain particularly on the left sometimes on the right. She denies fever. No diarrhea. No recent illnesses. She notes any recent discomfort with eating. She denies history of pancreatitis or other biliary diseases. No prior abdominal surgeries. Patient denies any recent antibiotics. She does not have a local doctor. She does note a sore throat but states this is most likely because of her vomiting. Patient immigrated from [facility]. She denies any significant Tylenol use. [facility] Medical History (Updated 08/07/24 @ 15:[address] Deb Jeffers DO) Encounter for intrauterine device placement Abdominal pain Contact with and (suspected) exposure to other viral communicable diseases Asthma Home Medications ???Medication ???Instructions ???Recorded ???Last Taken ???Type omeprazole 20 mg tablet,delayed 20 mg PO DAILY #14 tabs 03/09/24 Unknown Rx release ondansetron 4 mg disintegrating 4 mg PO Q6H PRN nausea and 03/09/24 Unknown Rx tablet vomiting #12 tabs Allergy/AdvReac Type Severity Reaction Status Date / Time cat dander Allergy Mild Hives Verified 08/07/24 08:41 Family History Father Diabetes Hypertension Mother Hypertension Social History (Updated 08/07/24 @ 15:[address] Deb Jeffers DO) Smoking Status: Never smoker alcohol intake: never substance use type: does not use ROS ROS ED Constitutional Constitutional ED: Denies chills, fever(s) or weight loss Eyes Eyes: Denies change in vision or diplopia ENT ENT ED: Reports sore throat; Denies ear pain or rhinorrhea Cardiovascular Cardiovascular: Denies chest pain, orthopnea, palpitations or racing heartbeat Respiratory/Chest Respiratory/Chest: Denies cough, dyspnea or orthopnea Gastrointestinal Gastrointestinal: Reports abdominal pain, nausea and vomiting; Denies diarrhea Genitourinary Genitourinary ED: Denies dysuria, hematuria or urinary frequency Musculoskeletal Musculoskeletal: Denies arthralgias or myalgias Integumentary Denies abscess or rash Neurologic Neurologic: Denies headache(s) or weakness Psychiatric Psychiatric: Denies anxiety, depression, suicidal ideation or suicidal thoughts Endocrine Endocrinology: Denies polydipsia, polyphagia or polyuria Allergic/Immunologic Allergic/Immunologic ED: Denies mouth swelling, tongue swelling or urticaria EXAM Physical Exam Const Vital Signs: 08/07/24 08:41 08/07/24 13:09 Temperature 98.7 F Temperature Source Oral Pulse Rate 115 H 96 Respiratory Rate 18 Blood Pressure 131/94 H 148/84 H Blood Pressure Mean 106 105 Pulse Ox 99 Oxygen Delivery Method Room Air Positive well nourished and well developed General Appearance ED: well developed and NAD HEENT Reports normocephalic, head/scalp atraumatic and moist mucous membranes Eyes PERRL and EOMs intact bilaterally Neck no lymphadenopathy, supple and no JVD Resp normal respiratory effort and clear to auscultation bilaterally Cardio regular rate, regular rhythm and no murmurs Rate: tachycardic GI GI Narrative: Abdomen is diffusely tender without rebound. There does seem to be some involuntary guarding. She does note that on examination the right lower quadrant is more tender than other areas. Auscultation: normoactive bowel sounds Palpation: soft Back/Spine no CVA tenderness and normal ROM Extremity normal to inspection General Extremety ED: Negative for edema General Extremity: Negative for edema Neuro oriented x3 and CN's II-XII intact bilaterally Sensorium / Orientation: alert Motor Exam: strength 5/5 throughout Psych mental status grossly normal Mood Affect: Negative for depressed or tearful Skin no rashes or lesions noted and no wounds MDM MDM MDM Narrative Medical decision making narrative: Differential diagnosis includes but not limited to dehydration viral gastroenteritis pancreatitis biliary colic electrolyte abnormalities Patient's white count Girish 0.5 hemoglobin of 16.2 platelet count of 422. BMP shows a CO2 level of 12 anion gap of 23 BUN is 6 creatinine 1.41. Glucose of 107. Total bilirubin is 2.7 direct bilirubin is 1.15 AST is 34 (more content not included)... Normal [facility] Epithelial cells.squamous LM Ql (Urine sed)Ordered By: Deb Jeffers on 08-07-2024 Epithelial cells.squamous LM.HPF (Urine sed) [#/Area] 10 /[HPF] 5-10 [facility] Fine Granular Casts LM.LPF ( Urine sed) [#/Area]Ordered By: Deb Jeffers on 08-07-2024 Urine Fine Granular Casts 0-5 SEEN /lpf 0-5 [facility] Glucose Ql (U)Ordered By: Lizzie Jeffers on 08-07-2024 Urine Glucose (UA) Normal mg/dl Normal [facility] H AND P Exam - [facility] 08-07-2024 H&P Exam - Hospitalist [facility] Medical Records Department [address] [place] [address] H P Exam - Hospitalist 08/07/24 1455 MR#: [id number] Acct: [id number] Name: CURLY DEJESUS Rep #: [id number] : 2000 24 From: Deb Jeffers DO PCP: Care Physician,No Primary Status:REG ER Location: ED HPI - General General Date of Service: 08/07/24 Chief Complaint: Intractable nausea and vomiting HPI Narrative CURLY DEJESUS, is a 24 F who presented to the emergency department at [facility] on 08/07/2024 secondary to intractable nausea and vomiting. Patient states she started having nausea and vomiting on . She has had no associated diarrhea and is having bowel movements intermittently and passing flatus without any difficulty. She stated she also is on her period of day 7. She is bleeding longer than typical as she has an IUD and only typically bleeds very lightly for couple days. She is having to wear a tampon. She did have a negative test here. She states she is unable to keep anything down and feels very dehydrated. She does complain of lower abdominal pain. She has not eaten out this week as she remembers. She has not had any sick contacts that she is aware of. She has no other complaints such as fever chills, myalgias, shortness of breath or nasal congestion. She is originally from [facility] [place] but she has been in [facility] [place] since she was 10 years old. Vital signs on presentation showed temperature 98.7, heart rate 115, respiratory 18, blood pressure 131/94 and pulse ox is 99% on room air. CBC on presentation appears to be fairly hemoconcentrated with a white count of 11.5, hemoglobin of 16.2 with a baseline of 12.8, platelet count was 422,000. She has a marked left shift with a 93.8% neutrophilia. Her initial BMP showed a bicarb of 12 and elevated anion gap at 23, BUN of 6 with a serum creatinine of 1.41. Her AST was 347 with an ALT of 280 and a lipase of 95. As noted, her test was negative. A VBG was obtained with a pH of 7.31. This was done to the acidosis noted on her initial BMP. Repeat BMP was performed after she was given IV fluids and her chloride trended up to 112 with 3 L of normal saline given. Her bicarb came up from 12-17 and her serum creatinine corrected to 0.91. LFTs were still elevated at 273 for an AST into 16 for ALT. Her bilirubin is elevated at 3.2 with an indirect bilirubin of 1.51. She had normal transaminases and bilirubin previously in October. A CT of her abdomen pelvis was performed and was completely unremarkable other than the IUD being noted in the uterus and a tampon in the vagina. The emergency department she was given antiemetics and aggressive IV fluids but with her significant lab abnormalities that was felt that we at least admit her as observation as she is still not able to keep down any liquids. [facility] Medical History (Updated 08/07/24 @ 15:[address] Deb Jeffers, DO) Encounter for intrauterine device placement Abdominal pain Contact with and (suspected) exposure to other viral communicable diseases Asthma Home Medications ???Medication ???Instructions ???Recorded ???Last Taken ???Type omeprazole 20 mg tablet,delayed 20 mg PO DAILY #14 tabs 03/09/24 Unknown Rx release ondansetron 4 mg disintegrating 4 mg PO Q6H PRN nausea and 03/09/24 Unknown Rx tablet vomiting #12 tabs Allergy/AdvReac Type Severity Reaction Status Date / Time cat dander Allergy Mild Hives Verified 08/07/24 08:41 Family History Father Diabetes Hypertension Mother Hypertension Surgical History no surgical history no surgical history Social History (Updated 08/07/24 @ 15:[address] Deb Jeffers DO) Smoking Status: Never smoker alcohol intake: never substance use type: does not use ROS Constitutional Constitutional: Reports anorexia and weakness; Denies change in weight, chills, fatigue, fever(s), malaise, night sweats or other Eyes Eyes: Denies blurry vision, change in eye color, change in vision, discharge from eye(s), double vision, erythema, eye pain, loss of vision or other ENT HEENT: Denies abnormal hearing, dysphagia, ear pain, epistaxis, headache(s), hearing loss, nasal congestion, nasal discharge, post nasal drip, sinus pressure, sore throat or other Cardiovascular Cardiovascular: Denies chest pain, claudication, dyspnea on exertion, edema, lightheadedness, orthopnea, palpitations, paroxysmal nocturnal dyspnea, rapid heart rate, syncope or other Respiratory/Chest Respiratory/Chest: Denies cough, dyspnea, excessive phlegm production, hemoptysis, productive cough, shortness of breath at rest, shortness of breath with exertion, wheezing or other Gastrointestinal Gastrointestinal: Reports abdominal pain, nausea and vomiting; Denies coffee g (more content not included)... Normal [facility] HBV surface Ag IA QlOrdered By: Deb Jeffers on 08-07-2024 Hepatitis B Surface Antigen Negative Negative [facility] Hepatitis A virus IgM antibo dy assayOrdered By: Deb Jeffers on 08-07-2024 Hepatitis A IgM Antibody Negative Negative [facility] Comment on above: A negative anti-HAV IgM result suggests no recent orcurrent HAV infection. Hepatitis B virus core IgM a ntibody assayOrdered By: Deb Jeffers on 08-07-2024 Hepatitis B Core IgM Antibody Negative Negative [facility] Hepatitis C virus antibody a ssayOrdered By: Deb Jeffers on 08-07-2024 Hepatitis C Antibody (EIA) Non-Reactive Non Reactive [facility] Ketones Test strip Ql (U)Ord ered By: Deb Jeffers on 08-07-2024 Ketones Ql (U) 150 mg/dl Abnormal Negative [facility] Comment on above: CRITICAL VALUE *H Lipase measurementOrdered By : Maldonado Black on 08-07-2024 Lipase [Catalytic activity/Vol] 95 U/L High 13-75 [facility] Comment on above: Please note:LIPASE r evised reference range effective 22. New Lipase methodology. Expected to produce lower values than the previous assay method. NEW Reference Range: 13 - 75 U/L Result Comment: Flavia marks note: LIPASE revised reference range effective 22. New Lipase methodology. Expected to produce lower values than the previous assay method. NEW Reference Range: 13 - 75 U/L Performed By: #### L 500.2500, L500.3400, L501.2450, L100.0100 #### [facility] [address] [place], [place], [address] Liveron 08-07-2024 Liver [facility] [address] [place] [address] Liver MR#: [id number] Acct: [id number] Name: CURLY DEJESUS Rep #: [id number] : 2000 F 24 From: Dev hale MD PCP: Care Physician,No Primary Status: ADM ANGELES Study: Liver Date of Exam: 08/07/24 Exam# [id number] Ordering Dr: Deb Jeffers DO [id number] STUDY: ABDOMINAL ULTRASOUND - RIGHT UPPER QUADRANT REASON FOR VISIT: Female, 24 years old transaminitis TECHNIQUE: Ultrasound evaluation of the right upper quadrant was performed with real-time and static carrion-scale imaging. TECHNICAL QUALITY: Adequate. COMPARISON: CT scan 08/07/2024. FINDINGS: Liver: The liver measures 17.2 cm. There is increased echogenicity consistent with fatty infiltration. The bile ducts are within normal limits. There is hepatic color flow. The direction of portal flow is hepatopetal. There is no demonstrated mass lesion. Gallbladder: Normal distended gallbladder. The gallbladder wall measures 2 mm. There is a negative sonographic Abdullahi''s sign. There is no pericholecystic fluid. There are no gallstones. Common Bile Duct (C.B.D.): The common bile duct measures 2 mm. Pancreas: Normal size of the head, body and tail of the pancreas. There is normal echogenicity of the pancreas. There is no demonstrated pancreatic mass or cyst. Right Kidney: Normal size of the right kidney. The right kidney measures 12.3 cm. Normal renal cortex. The right cortex measures 2.2 cm. There is no demonstrated renal mass or cyst. There is no right hydronephrosis. US/Liver IMPRESSION: No definite acute or significant abnormality seen. Electronically Signed: Dev Monzon MD at 16:26 EST , CC: Dr. Deb Jeffers, DO; No Primary Care Physician Pleater Hand: Signed Normal [facility] Liver Profileon 08-07-2024 Albumin [Mass/Vol] 5.0 g/dL Normal 3.2-5.0 [facility] Comment on above: Performed By: #### L 500.2500, L500.3400, L501.2450, L100.0100 #### [facility] [address] [place], [address] ALK P 106 U/L Normal 45-117 [facility] Comment on above: Performed By: #### L 500.2500, L500.3400, L501.2450, L100.0100 #### [facility] [address] [place], [address] ALT [Catalytic activity/Vol] 280 U/L High 13-56 [facility] Comment on above: Performed By: #### L 500.2500, L500.3400, L501.2450, L100.0100 #### [facility] Laboratory [address] [place], [address] AST [Catalytic activity/Vol] 347 U/L High 15-37 [facility] Comment on above: Performed By: #### L 500.2500, L500.3400, L501.2450, L100.0100 #### [facility] [address] [place], [address] Bilirubin [Mass/Vol] 2.70 mg/dL High 0.20-1.[address] [facility] Comment on above: Result Comment: For patients on eltrombopag therapy, use of Dimension [place] TBIL is not recommended. Performed By: #### L 500.2500, L500.3400, L501.2450, L100.0100 #### [facility] [address] [place], [address] Bilirubin.direct [Mass/Vol] 1.15 mg/dL High 0.00-0.30 [facility] Comment on above: Performed By: #### L 500.2500, L500.3400, L501.2450, L100.0100 #### [facility] [address] [place], [address] Globulin (S) [Mass/Vol] 5.5 g/dL High 2.2-4.2 [facility] Comment on above: Performed By: #### L 500.2500, L500.3400, L501.2450, L100.0100 #### [facility] [address] [place], [address] T PROT 10.5 g/dL High 6.4-8.2 [facility] Comment on above: Performed By: #### L 500.2500, L500.3400, L501.2450, L100.0100 #### [facility] [address] [place], [address] Microscopic analysis of urin e for red blood cells (RBC)Ordered By: Deb Jeffers on 08-07-2024 Urine RBC 5-10 SEEN /hpf 0-5 [facility] Mucus LM Ql (Urine sed)Order ed By: Deb Jeffers on 08-07-2024 Mucus Ql (Urine sed) 0 SEEN /hpf [facility] Nitrite Test strip Ql (U)Ord ered By: Deb Jeffers on 08-07-2024 Nitrite Ql (U) Negative Negative [facility] No Panel InformationOrdered By: Deb Jeffers on 08-07-2024 Hepatitis C Antibody Comment Comment . [facility] Comment on above: Not infected with HC V unless early or acute infection issuspected (which may be delayed in an immunocompromisedindividual), or other evidence exists to indicate HCVinfection.Performed at: [facility] [address] [id number] Director: Bob Weeks PhD, Phone: [phone] No Panel InformationOrdered By: Maldonado Black on 08-07-2024 Bld Gas Crit Called To/Read Back By Yes [facility] Blood Gas Notified Time 10:32:32 [facility] Blood Gas Notified Whom DR BLACK [facility] Blood Gas Sample Site Not entered [facility] Blood Gas Specimen Type DM [facility] Oxygen Delivery Device Not entered [facility] Oxygen (BldV) [Partial press ure]Ordered By: Maldonado Black on 08-07-2024 Venous Blood Partial Pressure O2 20 mmHg Low 25-40 [facility] Partial Thromboplast Timeon 08-07-2024 aPTT Coag (Bld) [Time] 24.2 s Normal 24.1-36.2 [facility] Comment on above: Performed By: #### L 7980.0810 #### [facility] [address] [place], [address] ,Serum,hCG Quali.on 08-07-2024 HCG, SERUM QUAL Negative Normal [facility] Comment on above: Performed By: #### L 700.6800 #### [facility] [address] [place], [address] Protein Test strip Ql (U)Ord ered By: Deb Jeffers on 08-07-2024 Protein Ql (U) 30 mg/dl High Negative [facility] Prothrombin Time w/INRon INR Coag (PPP) [Relative time] 1.2 {INR} Normal [facility] Comment on above: Performed By: #### L 9000.0810 #### [facility] [address] [place], [address] PT Coag (PPP) [Time] 15.2 s High 11.7-14.[address] [facility] Comment on above: Performed By: #### L 9000.0810 #### [facility] [address] [place], [address] Urinalysis, Completeon 08-07 RBC 5-10 SEEN Normal 0-5 [facility] Comment on above: Order Comment: COLOR OF URINE MAY AFFECT DIPSTICK RESULTS.CRITICAL VALUE CALLED TO MINDY NORTON08/07/24 1829 Renae Lollo.RESULTS READ BACK BY SAME.CLEAN CATCH Performed By: #### L 9000.0810 #### [facility] [address] [place], [address] WBC 10-25 SEEN Normal 0-5 [facility] Comment on above: Order Comment: COLOR OF URINE MAY AFFECT DIPSTICK RESULTS.CRITICAL VALUE CALLED TO MINDY NORTON08/07/24 1829 Renae Lollo.RESULTS READ BACK BY SAME.CLEAN CATCH Performed By: #### L 9000.0810 #### [facility] [address] [place], [address] BACTERIA 1+ /hpf Normal None Seen [facility] Comment on above: Order Comment: COLOR OF URINE MAY AFFECT DIPSTICK RESULTS.CRITICAL VALUE CALLED TO MINDY [facility]08/07/24 1829 Renae Lollo.RESULTS READ BACK BY SAME.CLEAN CATCH Performed By: #### L 9000.0810 #### [facility] [address] [place], [address] CAST,FINE GRAN 0-5 SEEN Normal 0-5 [facility] Comment on above: Order Comment: COLOR OF URINE MAY AFFECT DIPSTICK RESULTS.CRITICAL VALUE CALLED TO MINDY [facility]08/07/24 1829 Renae Lollo.RESULTS READ BACK BY SAME.CLEAN CATCH Performed By: #### L 9000.0810 #### [facility] [address] [place], [address] EPI,SQUAMOUS 10-25 SEEN Normal 5-10 [facility] Comment on above: Order Comment: COLOR OF URINE MAY AFFECT DIPSTICK RESULTS.CRITICAL VALUE CALLED TO MINDY [facility]08/07/24 1829 Renae Lollo.RESULTS READ BACK BY SAME.CLEAN CATCH Performed By: #### L 9000.0810 #### [facility] [address] [place], [address] Mucus Ql (Urine sed) [address] [facility] Comment on above: Order Comment: COLOR OF URINE MAY AFFECT DIPSTICK RESULTS.CRITICAL VALUE CALLED TO MINDY [facility]08/07/24 1829 Renae Lollo.RESULTS READ BACK BY SAME.CLEAN CATCH Performed By: #### L 9000.0810 #### [facility] [address] [place], [address] Urine blood detectionOrdered By: Deb Jeffers on 08-07-2024 Urine Occult Blood 150 /ul High Negative [facility] Urine clarityOrdered By: Kiara Jeffers on 08-07-2024 Clarity (U) Sl. Cloudy Clear [facility] Urine color determinationOrd ered By: Deb Jeffers on 08-07-2024 Color (U) Ainsley Yellow [facility] Urine leukocyte esterase det ection by dipstickOrdered By: Deb Jeffers on 08-07-2024 Leukocyte esterase Test strip Ql (U) 25 /ul High Negative [facility] Urine pHOrdered By: Deb Jeffers on 08-07-2024 pH (U) 6.0 [pH] 5.0 - 8.0 [facility] Urine sediment bacteria coun t by microscopy (number/high power field)Ordered By: Deb Jeffers on 08-07-2024 Bacteria LM.HPF (Urine sed) [#/Area] 1 /[HPF] None Seen [facility] Urine specific gravity measu rementOrdered By: Deb Jeffers on 08-07-2024 Specific gravity (U) [Rel density] 1.015 1.002-1.030 [facility] Urobilinogen Ql (U)Ordered B y: Deb Jeffers on 08-07-2024 Urobilinogen (U) [Mass/Vol] 4 mg/dL High Normal [facility] Venous Blood Gason 5 Blood Gas Type DM Normal [facility] Comment on above: Performed By: #### L 9000.0810 #### [facility] [address] [facility] [place], [address] CO2 [Moles/Vol] 18 mmol/L Low 23-33 [facility] Comment on above: Performed By: #### L 9000.0810 #### [facility] [address] [place], [address] HCO3 (Bld) [Moles/Vol] 17 mmol/L Low 22-26 [facility] Comment on above: Performed By: #### L 9000.0810 #### [facility] [address] [place], [address] O2 Delivery Dev Not entered Normal [facility] Comment on above: Performed By: #### L 9000.0810 #### [facility] [address] [place], [address] Read Back By Yes [facility] Comment on above: Performed By: #### L 9000.0810 #### [facility] [address] [place], [address] BLACK [facility] Comment on above: Performed By: #### L 9000.0810 #### [facility] [address] [place], [address] SITE Not entered [facility] Comment on above: Performed By: #### L 9000.0810 #### [facility] [address] [place], [address] Time Given 10:32:32 [facility] Comment on above: Performed By: #### L 9000.0810 #### [facility] [address] [place], [address] VBG BE -9 mmol/L Low -1.0-3.5 [facility] Comment on above: Performed By: #### L 9000.0810 #### [facility] [address] [place], [address] VBG pCO2 33.8 mmHg Low 41-51 [facility] Comment on above: Performed By: #### L 9000.0810 #### [facility] [address] [place], [address] VBG pH 7.31 Low 7.32-7.42 [facility] Comment on above: Performed By: #### L 9000.0810 #### [facility] [address] [place], [address] VBG PO2 20 mmHg Low 25-40 [facility] Comment on above: Performed By: #### L 9000.0810 #### [facility] [address] [place], [address] VBG SO2 28 Low 50-70 [facility] Comment on above: Performed By: #### L 9000.0810 #### [facility] [address] [place], [place], [address] Venous blood bicarbonate margarita surementOrdered By: Maldonado Black on 08-07-2024 HCO3 (Bld) [Moles/Vol] 17 mmol/L Low 22-26 [facility] Venous blood oxygen saturati on measurementOrdered By: Maldonado Black on 08-07-2024 Oxygen saturation in Blood 28 % Low 50-70 [facility] White blood cell countOrdere d By: Deb Jeffers on 08-07-2024 Urine WBC 10-25 SEEN /hpf 0-5 [facility] pH (BldV)Ordered By: Maldonado Black on 08-07-2024 Venous Blood pH 7.31 Low 7.32-7.42 [facility] Office Visit Reporton [address] 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, [address] Absolute Neut 6.1 X10 3/uL Normal 2.0-7.7 [facility] Comment on above: Performed By: #### L 500.2500, L500.3400, L501.2450, L100.0100 #### [facility] [address] [place], [address] Basophils/100 WBC (Bld) 0.5 % Normal 0-1 [facility] Comment on above: Performed By: #### L 500.2500, L500.3400, L501.2450, L100.0100 #### [facility] [address] [place], [address] Eosinophils/100 WBC (Bld) 3.1 % Normal 0-5 [facility] Comment on above: Performed By: #### L 500.2500, L500.3400, L501.2450, L100.0100 #### [facility] [address] [place], [address] Erythrocyte distribution width (RBC) [Ratio] 15.1 % High 11.6-14.6 [facility] Comment on above: Performed By: #### L 500.2500, L500.3400, L501.2450, L100.0100 #### [facility] [address] [place], [address] Hematocrit (Bld) [Volume fraction] 41.3 % Normal 37-47 [facility] Comment on above: Performed By: #### L 500.2500, L500.3400, L501.2450, L100.0100 #### [facility] [address] [place], [address] Hemoglobin (Bld) [Mass/Vol] 12.8 g/dL Normal 12.0-15.0 [facility] Comment on above: Performed By: #### L 500.2500, L500.3400, L501.2450, L100.0100 #### [facility] [address] [place], [address] IG% 0.400 Normal 0.0-0.9 [facility] Comment on above: Result Comment: IG% - Immature Granulocytes (promyelocytes, myelocytes and metamyelocytes) > 1% indicates that a LEFT SHIFT is Present. Performed By: #### L 500.2500, L500.3400, L501.2450, L100.0100 #### [facility] [address] [place], [address] Lymphocytes/100 WBC (Bld) 25.2 % Normal 19-41 [facility] Comment on above: Performed By: #### L 500.2500, L500.3400, L501.2450, L100.0100 #### [facility] [address] [place], [address] MCH (RBC) [Entitic mass] 27.1 pg Normal 27.0-32.0 [facility] Comment on above: Performed By: #### L 500.2500, L500.3400, L501.2450, L100.0100 #### [facility] [address] [place], [address] MCHC (RBC) [Mass/Vol] 31.0 g/dL Low 32-[address] [facility] Comment on above: Performed By: #### L 500.2500, L500.3400, L501.2450, L100.0100 #### [facility] [address] [place], [address] MCV (RBC) [Entitic vol] 87.3 fL Normal 81-99 [facility] Comment on above: Performed By: #### L 500.2500, L500.3400, L501.2450, L100.0100 #### [facility] [address] [place], [address] Monocytes/100 WBC (Bld) 6.8 % Normal 0-10 [facility] Comment on above: Performed By: #### L 500.2500, L500.3400, L501.2450, L100.0100 #### [facility] [address] [place], [address] Neutrophils/100 WBC (Bld) 64.0 % Normal 47-70 [facility] Comment on above: Performed By: #### L 500.2500, L500.3400, L501.2450, L100.0100 #### [facility] [address] [place], [address] Nucleated RBC (Bld) [#/Vol] 0 10*3/uL Normal 0-5 [facility] Comment on above: Performed By: #### L 500.2500, L500.3400, L501.2450, L100.0100 #### [facility] [address] [place], [address] Platelet mean volume (Bld) [Entitic vol] 9.5 fL Normal 6.2-12.0 [facility] Comment on above: Performed By: #### L 500.2500, L500.3400, L501.2450, L100.0100 #### [facility] [address] [place], [address] Platelets (Bld) [#/Vol] 363 10*3/uL Normal 150-450 [facility] Comment on above: Performed By: #### L 500.2500, L500.3400, L501.2450, L100.0100 #### [facility] [address] [place], [address] RBC (Bld) [#/Vol] 4.73 10*6/uL Normal 4.2-5.4 [facility] Comment on above: Performed By: #### L 500.2500, L500.3400, L501.2450, L100.0100 #### [facility] [address] [place], [address] RDW SD 48.7 fl High 35.1-43.9 [facility] Comment on above: Performed By: #### L 500.2500, L500.3400, L501.2450, L100.0100 #### [facility] [address] [place], [address] WBC (Bld) [#/Vol] 9.6 10*3/uL Normal 4.4-11.0 [facility] Comment on above: Performed By: #### L 500.2500, L500.3400, L501.2450, L100.0100 #### [facility] [address] [place], [address] Comprehensive Metabolic Prof [facility] 03-09-2024 Albumin [Mass/Vol] 3.7 g/dL Normal 3.2-5.0 [facility] Comment on above: Performed By: #### L 500.2500, L500.3400, L501.2450, L100.0100 #### [facility] [address] [place], [address] Albumin/Globulin [Mass ratio] 0.8 {ratio} Low 0.9-2.4 [facility] Comment on above: Performed By: #### L 500.2500, L500.3400, L501.2450, L100.0100 #### [facility] [address] [place], [address] ALK P 91 U/L Normal 45-117 [facility] Comment on above: Performed By: #### L 500.2500, L500.3400, L501.2450, L100.0100 #### [facility] [address] [place], [address] ALT [Catalytic activity/Vol] 36 U/L Normal 13-56 [facility] Comment on above: Performed By: #### L 500.2500, L500.3400, L501.2450, L100.0100 #### [facility] [address] [place], [address] AST [Catalytic activity/Vol] 27 U/L Normal 15-37 [facility] Comment on above: Result Comment: Slig ht Hemolysis, Result may be falsely increased. Performed By: #### L 500.2500, L500.3400, L501.2450, L100.0100 #### [facility] [address] [place], [address] Bilirubin [Mass/Vol] 0.40 mg/dL Normal 0.20-1.[address] [facility] Comment on above: Result Comment: For patients on eltrombopag therapy, use of Dimension [place] TBIL is not recommended. Performed By: #### L 500.2500, L500.3400, L501.2450, L100.0100 #### [facility] [address] [place], [address] BUN/CRE 6.9 RATIO Low 10-20 [facility] Comment on above: Performed By: #### L 500.2500, L500.3400, L501.2450, L100.0100 #### [facility] [address] [place], [address] CA,Total 9.7 mg/dL Normal 8.5-10.1 [facility] Comment on above: Performed By: #### L 500.2500, L500.3400, L501.2450, L100.0100 #### [facility] [address] [place], [address] Chloride [Moles/Vol] 108 mmol/L High 98-[address] [facility] Comment on above: Performed By: #### L 500.2500, L500.3400, L501.2450, L100.0100 #### [facility] [address] [place], [address] CO2 [Moles/Vol] 21.0 mmol/L Normal 21.0-32.0 [facility] Comment on above: Performed By: #### L 500.2500, L500.3400, L501.2450, L100.0100 #### [facility] [address] [place], [address] Creatinine [Mass/Vol] 0.73 mg/dL Normal 0.55-1.[address] [facility] Comment on above: Result Comment: The validity of the calculated GFR GFRAA in patients over 70 years has not been determined. Clinical correlation is essential. Performed By: #### L 500.2500, L500.3400, L501.2450, L100.0100 #### [facility] [address] [place], [address] ECRCL 148.88 ml/min Normal [facility] Comment on above: Performed By: #### L 500.2500, L500.3400, L501.2450, L100.0100 #### [facility] [address] [place], [address] EST GFR - AA 125 mL/min Normal >60 [facility] Comment on above: Result Comment: Afri can Turk[place] GFR Calc Performed By: #### L 500.2500, L500.3400, L501.2450, L100.0100 #### [facility] [address] [place], [address] GAP 8 Normal 5-15 [facility] Comment on above: Performed By: #### L 500.2500, L500.3400, L501.2450, L100.0100 #### [facility] [address] [place], [address] GFR/1.73 sq M.predicted among non-blacks MDRD (S/P/Bld) [Vol rate/Area] 103 mL/min/{1.73_m2} Normal >60 [facility] Comment on above: Result Comment: Non- GFR Calc Performed By: #### L 500.2500, L500.3400, L501.2450, L100.0100 #### [facility] [address] [place], [address] Globulin (S) [Mass/Vol] 4.6 g/dL High 2.2-4.2 [facility] Comment on above: Performed By: #### L 500.2500, L500.3400, L501.2450, L100.0100 #### [facility] [address] [place], [address] Glucose [Mass/Vol] 86 mg/dL Normal 74-106 [facility] Comment on above: Performed By: #### L 500.2500, L500.3400, L501.2450, L100.0100 #### [facility] [address] [place], [address] Potassium [Moles/Vol] 3.6 mmol/L Normal 3.5-5.[address] [facility] Comment on above: Result Comment: Slig ht Hemolysis, Result may be falsely increased. Performed By: #### L 500.2500, L500.3400, L501.2450, L100.0100 #### [facility] [address] [place], [address] Sodium [Moles/Vol] 137 mmol/L Normal 136-145 [facility] Comment on above: Performed By: #### L 500.2500, L500.3400, L501.2450, L100.0100 #### [facility] [address] [place] [place], [address] T PROT 8.3 g/dL High 6.4-8.2 [facility] Comment on above: Performed By: #### L 500.2500, L500.3400, L501.2450, L100.0100 #### [facility] [address] [place] [place], [address] Urea nitrogen [Mass/Vol] 5 mg/dL Low 7-18 [facility] Comment on above: Performed By: #### L 500.2500, L500.3400, L501.2450, L100.0100 #### [facility] [address] [place] [place], [address] Emergency Department Summary on 03-09-2024 Emergency Department Summary [facility] Medical Records Department [address] [place] [address] Emergency Department Summary 03/09/24 MR#: [id number] Acct: [id number] Name: CURLY DEJESUS Rep #: [id number] : 2000 23 From: Micky Gibbs MD PCP: Care Physician,No Primary Status:REG ER Location: ED HPI History of Present Illness Chief Complaint: Nausea/Vomiting Narrative Narrative: 23-year-old female who denies significant past medical history presents with nausea with intermittent vomiting that she has had over the last few days. Additionally she states that sometimes she awakens with breast tenderness. She not currently nauseated. Her last menstrual period was 2 months ago. She has an IUD in place but usually would still get normal menses. She presents because of the intermittent nausea and vomiting, and diffuse abdominal pain that she has had over the last few days. Sometimes it is crampy in nature. She denies any dysuria or hematuria, no problems with bowel movements/no diarrhea. No fevers or chills. [facility] Medical History Abdominal pain Contact with and (suspected) exposure to other viral communicable diseases Asthma Asthma Home Medications ???Medication ???Instructions ???Recorded ???Last Taken ???Type sulfamethoxazole 800 1 tab PO BID #14 tabs 01/21/24 Unknown Rx mg-trimethoprim 160 mg tablet (Bactrim DS) omeprazole 20 mg tablet,delayed 20 mg PO DAILY #14 tabs 03/09/24 Unknown Rx release ondansetron 4 mg disintegrating 4 mg PO Q6H PRN nausea and 03/09/24 Unknown Rx tablet vomiting #12 tabs Allergy/AdvReac Type Severity Reaction Status Date / Time cat dander Allergy Mild Hives Verified 03/09/24 16:27 Family History Father Diabetes Hypertension Mother Hypertension Social History Smoking Status: Never smoker alcohol intake: never ROS ROS ED ROS Narrative Constitutional: No fever, no chills. HEENT: No sore throat. No neck pain. No loss of vision. No rhinorrhea. Cardiovascular: No chest pain. Awakens with positive breast tenderness at times. No palpitations. No pedal edema. Respiratory: No cough, no shortness of breath. Abdominal: Positive diffuse abdominal pain. Positive nausea with occasional vomiting. Usually after eating. No diarrhea or problems with bowel movements. Genitourinary: No dysuria. No hematuria. Musculoskeletal: No myalgias. No arthralgias. Neurologic: No headaches. No dizziness. No lightheadedness. Skin: No rash. No change in color. Psychiatric: No depression. No anxiety. EXAM Physical Exam Narrative Exam Narrative: Afebrile. Vital signs noted. HEENT: Normocephalic. Atraumatic. PERRL, EOMI. Neck soft and supple. No point tenderness or step off. Cardiovascular: Regular rate and rhythm. No murmurs, rubs, or gallops appreciated. Respiratory: No tachypnea. Lungs clear to auscultation bilaterally. Gastrointestinal: Abdomen soft, nontender, with normoactive bowel sounds. No rebound or guarding. No pain over McBurney's point, no pelvic pain. Negative Abdullahi sign. No tenderness in epigastrium. Neurological: Awake. Alert. Nonfocal, nonlateralizing. Skin: No rash. Normal color. No pallor. Musculoskeletal: No pedal edema. Full range of motion extremities. Const Vital Signs: 03/09/24 16:28 03/09/24 18:27 03/09/24 20:00 Temperature 98.1 F Temperature Source Temporal Pulse Rate 103 H 80 94 Respiratory Rate 18 15 18 Blood Pressure 152/78 H 138/80 H 161/82 H Blood Pressure Mean 102 99 108 Pulse Ox 100 98 98 Oxygen Delivery Method Room Air Room Air Room Air MDM MDM MDM Narrative Medical decision making narrative: Differential diagnosis includes but not limited to versus ectopic versus gastritis versus cholecystitis versus colitis. History and physical does not support the latter 2 diagnoses. She is currently not nauseated now. No feel that she requires emergent CT imaging based on her nontender abdomen. She is only having intermittent nausea and vomiting sometimes after eating. Laboratory work will be obtained in the form of CBC, CMP, and lipase to rule out a pancreatitis or choledocholithiasis/gallst one pancreatitis. Serum will also be obtained. I reviewed her laboratory work and she has normal white count 9.6, hemoglobin normal at 12.8, hematocrit 41.3, platelet count normal at 363. Chloride is slightly elevated at 108 which I think is nonspecific, normal potassium of 3.6, glucose 86 with a BUN low at 5 and creatinine 0.73. Lipase is normal at 54 so I doubt pancreatitis. Additionally, urinalysis is negative for infection. Serum test is negative. Upon repeat examination at [facility] (more content not included)... Normal [facility] Lipaseon 03-09-2024 Lipase [Catalytic activity/Vol] 54 U/L Normal 13-75 [facility] Comment on above: Result Comment: Flavia marks note: LIPASE revised reference range effective 22. New Lipase methodology. Expected to produce lower values than the previous assay method. NEW Reference Range: 13 - 75 U/L Performed By: #### L 500.2500, L500.3400, L501.2450, L100.0100 #### [facility] [address] [place], [address] ,Serum,hCG Quali.on 03-09-2024 HCG, SERUM QUAL Negative Normal [facility] Comment on above: Performed By: #### L 500.2500, L500.3400, L501.2450, L100.0100 #### [facility] [address] [place], [address] Urinalysis, Completeon 03-09 BACTERIA 0 SEEN Normal None Seen [facility] Comment on above: Order Comment: CLEAN CATCH Performed By: #### L 400.0001 #### [facility] [address] [place], [address] EPI,SQUAMOUS 0 SEEN Normal 5-10 [facility] Comment on above: Order Comment: CLEAN CATCH Performed By: #### L 400.0001 #### [facility] [address] [place], [address] Mucus Ql (Urine sed) [address] [facility] Comment on above: Order Comment: CLEAN CATCH Performed By: #### L 400.0001 #### [facility] [address] [place], [address] RBC 0 SEEN Normal 0-5 [facility] Comment on above: Order Comment: CLEAN CATCH Performed By: #### L 400.0001 #### [facility] [address] [place], [address] WBC 0 SEEN Normal 0-5 [facility] Comment on above: Order Comment: CLEAN CATCH Performed By: #### L 400.0001 #### [facility] [address] [place], [address] Absolute lymphocyte countOrd ered By: Ash Sim on 07-03-2023 Lymphocytes Auto (Unsp spec) [#/Vol] 1.68 10*3/uL 0.83-4.51 [facility] Acetaminophen level (mass/vo lume)Ordered By: Ash Sim on 07-03-2023 Acetaminophen (Unsp spec) [Mass/Vol] < 2.0 ug/mL 10.0-30.0 [facility] Basophil percentageOrdered B y: Ash Sim on 07-03-2023 Basophils/100 WBC (Bld) 1.1 % 0-1 [facility] Chloride [Moles/Vol] 111 mmol/L 98-[address] [facility] Eosinophils/100 WBC (Bld) 5.9 % 0-5 [facility] Glucose [Mass/Vol] 112 mg/dL 74-106 [facility] Comment on above: Fasting Glucose resu lt from 100 to 125 mg/dL suggests IMPAIRED HOMEOSTASIS per A.D.A. criteria. Neutrophils (Bld) [#/Vol] 2.2 10*3/uL 2.0-7.7 [facility] Neutrophils/100 WBC (Bld) 48.6 % 47-70 [facility] Potassium [Moles/Vol] 3.4 mmol/L 3.5-5.[address] [facility] Sodium [Moles/Vol] 142 mmol/L 136-145 [facility] WBC (Bld) [#/Vol] 4.5 10*3/uL 4.4-11.0 [facility] Beta hCG serum qualOrdered B y: Ash Sim on 07-03-2023 Beta HCG ( test) Ql Negative [facility] Blood erythrocytes count (nu mber/volume)Ordered By: Ash Sim on 07-03-2023 RBC (Bld) [#/Vol] 4.74 10*6/uL 4.2-5.4 [facility] Blood hemoglobin measurement (mass/volume)Ordered By: Ash Sim on 07-03-2023 Hemoglobin (Bld) [Mass/Vol] 13.0 g/dL 12.0-15.0 [facility] Blood lymphocytes/100 leukoc ytesOrdered By: Ash Sim on 07-03-2023 Lymphocytes/100 WBC (Bld) 37.0 % 19-41 [facility] Blood monocytes/100 leukocyt esOrdered By: Ash Sim on 07-03-2023 Monocytes/100 WBC (Bld) 7.0 % 0-10 [facility] Blood platelet mean volumeOr dered By: Ash Smi on 07-03-2023 Platelet mean volume (Bld) [Entitic vol] 9.3 fL 6.2-12.0 [facility] COVID-19 virus antigen assay Ordered By: Ash Sim on 07-03-2023 SARS-CoV-2 (COVID-19) Ag IA.rapid Ql (Resp) [facility] Determination of erythrocyte mean corpuscular volume (MCV)Ordered By: Ash Sim on 07-03-2023 MCV (RBC) [Entitic vol] 86.1 fL 81-99 [facility] Hematocrit Auto (Bld) [Volum e fraction]Ordered By: Ash Sim on 07-03-2023 Hematocrit (Bld) [Volume fraction] 40.8 % 37-47 [facility] - Chemistry and C hemistry - challengeOrdered By: Ash Sim on 07-03-2023 CO2 [Moles/Vol] 26.0 mmol/L 21.0-32.0 [facility] Urea nitrogen/Creatinine [Mass ratio] 7.8 mg/mg 10-20 [facility] - Drug toxicology Ordered By: Ash Sim on 07-03-2023 Amphetamines Ql (U) Negative <1000 ng/mL [facility] Benzodiazepines Ql (U) Negative < 200 ng/mL [facility] Cannabinoids Screen Ql (U) Negative < 50 ng/mL [facility] Cocaine Ql (U) Negative < 300 ng/mL [facility] Opiates Ql (U) Negative < 300 ng/mL [facility] - Hematology and Cell countsOrdered By: Ash Sim on 07-03-2023 Erythrocyte distribution width (RBC) [Entitic vol] 41.7 fL 35.1-43.9 [facility] Erythrocyte distribution width (RBC) [Ratio] 13.5 % 11.6-14.6 [facility] Immature granulocytes/100 WBC (Bld) 0.400 % 0.0-0.9 [facility] Comment on above: IG% - Immature Granu locytes (promyelocytes, myelocytes and metamyelocytes) > 1% indicates that a LEFT SHIFT is Present. MCH (RBC) [Entitic mass] 27.4 pg 27.0-32.0 [facility] Nucleated RBC/100 WBC (Bld) [Ratio] 0 % 0-5 [facility] MCHC Auto (RBC) [Mass/Vol]Or dered By: Ash Sim on 07-03-2023 MCHC (RBC) [Mass/Vol] 31.9 g/dL 32-[address] [facility] No Panel InformationOrdered By: Ash Sim on 07-03-2023 Ethyl Alcohol Level 104.0 mg/dL [facility] Comment on above: The serum:whole bloo d ethanol ratio is approximately 1.14and varies slightly with hematocrit. Medical Alcohol reference interval and critical value innon-tolerant individuals; 50 - 100 Impairment 100 Intoxication 100 - 250 Severe Poisoning 250 - 400 Deep/possible fatal coma Estimated Creatinine Clearance Calc 99.86 ml/min [facility] Estimated GFR (MDRD) Amer 98 mL/min >60 [facility] Comment on above: GFR Calc Estimated GFR (MDRD) Non-Af Amer 81 mL/min >60 [facility] Comment on above: Non- GFR Calc MDMA (Ecstasy) Screen Negative < 500 ng/mL [facility] Urine Barbiturates Screen Negative < 200 ng/mL [facility] Urine Drug Screen Comment [facility] Comment on above: CONFIRMATORY TESTING FOR ALL POSITIVE URINE DRUG SCREENRESULTS WILL ONLY BE SENT OUT UPON PHYSICIAN ORDER. VISTA Urine Drug Screen methods provide only preliminaryanalytical test results. A more specific alternate chemicalmethod must be used in order to obtain a confirmedanalytical result. Gas chromatography/mass spectrometery(GC/MS) is the preferred confirmatory method. Clinicalconsideration and professional judgement should be appliedto any drug of abuse test result, particularly whenpreliminary positive results are used. URINE TCA TESTING MUST BE ORDERED SEPARATELY. USE TESTMNEMONIC: [facility] Urine Methadone Screen Negative < 300 ng/mL [facility] Platelets bldOrdered By: Gopi Sim on 07-03-2023 Platelets (Bld) [#/Vol] 332 10*3/uL 150-450 [facility] Serum or plasma calcium cory urement (mass/volume)Ordered By: Ash Sim on 07-03-2023 Calcium [Mass/Vol] 8.9 mg/dL 8.5-10.1 [facility] Serum or plasma creatinine m easurement (mass/volume)Ordered By: Ash Sim on 07-03-2023 Creatinine [Mass/Vol] 0.90 mg/dL 0.55-1.[address] [facility] Comment on above: The validity of the calculated GFR & GFRAA in patients over 70 years has not been determined. Clinical correlation is essential. Serum or plasma salicylates measurement (mass/volume)Ordered By: Ash Sim on 07-03-2023 Salicylates [Mass/Vol] mg/dL 2.8-20.0 [facility] Serum or plasma urea nitroge n measurement (mass/volume)Ordered By: Ash Sim on 07-03-2023 Urea nitrogen [Mass/Vol] 7 mg/dL 7-18 [facility] Thin prep Papanicolaou smear with manual screeningOrdered By: Ash Sim on 07-03-2023 Thin prep Papanicolaou smear with manual screening 5 5-15 [facility] Urine phencyclidine (PCP) de tectionOrdered By: Ash Sim on 07-03-2023 Phencyclidine Ql (U) Negative < 25 ng/mL [facility] Vital Signs Date Time Vital Sign Value Performing Clinician Faci lity 02-22-2025 12:57-0400 Body temperature 99 [degF] No Primary Care Physician [facility] 02-22-2025 12:57-0400 Diastolic blood pressure 68 mm[Hg] No Primary Care Physician [facility] 02-22-2025 12:57-0400 Heart rate 135 /min No Primary Care Physician [facility] 02-22-2025 12:57-0400 Respiratory rate 18 /min No Primary Care Physician [facility] 02-22-2025 12:57-0400 SaO2% (BldA) [Mass fraction] 99 % No Primary Care Physician [facility] 02-22-2025 12:57-0400 Systolic blood pressure 110 mm[Hg] No Primary Care Physician [facility] 02-16-2025 18:54-0400 Body temperature 97.6 [degF] No Primary Care Physician [facility] 02-16-2025 18:54-0400 Diastolic blood pressure 72 mm[Hg] No Primary Care Physician [facility] 02-16-2025 18:54-0400 Heart rate 99 /min No Primary Care Physician [facility] 02-16-2025 18:54-0400 Respiratory rate 16 /min No Primary Care Physician [facility] 02-16-2025 18:54-0400 SaO2% (BldA) [Mass fraction] 98 % No Primary Care Physician [facility] 02-16-2025 18:54-0400 Systolic blood pressure 148 mm[Hg] No Primary Care Physician [facility] 02-16-2025 17:20-0400 Body height 175.26 cm No Primary Care Physician [facility] 02-16-2025 17:20-0400 Body mass index (BMI) [Ratio] 25.9 kg/m2 No Primary Care Physician [facility] 02-16-2025 17:20-0400 Body weight 79.78 kg No Primary Care Physician [facility] 10-30-2024 18:07-0400 Body temperature 98.7 [degF] No Primary Care Physician [facility] 10-30-2024 18:07-0400 Diastolic blood pressure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 she has some depression and needs help but due to finances they have not followed up with this. Crisis is going to work on placement for her and they have reassured her that this will be paid through their dollars. My independent interpretation of the EKG required by [facility] showsa normal sinus rhythm with overall rate of 95. No ectopy. No acute ST elevation or depression. NH interval, QRS duration is normal. QTc is just toward the long and but still normal at 469 ms. 07/03/232205<Electronically signed by Delano Rothman MD> Cosigner Signature (if applicable): cc: No Primary Care Physician ~* Signed HPI HPI - Psych History of Present Illness Chief Complaint: Suicidal Detail of Chief Complaint: Attempted overdose. Informant: patient Onset/Context/Timing Onset: Today and Hours Context: Sudden Onset Conflict: Family Timing: Continuous Current Severity: Mild Maximum Severity: Moderate Associated Symptoms Associated Symptoms - Psych: Positive for Depressed Specific plan (suicidal thought): Attempted overdose on ibuprofen Narrative Narrative: 23-year-old female originally from [place] and moved to [place] about 13 years ago. She was on the phone today with her mom who is in her home country her parents are retired moved back there. Patient has a history of anxiety and depression but she is currently on no medications nor does she see a counselor. She became upset and tried to overdose on a bottle of ibuprofen. She is unsure how much she took. During the event her knocked the bottle out of her hands. She denies any vomiting since she took the medication which was about anhour prior to arrival. It was an to harm herself. She denies any prior mental health admissions. Prior similar symptoms: Yes Recent Illness/Hospitalization: No PFSH PFSH Medical History Asthma Home Medications NK 07/03/23 [History Last Taken Unknown] Allergy/AdvReac Type Severity Reaction Status Date / Time cat dander Allergy Mild Hives Verified 07/03/23 10:01 Social History Smoking Status: Never smoker ROS ROS ED ROS Narrative Denies recent illness. Review of Systems ROS Unobtainable: Denies due to encephalopathy Constitutional Constitutional ED: Denies chills or fever(s) Eyes Eyes: Denies blurry vision ENT ENT ED: Denies ear pain or rhinorrhea Cardiovascular Cardiovascular: Denies chest pain or palpitations Respiratory/Chest Respiratory/Chest: Denies cough or dyspnea Gastrointestinal Gastrointestinal: Reports nausea; Denies abdominal pain, constipation, diarrhea,melena or vomiting Genitourinary Genitourinary ED: Denies dysuria or hematuria Musculoskeletal Musculoskeletal: Denies arthralgias Integumentary Denies abscess Neurologic Neurologic: Denies headache(s) Psychiatric Psychiatric: Denies anxiety or depression Endocrine Endocrinology: Denies polydipsia or polyphagia Hematologic/Lymphatic Hematologic/Lymphatic: Denies easy bleeding or easy bruising Allergic/Immunologic Allergic/Immunologic ED: Denies mouth swelling, tongue swelling or urticaria EXAM Physical Exam Narrative Exam Narrative: Well-appearing 23-year-old female. Vital signs are stable. She is afebrile. She does not look septic or toxic. Currently she is awake alert. Answering questions and following commands. She makes good eye contact. She is cooperative. HEENT exam unremarkable. Atraumatic. Pupils round reactive light. Moist mucous membranes. Neck nontender no lymphadenopathy. No trauma. Lungs clear to auscultation bilaterally. Heart tachycardic rate about 130 no murmur. Chest wall and ribs nontender. Abdomen soft nontender. Back nontender. Moving all 4 extremities. Normal range of motion. Nontender. No edema. No track freeman. No trauma. Back nontender. Neurologically she is awake and alert. Answering questions following commands. No current signs of toxidrome. Const Vital Signs: 07/03/23 09:55 Temperature 97.8 F Temperature Source Temporal Pulse Rate 144 H Respiratory Rate 16 Blood Pressure 117/106 H Blood Pressure Mean 109 Pulse Ox 100 Oxygen Delivery Method Room Air Positive well nourished and well developed; Negative for obese, cachectic, contractures or unkempt General Appearance ED: well developed and NAD; Negative for unkempt, cachectic, contractures or pallor Nutritional Appearance: Negative for cachectic or obese HEENT Reports moist mucous membranes normocephalic and atraumatic; Negative for trauma or tenderness Eyes PERRL and EOMs intact bilaterally General Eye ED: Negative for pale conjunctiva, scleral icterus or other Neck no lymphadenopathy, supple and no JVD General: Negative for tenderness Resp normal respiratory effort and clear to auscultation bilaterally Effort and Inspection: Negative for retractions Auscultation: Negative for rales, rhonchi or wheezes Cardio S1 normal heart sound, S2 normal heart sound and no murmurs Palpation: Negative for other Rate: tachycardic; Negative for regular rate or bradycardia Rhythm: regular rhythm; Negative for abnormal rhythm GI non-tender, non-distended and no masses Inspection: Negative for abdominal distention Auscultation: normoactive bowel sounds Palpation: soft; Negative for tender or guarding Back/Spine no CVA tenderness General Back: Negative for CVA tenderness Cervical Spine: Negative for cervical spine tenderness Thoracic Spine / Upper Back: Negative for thoracic spinal tenderness Lumbar Spine / Lower Back: Negative for lumbar spinal tenderness Coccyx: Negative for other Extremity normal to inspection General Extremety ED: Negative for edema or tenderness General Extremity: Negative for edema Neuro oriented x3, CN's II-XII intact bilaterally and no sensory deficits noted Sensorium / Orientation: alert, oriented to person, oriented to place and oriented to time; Negative for orientation impaired, confused or lethargic Motor Exam: strength 5/5 throughout Psych mental status grossly normal, thought process normal, cooperative, affect normal, speech normal, activity/motor behavior normal and denies hallucinations;Negative for denies suicidal ideation Appearance: grossly normal; Negative for unkempt Attitude: calm, engaged, No paranoid, No withdrawn, No bizarre, No uncooperative, No evasive, No guarded, No belligerent, No agitated, No aggressive and No hostile Activity / Motor Behavior: appropriate eye contact Speech: normal speech Mood & Affect: depressed Thought Process: normal thought process Thought Content: normal thought content Attention / Concentration: attention grossly intact Memory / Cognition: memory grossly intact Insight: insight good Judgement: judgement good Skin General Skin Exam: Negative for jaundice or pallor Lesions: no lesions Rashes: no rashes Trauma: Negative for abrasion Wounds: Negative for amputation MDM MDM MDM Narrative Medical decision making narrative: 23-year-old female suicide attempt by overdose. Will 6 to be evaluated by our executive secretary social welfare and go through ED mental health protocol labs. Repeat exam patient is doing well at 4:20 PM. Repeat alcohol level will be obtained. Still awaiting crisis evaluation. Patient is turned over to the afternoon physician for final disposition. History & Record Review Discussion w/independent historian: Patient Lab Data Attestation: I reviewed the patient's lab results. Lab results narrative: BC normal. White count of 4. H&H 13 and 40. Platelets 332. Electrolytes show potassium of 3.4. Gap of 5. Normal BUN and creatinine is 0.9. Glucose 112. Talk screen negative. COVID-negative. Salicylate level negative. Tylenol level negative. Alcohol level 200. Labs: Laboratory Results - last 24 hr 07/03/23 10:40 WBC 4.5 RBC 4.74 Hgb 13.0 Hct 40.8 MCV 86.1 MCH 27.4 MCHC 31.9 L RDW Std Deviation 41.7 RDW Coeff of Alethea 13.5 Plt Count 332 MPV 9.3 Immature Gran % (Auto) 0.400 Neut % (Auto) 48.6 Lymph % (Auto) 37.0 Sweet Grass % (Auto) 7.0 Eos % (Auto) 5.9 H Baso % (Auto) 1.1 H Absolute Neuts (auto) 2.2 Absolute Lymphs (auto) 1.68 Nucleated RBC % 0 Sodium 142 Potassium 3.4 L Chloride 111 H Carbon Dioxide 26.0 Anion Gap 5 BUN 7 Creatinine 0.90 Estim Creat Clear Calc 99.86 Est GFR (MDRD) Af Amer 98 Est GFR (MDRD) Non-Af 81 BUN/Creatinine Ratio 7.8 L Glucose 112 H Calcium 8.9 Serum , Qual NEGATIVE Salicylates < 1.7 L Urine Opiates Screen NEGATIVE Urine Methadone Screen NEGATIVE Acetaminophen < 2.0 L Ur Barbiturates Screen NEGATIVE Ur Phencyclidine Scrn NEGATIVE Ur Amphetamines Screen NEGATIVE MDMA (Ecstasy) Screen NEGATIVE U Benzodiazepines Scrn NEGATIVE Urine Cocaine Screen NEGATIVE U Cannabinoids Screen NEGATIVE Ur Drug Screen Comment Ethyl Alcohol 200.0 Discharge Plan Triage Chief Complaint: Suicidal ED Provider: Ash Sim Dx/Rx/DC Orders Clinical Impression: Suicide attempt by drug overdose, Suicidal ideation, Alcohol intoxication Prescriptions: No Action NK Primary Care Provider: Care Physician,No Primary Referrals: Care Physician,No Primary [Primary Care Provider] - What to do if you have Problems For any increased pain, shortness of breath, bleeding, nausea or vomiting, chestpain, or any unexpected problems, contact your Primary Care Provider. Call [facility] ([phone]) or report to the closest Emergency Room. Call 911 if necessary. 07/03/232 <Electronically signed by Ash Sim MD> Cosigner Signature (if applicable): CC: No Primary Care Physician ~ Signed [facility] Work Phone: Evaluation note Note Date & Type Note Facility Evaluation note No assessment information availa ble [facility] Work Phone: Hospital Discharge instructions Note Date & Type Note Facility Hospital Discharge instructions Additional Instructions Wear your wrist brace for stabilization to help reduce pain and speed healing. Take Tylenol and/or Motrin for pain control. Adhere to the work restrictions to allow for proper healing to occur and return to the ER should you have any further concerns [facility] Work Phone: Hospital Discharge instructions Note Date & Type Note Facility Hospital Discharge instructions Additional Instructions Zofran as needed for nausea. You may swallow or let it dissolve on your tongue. Plenty of fluids and rest. Water, 7-Up and Gatorade. Increase your diet slowly as tolerated. Follow-up with local primary care physician or ensure you are improving or return if worse. [facility] Work Phone: Reason for referral (narrative) Note Date & Type Note Facility Reason for referral (narrative) No reason for referral information available [facility] Work Phone: Chief Complaint and Reason for Visit Chief Complaint SUICIDAL upper extremity Chief Complaint SUICIDAL Chief Complaint Admit Date VOMITING August 07, 2024 2 :55pm TRANSAMINITIS INTRACTABLE NAUSEA August 08, 2024 10:43am TRANSAMINITIS INTRACTABLE NAUSEA August 09, 2024 11:08am TRANSAMINITIS INTRACTABLE NAUSEA August 09, 2024 12:59pm TRANSAMINITIS INTRACTABLE NAUSEA August 10, 2024 10:13am TRANSAMINITIS INTRACTABLE NAUSEA August 10, 2024 6:22pm TRANSAMINITIS INTRACTABLE NAUSEA August 11, 2024 7:57am TRANSAMINITIS INTRACTABLE NAUSEA August 11, 2024 11:06am TRANSAMINITIS INTRACTABLE NAUSEA August 12, 2024 9:32am TRANSAMINITIS INTRACTABLE NAUSEA August 12, 2024 3:37pm Nausea vomiting October 30, 2024 4:0 1pm Reason for Visit Admit Date Abdominal pain August 09, 2024 1 2:59pm Acute dehydration August 09, 2024 1 2:59pm GELY (acute kidney injury) August 09, 2024 12:59pm Metabolic acidosis August 09, 2024 1 2:59pm Vomiting August 09, 2024 1 2:59pm Erythrocytosis August 09, 2024 1 2:59pm Hyperbilirubinemia August 09, 2024 1 2:59pm Leukocytosis August 09, 2024 1 2:59pm Transaminitis August 09, 2024 1 2:59pm Hepatitis August 09, 2024 1 2:59pm Chief Complaint Admit Date Nausea vomiting October 30, 2024 4:0 1pm finger injury February 16, 2025 5:19 pm Chief Complaint Admit Date Nausea vomiting October 30, 2024 4:0 1pm finger injury February 16, 2025 5:19 pm R HAND 5TH FINGER SPRAIN (ER)/ [place] [employer] February 22, 2025 12:56pm pain- RIGHT HAND/ WORKERS COMP February 1:20pm Advance Directives Advance Directive Response Recorded Date/ Time Living Will No September 10, 2 024 11:35pm Power of [employer] No September 10, 2023 11:35pm Advance Directive Response Recorded Date/ Time Living Will No July 03, 2 023 10:02am Power of [employer] No July 03, 2023 10:02am Advance Directive Response Recorded Date/ Time Living Will No August 07 5:24pm Do you have a Healthcare Power of [employer]? No August 07, 2024 5:24pm Living Will No October 30, 2024 4:06pm Do you have a Healthcare Power of [employer]? No October 30, 2024 4:06pm Advance Directive Response Recorded Date/ Time Living Will No October 30, 2024 4:06pm Do you have a Healthcare Power of [employer]? No October 30, 2024 4:06pm Do you have a Healthcare Power of [employer]? No February 16, 2025 5:21pm Family History Relationship Condition Age at Onset Recorded Date/T andrea father Diabetes mellitus Unknown Hypertension Unknown mother Hypertension Unknown Summary Purpose Additional Source Comments Care Teams (unrecognized sec tion and content) Team Status: Active Member Role Status Dates No Primary Care Physician Primary Care Provider Active Team Status: Active Member Role Status Dates No Primary Care Physician Primary Care Provider Active Start: August 07, 2024 Dr. Maldonado Black DO Emergency Provider Active Start: August 07, 2024 Dr. Deb Jeffers DO Attending Provider Active S tart: August 07, 2024 Team Status: Active Member Role Status Dates No Primary Care Physician Primary Care Provider Active Start: August 08, 2024 Dr. Maldonado Black DO Emergency Provider Active Start: August 08, 2024 Dr. Deb Jeffers , Admit Provider Active Start : August 08, 2024 Dr. Deb Jeffers , Other Provider Active Start : August 08, 2024 Dr. Anam Delgado MD Attending Provider Active Start: August 08, 2024 Dr. Anam Delgado MD Other Provider Active Start: August 08, 2024 Team Status: Active Member Role Status Dates No Primary Care Physician Primary Care Provider Active Start: August 09, 2024 Dr. Maldonado Black DO Emergency Provider Active Start: August 09, 2024 Dr. Deb Jeffers DO Admit Provider Active Start : August 09, 2024 Dr. Deb Jeffers DO Other Provider Active Start : August 09, 2024 Dr. Irasema Mcdonough MD Attending Provider Active Start: August 09, 2024 Dr. Irasema Mcdonough MD Other Provider Active St art: August 09, 2024 Dr. Anam Delgado MD Other Provider Active Start: August 09, 2024 Team Status: Inactive Member Role Status Dates No Primary Care Physician Primary Care Provider Active Start: August 09, 2024 End: August 12, 2024 Dr. Maldonado Black DO Emergency Provider Active Start: August 09, 2024 End: August 12, 2024 Dr. Deb Jeffers DO Admit Provider Active Start : August 09, 2024 End: August 12, 2024 Dr. Deb Jeffers DO Other Provider Active Start : August 09, 2024 End: August 12, 2024 Dr. Irasema Mcdonough MD Attending Provider Active Start: August 09, 2024 End: August 12, 2024 Dr. Anam Delgado MD Other Provider Active Start: August 09, 2024 End: August 12, 2024 Team Status: Active Member Role Status Dates No Primary Care Physician Primary Care Provider Active Start: August 10, 2024 Dr. Maldonado Black DO Emergency Provider Active Start: August 10, 2024 Dr. Deb Jeffers DO Admit Provider Active Start : August 10, 2024 Dr. Deb Jeffers DO Other Provider Active Start : August 10, 2024 Dr. Iraseam Mcdonough MD Attending Provider Active Start: August 10, 2024 Dr. Irasema Mcdonough MD Other Provider Active St art: August 10, 2024 Dr. Anam Delgado MD Other Provider Active Start: August 10, 2024 Team Status: Active Member Role Status Dates No Primary Care Physician Primary Care Provider Active Start: August 10, 2024 Dr. Maldonado Black DO Emergency Provider Active Start: August 10, 2024 Dr. Deb Jeffers DO Admit Provider Active Start : August 10, 2024 Dr. Deb Jeffers DO Other Provider Active Start : August 10, 2024 Dr. Irasema Mcdonough MD Referring Provider Active Start: August 10, 2024 Dr. Irasema Mcdonough MD Other Provider Active St art: August 10, 2024 Dr. Anam Delgado MD Other Provider Active Start: August 10, 2024 Dr. Roman Griffin DO Attending Provider Active Start: August 10, 2024 Team Status: Active Member Role Status Dates No Primary Care Physician Primary Care Provider Active Start: August 11, 2024 Dr. Maldonado Black DO Emergency Provider Active Start: August 11, 2024 Dr. Deb Jeffers DO Admit Provider Active Start : August 11, 2024 Dr. Deb Jeffers DO Other Provider Active Start : August 11, 2024 Dr. Irasema Mcdonough MD Referring Provider Active Start: August 11, 2024 Dr. Irasema Mcdonough MD Other Provider Active St art: August 11, 2024 Dr. Anam Delgado MD Other Provider Active Start: August 11, 2024 Dr. Roman Griffin DO Attending Provider Active Start: August 11, 2024 Team Status: Active Member Role Status Dates No Primary Care Physician Primary Care Provider Active Start: August 11, 2024 Dr. Maldonado Black DO Emergency Provider Active Start: August 11, 2024 Dr. Deb Jeffers DO Admit Provider Active Start : August 11, 2024 Dr. Deb Jeffers DO Other Provider Active Start : August 11, 2024 Dr. Irasema Mcdonough MD Attending Provider Active Start: August 11, 2024 Dr. Irasema Mcdonough MD Other Provider Active St art: August 11, 2024 Dr. Anam Delgado MD Other Provider Active Start: August 11, 2024 Team Status: Active Member Role Status Dates No Primary Care Physician Primary Care Provider Active Start: August 12, 2024 Dr. Maldonado Black DO Emergency Provider Active Start: August 12, 2024 Dr. Deb Jeffers DO Admit Provider Active Start : August 12, 2024 Dr. Deb Jeffers DO Other Provider Active Start : August 12, 2024 Dr. Irasema Mcdonough MD Referring Provider Active Start: August 12, 2024 Dr. Irasema Mcdonough MD Other Provider Active St art: August 12, 2024 Dr. Anam Delgado MD Other Provider Active Start: August 12, 2024 Dr. Roman Griffin DO Attending Provider Active Start: August 12, 2024 Team Status: Active Member Role Status Dates No Primary Care Physician Primary Care Provider Active Start: August 12, 2024 Dr. Maldonado Black DO Emergency Provider Active Start: August 12, 2024 Dr. Deb Jeffers DO Admit Provider Active Start : August 12, 2024 Dr. Deb Jeffers DO Other Provider Active Start : August 12, 2024 Dr. Irasema Mcdonough MD Attending Provider Active Start: August 12, 2024 Dr. Irasema Mcdonough MD Other Provider Active St art: August 12, 2024 Dr. Anam Delgado MD Other Provider Active Start: August 12, 2024 Team Status: Inactive Member Role Status Dates No Primary Care Physician Primary Care Provider Active Start: October 30, 2024 End: October 30, 2024 Dr. Ash Sim MD Emergency Provider Active S tart: October 30, 2024 End: October 30, 2024 Team Status: Inactive Member Role Status Dates Dr. Ash Sim MD Attending Provider, Emergency Pro vider Active No Primary Care Physician Primary Care Provider Active Team Status: Inactive Member Role Status Dates No Primary Care Physician Primary Care Provider Active Dr. Benson Mehta DO Emergency Provider Active Team Status: Inactive Member Role Status Dates Dr. Ash Sim MD Emergency Provider Active No Primary Care Physician Primary Care Provider Active Team Status: Active Member Role/Relationship Status Dates No Primary Care Physician Primary Care Provider Active Team Status: Inactive Member Role/Relationship Status Dates No Primary Care Physician Primary Care Provider Active Start: October 30, 2024 End: October 30, 2024 Dr. Ash Sim MD Attending Provider Active S tart: October 30, 2024 End: October 30, 2024 Dr. Ash Sim MD Emergency Provider Active S tart: October 30, 2024 End: October 30, 2024 Team Status: Inactive Member Role/Relationship Status Dates No Primary Care Physician Primary Care Provider Active Start: February 16, 2025 End: February 16, 2025 Dr. Alireza Montalvo , DO Emergency Provider Active Start: February 16, 2025 End: February 16, 2025 Team Status: Inactive Member Role/Relationship Status Dates No Primary Care Physician Primary Care Provider Active Start: February 22, 2025 End: February 22, 2025 No Primary Care Physician Referring Provider Active Start: February 22, 2025 End: February 22, 2025 CHANDLER Smith Attending Provider Active Start: February 22, 2025 End: February 22, 2025 Team Status: Active Member Role/Relationship Status Dates No Primary Care Physician Primary Care Provider Active Start: February 22, 2025 CHANDLER Smith Attending Provider Active Start: February 22, 2025 CHANDLER Smith Referring Provider Active Start: February 22, 2025 Goals (unrecognized section and content) Goals may be documented in a n alternate sectionGoals may be documented in an alternate sectionGoals may be documented in an alternate sectionGoals may be documented in an alternate section INFORMATION SOURCE (unrecogn ized section and content) DATE CREATED AUTHOR 02/19/2025 [facility] FOR RECORDS PERTAINING TO PATIENTS WHO ARE OR HAVE BEEN ENROLLED IN A CHEMICAL DEPENDENCY/SUBSTANCEABUSE PROGRAM, SOME INFORMATION MAY BE OMITTED. This clinical summary was aggregated from multiple sources. Caution should be exercised in using it in the provision of clinical care. This summary normalizes information from multiple sources, and as a consequence, information in this document may materially change the coding, format and clinical context of patient data. In addition, data may be omitted in some cases. CLINICAL DECISIONS SHOULD BE BASED ON THE PRIMARY CLINICAL RECORDS. [employer] provides no warranty or guarantee of the accuracy or completeness of information in this document.
== END | disposition home or self-care (01) ==
LOC: MTRAD 13:21
PROVIDERS: Referring Provider Physician Assistant; Visit Provider Physician Assistant
DX: S63.616A Unspecified sprain of right little finger, initial encounter (principal); M79.641 Pain in right hand
CPT/HCPCS: 73130